=== PATIENT | female | born 1970 | race Caucasian/White ===

== ENCOUNTER 2017-09-24 18:07 | Emergency (ER) | payer MEDICAID ==
[~2017-09-24] VITALS: Ht 170.2 cm; Wt 106.8 kg
[~2017-09-24 18:07] MED LIST: BAC10T PO; CETI-85 PO; CLIN-79 PO; DOCU100C40 PO; ESCI20TA29 PO; EST1T PO; ESZO3TAB44 PO; KETO10TA2 PO; LEVO75TA57 PO; LORA1TAB PO; MSC30T PO; MULT-785 PO; NORCO10T PO; PENI500T2 PO; RISP0.5T38 PO; [UNRECOGNIZED DRUG - CODE] PO
[2017-09-24] MEDS ORDERED: ketorolac trometh inj. 60 MG/2 ML VIAL IM ONE (19:25)
[2017-09-24] MEDS ORDERED: ondansetron/PF 4mg/2ml inj IM ONE (19:25)
[2017-09-24] MEDS ORDERED: diphenhydrAMINE 50 mg/ml inj IM ONE (19:25)
[2017-09-24 19:50] VITALS: BP 163/100
== END 2017-09-24 19:51 | disposition home or self-care (01) ==
LOC: ER 18:08
DX: G43.909 Migraine, unspecified, not intractable, without status migrainosus (principal); G89.29 Other chronic pain; J45.909 Unspecified asthma, uncomplicated; K21.9 Gastro-esophageal reflux disease without esophagitis; E03.9 Hypothyroidism, unspecified; Z88.8 Allergy status to other drugs, medicaments and biological substances
CPT/HCPCS: 96372; 99284; J1200; J1885; J2405

== ENCOUNTER 2017-10-07 16:59 | Emergency (ER) | payer MEDICAID ==
[~2017-10-07] VITALS: Ht 170.2 cm; Wt 104.7 kg
[~2017-10-07 16:59] MED LIST changes: -PENI500T2 PO
[2017-10-07] MEDS: ketorolac trometh. 30mg/ml inj. IM ONE (20:30)
[2017-10-07] MEDS: ondansetron/PF 4mg/2ml inj IM ONE (20:30)
[2017-10-07] MEDS: diphenhydrAMINE 50 mg/ml inj IM ONE (20:31)
[2017-10-07 21:19] VITALS: BP 123/74
== END 2017-10-07 21:22 | disposition home or self-care (01) ==
LOC: ER 17:00
DX: G43.909 Migraine, unspecified, not intractable, without status migrainosus (principal); M54.2 Cervicalgia; G89.29 Other chronic pain; J45.909 Unspecified asthma, uncomplicated; K21.9 Gastro-esophageal reflux disease without esophagitis; E03.9 Hypothyroidism, unspecified; Z98.890 Other specified postprocedural states; Z79.899 Other long term (current) drug therapy; Z88.8 Allergy status to other drugs, medicaments and biological substances
CPT/HCPCS: 96372; 99284; J1200; J1885; J2405

== ENCOUNTER 2017-10-27 15:56 | Emergency (ER) | payer MEDICAID ==
[~2017-10-27] VITALS: Ht 170.2 cm; Wt 106.0 kg
[2017-10-27] MEDS ORDERED: normal saline 1000ML IV soln IVB ONE (16:05)
[2017-10-27] MEDS ORDERED: ondansetron/PF 4mg/2ml inj IV ONE (16:05)
[2017-10-27] MEDS ORDERED: LORazepam 2 mg/ml vial IV ONE (16:05)
[2017-10-27] MEDS ORDERED: ketorolac trometh. 30mg/ml inj. IV ONE (16:05)
[2017-10-27] MEDS ORDERED: diphenhydrAMINE 50 mg/ml inj IV ONE (16:05)
[2017-10-27 19:50] VITALS: BP 126/88
== END 2017-10-27 19:59 | disposition home or self-care (01) ==
LOC: ER 15:57
DX: G43.909 Migraine, unspecified, not intractable, without status migrainosus (principal); G89.29 Other chronic pain; M79.7 Fibromyalgia; J45.909 Unspecified asthma, uncomplicated; K21.9 Gastro-esophageal reflux disease without esophagitis; E03.9 Hypothyroidism, unspecified; Z90.49 Acquired absence of other specified parts of digestive tract; Z56.0 Unemployment, unspecified; Z98.890 Other specified postprocedural states; Z79.899 Other long term (current) drug therapy; Z88.6 Allergy status to analgesic agent; Z88.8 Allergy status to other drugs, medicaments and biological substances
CPT/HCPCS: 96374; 96375; 99284; J1200; J1885; J2060; J2405; J7030

== ENCOUNTER 2017-12-01 16:27 | Emergency (ER) | payer MEDICAID ==
[~2017-12-01] VITALS: Ht 170.2 cm; Wt 104.5 kg
[2017-12-01] MEDS ORDERED: diphenhydrAMINE 50 mg/ml inj IM ONE (18:35)
[2017-12-01] MEDS ORDERED: ondansetron/PF 4mg/2ml inj IM ONE (18:35)
[2017-12-01] MEDS ORDERED: ketorolac trometh inj. 60 MG/2 ML VIAL IM ONE (18:35)
[2017-12-01 21:41] VITALS: BP 181/90
== END 2017-12-01 19:38 | disposition home or self-care (01) ==
LOC: ER 16:28
DX: G43.909 Migraine, unspecified, not intractable, without status migrainosus (principal); G89.4 Chronic pain syndrome; M79.7 Fibromyalgia; J45.909 Unspecified asthma, uncomplicated; K21.9 Gastro-esophageal reflux disease without esophagitis; E03.9 Hypothyroidism, unspecified; F17.210 Nicotine dependence, cigarettes, uncomplicated; Z56.0 Unemployment, unspecified; Z90.49 Acquired absence of other specified parts of digestive tract; Z90.710 Acquired absence of both cervix and uterus; Z98.890 Other specified postprocedural states; Z88.8 Allergy status to other drugs, medicaments and biological substances; Z88.6 Allergy status to analgesic agent; Z79.899 Other long term (current) drug therapy
CPT/HCPCS: 96372; 99284; J1200; J1885; J2405

== ENCOUNTER 2017-12-17 11:46 | Emergency (ER) | payer MEDICAID ==
[~2017-12-17] VITALS: Ht 170.2 cm; Wt 94.5 kg
[2017-12-17 11:58] VITALS: BP 126/85
[2017-12-17] MEDS ORDERED: ketorolac trometh inj. 60 MG/2 ML VIAL IM ONE (13:30)
[2017-12-17] MEDS ORDERED: ondansetron 4mg rapidly disintigrating tab PO ONE (13:30)
[2017-12-17] MEDS ORDERED: diazepam 5mg tablet PO ONE (13:30)
[2017-12-17] MEDS ORDERED: diphenhydrAMINE 25mg capsule PO ONE (13:30)
[2017-12-17] MEDS ORDERED: ondansetron/PF 4mg/2ml inj IV ONE (13:50)
[2017-12-17] MEDS ORDERED: ondansetron/PF 4mg/2ml inj IM ONE (13:50)
== END 2017-12-17 14:31 | disposition home or self-care (01) ==
LOC: ER 11:47
DX: G43.909 Migraine, unspecified, not intractable, without status migrainosus (principal); J45.909 Unspecified asthma, uncomplicated; K21.9 Gastro-esophageal reflux disease without esophagitis; E03.9 Hypothyroidism, unspecified; G89.29 Other chronic pain; M79.7 Fibromyalgia; Z90.49 Acquired absence of other specified parts of digestive tract; Z98.890 Other specified postprocedural states; Z90.710 Acquired absence of both cervix and uterus; Z88.8 Allergy status to other drugs, medicaments and biological substances; Z88.6 Allergy status to analgesic agent; Z79.899 Other long term (current) drug therapy
CPT/HCPCS: 96372; 99284; J1885; J2405; Q0163

== ENCOUNTER 2018-01-01 18:09 | Emergency (ER) | payer MEDICAID ==
[~2018-01-01] VITALS: Ht 170.2 cm; Wt 104.5 kg
[2018-01-01] MEDS ORDERED: diphenhydrAMINE 50 mg/ml inj IV ONE (19:10)
[2018-01-01] MEDS ORDERED: ondansetron/PF 4mg/2ml inj IV ONE (19:10)
[2018-01-01] MEDS ORDERED: LORazepam 2 mg/ml vial IV ONE (19:10)
[2018-01-01] MEDS ORDERED: normal saline 1000ML IV soln IVB ONE (19:10)
[2018-01-01] MEDS ORDERED: ketorolac trometh. 30mg/ml inj. IV ONE (19:10)
[2018-01-01 20:31] VITALS: BP 132/72
== END 2018-01-01 20:34 | disposition home or self-care (01) ==
LOC: ER 18:10
DX: G43.909 Migraine, unspecified, not intractable, without status migrainosus (principal); K21.9 Gastro-esophageal reflux disease without esophagitis; E03.9 Hypothyroidism, unspecified; F17.210 Nicotine dependence, cigarettes, uncomplicated; Z88.8 Allergy status to other drugs, medicaments and biological substances
CPT/HCPCS: 96361; 96374; 96375; 99284; J1200; J1885; J2060; J2405; J7030

== ENCOUNTER 2018-02-03 13:45 | Emergency (ER) | payer MEDICAID ==
[~2018-02-03] VITALS: Ht 5619.3 cm; Wt 106.0 kg
[2018-02-03] MEDS ORDERED: LORazepam 2 mg/ml vial IV ONE (14:50)
[2018-02-03] MEDS ORDERED: ondansetron 4mg rapidly disintigrating tab PO ONE (14:50)
[2018-02-03] MEDS ORDERED: diphenhydrAMINE 50 mg/ml inj IV ONE (14:50)
[2018-02-03] MEDS ORDERED: normal saline 1000ML IV soln IVB ONE (14:50)
[2018-02-03] MEDS ORDERED: ketorolac trometh. 30mg/ml inj. IV ONE (14:50)
[2018-02-03 15:39] VITALS: BP 123/63
== END 2018-02-03 15:51 | disposition home or self-care (01) ==
LOC: ER 13:45
DX: G43.909 Migraine, unspecified, not intractable, without status migrainosus (principal); G89.29 Other chronic pain; E03.9 Hypothyroidism, unspecified; J45.909 Unspecified asthma, uncomplicated; Z90.49 Acquired absence of other specified parts of digestive tract; Z90.710 Acquired absence of both cervix and uterus; Z98.890 Other specified postprocedural states; Z88.8 Allergy status to other drugs, medicaments and biological substances; Z79.899 Other long term (current) drug therapy
CPT/HCPCS: 96374; 96375; 99285; J1200; J1885; J2060; J7030

== ENCOUNTER 2018-02-14 17:13 | Emergency (ER) | payer MEDICAID ==
[~2018-02-14] VITALS: Ht 170.2 cm; Wt 93.0 kg
[2018-02-14] MEDS ORDERED: ondansetron/PF 4mg/2ml inj IV ONE (18:35)
[2018-02-14] MEDS ORDERED: diphenhydrAMINE 50 mg/ml inj IV ONE (18:35)
[2018-02-14] MEDS ORDERED: ketorolac tromethamine 15mg/ml inj. IV ONE (18:35)
[2018-02-14] MEDS ORDERED: LORazepam 2 mg/ml vial IV ONE (18:35)
[2018-02-14] MEDS ORDERED: normal saline 1000ML IV soln IVB ONE (18:35)
[2018-02-14 18:40] VITALS: BP 107/65
[2018-02-14] MEDS ORDERED: clonazePAM 1mg tablet PO ONE (19:35)
== END 2018-02-14 19:44 | disposition home or self-care (01) ==
LOC: ER 17:13
DX: G43.909 Migraine, unspecified, not intractable, without status migrainosus (principal); F11.20 Opioid dependence, uncomplicated; J45.909 Unspecified asthma, uncomplicated; K21.9 Gastro-esophageal reflux disease without esophagitis; E03.9 Hypothyroidism, unspecified; G89.29 Other chronic pain; Z90.49 Acquired absence of other specified parts of digestive tract; Z90.710 Acquired absence of both cervix and uterus; Z98.890 Other specified postprocedural states; F17.200 Nicotine dependence, unspecified, uncomplicated; Z56.0 Unemployment, unspecified; Z88.8 Allergy status to other drugs, medicaments and biological substances; Z88.6 Allergy status to analgesic agent; Z79.899 Other long term (current) drug therapy
CPT/HCPCS: 96361; 96374; 96375; 99284; J1200; J1885; J2060; J2405; J7030

== ENCOUNTER 2018-03-24 18:53 | Emergency (ER) | payer MEDICAID ==
[~2018-03-24] VITALS: Ht 170.2 cm; Wt 103.2 kg
[~2018-03-24 18:53] MED LIST changes: -CLIN-79 PO; +CLIN150C8 PO
[2018-03-24] MEDS ORDERED: LORazepam 2 mg/ml vial IV ONE (20:30)
[2018-03-24] MEDS ORDERED: ondansetron/PF 4mg/2ml inj IV ONE (20:30)
[2018-03-24] MEDS ORDERED: ketorolac trometh. 30mg/ml inj. IV ONE (20:30)
[2018-03-24] MEDS ORDERED: normal saline 1000ML IV soln IVB ONE (20:30)
[2018-03-24] MEDS ORDERED: diphenhydrAMINE 50 mg/ml inj IM ONE (22:05)
[2018-03-24 22:16] VITALS: BP 106/57
== END 2018-03-24 22:18 | disposition home or self-care (01) ==
LOC: ER 18:53
DX: G43.909 Migraine, unspecified, not intractable, without status migrainosus (principal); J45.909 Unspecified asthma, uncomplicated; K21.9 Gastro-esophageal reflux disease without esophagitis; G89.29 Other chronic pain; E03.9 Hypothyroidism, unspecified; Z90.49 Acquired absence of other specified parts of digestive tract; Z90.710 Acquired absence of both cervix and uterus; Z98.890 Other specified postprocedural states; Z56.0 Unemployment, unspecified; Z88.8 Allergy status to other drugs, medicaments and biological substances; Z79.899 Other long term (current) drug therapy
CPT/HCPCS: 96361; 96372; 96374; 96375; 99284; J1200; J1885; J2060; J2405; J7030

== ENCOUNTER 2018-04-02 06:04 | Emergency (ER) | payer MEDICAID ==
[~2018-04-02] VITALS: Ht 170.2 cm; Wt 103.6 kg
[2018-04-02] MEDS ORDERED: diphenhydrAMINE 50 mg/ml inj IV ONE (07:45)
[2018-04-02] MEDS ORDERED: ketorolac trometh. 30mg/ml inj. IV ONE (07:45)
[2018-04-02] MEDS ORDERED: normal saline 1000ml 1,000 ML IV ONE (07:45)
[2018-04-02] MEDS ORDERED: ondansetron/PF 4mg/2ml inj IV ONE (07:45)
[2018-04-02] MEDS ORDERED: LORazepam 2 mg/ml vial IV ONE (07:45)
[2018-04-02] MEDS ORDERED: acetaminophen 325mg tablet PO ONE (07:45)
[2018-04-02 08:57] VITALS: BP 100/53
== END 2018-04-02 09:02 | disposition home or self-care (01) ==
LOC: ER 06:04
DX: G43.909 Migraine, unspecified, not intractable, without status migrainosus (principal); J45.909 Unspecified asthma, uncomplicated; K21.9 Gastro-esophageal reflux disease without esophagitis; E03.9 Hypothyroidism, unspecified; G89.29 Other chronic pain; Z90.49 Acquired absence of other specified parts of digestive tract; Z90.710 Acquired absence of both cervix and uterus; Z98.890 Other specified postprocedural states; Z56.0 Unemployment, unspecified; Z88.8 Allergy status to other drugs, medicaments and biological substances; Z79.2 Long term (current) use of antibiotics; Z79.899 Other long term (current) drug therapy
CPT/HCPCS: 96374; 96375; 99284; J1200; J1885; J2060; J2405; J7030

== ENCOUNTER 2018-04-11 12:36 | Emergency (ER) | payer MEDICAID ==
[~2018-04-11] VITALS: Ht 584.7 cm; Wt 101.0 kg
[2018-04-11] MEDS ORDERED: normal saline 1000ML IV soln IVB ONE (14:05)
[2018-04-11] MEDS ORDERED: ondansetron/PF 4mg/2ml inj IV ONE (14:05)
[2018-04-11] MEDS ORDERED: diphenhydrAMINE 50 mg/ml inj IV ONE (14:05)
[2018-04-11] MEDS ORDERED: ketorolac tromethamine 15mg/ml inj. IV ONE (14:10)
[2018-04-11 14:39] VITALS: BP 105/63
== END 2018-04-11 15:24 | disposition home or self-care (01) ==
LOC: ER 12:37
DX: F11.23 Opioid dependence with withdrawal (principal); R51 Headache; E86.0 Dehydration; R11.2 Nausea with vomiting, unspecified; F41.9 Anxiety disorder, unspecified; M79.7 Fibromyalgia; J45.909 Unspecified asthma, uncomplicated; G43.909 Migraine, unspecified, not intractable, without status migrainosus; K21.9 Gastro-esophageal reflux disease without esophagitis; E03.9 Hypothyroidism, unspecified; G89.29 Other chronic pain; Z90.49 Acquired absence of other specified parts of digestive tract; Z90.710 Acquired absence of both cervix and uterus; Z98.890 Other specified postprocedural states; Z88.8 Allergy status to other drugs, medicaments and biological substances; Z79.899 Other long term (current) drug therapy; Z56.0 Unemployment, unspecified
CPT/HCPCS: 96361; 96374; 96375; 99284; J1200; J1885; J2405; J7030

== ENCOUNTER 2018-04-17 18:21 | Emergency (ER) | payer MEDICAID ==
[~2018-04-17] VITALS: Ht 170.2 cm; Wt 100.0 kg
[2018-04-17] MEDS ORDERED: normal saline 1000ml 1,000 ML IV ONE (20:50)
[2018-04-17] MEDS ORDERED: ondansetron/PF 4mg/2ml inj IV ONE (20:50)
[2018-04-17] MEDS ORDERED: ketorolac trometh. 30mg/ml inj. IV ONE (20:50)
[2018-04-17] MEDS ORDERED: diphenhydrAMINE 50 mg/ml inj IV ONE (20:50)
[2018-04-17] MEDS ORDERED: LORazepam 2 mg/ml vial IV ONE (20:50)
[2018-04-17 21:57] VITALS: BP 110/67
== END 2018-04-17 22:00 | disposition home or self-care (01) ==
LOC: ER 18:22
DX: G43.909 Migraine, unspecified, not intractable, without status migrainosus (principal); J45.909 Unspecified asthma, uncomplicated; K21.9 Gastro-esophageal reflux disease without esophagitis; E03.9 Hypothyroidism, unspecified; G89.29 Other chronic pain; F17.200 Nicotine dependence, unspecified, uncomplicated; Z90.49 Acquired absence of other specified parts of digestive tract; Z90.710 Acquired absence of both cervix and uterus; Z98.890 Other specified postprocedural states; Z56.0 Unemployment, unspecified; Z88.8 Allergy status to other drugs, medicaments and biological substances; Z79.899 Other long term (current) drug therapy
CPT/HCPCS: 96374; 96375; 99284; J1200; J1885; J2060; J2405; J7030

== ENCOUNTER 2018-04-26 10:10 | Emergency (ER) | payer MEDICAID ==
[~2018-04-26] VITALS: Ht 170.2 cm; Wt 100.9 kg
[2018-04-26] MEDS ORDERED: diphenhydrAMINE 50 mg/ml inj IV ONE (12:20)
[2018-04-26] MEDS ORDERED: ondansetron/PF 4mg/2ml inj IV ONE (12:20)
[2018-04-26] MEDS ORDERED: normal saline 1000ML IV soln IVB ONE (12:20)
[2018-04-26] MEDS ORDERED: LORazepam 2 mg/ml vial IV ONE (12:20)
[2018-04-26] MEDS ORDERED: ketorolac trometh. 30mg/ml inj. IV ONE (12:20)
[2018-04-26 14:09] VITALS: BP 173/81
== END 2018-04-26 14:14 | disposition home or self-care (01) ==
LOC: ER 10:11
DX: G43.909 Migraine, unspecified, not intractable, without status migrainosus (principal); J45.909 Unspecified asthma, uncomplicated; K21.9 Gastro-esophageal reflux disease without esophagitis; E03.9 Hypothyroidism, unspecified; G89.29 Other chronic pain; M79.7 Fibromyalgia; Z56.0 Unemployment, unspecified; Z90.49 Acquired absence of other specified parts of digestive tract; Z98.890 Other specified postprocedural states; Z90.710 Acquired absence of both cervix and uterus; Z88.6 Allergy status to analgesic agent; Z79.899 Other long term (current) drug therapy; Z88.8 Allergy status to other drugs, medicaments and biological substances
CPT/HCPCS: 96374; 96375; 99284; J1200; J1885; J2060; J2405

== ENCOUNTER 2018-05-05 10:19 | Emergency (ER) | payer MEDICAID ==
[~2018-05-05] VITALS: Ht 170.2 cm; Wt 100.0 kg
[2018-05-05] MEDS ORDERED: normal saline 1000ML IV soln IVB ONE (10:50)
[2018-05-05] MEDS ORDERED: ketorolac trometh. 30mg/ml inj. IV ONE (10:50)
[2018-05-05] MEDS ORDERED: ondansetron/PF 4mg/2ml inj IV ONE (10:50)
[2018-05-05] MEDS ORDERED: diphenhydrAMINE 50 mg/ml inj IV ONE (10:50)
[2018-05-05] MEDS ORDERED: LORazepam 2 mg/ml vial IV ONE (10:50)
[2018-05-05 11:56] VITALS: BP 95/58
== END 2018-05-05 12:13 | disposition home or self-care (01) ==
LOC: ER 10:19
DX: G43.909 Migraine, unspecified, not intractable, without status migrainosus (principal); J45.909 Unspecified asthma, uncomplicated; K21.9 Gastro-esophageal reflux disease without esophagitis; E03.9 Hypothyroidism, unspecified; G89.29 Other chronic pain; Z90.49 Acquired absence of other specified parts of digestive tract; Z90.710 Acquired absence of both cervix and uterus; Z98.890 Other specified postprocedural states; Z88.8 Allergy status to other drugs, medicaments and biological substances; Z79.899 Other long term (current) drug therapy; Z56.0 Unemployment, unspecified
CPT/HCPCS: 96361; 96374; 96375; 99284; J1200; J1885; J2060; J2405; J7030

== ENCOUNTER 2018-05-18 21:07 | Emergency (ER) | payer MEDICAID ==
[~2018-05-18] VITALS: Ht 170.2 cm; Wt 99.0 kg
[2018-05-18] MEDS ORDERED: normal saline 1000ml 1,000 ML IV ONE (21:35)
[2018-05-18] MEDS ORDERED: ondansetron/PF 4mg/2ml inj IV ONE (21:35)
[2018-05-18] MEDS ORDERED: ketorolac trometh. 30mg/ml inj. IV ONE (21:35)
[2018-05-18] MEDS ORDERED: morphine 4 MG/ML inj SYRINge IV ONE (21:35)
[2018-05-18] MEDS ORDERED: diphenhydrAMINE 50 mg/ml inj IV ONE (21:35)
[2018-05-18] MEDS ORDERED: ONDA8TAB9 PO (22:12)
[2018-05-18 22:29] VITALS: BP 133/75
== END 2018-05-18 22:32 | disposition home or self-care (01) ==
LOC: ER 21:08
DX: G43.909 Migraine, unspecified, not intractable, without status migrainosus (principal); G89.29 Other chronic pain; M54.9 Dorsalgia, unspecified; J45.909 Unspecified asthma, uncomplicated; K21.9 Gastro-esophageal reflux disease without esophagitis; E03.9 Hypothyroidism, unspecified; M79.7 Fibromyalgia; Z90.49 Acquired absence of other specified parts of digestive tract; Z90.710 Acquired absence of both cervix and uterus; Z98.890 Other specified postprocedural states; Z56.0 Unemployment, unspecified; Z88.8 Allergy status to other drugs, medicaments and biological substances; Z88.6 Allergy status to analgesic agent; Z79.899 Other long term (current) drug therapy
CPT/HCPCS: 96361; 96374; 96375; 99284; J1200; J1885; J2270; J2405

== ENCOUNTER 2018-05-25 18:56 | Emergency (ER) | payer MEDICAID ==
[~2018-05-25] VITALS: Ht 170.2 cm; Wt 98.5 kg
[~2018-05-25 18:56] MED LIST changes: +ONDA8TAB9 PO
[2018-05-25 19:08] VITALS: BP 127/87
[2018-05-25] MEDS ORDERED: ondansetron/PF 4mg/2ml inj IV ONE ×2 (20:05→21:00)
[2018-05-25] MEDS ORDERED: normal saline 1000ML IV soln IVB ONE (20:05)
[2018-05-25] MEDS ORDERED: LORazepam 2 mg/ml vial IV ONE (20:05)
[2018-05-25] MEDS ORDERED: diphenhydrAMINE 50 mg/ml inj IV ONE (20:05)
[2018-05-25] MEDS ORDERED: ketorolac tromethamine 15mg/ml inj. IV ONE (20:05)
[2018-05-25] MEDS ORDERED: ipratropium/albuterol 3ml nebule NEB ONE (20:30)
== END 2018-05-25 21:58 | disposition home or self-care (01) ==
LOC: ER 18:56
DX: G43.809 Other migraine, not intractable, without status migrainosus (principal); J45.909 Unspecified asthma, uncomplicated; G89.29 Other chronic pain; E03.9 Hypothyroidism, unspecified; Z90.49 Acquired absence of other specified parts of digestive tract; Z90.710 Acquired absence of both cervix and uterus; Z98.890 Other specified postprocedural states; F17.200 Nicotine dependence, unspecified, uncomplicated; Z88.8 Allergy status to other drugs, medicaments and biological substances; Z79.899 Other long term (current) drug therapy; Z56.0 Unemployment, unspecified
CPT/HCPCS: 94640; 94760; 96361; 96374; 96375; 96376; 99284; J1200; J1885; J2060; J2405; J7030

== ENCOUNTER 2018-06-03 15:16 | Emergency (ER) | payer MEDICAID ==
[~2018-06-03] VITALS: Ht 170.2 cm; Wt 98.0 kg
[2018-06-03 15:28] VITALS: BP 130/82
[2018-06-03] MEDS ORDERED: diphenhydrAMINE 50 mg/ml inj IM ONE (16:55)
[2018-06-03] MEDS ORDERED: ondansetron/PF 4mg/2ml inj IM ONE (16:55)
[2018-06-03] MEDS ORDERED: ketorolac trometh inj. 60 MG/2 ML VIAL IM ONE (16:55)
== END 2018-06-03 17:13 | disposition home or self-care (01) ==
LOC: ER 15:17
DX: G43.909 Migraine, unspecified, not intractable, without status migrainosus (principal); M79.2 Neuralgia and neuritis, unspecified; G89.29 Other chronic pain; K21.9 Gastro-esophageal reflux disease without esophagitis; J45.909 Unspecified asthma, uncomplicated; E03.9 Hypothyroidism, unspecified; Z88.8 Allergy status to other drugs, medicaments and biological substances; Z90.49 Acquired absence of other specified parts of digestive tract; Z90.710 Acquired absence of both cervix and uterus
CPT/HCPCS: 96372; 99284; J1200; J1885; J2405

== ENCOUNTER 2018-07-01 13:34 | Emergency (ER) | payer MEDICAID ==
[~2018-07-01] VITALS: Ht 165.1 cm; Wt 97.2 kg
[2018-07-01] MEDS ORDERED: LORazepam 2 mg/ml vial IV ONE (14:30)
[2018-07-01] MEDS ORDERED: normal saline 1000ML IV soln IVB ONE (14:30)
[2018-07-01] MEDS ORDERED: ondansetron/PF 4mg/2ml inj IV ONE (14:30)
[2018-07-01] MEDS ORDERED: ketorolac trometh. 30mg/ml inj. IV ONE (14:30)
[2018-07-01] MEDS ORDERED: diphenhydrAMINE 50 mg/ml inj IV ONE (15:00)
[2018-07-01] MEDS ORDERED: morphine 4 MG/ML inj SYRINge IV ONE (15:00)
[2018-07-01 16:06] VITALS: BP 126/84
== END 2018-07-01 16:08 | disposition home or self-care (01) ==
LOC: ER 13:35
DX: G43.809 Other migraine, not intractable, without status migrainosus (principal); M79.7 Fibromyalgia; J45.909 Unspecified asthma, uncomplicated; K21.9 Gastro-esophageal reflux disease without esophagitis; E03.9 Hypothyroidism, unspecified; G89.29 Other chronic pain; Z90.49 Acquired absence of other specified parts of digestive tract; Z90.710 Acquired absence of both cervix and uterus; Z98.890 Other specified postprocedural states; Z56.0 Unemployment, unspecified; Z88.8 Allergy status to other drugs, medicaments and biological substances; Z79.2 Long term (current) use of antibiotics; Z79.899 Other long term (current) drug therapy
CPT/HCPCS: 96361; 96374; 96375; 99284; J1200; J1885; J2060; J2270; J2405; J7030

== ENCOUNTER 2018-07-12 01:11 | Emergency (ER) | payer MEDICAID ==
[~2018-07-12] VITALS: Ht 170.2 cm; Wt 98.0 kg
[2018-07-12] MEDS ORDERED: ondansetron/PF 4mg/2ml inj IV ONE (02:30)
[2018-07-12] MEDS ORDERED: ketorolac tromethamine 15mg/ml inj. IV ONE (02:30)
[2018-07-12] MEDS ORDERED: diphenhydrAMINE 50 mg/ml inj IV ONE (02:30)
[2018-07-12] MEDS ORDERED: normal saline 1000ML IV soln IVB ONE (02:30)
[2018-07-12 03:09] VITALS: BP 135/78
== END 2018-07-12 03:11 | disposition home or self-care (01) ==
LOC: ER 01:12
DX: F11.23 Opioid dependence with withdrawal (principal); G89.29 Other chronic pain; J34.89 Other specified disorders of nose and nasal sinuses; G43.909 Migraine, unspecified, not intractable, without status migrainosus; J45.909 Unspecified asthma, uncomplicated; K21.9 Gastro-esophageal reflux disease without esophagitis; E03.9 Hypothyroidism, unspecified; Z90.49 Acquired absence of other specified parts of digestive tract; Z88.8 Allergy status to other drugs, medicaments and biological substances; Z79.899 Other long term (current) drug therapy; Z90.710 Acquired absence of both cervix and uterus; Z98.890 Other specified postprocedural states; Z56.0 Unemployment, unspecified; Z98.86 Personal history of breast implant removal
CPT/HCPCS: 96374; 96375; 99284; J1200; J1885; J2405

== ENCOUNTER 2018-09-20 09:24 | Emergency (ER) | payer MEDICAID ==
[~2018-09-20] VITALS: Ht 170.2 cm; Wt 98.0 kg
[2018-09-20 09:34] VITALS: BP 129/89
[2018-09-20] MEDS ORDERED: diphenhydrAMINE 50 mg/ml inj IM ONE (10:55)
[2018-09-20] MEDS ORDERED: ketorolac trometh inj. 60 MG/2 ML VIAL IM ONE (10:55)
[2018-09-20] MEDS ORDERED: ondansetron 4mg rapidly disintigrating tab PO ONE (10:55)
[2018-09-20] MEDS ORDERED: ondansetron/PF 4mg/2ml inj IM ONE (11:30)
== END 2018-09-20 11:45 | disposition home or self-care (01) ==
LOC: ER 09:24
DX: G89.29 Other chronic pain (principal); M79.7 Fibromyalgia; F41.9 Anxiety disorder, unspecified; R11.0 Nausea; J45.909 Unspecified asthma, uncomplicated; K21.9 Gastro-esophageal reflux disease without esophagitis; E03.9 Hypothyroidism, unspecified; Z90.49 Acquired absence of other specified parts of digestive tract; Z90.710 Acquired absence of both cervix and uterus; Z98.890 Other specified postprocedural states; Z56.0 Unemployment, unspecified; Z88.8 Allergy status to other drugs, medicaments and biological substances; Z79.2 Long term (current) use of antibiotics; Z79.899 Other long term (current) drug therapy
CPT/HCPCS: 96372; 99283; J1200; J1885; J2405

== ENCOUNTER 2018-12-08 17:07 | Emergency (ER) | payer MEDICAID ==
[~2018-12-08] VITALS: Ht 170.2 cm; Wt 102.3 kg
[2018-12-08] MEDS ORDERED: normal saline 1000ML IV soln IVB ONE (18:00)
[2018-12-08] MEDS ORDERED: ondansetron/PF 4mg/2ml inj IV ONE (18:00)
[2018-12-08] MEDS ORDERED: LORazepam 2 mg/ml vial IV ONE ×2 (18:00→19:40)
[2018-12-08] MEDS ORDERED: cloNIDine 0.2 MG/24 HR patch (7 day patch) TD ONE (18:00)
[2018-12-08 18:31] LABS: BASOPHILS # (AUTO) 0.1 X10'3 (0-0.2); BASOPHILS % (AUTO) 0.4 % (0-1); EOSINOPHILS % (AUTO) 0.4 % (0-6); HEMATOCRIT 38.1 % (35.0-45.0); HEMOGLOBIN 12.7 g/dl (12.0-16.0); LYMPHOCYTES # (AUTO) 2.3 X10'3 (1.1-4.8); LYMPHOCYTES % (AUTO) 20.2 % (21-51); MEAN CORPUSCULAR HEMOGLOBIN 31.4 PG (27.0-31.0); MEAN CORPUSCULAR HGB CONC 33.3 g/dL (33.0-36.5); MEAN CORPUSCULAR VOLUME 94.5 FL (78-98); MEAN PLATELET VOLUME 6.5 FL (7.4-10.4); MONOCYTES % (AUTO) 9.1 % (2-12); NEUTROPHILS # (AUTO) 7.9 X10'3 (1.8-7.7); NEUTROPHILS % (AUTO) 69.9 % (42-75); PLATELET COUNT 291 X10'3 (140-440); RED BLOOD COUNT 4.03 X10'6 (4.20-5.60); RED CELL DISTRIBUTION WIDTH 14.6 % (11.5-14.5); WHITE BLOOD COUNT 11.2 X10'3 (4.5-11.0)
[2018-12-08 18:41] LABS: ALANINE AMINOTRANSFERASE 29 U/L (12-78); ALBUMIN 3.1 G/DL (3.4-5.0); ALBUMIN/GLOBULIN RATIO 0.8 (1.1-1.5); ALKALINE PHOSPHATASE 59 IU/L (46-116); ANION GAP 12 (8-16); ASPARTATE AMINO TRANSFERASE 23 U/L (10-37); BILIRUBIN,TOTAL 0.2 MG/DL (0.1-1.0); BLOOD UREA NITROGEN 10 MG/DL (7-18); CALCIUM 8.9 MG/DL (8.5-10.1); CHLORIDE 106 MMOL/L (99-107); CREATININE 0.77 MG/DL (0.40-0.90); GLUCOSE 134 MG/DL (70-104); POTASSIUM 3.5 MMOL/L (3.5-5.1); SODIUM 139 MMOL/L (135-145); TOTAL CARBON DIOXIDE 21.3 MMOL/L (24-32); TOTAL PROTEIN 7.2 G/DL (6.4-8.2); eGFR 80 ML/MIN
[2018-12-08 18:44] LABS: ETHANOL < 0.010 GM/DL (0.0-0.010)
[2018-12-08 18:45] LABS: ACETAMINOPHEN < 2.0 UG/ML (10-30)
[2018-12-08] MEDS ORDERED: ONDA8TAB13 PO (19:26)
--- NOTE | 2018-12-08 19:35 | NUR ---
Pt drank water and kept it down. She then said "Oh, its starting, and she shook her right foot." Pt wanting more MD chelo made aware.
[2018-12-08 19:54] VITALS: BP 174/102
== END 2018-12-08 19:56 | disposition home or self-care (01) ==
LOC: ER 17:08
DX: F19.939 Other psychoactive substance use, unspecified with withdrawal, unspecified (principal); R11.10 Vomiting, unspecified; R61 Generalized hyperhidrosis; G43.909 Migraine, unspecified, not intractable, without status migrainosus; K21.9 Gastro-esophageal reflux disease without esophagitis; J45.909 Unspecified asthma, uncomplicated; E03.9 Hypothyroidism, unspecified; G89.29 Other chronic pain; F41.9 Anxiety disorder, unspecified; F31.9 Bipolar disorder, unspecified; Z56.0 Unemployment, unspecified; Z88.8 Allergy status to other drugs, medicaments and biological substances; Z79.899 Other long term (current) drug therapy; Z90.49 Acquired absence of other specified parts of digestive tract; Z98.890 Other specified postprocedural states; Z90.710 Acquired absence of both cervix and uterus
CPT/HCPCS: 36415; 80053; 80320; 80329; 85025; 96361; 96374; 96375; 99283; J2060; J2405; J7030

== ENCOUNTER 2018-12-18 00:55 | Inpatient (IN) | payer MEDICAID ==
[~2018-12-18] VITALS: Ht 170.2 cm; Wt 91.4 kg
[~2018-12-18 00:55] MED LIST changes: +ONDA8TAB13 PO
[2018-12-18] MEDS ORDERED: LEVO100T PO (01:15)
[2018-12-18] MEDS ORDERED: cloNIDine 0.1 mg tablet PO ONE (01:20)
[2018-12-18] MEDS ORDERED: normal saline 1000ML IV soln IVB ONE (01:20)
[2018-12-18 01:27] LABS: BASOPHILS # (AUTO) 0.1 X10'3 (0-0.2); BASOPHILS % (AUTO) 0.8 % (0-1); EOSINOPHILS # (AUTO) 0.1 X10'3 (0-0.9); EOSINOPHILS % (AUTO) 0.7 % (0-6); HEMATOCRIT 41.8 % (35.0-45.0); HEMOGLOBIN 14.1 g/dl (12.0-16.0); LYMPHOCYTES # (AUTO) 3.8 X10'3 (1.1-4.8); LYMPHOCYTES % (AUTO) 25.4 % (21-51); MEAN CORPUSCULAR HEMOGLOBIN 31.4 PG (27.0-31.0); MEAN CORPUSCULAR HGB CONC 33.9 g/dL (33.0-36.5); MEAN CORPUSCULAR VOLUME 92.7 FL (78-98); MEAN PLATELET VOLUME 7.4 FL (7.4-10.4); MONOCYTES # (AUTO) 1.7 X10'3 (0-0.9); MONOCYTES % (AUTO) 11.5 % (2-12); NEUTROPHILS # (AUTO) 9.1 X10'3 (1.8-7.7); NEUTROPHILS % (AUTO) 61.6 % (42-75); PLATELET COUNT 304 X10'3 (140-440); RED CELL DISTRIBUTION WIDTH 14.3 % (11.5-14.5); WHITE BLOOD COUNT 14.8 X10'3 (4.5-11.0)
[2018-12-18] MEDS ORDERED: CLON1PAT15 TOP (01:30)
[2018-12-18 01:33] LABS: ALANINE AMINOTRANSFERASE 31 U/L (12-78); ALBUMIN 3.1 G/DL (3.4-5.0); ALBUMIN/GLOBULIN RATIO 0.8 (1.1-1.5); ALKALINE PHOSPHATASE 63 IU/L (46-116); ANION GAP 12 (8-16); ASPARTATE AMINO TRANSFERASE 23 U/L (10-37); BILIRUBIN,TOTAL 0.4 MG/DL (0.1-1.0); BLOOD UREA NITROGEN 11 MG/DL (7-18); BUN/CREATININE RATIO 11.2 (6.6-38.0); CALCIUM 8.6 MG/DL (8.5-10.1); CHLORIDE 106 MMOL/L (99-107); CREATININE 0.98 MG/DL (0.40-0.90); GLUCOSE 122 MG/DL (70-104); SODIUM 143 MMOL/L (135-145); eGFR 61 ML/MIN
--- NOTE | 2018-12-18 01:33 | NUR ---
Informed MD that she does have a clonidine patch on her arm she placed yesterday.
[2018-12-18] MEDS ORDERED: LORazepam 1 MG tablet PO ONE (01:35)
--- NOTE | 2018-12-18 01:37 | NUR ---
Pt really wanted "a benzo." ordered ativan, took it into her room and she wanted it IV. Encouraged her to take it po. Then se asked for an emesis bag. Infomed pt that she did get IV zofran per EMS so she should not need to vomit.
[2018-12-18 01:39] LABS: POTASSIUM 2.3 MMOL/L (3.5-5.1)
[2018-12-18] MEDS ORDERED: potassium Cl 40 mEq/NS 500ml IV ONE ×2 (01:40→01:50)
[2018-12-18] MEDS ORDERED: potassium Cl 20 mEq SR tablet PO ONE (01:40)
--- NOTE | 2018-12-18 01:53 | NUR ---
pt didn't take the po potassium, she just has it in her mind she will vomit them up. Gave her crackers, she said no gave her juice, she said no. She said she'd start with the IV potassium and work her way up to the pills. Spouse at .
[2018-12-18] MEDS ORDERED: Potassium Cl 40 MEQ in NS 500 ML IV ONE (01:55)
[2018-12-18 02:02] LABS: MAGNESIUM 1.7 MG/DL (1.5-2.4)
[2018-12-18] MEDS ORDERED: morphine 4 MG/ML inj SYRINge IV PRN (02:10)
[2018-12-18] MEDS ORDERED: morphine 2 MG/ML inj. syringe IV PRN (02:10)
[2018-12-18] MEDS ORDERED: mag hydrox/Alum hydrox/simeth 30ml oral suspension PO PRN (02:10)
[2018-12-18] MEDS ORDERED: acetaminophen 325mg tablet PO PRN (02:10)
[2018-12-18] MEDS ORDERED: potassium Cl 40MEQ/NS 500ml 500 ML IV PRN ×2 (02:10)
[2018-12-18] MEDS ORDERED: magnesium hydroxide 30ml (MOM) UD suspension PO PRN (02:10)
[2018-12-18] MEDS ORDERED: potassium Cl 20 mEq SR tablet PO PRN ×2 (02:10)
[2018-12-18] MEDS ORDERED: HYDROcodone/acetaminophen 5mg/325mg tablet PO PRN (02:10)
[2018-12-18] MEDS: dextrose 5%-1/2 normal saline 1,000 ML IV SCH ×2 (02:45→11:43)
--- NOTE | 2018-12-18 02:50 | NUR ---
pt up to the BR, gave her a cup and wipes for a ua
[2018-12-18] MEDS: ondansetron/PF 4mg/2ml inj IV PRN ×2 (02:54→12:07)
--- NOTE | 2018-12-18 03:05 | NUR ---
Pt states that she has to take baclofen at 0300 and norco at 0400. When asked why she takes them in the middle of the night she said "it just works out that way." I told her she needs to take her potassium. She seems willing to take her baclofen and norco, she should be able to take her potassium. Seems logical.
--- NOTE | 2018-12-18 03:11 | NUR ---
Dr Monterroso was contacted to inform him that the patient requested those meds, and about the discussion she had with me. He said he has the med rec and is aware.
[2018-12-18 03:19] LABS: CLARITY,URINE SLIGHTLY CLOUDY (Clear); COLOR,URINE YELLOW (Yellow); GLUCOSE, URINE NEGATIVE (Neg); KETONES,URINE NEGATIVE (Neg); LEUKOCYTE ESTERASE ,URINE NEGATIVE (Neg); NITRITES, URINE NEGATIVE (Neg); OCCULT BLOOD,URINE NEGATIVE (Neg); PROTEIN,URINE 30 mg/dl (Neg); UROBILINOGEN,URINE 0.2 E.U/dL (0.2-1.0)
[2018-12-18] MEDS ORDERED: zolpidem 5mg tablet PO SCH (03:20)
[2018-12-18 03:27] LABS: UA COLLECTION TYPE CLN CATCH MIDSTREAM
[2018-12-18 03:30] LABS: BACTERIA,URINE 4+ /HPF (Neg); MUCUS STRANDS MANY /LPF (Neg); RBC,URINE 0-2 /HPF (0-2); SQUAMOUS EPITHELIAL CELL,UR MANY /LPF (FEW); WBC,URINE 0-4 /HPF (0-4)
[2018-12-18] MEDS: HYDROcodone/acetaminophen 10/325mg tab PO PRN ×4 (03:37→18:10)
--- NOTE | 2018-12-18 03:38 | NUR ---
pt did not like that potassium po. she says its a texture thing. I even tried crushing it in applesauce.
--- NOTE | 2018-12-18 03:39 | NUR ---
she was able to get the norco down just fine
[2018-12-18] MEDS ORDERED: proCHLORperazine 10 MG/2 ml inj IM ONE (03:40)
--- NOTE | 2018-12-18 04:30 | NUR ---
Received report from Kayla BROWN from ED. Patient came up to floor via gurney. Vitals taken. IV fluids running per MD orders. Call light placed within reach. Bed locked & low.
[2018-12-18 04:32] VITALS: BP 115/67
--- NOTE | 2018-12-18 06:10 | NUR ---
Patient in room ORTHO 4015. I have received report from Karen BROWN and had the opportunity to ask questions and assume patient care.
--- NOTE | 2018-12-18 06:16 | NUR ---
Problems reprioritized. Patient report given, questions answered & plan of care reviewed with Jacinta BROWN.
[2018-12-18 08:00] VITALS: BP_SYST 100; BP_SYST 123; BP_SYST 132; BP_DIAS 69; BP_DIAS 72; BP_DIAS 82
[2018-12-18] MEDS ORDERED: citalopram 20mg tablet PO SCH (08:00)
[2018-12-18] MEDS: K and/or MAG REPLACEMENT MC SCH (08:00)
[2018-12-18] MEDS: baclofen 10mg tablet PO SCH ×3 (08:33→20:28)
[2018-12-18] MEDS: levoTHYROXINE 100mcg tablet PO SCH (08:33)
[2018-12-18] MEDS: estradiol 1mg tablet PO SCH (08:33)
[2018-12-18] MEDS: topiramate 100mg tablet PO SCH ×2 (09:09→20:28)
[2018-12-18 10:23] LABS: POTASSIUM 2.7 MMOL/L (3.5-5.1)
--- NOTE | 2018-12-18 10:23 | NUR ---
Received call from lab, critical potassium of 2.7, pagedell MUNIZ
--- NOTE | 2018-12-18 10:26 | NUR ---
PAGER ID: [phone] MESSAGE: Jacinta on ortho, #[phone], [place] [id number] has critical potassium of 2.7, thank you
[2018-12-18 10:52] VITALS: BP 115/66
[2018-12-18] MEDS: potassium Cl oral solution 20 MEQ/15 ML PO PRN ×3 (11:45→20:03)
[2018-12-18] MEDS ORDERED: LORazepam 1 MG tablet PO PRN (16:25)
[2018-12-18] MEDS ORDERED: Potassium Cl inj 20 MEQ in normal saline 1000ml 990 ML IV SCH (16:25)
[2018-12-18] MEDS: Potassium Cl inj 20 MEQ in normal saline 1000ml 1,000 ML IV SCH (17:51)
--- NOTE | 2018-12-18 17:55 | NUR ---
Malnutrition consult. Patient presented to ED with weakness, nausea, vomiting r/t her abruptly stopping her ativan two weeks ago. Per H&P patient reports poor food and fluid intake for a couple weeks. admitted with flaccid muscle, no edema. Eating poorly today, about 0-25%. Per documented weight history pt weighed 216 lbs last July, current stated weight is 201 lbs. Need new weight for accurate assessment of weight loss. Pt reports loss of 24-33 lbs. Pt's diet is full liquid for dinner per MD order d/t nausea and dry heaving. Met with patient at bedside to discuss what to expect on full liquids, she is agreeable to Ensure with meals, notified MD of recommendation. Patient appeared well nourished with no fat or muscle wasting. She reported some of her weight loss was "water weight." no malnutrition at this time. Will continue to follow per protocol. Addendum: 12/18/18 at [address] Amended: Links added.
[2018-12-18 18:00] VITALS: BP 120/79
[2018-12-18] MEDS ORDERED: lactose-reduced food (Ensure Enlive) - 237ml bottle PO SCH (18:00)
--- NOTE | 2018-12-18 18:25 | NUR ---
Problems reprioritized. Patient report given, questions answered & plan of care reviewed with KEVIN Jones.
--- NOTE | 2018-12-18 18:27 | NUR ---
Patient in room ORTHO 4015. I have received report from Jacinta BROWN and had the opportunity to ask questions and assume patient care.
[2018-12-18] MEDS: loperamide 2mg capsule PO PRN (18:51)
[2018-12-18] MEDS: heparin, porcine 5000 units/ml vial SQ SCH (20:00)
[2018-12-18] MEDS: gabapentin 300mg capsule PO SCH (20:39)
[2018-12-18 22:00] VITALS: BP 115/77
[2018-12-19] MEDS: HYDROcodone/acetaminophen 10/325mg tab PO PRN ×3 (00:01→11:43)
[2018-12-19] MEDS: Potassium Cl inj 20 MEQ in normal saline 1000ml 1,000 ML IV SCH ×2 (02:53→12:59)
[2018-12-19 04:50] VITALS: BP_SYST 127; BP_SYST 138; BP_SYST 145; BP_DIAS 73; BP_DIAS 84; BP_DIAS 90
[2018-12-19 06:00] VITALS: BP 127/73
--- NOTE | 2018-12-19 06:15 | NUR ---
Problems reprioritized. Patient report given, questions answered & plan of care reviewed with Jacinta BROWN.
--- NOTE | 2018-12-19 06:15 | NUR ---
Patient in room ORTHO 4015. I have received report from Karen BROWN, and had the opportunity to ask questions and assume patient care.
[2018-12-19 06:35] LABS: BASOPHILS % (AUTO) 0.6 % (0-1); EOSINOPHILS # (AUTO) 0.2 X10'3 (0-0.9); EOSINOPHILS % (AUTO) 1.8 % (0-6); LYMPHOCYTES # (AUTO) 2.3 X10'3 (1.1-4.8); LYMPHOCYTES % (AUTO) 27.4 % (21-51); MEAN CORPUSCULAR HEMOGLOBIN 31.9 PG (27.0-31.0); MEAN CORPUSCULAR HGB CONC 34.3 g/dL (33.0-36.5); MEAN CORPUSCULAR VOLUME 93.1 FL (78-98); MEAN PLATELET VOLUME 7.4 FL (7.4-10.4); MONOCYTES # (AUTO) 0.9 X10'3 (0-0.9); MONOCYTES % (AUTO) 10.2 % (2-12); NEUTROPHILS # (AUTO) 5.1 X10'3 (1.8-7.7); PLATELET COUNT 281 X10'3 (140-440); RED BLOOD COUNT 4.08 X10'6 (4.20-5.60); RED CELL DISTRIBUTION WIDTH 14.2 % (11.5-14.5); WHITE BLOOD COUNT 8.5 X10'3 (4.5-11.0)
[2018-12-19 06:48] LABS: ALBUMIN 2.9 G/DL (3.4-5.0); ANION GAP 11 (8-16); BLOOD UREA NITROGEN 4 MG/DL (7-18); BUN/CREATININE RATIO 4.7 (6.6-38.0); CALCIUM 8.5 MG/DL (8.5-10.1); CHLORIDE 111 MMOL/L (99-107); CREATININE 0.86 MG/DL (0.40-0.90); GLUCOSE 147 MG/DL (70-104); POTASSIUM 3.1 MMOL/L (3.5-5.1); SODIUM 144 MMOL/L (135-145); TOTAL CARBON DIOXIDE 22.2 MMOL/L (24-32); eGFR 71 ML/MIN
[2018-12-19 08:00] VITALS: BP_SYST 135; BP_SYST 144; BP_SYST 152; BP_DIAS 82; BP_DIAS 86
[2018-12-19] MEDS ORDERED: citalopram 20mg tablet PO SCH (08:00)
[2018-12-19] MEDS ORDERED: famotidine/PF 10 mg/ml inj IV SCH (08:00)
[2018-12-19] MEDS: gabapentin 300mg capsule PO SCH ×2 (08:00→13:00)
[2018-12-19] MEDS: heparin, porcine 5000 units/ml vial SQ SCH (08:00)
[2018-12-19] MEDS: K and/or MAG REPLACEMENT MC SCH (08:00)
[2018-12-19] MEDS: estradiol 1mg tablet PO SCH (08:19)
[2018-12-19] MEDS: baclofen 10mg tablet PO SCH ×2 (08:21→13:47)
[2018-12-19] MEDS: potassium Cl oral solution 20 MEQ/15 ML PO PRN ×2 (08:22→13:47)
[2018-12-19] MEDS: levoTHYROXINE 100mcg tablet PO SCH (08:22)
[2018-12-19] MEDS: topiramate 100mg tablet PO SCH (08:22)
[2018-12-19] MEDS ORDERED: escitalopram 20mg tablet PO SCH (09:00)
[2018-12-19] MEDS ORDERED: POTA20LI PO (10:54)
[2018-12-19] MEDS ORDERED: OMEP20TA23 PO (10:58)
[2018-12-19] MEDS: loperamide 2mg capsule PO PRN (13:59)
--- NOTE | 2018-12-19 14:05 | NUR ---
Pt discharged home, called [facility] and [facility] pharmacy in order to obtain potassium Rx. Oral solution was $930 before insurance, pt declined and decided to take to PO tablets. Called [facility] on [address] [place] back and provided the prescription. Phoned pt at each update. Left message during the last call, advising pt of Rx avail. at [facility]. Meds stored in [facility] pharm were returned to pt - francisca. All pt's belongings were sent home with pt.
== END 2018-12-19 14:15 | disposition home or self-care (01) | DRG 773 ==
LOC: ER 00:55 → ED HOLD 02:08 → EDBEDREQ 03:06 → ORTHO 4S 04:13
PROVIDERS: ADMIT Internal Medicine; ATTEND Internal Medicine
DX: F13.239 Sedative, hypnotic or anxiolytic dependence with withdrawal, unspecified (principal); F11.23 Opioid dependence with withdrawal; F31.9 Bipolar disorder, unspecified; D72.828 Other elevated white blood cell count; E87.6 Hypokalemia; E86.0 Dehydration; E03.9 Hypothyroidism, unspecified; F41.9 Anxiety disorder, unspecified; J45.909 Unspecified asthma, uncomplicated; K21.9 Gastro-esophageal reflux disease without esophagitis; R19.7 Diarrhea, unspecified; M79.7 Fibromyalgia; G89.29 Other chronic pain; G43.909 Migraine, unspecified, not intractable, without status migrainosus; M54.9 Dorsalgia, unspecified; Z87.891 Personal history of nicotine dependence; Z98.891 History of uterine scar from previous surgery; Z90.49 Acquired absence of other specified parts of digestive tract; Z90.710 Acquired absence of both cervix and uterus; Z56.0 Unemployment, unspecified; Z88.8 Allergy status to other drugs, medicaments and biological substances; Z91.041 Radiographic dye allergy status
CPT/HCPCS: 36415; 71045; 80048; 80053; 81001; 83735; 84132; 84443; 85025; 87070; 93005; 96365; 99285; G0378; J1644; J2405; J3480; J3490; J7030

== ENCOUNTER 2019-06-12 06:44 | Emergency (ER) | payer MEDICAID ==
[~2019-06-12] VITALS: Ht 170.2 cm; Wt 110.0 kg
[~2019-06-12 06:44] MED LIST changes: -CLIN150C8 PO; -DOCU100C40 PO; +LEVO100T PO; -LEVO75TA57 PO; -LORA1TAB PO; -MSC30T PO; -MULT-785 PO; +OMEP20TA23 PO; -ONDA8TAB13 PO; -ONDA8TAB9 PO; +POTA20LI5 PO; -RISP0.5T38 PO
[2019-06-12 07:52] LABS: URINE HCG NEGATIVE (NEG)
[2019-06-12 07:55] LABS: CLARITY,URINE SLIGHTLY CLOUDY (Clear); COLOR,URINE YELLOW (Yellow); GLUCOSE, URINE NEGATIVE (Neg); KETONES,URINE TRACE mg/dl (Neg); LEUKOCYTE ESTERASE ,URINE NEGATIVE (Neg); NITRITES, URINE NEGATIVE (Neg); OCCULT BLOOD,URINE NEGATIVE (Neg); PROTEIN,URINE 30 mg/dl (Neg); UROBILINOGEN,URINE 0.2 E.U/dL (0.2-1.0)
[2019-06-12] MEDS ORDERED: morphine 4 MG/ML inj SYRINge IV ONE (07:55)
[2019-06-12] MEDS ORDERED: ondansetron/PF 4mg/2ml inj IV ONE (07:55)
[2019-06-12] MEDS ORDERED: pantoprazole 40 MG vial IV ONE (07:55)
[2019-06-12] MEDS ORDERED: normal saline 1000ML IV soln IVB ONE (07:55)
[2019-06-12] MEDS ORDERED: LORazepam 2 mg/ml vial IV ONE ×2 (07:55→08:50)
[2019-06-12 07:56] LABS: BASOPHILS # (AUTO) 0.1 X10'3 (0-0.2); BASOPHILS % (AUTO) 0.8 % (0-1); EOSINOPHILS # (AUTO) 0.1 X10'3 (0-0.9); EOSINOPHILS % (AUTO) 1.2 % (0-6); HEMATOCRIT 41.6 % (35.0-45.0); HEMOGLOBIN 14.2 g/dl (12.0-16.0); LYMPHOCYTES # (AUTO) 2.5 X10'3 (1.1-4.8); LYMPHOCYTES % (AUTO) 31.6 % (21-51); MEAN CORPUSCULAR HEMOGLOBIN 31.9 PG (27.0-31.0); MEAN CORPUSCULAR HGB CONC 34.1 g/dL (33.0-36.5); MEAN CORPUSCULAR VOLUME 93.7 FL (78-98); MEAN PLATELET VOLUME 7.1 FL (7.4-10.4); MONOCYTES # (AUTO) 0.6 X10'3 (0-0.9); NEUTROPHILS # (AUTO) 4.7 X10'3 (1.8-7.7); NEUTROPHILS % (AUTO) 58.4 % (42-75); PLATELET COUNT 282 X10'3 (140-440); RED BLOOD COUNT 4.44 X10'6 (4.20-5.60); RED CELL DISTRIBUTION WIDTH 14.3 % (11.5-14.5)
[2019-06-12 08:00] LABS: UA COLLECTION TYPE STRAIGHT CATH
[2019-06-12 08:11] LABS: ALBUMIN 3.3 G/DL (3.4-5.0); ALBUMIN/GLOBULIN RATIO 0.8 (1.1-1.5); ALKALINE PHOSPHATASE 66 IU/L (46-116); ANION GAP 13 (8-16); BILIRUBIN,TOTAL 0.2 MG/DL (0.1-1.0); BLOOD UREA NITROGEN 11 MG/DL (7-18); CALCIUM 8.9 MG/DL (8.5-10.1); CHLORIDE 106 MMOL/L (99-107); CREATININE 0.92 MG/DL (0.40-0.90); LIPASE 209 U/L (73-393); SODIUM 139 MMOL/L (135-145); TOTAL CARBON DIOXIDE 19.8 MMOL/L (24-32); TOTAL PROTEIN 7.6 G/DL (6.4-8.2); eGFR 65 ML/MIN
[2019-06-12 08:24] LABS: POTASSIUM 3.7 MMOL/L (3.5-5.1)
[2019-06-12 08:31] LABS: GLUCOSE 163 MG/DL (70-104)
[2019-06-12 08:35] LABS: ALANINE AMINOTRANSFERASE 66 U/L (12-78)
[2019-06-12 08:44] LABS: BACTERIA,URINE FEW /HPF (Neg); MUCUS STRANDS MODERATE /LPF (Neg); SQUAMOUS EPITHELIAL CELL,UR MANY /LPF (FEW)
[2019-06-12 08:45] LABS: CELLULAR CAST 0-4 /LPF (NEGATIVE); HYALINE CASTS 0-3 /LPF (NEGATIVE); RBC,URINE 0-2 /HPF (0-2)
[2019-06-12 08:48] LABS: ASPARTATE AMINO TRANSFERASE 60 U/L (10-37)
[2019-06-12] MEDS ORDERED: morphine 2 MG/ML inj. syringe IV PRN (08:50)
[2019-06-12] MEDS ORDERED: SUCR1TAB34 PO (10:04)
[2019-06-12 10:29] VITALS: BP 127/85
== END 2019-06-12 10:25 | disposition home or self-care (01) ==
LOC: ER 06:44
DX: R10.13 Epigastric pain (principal); R10.12 Left upper quadrant pain; G43.909 Migraine, unspecified, not intractable, without status migrainosus; G62.9 Polyneuropathy, unspecified; J45.909 Unspecified asthma, uncomplicated; K21.9 Gastro-esophageal reflux disease without esophagitis; E03.9 Hypothyroidism, unspecified; G89.29 Other chronic pain; F41.9 Anxiety disorder, unspecified; F31.9 Bipolar disorder, unspecified; Z90.49 Acquired absence of other specified parts of digestive tract; Z90.710 Acquired absence of both cervix and uterus; Z98.890 Other specified postprocedural states; Z56.0 Unemployment, unspecified; Z88.8 Allergy status to other drugs, medicaments and biological substances; Z79.2 Long term (current) use of antibiotics; Z79.899 Other long term (current) drug therapy
CPT/HCPCS: 36415; 71045; 80053; 81001; 81025; 83690; 83735; 83880; 84484; 85025; 87088; 93005; 96374; 96375; 96376; 99284; C9113; J2060; J2270; J2405; J7030; P9612; 96361

== ENCOUNTER 2019-06-15 12:04 | Emergency (ER) | payer MEDICAID ==
[~2019-06-15] VITALS: Ht 167.6 cm; Wt 95.5 kg
[~2019-06-15 12:04] MED LIST changes: +SUCR1TAB34 PO
[2019-06-15] MEDS ORDERED: LORazepam 2 mg/ml vial IV ONE ×2 (12:15→13:40)
[2019-06-15] MEDS ORDERED: haloperidol lactate 5mg/ml inj IM ONE (12:15)
[2019-06-15] MEDS ORDERED: normal saline 1000ML IV soln IVB ONE ×2 (12:15→12:20)
[2019-06-15] MEDS ORDERED: diphenhydrAMINE 50 mg/ml inj IV ONE (12:35)
[2019-06-15 12:42] LABS: BASOPHILS # (AUTO) 0.1 X10'3 (0-0.2); BASOPHILS % (AUTO) 0.6 % (0-1); EOSINOPHILS # (AUTO) 0.1 X10'3 (0-0.9); EOSINOPHILS % (AUTO) 0.8 % (0-6); HEMATOCRIT 44.7 % (35.0-45.0); LYMPHOCYTES # (AUTO) 2.6 X10'3 (1.1-4.8); LYMPHOCYTES % (AUTO) 24.3 % (21-51); MEAN CORPUSCULAR HEMOGLOBIN 31.3 PG (27.0-31.0); MEAN CORPUSCULAR HGB CONC 33.5 g/dL (33.0-36.5); MEAN CORPUSCULAR VOLUME 93.4 FL (78-98); MEAN PLATELET VOLUME 6.9 FL (7.4-10.4); MONOCYTES # (AUTO) 0.9 X10'3 (0-0.9); MONOCYTES % (AUTO) 8.6 % (2-12); NEUTROPHILS # (AUTO) 7.1 X10'3 (1.8-7.7); NEUTROPHILS % (AUTO) 65.7 % (42-75); PLATELET COUNT 335 X10'3 (140-440); RED BLOOD COUNT 4.79 X10'6 (4.20-5.60); RED CELL DISTRIBUTION WIDTH 14.1 % (11.5-14.5); WHITE BLOOD COUNT 10.8 X10'3 (4.5-11.0)
[2019-06-15 13:10] LABS: ALANINE AMINOTRANSFERASE 85 U/L (12-78); ALBUMIN 3.6 G/DL (3.4-5.0); ALBUMIN/GLOBULIN RATIO 0.8 (1.1-1.5); ALKALINE PHOSPHATASE 57 IU/L (46-116); ANION GAP 20 (8-16); ASPARTATE AMINO TRANSFERASE 94 U/L (10-37); BILIRUBIN,TOTAL 0.4 MG/DL (0.1-1.0); BLOOD UREA NITROGEN 9 MG/DL (7-18); BUN/CREATININE RATIO 7.9 (6.6-38.0); CALCIUM 9.1 MG/DL (8.5-10.1); CHLORIDE 106 MMOL/L (99-107); CREATINE KINASE 93 U/L (26-192); CREATININE 1.14 MG/DL (0.40-0.90); GLUCOSE 180 MG/DL (70-104); LIPASE 139 U/L (73-393); MAGNESIUM 1.8 MG/DL (1.5-2.4); SODIUM 140 MMOL/L (135-145); eGFR 51 ML/MIN
[2019-06-15 13:13] LABS: TOTAL CARBON DIOXIDE 13.6 MMOL/L (24-32)
[2019-06-15 13:23] LABS: POTASSIUM 3.6 MMOL/L (3.5-5.1)
[2019-06-15] MEDS ORDERED: morphine 4 MG/ML inj SYRINge IV ONE (13:40)
[2019-06-15 13:54] LABS: COLOR,URINE YELLOW (Yellow); GLUCOSE, URINE NEGATIVE (Neg); KETONES,URINE 15 mg/dl (Neg); LEUKOCYTE ESTERASE ,URINE NEGATIVE (Neg); NITRITES, URINE NEGATIVE (Neg); OCCULT BLOOD,URINE TRACE-INTACT (Neg); PROTEIN,URINE TRACE mg/dl (Neg); UROBILINOGEN,URINE 0.2 E.U/dL (0.2-1.0)
[2019-06-15 13:55] LABS: CLARITY,URINE SLIGHTLY CLOUDY (Clear); UA COLLECTION TYPE CLN CATCH MIDSTREAM
[2019-06-15 14:07] LABS: CELLULAR CAST 0-4 /LPF (NEGATIVE)
[2019-06-15 14:10] LABS: BACTERIA,URINE 3+ /HPF (Neg); HYALINE CASTS 0-3 /LPF (NEGATIVE); MUCUS STRANDS MANY /LPF (Neg); RBC,URINE NONE SEEN /HPF (0-2); SQUAMOUS EPITHELIAL CELL,UR MANY /LPF (FEW); TRANSITIONAL EPI CELLS,URINE FEW /HPF; WBC,URINE 0-4 /HPF (0-4)
[2019-06-15 14:49] VITALS: BP 148/80
== END 2019-06-15 14:50 | disposition home or self-care (01) ==
LOC: ER 12:05
DX: F13.20 Sedative, hypnotic or anxiolytic dependence, uncomplicated (principal); R11.2 Nausea with vomiting, unspecified; R06.4 Hyperventilation; G43.909 Migraine, unspecified, not intractable, without status migrainosus; J45.909 Unspecified asthma, uncomplicated; K21.9 Gastro-esophageal reflux disease without esophagitis; E03.9 Hypothyroidism, unspecified; G89.29 Other chronic pain; M54.9 Dorsalgia, unspecified; F41.9 Anxiety disorder, unspecified; F32.9 Major depressive disorder, single episode, unspecified; Z90.49 Acquired absence of other specified parts of digestive tract; Z90.710 Acquired absence of both cervix and uterus; Z56.0 Unemployment, unspecified; Z98.890 Other specified postprocedural states; Z88.6 Allergy status to analgesic agent; Z88.8 Allergy status to other drugs, medicaments and biological substances
CPT/HCPCS: 36415; 80053; 81001; 82550; 83690; 83735; 85025; 96361; 96374; 96375; 96376; 99283; J1200; J1630; J2060; J2270; J7030

== ENCOUNTER 2019-07-06 00:19 | Emergency (ER) | payer MEDICAID ==
[~2019-07-06] VITALS: Ht 170.2 cm; Wt 93.2 kg
[2019-07-06] MEDS ORDERED: normal saline 1000ML IV soln IVB ONE (00:45)
[2019-07-06] MEDS ORDERED: dicyclomine 10 MG capsule PO ONE (00:45)
[2019-07-06] MEDS ORDERED: ketorolac tromethamine 15mg/ml inj. IM ONE (00:45)
--- NOTE | 2019-07-06 00:55 | NUR ---
GIVEN TORADOL 15 MG IV AND 1 LITER NS BOLUS STARTED, BENTYL PO ORDERDD BUT PT REPROTS SHE IS NAUSEUAS AND REQUESTES TO HOLD OFF AT THIS TIME TO SEE IF THE NAUSEA PASSES. REPROTS SHE VOMITED HER 11 PM MEDS A WHILE AGO.
--- NOTE | 2019-07-06 01:00 | NUR ---
carol chapin in to talk wit pt, updated that pt hold on taking bentyl at this time D/T NAUSEA. .
[2019-07-06] MEDS ORDERED: cyclobenzaprine 10mg tablet PO ONE (01:10)
[2019-07-06 01:12] LABS: BASOPHILS % (AUTO) 0.1 % (0-1); EOSINOPHILS % (AUTO) 0.4 % (0-6); HEMATOCRIT 46.2 % (35.0-45.0); HEMOGLOBIN 15.7 g/dl (12.0-16.0); LYMPHOCYTES # (AUTO) 0.6 X10'3 (1.1-4.8); LYMPHOCYTES % (AUTO) 6.1 % (21-51); MEAN CORPUSCULAR HEMOGLOBIN 31.5 PG (27.0-31.0); MEAN CORPUSCULAR VOLUME 92.8 FL (78-98); MEAN PLATELET VOLUME 6.9 FL (7.4-10.4); MONOCYTES # (AUTO) 0.5 X10'3 (0-0.9); MONOCYTES % (AUTO) 5.6 % (2-12); NEUTROPHILS # (AUTO) 7.9 X10'3 (1.8-7.7); NEUTROPHILS % (AUTO) 87.8 % (42-75); PLATELET COUNT 264 X10'3 (140-440); RED BLOOD COUNT 4.98 X10'6 (4.20-5.60); RED CELL DISTRIBUTION WIDTH 13.9 % (11.5-14.5)
[2019-07-06 01:22] LABS: ALANINE AMINOTRANSFERASE 55 U/L (12-78); ALBUMIN 3.8 G/DL (3.4-5.0); ALBUMIN/GLOBULIN RATIO 0.8 (1.1-1.5); ALKALINE PHOSPHATASE 64 IU/L (46-116); ANION GAP 15 (8-16); ASPARTATE AMINO TRANSFERASE 33 U/L (10-37); BILIRUBIN,TOTAL 0.4 MG/DL (0.1-1.0); BLOOD UREA NITROGEN 15 MG/DL (7-18); CALCIUM 9.1 MG/DL (8.5-10.1); CHLORIDE 104 MMOL/L (99-107); CREATININE 1.15 MG/DL (0.40-0.90); GLUCOSE 194 MG/DL (70-104); POTASSIUM 3.7 MMOL/L (3.5-5.1); SODIUM 139 MMOL/L (135-145); TOTAL CARBON DIOXIDE 20.3 MMOL/L (24-32); TOTAL PROTEIN 8.3 G/DL (6.4-8.2); eGFR 50 ML/MIN
--- NOTE | 2019-07-06 01:23 | NUR ---
PT TEARFUL MOANING. AT BEDSIDE . PT CRYING SAYING " I HURT SO BAD" PT REQUESTING PO MEDS BE GIVEN IM OT IV BC OF NAUSEA .
[2019-07-06] MEDS ORDERED: dicyclomine 10mg/ml 2ml ampule IM ONE (01:25)
--- NOTE | 2019-07-06 01:27 | NUR ---
VERBAL RECEIVED BY SHARON PRIDE, TO CHANGE BENTYL FROM PO TO IM
--- NOTE | 2019-07-06 01:55 | NUR ---
PT SCREAMING AND SHAKING ALL OVER ' ATTWMPTED TO MEDICATE . PT REFUSING BOTH PO AND IM MEDICATIONS AT THIS TIME . EDUCATED PT THAT SHE WILL HAVE RELEIF IF SHE ALLOWS MEDICATION TO DO THE JOB . NOTIFIED DR BATISTA THAT PT IS REFUSING BOTH PO AND IM MEDICATION WELL URINE SPECIMAN.
[2019-07-06] MEDS ORDERED: LORazepam 2 mg/ml vial IV ONE (02:05)
--- NOTE | 2019-07-06 02:33 | NUR ---
PT WAS ABLE TO CALM HER SELF POST ATIVAN . MEDICATED WITH 10MG OF BENTYL IM TO RIGHT GLUTEAL . PT UP OUT OF BED TO BEDSIDE COMMODE FOR URINE SPECIMAN . IVF BLOUS COMPLETE
[2019-07-06 03:04] LABS: CLARITY,URINE CLOUDY (Clear); GLUCOSE, URINE NEGATIVE (Neg); KETONES,URINE TRACE mg/dl (Neg); LEUKOCYTE ESTERASE ,URINE NEGATIVE (Neg); NITRITES, URINE NEGATIVE (Neg); OCCULT BLOOD,URINE NEGATIVE (Neg); PROTEIN,URINE 100 mg/dl (Neg); UROBILINOGEN,URINE 0.2 E.U/dL (0.2-1.0)
[2019-07-06 03:13] LABS: COLOR,URINE DARK YELLOW (Yellow)
[2019-07-06 03:15] LABS: BACTERIA,URINE 3+ /HPF (Neg); RBC,URINE 0-2 /HPF (0-2); UA COLLECTION TYPE CLN CATCH MIDSTREAM; WBC,URINE 0-4 /HPF (0-4)
[2019-07-06 03:16] LABS: MUCUS STRANDS FEW /LPF (Neg); SQUAMOUS EPITHELIAL CELL,UR MODERATE /LPF (FEW)
[2019-07-06] MEDS ORDERED: morphine 4 MG/ML inj SYRINge IV ONE (03:55)
--- NOTE | 2019-07-06 04:55 | NUR ---
unable to reassess pain med pt discharged home with , pt wheeled to car by
[2019-07-06 04:57] VITALS: BP 114/80
== END 2019-07-06 04:53 | disposition home or self-care (01) ==
LOC: ER 00:20
DX: G89.29 Other chronic pain (principal); R10.32 Left lower quadrant pain; R19.7 Diarrhea, unspecified; G43.909 Migraine, unspecified, not intractable, without status migrainosus; J45.909 Unspecified asthma, uncomplicated; K21.9 Gastro-esophageal reflux disease without esophagitis; E03.9 Hypothyroidism, unspecified; M79.7 Fibromyalgia; F41.9 Anxiety disorder, unspecified; F31.9 Bipolar disorder, unspecified; Z90.49 Acquired absence of other specified parts of digestive tract; Z90.710 Acquired absence of both cervix and uterus; Z98.890 Other specified postprocedural states; G62.9 Polyneuropathy, unspecified; Z56.0 Unemployment, unspecified; Z88.6 Allergy status to analgesic agent; Z88.8 Allergy status to other drugs, medicaments and biological substances; Z79.899 Other long term (current) drug therapy
CPT/HCPCS: 36415; 80053; 81001; 85025; 96372; 96374; 96375; 99283; J0500; J1885; J2060; J2270; J7030

== ENCOUNTER 2019-07-27 21:59 | Emergency (ER) | payer MEDICAID ==
[~2019-07-27] VITALS: Ht 170.2 cm; Wt 90.0 kg
[2019-07-27 22:05] VITALS: BP 179/104
[2019-07-27] MEDS ORDERED: NAPR-56 PO (22:10)
[2019-07-27] MEDS ORDERED: PENI250T2 PO (22:10)
[2019-07-27] MEDS ORDERED: HYDROcodone/acetaminophen 10/325mg tab PO ONE (22:10)
== END 2019-07-27 22:39 | disposition home or self-care (01) ==
LOC: ER 21:59
DX: K02.9 Dental caries, unspecified (principal); M79.7 Fibromyalgia; G43.909 Migraine, unspecified, not intractable, without status migrainosus; J45.909 Unspecified asthma, uncomplicated; K21.9 Gastro-esophageal reflux disease without esophagitis; G62.9 Polyneuropathy, unspecified; E03.9 Hypothyroidism, unspecified; G89.29 Other chronic pain; F31.9 Bipolar disorder, unspecified; F41.9 Anxiety disorder, unspecified; Z88.1 Allergy status to other antibiotic agents; Z88.8 Allergy status to other drugs, medicaments and biological substances; Z79.899 Other long term (current) drug therapy; Z79.2 Long term (current) use of antibiotics; Z98.890 Other specified postprocedural states; Z90.710 Acquired absence of both cervix and uterus; Z56.0 Unemployment, unspecified; Z87.440 Personal history of urinary (tract) infections; Z90.49 Acquired absence of other specified parts of digestive tract
CPT/HCPCS: 99283

== ENCOUNTER 2019-07-31 04:32 | Emergency (ER) | payer MEDICAID ==
[~2019-07-31] VITALS: Ht 170.2 cm; Wt 91.0 kg
[~2019-07-31 04:32] MED LIST changes: +NAPR-56 PO; +PENI250T2 PO
[2019-07-31 04:35] VITALS: BP 117/80
[2019-07-31] MEDS ORDERED: ketorolac trometh inj. 60 MG/2 ML VIAL IM ONE (04:55)
[2019-07-31] MEDS ORDERED: LORazepam 1 MG tablet PO ONE (04:55)
[2019-07-31] MEDS ORDERED: ondansetron 4mg rapidly disintigrating tab PO ONE (04:55)
== END 2019-07-31 05:13 | disposition home or self-care (01) ==
LOC: ER 04:33
DX: K02.9 Dental caries, unspecified (principal); G43.909 Migraine, unspecified, not intractable, without status migrainosus; G62.9 Polyneuropathy, unspecified; J45.909 Unspecified asthma, uncomplicated; K21.9 Gastro-esophageal reflux disease without esophagitis; E03.9 Hypothyroidism, unspecified; G89.29 Other chronic pain; M79.7 Fibromyalgia; F41.9 Anxiety disorder, unspecified; F31.9 Bipolar disorder, unspecified; Z90.49 Acquired absence of other specified parts of digestive tract; Z98.890 Other specified postprocedural states; Z90.710 Acquired absence of both cervix and uterus; Z56.0 Unemployment, unspecified; Z88.6 Allergy status to analgesic agent; Z88.8 Allergy status to other drugs, medicaments and biological substances; Z79.899 Other long term (current) drug therapy
CPT/HCPCS: 96372; 99283; J1885

== ENCOUNTER 2019-08-09 22:28 | Emergency (ER) | payer MEDICAID ==
[~2019-08-09] VITALS: Ht 170.2 cm; Wt 91.0 kg
[~2019-08-09 22:28] MED LIST changes: -PENI250T2 PO
[2019-08-09] MEDS ORDERED: ketorolac trometh. 30mg/ml inj. IV ONE (22:40)
[2019-08-09] MEDS ORDERED: orphenadrine citrate 60mg/2ml inj. IM ONE (22:55)
[2019-08-09] MEDS ORDERED: fentaNYL/PF 50MCG/1 ML 2ML syringe IV ONE (22:55)
[2019-08-09 23:13] VITALS: BP 128/71
== END 2019-08-09 23:18 | disposition home or self-care (01) ==
LOC: ER 22:28
DX: M54.5 Low back pain (principal); G89.29 Other chronic pain; R20.0 Anesthesia of skin; R20.2 Paresthesia of skin; M62.830 Muscle spasm of back; M79.7 Fibromyalgia; G62.9 Polyneuropathy, unspecified; G43.909 Migraine, unspecified, not intractable, without status migrainosus; J45.909 Unspecified asthma, uncomplicated; K21.9 Gastro-esophageal reflux disease without esophagitis; E03.9 Hypothyroidism, unspecified; F41.9 Anxiety disorder, unspecified; F31.9 Bipolar disorder, unspecified; Z88.8 Allergy status to other drugs, medicaments and biological substances; Z79.899 Other long term (current) drug therapy; Z90.49 Acquired absence of other specified parts of digestive tract; Z98.890 Other specified postprocedural states; Z90.710 Acquired absence of both cervix and uterus; Z56.0 Unemployment, unspecified; Z87.440 Personal history of urinary (tract) infections; X58.XXXA Exposure to other specified factors, initial encounter; Y93.89 Activity, other specified; Y92.89 Other specified places as the place of occurrence of the external cause; Y99.8 Other external cause status
CPT/HCPCS: 96372; 96374; 96375; 99284; J1885; J2360; J3010

== ENCOUNTER 2019-10-17 04:52 | Inpatient (IN) | payer MEDICAID ==
[~2019-10-17] VITALS: Ht 170.2 cm; Wt 95.9 kg
[~2019-10-17 04:52] MED LIST changes: -NAPR-56 PO
[2019-10-17] MEDS ORDERED: ketorolac tromethamine 15mg/ml inj. IM ONE (06:15)
[2019-10-17] MEDS ORDERED: orphenadrine citrate 60mg/2ml inj. IM ONE (06:15)
--- NOTE | 2019-10-17 06:32 | NUR ---
Meds given as ordered. Gave pt icepack for pain. Pt cont to yell in pain. Will cont to monitor.
[2019-10-17] MEDS ORDERED: ketamine 10mg/ml 20ml inj IV ONE (06:55)
[2019-10-17] MEDS ORDERED: ketamine 50 mg/ml 10ml vial IV ONE (07:20)
--- NOTE | 2019-10-17 07:28 | NUR ---
IV started meds given as ordered. Pt c/o pain 07/15 will cont to monitor
[2019-10-17] MEDS ORDERED: LORazepam 2 mg/ml vial IV ONE (08:25)
--- NOTE | 2019-10-17 08:32 | NUR ---
Attempted to ambulate pt, she was unable to move her legs she stated. MD notified and MRI ordered
--- NOTE | 2019-10-17 09:15 | NUR ---
MRI screening form sent. Ativan given as ordered.
--- NOTE | 2019-10-17 09:32 | NUR ---
Pt to MRI
--- NOTE | 2019-10-17 10:52 | NUR ---
Pt back from MRI c/o pain 07/15 with eyes closed and resting
[2019-10-17] MEDS ORDERED: diazepam 5mg tablet PO ONE (12:00)
[2019-10-17] MEDS ORDERED: acetaminophen 325mg tablet PO PRN (12:55)
[2019-10-17] MEDS ORDERED: ondansetron/PF 4mg/2ml inj IV PRN (12:55)
[2019-10-17] MEDS ORDERED: ROSU40TA22 PO (14:13)
[2019-10-17] MEDS ORDERED: CLON0.1T2 PO (14:13)
[2019-10-17 14:14] VITALS: BP 138/103
--- NOTE | 2019-10-17 14:20 | NUR ---
Report given to Yuki BROWN
[2019-10-17] MEDS: HYDROcodone/acetaminophen 5mg/325mg tablet PO PRN ×2 (16:41→22:26)
[2019-10-17] MEDS: normal saline 1000ml 1,000 ML IV SCH (16:41)
[2019-10-17] MEDS: levoTHYROXINE 100mcg tablet PO SCH (16:41)
[2019-10-17] MEDS ORDERED: TRAZ-251 PO (17:18)
[2019-10-17] MEDS ORDERED: DIPH25CA83 PO (17:20)
[2019-10-17] MEDS ORDERED: IBUP-1984 PO (17:21)
[2019-10-17] MEDS ORDERED: MULT-933 PO (17:22)
[2019-10-17] MEDS ORDERED: CYAN500T63 PO (17:23)
[2019-10-17] MEDS ORDERED: CALC-729 PO (17:25)
[2019-10-17] MEDS ORDERED: RABE20TA28 PO (17:25)
[2019-10-17] MEDS ORDERED: CHOL500026 PO (17:32)
--- NOTE | 2019-10-17 17:35 | NUR ---
PAGER ID: [phone] MESSAGE: [id number] Shelley, January I added more meds off her medication list brought in that need to be addressed. Yuki [phone]
--- NOTE | 2019-10-17 17:45 | NUR ---
Instructed to not leave daily pill boxes in patients room.
[2019-10-17 18:00] VITALS: BP 138/100
--- NOTE | 2019-10-17 18:20 | NUR ---
Received patient report from KEVIN Mirza. Assumed patient care.
--- NOTE | 2019-10-17 18:23 | NUR ---
Problems reprioritized. Patient report given, questions answered & plan of care reviewed with Toya BROWN.
[2019-10-17] MEDS: topiramate 100mg tablet PO SCH (20:09)
[2019-10-17] MEDS: cloNIDine 0.1 mg tablet PO SCH (20:09)
[2019-10-17] MEDS: baclofen 10mg tablet PO SCH (20:10)
[2019-10-17] MEDS: zolpidem 5mg tablet PO SCH (20:10)
[2019-10-17 22:00] VITALS: BP 98/69
[2019-10-18] MEDS: HYDROcodone/acetaminophen 5mg/325mg tablet PO PRN ×5 (02:52→20:52)
[2019-10-18 06:00] VITALS: BP 98/67
--- NOTE | 2019-10-18 06:00 | NUR ---
Patient in room ORTHO 4014. I have received report from Michelle BROWN and had the opportunity to ask questions and assume patient care.
--- NOTE | 2019-10-18 06:24 | NUR ---
Patient report given, questions answered and plan of care reviewed with KEVIN Martinez.
--- NOTE | 2019-10-18 06:37 | NUR ---
received report from elsie huntley and gave report to elsie jackson
[2019-10-18 07:05] LABS: BASOPHILS % (AUTO) 0.3 % (0-1); EOSINOPHILS # (AUTO) 0.1 X10'3 (0-0.9); EOSINOPHILS % (AUTO) 1.6 % (0-6); HEMATOCRIT 37.8 % (35.0-45.0); HEMOGLOBIN 13.1 g/dl (12.0-16.0); LYMPHOCYTES # (AUTO) 3.4 X10'3 (1.1-4.8); LYMPHOCYTES % (AUTO) 38.4 % (21-51); MEAN CORPUSCULAR HEMOGLOBIN 31.5 PG (27.0-31.0); MEAN CORPUSCULAR HGB CONC 34.8 g/dL (33.0-36.5); MEAN CORPUSCULAR VOLUME 90.5 FL (78-98); MEAN PLATELET VOLUME 6.8 FL (7.4-10.4); MONOCYTES # (AUTO) 0.8 X10'3 (0-0.9); MONOCYTES % (AUTO) 9.5 % (2-12); NEUTROPHILS # (AUTO) 4.5 X10'3 (1.8-7.7); NEUTROPHILS % (AUTO) 50.2 % (42-75); PLATELET COUNT 256 X10'3 (140-440); RED BLOOD COUNT 4.18 X10'6 (4.20-5.60); RED CELL DISTRIBUTION WIDTH 13.7 % (11.5-14.5); WHITE BLOOD COUNT 8.9 X10'3 (4.5-11.0)
--- NOTE | 2019-10-18 07:11 | NUR ---
PAGER ID: [phone] MESSAGE: [id number]. Your note said you wanted to start this pt. on Lyrica on admission but did not add it to active meds. Do you want me to start this medication this morning as noted in your H&P? Troy BROWN [id number]
[2019-10-18 07:15] LABS: ANION GAP 11 (8-16); BLOOD UREA NITROGEN 13 MG/DL (7-18); BUN/CREATININE RATIO 17.6 (6.6-38.0); CALCIUM 8.7 MG/DL (8.5-10.1); CHLORIDE 108 MMOL/L (99-107); CREATININE 0.74 MG/DL (0.40-0.90); GLUCOSE 136 MG/DL (70-104); POTASSIUM 3.8 MMOL/L (3.5-5.1); SODIUM 142 MMOL/L (135-145); TOTAL CARBON DIOXIDE 23.3 MMOL/L (24-32); eGFR 84 ML/MIN
[2019-10-18] MEDS: pregabalin 75mg capsule PO SCH ×2 (07:58→20:00)
[2019-10-18] MEDS: citalopram 20mg tablet PO SCH (08:00)
[2019-10-18] MEDS: atorvastatin 20mg tablet PO SCH (08:00)
[2019-10-18] MEDS: estradiol 1mg tablet PO SCH (08:06)
[2019-10-18] MEDS: levoTHYROXINE 100mcg tablet PO SCH (08:06)
[2019-10-18] MEDS: cetirizine 10mg tablet PO SCH (08:06)
[2019-10-18] MEDS: cloNIDine 0.1 mg tablet PO SCH ×3 (08:06→20:51)
[2019-10-18] MEDS: baclofen 10mg tablet PO SCH ×3 (08:06→20:51)
[2019-10-18] MEDS: topiramate 100mg tablet PO SCH ×2 (08:06→20:51)
--- NOTE | 2019-10-18 11:56 | NUR ---
Problems reprioritized. Patient report given, questions answered & plan of care reviewed with Michelle BROWN.
--- NOTE | 2019-10-18 12:02 | NUR ---
received report from elsie jackson
--- NOTE | 2019-10-18 12:05 | NUR ---
Problems reprioritized. Patient report given, questions answered & plan of care reviewed with Pat RN.
[2019-10-18 18:00] VITALS: BP 129/64
--- NOTE | 2019-10-18 18:13 | NUR ---
gave report to elsie huntley
--- NOTE | 2019-10-18 18:25 | NUR ---
Received patient report from KEVIN Martinez. Assumed patient care.
[2019-10-18] MEDS: docusate sod 100mg capsule PO SCH (20:50)
[2019-10-18] MEDS: zolpidem 5mg tablet PO SCH (20:55)
[2019-10-18 22:00] VITALS: BP 104/61
[2019-10-19] MEDS: HYDROcodone/acetaminophen 5mg/325mg tablet PO PRN ×5 (03:12→22:57)
[2019-10-19 06:00] VITALS: BP 106/56
[2019-10-19 06:27] LABS: BASOPHILS % (AUTO) 0.5 % (0-1); EOSINOPHILS # (AUTO) 0.2 X10'3 (0-0.9); EOSINOPHILS % (AUTO) 2.2 % (0-6); HEMATOCRIT 38.8 % (35.0-45.0); HEMOGLOBIN 13.3 g/dl (12.0-16.0); LYMPHOCYTES % (AUTO) 35.6 % (21-51); MEAN CORPUSCULAR HEMOGLOBIN 31.2 PG (27.0-31.0); MEAN CORPUSCULAR HGB CONC 34.4 g/dL (33.0-36.5); MEAN CORPUSCULAR VOLUME 90.7 FL (78-98); MEAN PLATELET VOLUME 6.9 FL (7.4-10.4); MONOCYTES # (AUTO) 0.8 X10'3 (0-0.9); MONOCYTES % (AUTO) 9.1 % (2-12); NEUTROPHILS # (AUTO) 4.5 X10'3 (1.8-7.7); NEUTROPHILS % (AUTO) 52.6 % (42-75); PLATELET COUNT 244 X10'3 (140-440); RED BLOOD COUNT 4.28 X10'6 (4.20-5.60); RED CELL DISTRIBUTION WIDTH 13.8 % (11.5-14.5); WHITE BLOOD COUNT 8.5 X10'3 (4.5-11.0)
--- NOTE | 2019-10-19 06:27 | NUR ---
Patient report given, questions answered and plan of care reviewed with KEVIN Urbina.
[2019-10-19 06:48] LABS: ALBUMIN 3.1 G/DL (3.4-5.0); ANION GAP 12 (8-16); BLOOD UREA NITROGEN 13 MG/DL (7-18); BUN/CREATININE RATIO 16.9 (6.6-38.0); CALCIUM 9.1 MG/DL (8.5-10.1); CHLORIDE 107 MMOL/L (99-107); CREATININE 0.77 MG/DL (0.40-0.90); GLUCOSE 138 MG/DL (70-104); POTASSIUM 3.8 MMOL/L (3.5-5.1); SODIUM 141 MMOL/L (135-145); TOTAL CARBON DIOXIDE 21.9 MMOL/L (24-32); eGFR 80 ML/MIN
[2019-10-19] MEDS: atorvastatin 20mg tablet PO SCH (08:00)
[2019-10-19] MEDS: citalopram 20mg tablet PO SCH (08:00)
[2019-10-19] MEDS: pregabalin 75mg capsule PO SCH ×2 (08:00→20:00)
[2019-10-19] MEDS: estradiol 1mg tablet PO SCH (08:12)
[2019-10-19] MEDS: docusate sod 100mg capsule PO SCH ×3 (08:13→20:39)
[2019-10-19] MEDS: cetirizine 10mg tablet PO SCH (08:13)
[2019-10-19] MEDS: cloNIDine 0.1 mg tablet PO SCH ×3 (08:13→20:39)
[2019-10-19] MEDS: topiramate 100mg tablet PO SCH ×2 (08:13→20:39)
[2019-10-19] MEDS: baclofen 10mg tablet PO SCH ×2 (08:13→13:28)
[2019-10-19] MEDS: levoTHYROXINE 100mcg tablet PO SCH (08:14)
[2019-10-19 10:00] VITALS: BP 107/67
[2019-10-19 18:00] VITALS: BP 124/75
--- NOTE | 2019-10-19 18:17 | NUR ---
REPORT TO VIKAS Mireles RN
--- NOTE | 2019-10-19 18:20 | NUR ---
Received patient report from KEVIN Urbina. Assumed patient care.
[2019-10-19] MEDS: zolpidem 5mg tablet PO SCH (20:43)
[2019-10-19 22:00] VITALS: BP 117/70
[2019-10-19] MEDS ORDERED: mineral oil 133ml enema RC PRN (23:30)
[2019-10-20] MEDS: HYDROcodone/acetaminophen 5mg/325mg tablet PO PRN ×3 (03:10→12:44)
[2019-10-20 06:07] VITALS: BP 113/76
--- NOTE | 2019-10-20 06:20 | NUR ---
Patient report given, questions answered and plan of care reviewed with KEVIN Urbina.
[2019-10-20 06:32] LABS: BASOPHILS # (AUTO) 0.1 X10'3 (0-0.2); BASOPHILS % (AUTO) 0.7 % (0-1); EOSINOPHILS # (AUTO) 0.2 X10'3 (0-0.9); EOSINOPHILS % (AUTO) 1.9 % (0-6); HEMATOCRIT 39.4 % (35.0-45.0); HEMOGLOBIN 13.8 g/dl (12.0-16.0); LYMPHOCYTES # (AUTO) 3.5 X10'3 (1.1-4.8); LYMPHOCYTES % (AUTO) 37.2 % (21-51); MEAN CORPUSCULAR HEMOGLOBIN 31.7 PG (27.0-31.0); MEAN CORPUSCULAR HGB CONC 34.9 g/dL (33.0-36.5); MEAN CORPUSCULAR VOLUME 90.9 FL (78-98); MEAN PLATELET VOLUME 6.8 FL (7.4-10.4); MONOCYTES # (AUTO) 0.9 X10'3 (0-0.9); MONOCYTES % (AUTO) 9.7 % (2-12); NEUTROPHILS # (AUTO) 4.7 X10'3 (1.8-7.7); NEUTROPHILS % (AUTO) 50.5 % (42-75); PLATELET COUNT 262 X10'3 (140-440); RED BLOOD COUNT 4.33 X10'6 (4.20-5.60); RED CELL DISTRIBUTION WIDTH 13.7 % (11.5-14.5); WHITE BLOOD COUNT 9.3 X10'3 (4.5-11.0)
[2019-10-20 06:49] LABS: ALBUMIN 3.2 G/DL (3.4-5.0); ANION GAP 13 (8-16); BLOOD UREA NITROGEN 16 MG/DL (7-18); CHLORIDE 106 MMOL/L (99-107); GLUCOSE 118 MG/DL (70-104); POTASSIUM 3.7 MMOL/L (3.5-5.1); SODIUM 140 MMOL/L (135-145); TOTAL CARBON DIOXIDE 21.4 MMOL/L (24-32); eGFR 77 ML/MIN
[2019-10-20] MEDS: cloNIDine 0.1 mg tablet PO SCH ×3 (07:28→20:55)
[2019-10-20] MEDS: topiramate 100mg tablet PO SCH ×2 (07:28→20:55)
[2019-10-20] MEDS: cetirizine 10mg tablet PO SCH (07:28)
[2019-10-20] MEDS: docusate sod 100mg capsule PO SCH ×3 (07:28→20:55)
[2019-10-20] MEDS: levoTHYROXINE 100mcg tablet PO SCH (07:28)
[2019-10-20] MEDS: citalopram 20mg tablet PO SCH (07:30)
[2019-10-20] MEDS: atorvastatin 20mg tablet PO SCH (07:30)
[2019-10-20] MEDS: pregabalin 75mg capsule PO SCH ×2 (07:30→20:00)
[2019-10-20] MEDS: estradiol 1mg tablet PO SCH (07:32)
[2019-10-20 10:00] VITALS: BP 105/68
--- NOTE | 2019-10-20 11:49 | NUR ---
patient is refusing to take generic substitution for lexapro & crestor.
[2019-10-20] MEDS: normal saline 1000ml 1,000 ML IV SCH (11:52)
[2019-10-20 18:00] VITALS: BP 138/86
--- NOTE | 2019-10-20 18:32 | NUR ---
REPORT TO JAZZY BROWN
[2019-10-20] MEDS: baclofen 10mg tablet PO SCH (20:55)
[2019-10-20] MEDS: zolpidem 5mg tablet PO SCH (20:58)
[2019-10-20 22:00] VITALS: BP 123/72
[2019-10-21] MEDS: HYDROcodone/acetaminophen 5mg/325mg tablet PO PRN ×3 (04:42→17:50)
[2019-10-21 06:00] VITALS: BP 108/70
--- NOTE | 2019-10-21 06:16 | NUR ---
REPORT GIVEN TO KEVIN ESPINOZA.
[2019-10-21 07:16] LABS: BASOPHILS % (AUTO) 0.5 % (0-1); EOSINOPHILS # (AUTO) 0.1 X10'3 (0-0.9); EOSINOPHILS % (AUTO) 1.4 % (0-6); HEMATOCRIT 42.1 % (35.0-45.0); HEMOGLOBIN 14.5 g/dl (12.0-16.0); MEAN CORPUSCULAR HEMOGLOBIN 31.2 PG (27.0-31.0); MEAN CORPUSCULAR HGB CONC 34.4 g/dL (33.0-36.5); MEAN CORPUSCULAR VOLUME 90.7 FL (78-98); MEAN PLATELET VOLUME 7.2 FL (7.4-10.4); MONOCYTES # (AUTO) 0.9 X10'3 (0-0.9); MONOCYTES % (AUTO) 10.6 % (2-12); NEUTROPHILS # (AUTO) 4.8 X10'3 (1.8-7.7); NEUTROPHILS % (AUTO) 53.5 % (42-75); PLATELET COUNT 280 X10'3 (140-440); RED BLOOD COUNT 4.64 X10'6 (4.20-5.60)
[2019-10-21] MEDS: cetirizine 10mg tablet PO SCH (07:34)
[2019-10-21] MEDS: estradiol 1mg tablet PO SCH (07:34)
[2019-10-21] MEDS: baclofen 10mg tablet PO SCH ×3 (07:34→20:29)
[2019-10-21] MEDS: topiramate 100mg tablet PO SCH ×2 (07:34→20:29)
[2019-10-21] MEDS: levoTHYROXINE 100mcg tablet PO SCH (07:35)
[2019-10-21] MEDS: docusate sod 100mg capsule PO SCH ×3 (07:35→20:29)
[2019-10-21 07:50] VITALS: BP 108/70
[2019-10-21] MEDS: cloNIDine 0.1 mg tablet PO SCH ×3 (07:54→20:29)
[2019-10-21] MEDS: pregabalin 75mg capsule PO SCH ×2 (07:55→20:00)
[2019-10-21] MEDS: enoxaparin 40mg/0.4ml syringe SQ SCH (07:55)
[2019-10-21] MEDS: citalopram 20mg tablet PO SCH (07:55)
[2019-10-21] MEDS: atorvastatin 20mg tablet PO SCH (07:55)
[2019-10-21 08:46] LABS: ALBUMIN 3.5 G/DL (3.4-5.0); ANION GAP 14 (8-16); BLOOD UREA NITROGEN 16 MG/DL (7-18); BUN/CREATININE RATIO 21.6 (6.6-38.0); CALCIUM 9.6 MG/DL (8.5-10.1); CHLORIDE 105 MMOL/L (99-107); CREATININE 0.74 MG/DL (0.40-0.90); GLUCOSE 122 MG/DL (70-104); POTASSIUM 3.9 MMOL/L (3.5-5.1); SODIUM 140 MMOL/L (135-145); TOTAL CARBON DIOXIDE 20.7 MMOL/L (24-32); eGFR 84 ML/MIN
[2019-10-21 10:00] VITALS: BP 117/77
--- NOTE | 2019-10-21 12:06 | NUR ---
Paged Dr. Wade - pt to go for MRI and requesting Ativan before MRI. Pt also requesting Saline enema for abd pain d/t constipation.
[2019-10-21] MEDS ORDERED: sodium polystyrene sulfonate ENEMA 30gm/120ml RC ONE (12:15)
[2019-10-21] MEDS ORDERED: LORazepam 2 mg/ml vial IV ONE (12:15)
--- NOTE | 2019-10-21 13:29 | NUR ---
Initial: Pt admit w/ intractable back pain hx peripheral neuropathy, spondylolisthesis . Concern for possible MS given family hx per MD note. LBM 10/16 receiving colace routinely and s/p mineral oil enema 10/20. PO 50-75% avg regular diet decent given pain and constipation. Will continue to monitor for additional bowel care and protein needs this admit. Rec: 1. continue regular diet 2. monitor for ONS needs 3. routine bowel care 4. wt per rx Addendum: 10/21/19 at [address] Amended: Links added.
[2019-10-21] MEDS ORDERED: morphine 2 MG/ML inj. syringe IV ONE (15:45)
[2019-10-21 18:00] VITALS: BP 114/74
[2019-10-21] MEDS ORDERED: gadopentetate dimeglumine 7.5 MMOL/15 ML syringe ONE (18:45)
[2019-10-21] MEDS ORDERED: zolpidem 5mg tablet PO PRN (19:10)
[2019-10-21] MEDS: normal saline 1000ml 1,000 ML IV SCH (19:28)
[2019-10-21 22:00] VITALS: BP 123/83
[2019-10-22 05:00] VITALS: BP 115/76
--- NOTE | 2019-10-22 06:30 | NUR ---
Problems reprioritized. Patient report given, questions answered & plan of care reviewed with KEVIN Edmonds.
[2019-10-22 07:12] LABS: BASOPHILS # (AUTO) 0.1 X10'3 (0-0.2); BASOPHILS % (AUTO) 0.8 % (0-1); EOSINOPHILS # (AUTO) 0.1 X10'3 (0-0.9); EOSINOPHILS % (AUTO) 1.4 % (0-6); HEMATOCRIT 43.6 % (35.0-45.0); HEMOGLOBIN 14.9 g/dl (12.0-16.0); LYMPHOCYTES # (AUTO) 2.8 X10'3 (1.1-4.8); LYMPHOCYTES % (AUTO) 30.4 % (21-51); MEAN CORPUSCULAR HEMOGLOBIN 31.4 PG (27.0-31.0); MEAN CORPUSCULAR HGB CONC 34.2 g/dL (33.0-36.5); MEAN CORPUSCULAR VOLUME 91.9 FL (78-98); MEAN PLATELET VOLUME 7.2 FL (7.4-10.4); MONOCYTES # (AUTO) 0.9 X10'3 (0-0.9); MONOCYTES % (AUTO) 9.8 % (2-12); NEUTROPHILS # (AUTO) 5.2 X10'3 (1.8-7.7); NEUTROPHILS % (AUTO) 57.6 % (42-75); PLATELET COUNT 294 X10'3 (140-440); RED BLOOD COUNT 4.75 X10'6 (4.20-5.60); RED CELL DISTRIBUTION WIDTH 14.1 % (11.5-14.5); WHITE BLOOD COUNT 9.1 X10'3 (4.5-11.0)
[2019-10-22] MEDS: cloNIDine 0.1 mg tablet PO SCH ×2 (07:25→13:16)
[2019-10-22] MEDS: baclofen 10mg tablet PO SCH ×2 (07:27→13:16)
[2019-10-22] MEDS: docusate sod 100mg capsule PO SCH ×2 (07:27→13:16)
[2019-10-22] MEDS: estradiol 1mg tablet PO SCH (07:27)
[2019-10-22] MEDS: levoTHYROXINE 100mcg tablet PO SCH (07:28)
[2019-10-22] MEDS: cetirizine 10mg tablet PO SCH (07:29)
[2019-10-22] MEDS: topiramate 100mg tablet PO SCH (07:29)
[2019-10-22] MEDS: HYDROcodone/acetaminophen 5mg/325mg tablet PO PRN (07:31)
[2019-10-22 07:32] LABS: ALBUMIN 3.5 G/DL (3.4-5.0); ANION GAP 11 (8-16); BLOOD UREA NITROGEN 16 MG/DL (7-18); BUN/CREATININE RATIO 18.8 (6.6-38.0); CALCIUM 9.7 MG/DL (8.5-10.1); CHLORIDE 107 MMOL/L (99-107); CREATININE 0.85 MG/DL (0.40-0.90); GLUCOSE 141 MG/DL (70-104); POTASSIUM 3.3 MMOL/L (3.5-5.1); SODIUM 143 MMOL/L (135-145); TOTAL CARBON DIOXIDE 25.1 MMOL/L (24-32); eGFR 71 ML/MIN
[2019-10-22] MEDS: citalopram 20mg tablet PO SCH (07:36)
[2019-10-22] MEDS: atorvastatin 20mg tablet PO SCH (07:37)
[2019-10-22] MEDS: enoxaparin 40mg/0.4ml syringe SQ SCH (07:37)
[2019-10-22] MEDS: pregabalin 75mg capsule PO SCH (07:37)
[2019-10-22 08:44] LABS: PLATELET ESTIMATE NORMAL; TOTAL CELLS COUNTED 100
--- NOTE | 2019-10-22 10:01 | NUR ---
PAGER ID: [phone] MESSAGE: ASYA BuenoHerbert-SEGUNDO, January...POTASSIUM CAME BACK LOW 3.3, CAN YOU ORDER THE REPLACEMENT PROTOCOL. PLEASE AND THANK YOU.
[2019-10-22] MEDS ORDERED: potassium CL 10mEq/100ml bag 100 ML IV PRN (10:05)
[2019-10-22] MEDS ORDERED: K and/or MAG REPLACEMENT MC SCH (10:05)
[2019-10-22] MEDS ORDERED: potassium Cl 20 mEq SR tablet PO PRN ×2 (10:05)
[2019-10-22] MEDS ORDERED: BACL10TA PO (10:54)
[2019-10-22] MEDS ORDERED: LYR75C PO (11:00)
[2019-10-22] MEDS ORDERED: HYDR-3965 PO (11:00)
--- NOTE | 2019-10-22 11:19 | NUR ---
PAGER ID: [phone] MESSAGE: ASYA BuenoHerbert-SEGUNDO, January...POTASSIUM CAME BACK LOW 3.3, CAN YOU ORDER THE REPLACEMENT PROTOCOL. PLEASE AND THANK YOU.
[2019-10-22] MEDS ORDERED: morphine 2 MG/ML inj. syringe IV ONE (13:05)
== END 2019-10-22 14:15 | disposition home or self-care (01) | DRG 58 ==
LOC: ER 04:53 → ED HOLD 12:55 → EDBEDREQ 14:08 → ORTHO 4S 14:42
PROVIDERS: ADMIT Internal Medicine; ATTEND Hospitalist
DX: G25.3 Myoclonus (principal); G62.9 Polyneuropathy, unspecified; E03.9 Hypothyroidism, unspecified; E78.5 Hyperlipidemia, unspecified; F31.9 Bipolar disorder, unspecified; F41.9 Anxiety disorder, unspecified; G47.00 Insomnia, unspecified; G89.29 Other chronic pain; G43.909 Migraine, unspecified, not intractable, without status migrainosus; M43.10 Spondylolisthesis, site unspecified; I10 Essential (primary) hypertension; J45.909 Unspecified asthma, uncomplicated; E87.6 Hypokalemia; F41.0 Panic disorder [episodic paroxysmal anxiety]; K21.9 Gastro-esophageal reflux disease without esophagitis; M54.41 Lumbago with sciatica, right side; M54.42 Lumbago with sciatica, left side; M79.7 Fibromyalgia; Z79.891 Long term (current) use of opiate analgesic; Z90.49 Acquired absence of other specified parts of digestive tract; Z90.710 Acquired absence of both cervix and uterus; Z98.1 Arthrodesis status; Z88.8 Allergy status to other drugs, medicaments and biological substances; Z88.1 Allergy status to other antibiotic agents; Z91.041 Radiographic dye allergy status; Z79.899 Other long term (current) drug therapy
CPT/HCPCS: 36415; 70551; 70552; 72141; 72142; 72148; 80048; 84443; 85025; 96372; 96374; 96375; 97110; 97112; 97116; 97161; 97530; 99285; A9579; G0378; J1650; J1885; J2060; J2270; J2360; J2405; J7030

== ENCOUNTER 2019-10-25 03:20 | Emergency (ER) | payer MEDICAID ==
[~2019-10-25] VITALS: Ht 170.2 cm; Wt 90.0 kg
[~2019-10-25 03:20] MED LIST changes: -BAC10T PO; +BACL10TA PO; -CETI-85 PO; +CHOL500026 PO; +CLON0.1T2 PO; +CYAN500T63 PO; -ESZO3TAB44 PO; +HYDR-3965 PO; +IBUP-1984 PO; -KETO10TA2 PO; +LYR75C PO; +MULT-933 PO; -NORCO10T PO; -OMEP20TA23 PO; -POTA20LI5 PO; +RABE20TA28 PO; +ROSU40TA22 PO; -SUCR1TAB34 PO; +TRAZ-251 PO
--- NOTE | 2019-10-25 03:55 | NUR ---
RUBEN STATED "I FEEL RIDICULOUS, BECAUSE I FEEL FINE NOW"
--- NOTE | 2019-10-25 04:30 | NUR ---
TO CT SCAN
[2019-10-25 04:39] LABS: BASOPHILS % (AUTO) 0.5 % (0-1); EOSINOPHILS # (AUTO) 0.2 X10'3 (0-0.9); EOSINOPHILS % (AUTO) 1.9 % (0-6); HEMATOCRIT 38.4 % (35.0-45.0); HEMOGLOBIN 13.1 g/dl (12.0-16.0); LYMPHOCYTES # (AUTO) 3.1 X10'3 (1.1-4.8); LYMPHOCYTES % (AUTO) 36.5 % (21-51); MEAN CORPUSCULAR HEMOGLOBIN 31.1 PG (27.0-31.0); MEAN CORPUSCULAR VOLUME 91.6 FL (78-98); MONOCYTES # (AUTO) 0.7 X10'3 (0-0.9); MONOCYTES % (AUTO) 8.7 % (2-12); NEUTROPHILS # (AUTO) 4.5 X10'3 (1.8-7.7); NEUTROPHILS % (AUTO) 52.4 % (42-75); PLATELET COUNT 256 X10'3 (140-440); RED CELL DISTRIBUTION WIDTH 13.7 % (11.5-14.5); WHITE BLOOD COUNT 8.6 X10'3 (4.5-11.0)
[2019-10-25 04:51] LABS: ALANINE AMINOTRANSFERASE 34 U/L (12-78); ALBUMIN 2.9 G/DL (3.4-5.0); ALBUMIN/GLOBULIN RATIO 0.8 (1.1-1.5); ALKALINE PHOSPHATASE 69 IU/L (46-116); ANION GAP 11 (8-16); ASPARTATE AMINO TRANSFERASE 23 U/L (10-37); BILIRUBIN,TOTAL 0.1 MG/DL (0.1-1.0); BLOOD UREA NITROGEN 14 MG/DL (7-18); BUN/CREATININE RATIO 18.9 (6.6-38.0); CALCIUM 8.1 MG/DL (8.5-10.1); CHLORIDE 109 MMOL/L (99-107); CREATININE 0.74 MG/DL (0.40-0.90); GLUCOSE 167 MG/DL (70-104); MAGNESIUM 1.5 MG/DL (1.5-2.4); POTASSIUM 3.6 MMOL/L (3.5-5.1); SODIUM 140 MMOL/L (135-145); TOTAL CARBON DIOXIDE 20.2 MMOL/L (24-32); TOTAL PROTEIN 6.5 G/DL (6.4-8.2); eGFR 84 ML/MIN
--- NOTE | 2019-10-25 05:03 | NUR ---
PATIENT TRANSFERED HERSELF OUT OF [facility] TO [facility] WITH STANDBY ASSIST. PATIENT STEADY ON FEET, NO FOCAL DEFICIT NOTED
--- NOTE | 2019-10-25 05:06 | NUR ---
DISCUSSED LABS WITH DR ANDERSON
[2019-10-25] MEDS ORDERED: magnesium Cl slow-release 64mg tablet PO SCH (05:10)
[2019-10-25 05:21] LABS: CLARITY,URINE CLEAR (Clear); COLOR,URINE YELLOW (Yellow); GLUCOSE, URINE NEGATIVE (Neg); KETONES,URINE NEGATIVE (Neg); LEUKOCYTE ESTERASE ,URINE NEGATIVE (Neg); NITRITES, URINE NEGATIVE (Neg); OCCULT BLOOD,URINE NEGATIVE (Neg); PROTEIN,URINE NEGATIVE (Neg); UROBILINOGEN,URINE 0.2 E.U/dL (0.2-1.0)
[2019-10-25 05:23] LABS: UA COLLECTION TYPE CLN CATCH MIDSTREAM
[2019-10-25 05:44] VITALS: BP 113/106
== END 2019-10-25 05:50 | disposition home or self-care (01) ==
LOC: ER 03:21
DX: R20.2 Paresthesia of skin (principal); R20.0 Anesthesia of skin; G43.909 Migraine, unspecified, not intractable, without status migrainosus; J45.909 Unspecified asthma, uncomplicated; K21.9 Gastro-esophageal reflux disease without esophagitis; E03.9 Hypothyroidism, unspecified; G89.29 Other chronic pain; M79.7 Fibromyalgia; F41.9 Anxiety disorder, unspecified; F31.9 Bipolar disorder, unspecified; Z90.49 Acquired absence of other specified parts of digestive tract; Z90.710 Acquired absence of both cervix and uterus; Z98.890 Other specified postprocedural states; Z56.0 Unemployment, unspecified; Z88.1 Allergy status to other antibiotic agents; Z88.8 Allergy status to other drugs, medicaments and biological substances; Z79.899 Other long term (current) drug therapy
CPT/HCPCS: 36415; 70450; 80053; 81003; 83735; 85025; 99284

== ENCOUNTER 2019-10-27 08:30 | Emergency (ER) | payer MEDICAID ==
[~2019-10-27] VITALS: Ht 170.2 cm; Wt 89.5 kg
[2019-10-27] MEDS ORDERED: methylPREDNISolone sod succ 125mg/2ml vial IV ONE (08:35)
[2019-10-27] MEDS ORDERED: diphenhydrAMINE 50 mg/ml inj IV ONE (08:35)
[2019-10-27] MEDS ORDERED: diazepam inj 5 MG/ML inj. IV ONE ×2 (08:35→13:25)
[2019-10-27] MEDS ORDERED: normal saline 1000ML IV soln IVB ONE (08:35)
[2019-10-27 09:28] LABS: BASOPHILS % (AUTO) 0.6 % (0-1); EOSINOPHILS # (AUTO) 0.1 X10'3 (0-0.9); EOSINOPHILS % (AUTO) 1.8 % (0-6); HEMATOCRIT 39.7 % (35.0-45.0); HEMOGLOBIN 13.6 g/dl (12.0-16.0); LYMPHOCYTES # (AUTO) 2.2 X10'3 (1.1-4.8); LYMPHOCYTES % (AUTO) 28.8 % (21-51); MEAN CORPUSCULAR HEMOGLOBIN 31.3 PG (27.0-31.0); MEAN CORPUSCULAR HGB CONC 34.2 g/dL (33.0-36.5); MEAN CORPUSCULAR VOLUME 91.3 FL (78-98); MEAN PLATELET VOLUME 6.9 FL (7.4-10.4); MONOCYTES # (AUTO) 0.6 X10'3 (0-0.9); MONOCYTES % (AUTO) 8.2 % (2-12); NEUTROPHILS # (AUTO) 4.6 X10'3 (1.8-7.7); NEUTROPHILS % (AUTO) 60.6 % (42-75); PLATELET COUNT 274 X10'3 (140-440); RED BLOOD COUNT 4.35 X10'6 (4.20-5.60); RED CELL DISTRIBUTION WIDTH 13.4 % (11.5-14.5); WHITE BLOOD COUNT 7.6 X10'3 (4.5-11.0)
[2019-10-27 09:43] LABS: ALANINE AMINOTRANSFERASE 41 U/L (12-78); ALBUMIN 3.3 G/DL (3.4-5.0); ALBUMIN/GLOBULIN RATIO 0.8 (1.1-1.5); ALKALINE PHOSPHATASE 60 IU/L (46-116); ANION GAP 12 (8-16); ASPARTATE AMINO TRANSFERASE 32 U/L (10-37); BILIRUBIN,TOTAL 0.2 MG/DL (0.1-1.0); BLOOD UREA NITROGEN 11 MG/DL (7-18); BUN/CREATININE RATIO 13.6 (6.6-38.0); CALCIUM 8.6 MG/DL (8.5-10.1); CHLORIDE 107 MMOL/L (99-107); CREATININE 0.81 MG/DL (0.40-0.90); GLUCOSE 142 MG/DL (70-104); POTASSIUM 3.8 MMOL/L (3.5-5.1); SODIUM 141 MMOL/L (135-145); TOTAL CARBON DIOXIDE 21.8 MMOL/L (24-32); TOTAL PROTEIN 7.3 G/DL (6.4-8.2); eGFR 75 ML/MIN
--- NOTE | 2019-10-27 10:16 | NUR ---
breaking Primary, RN, pt is supine in bed, intermittant snoring present, placed allergy and fall risk bands on pt she woke briefly, present VSS
[2019-10-27 10:30] LABS: CLARITY,URINE CLEAR (Clear); COLOR,URINE STRAW (Yellow); GLUCOSE, URINE NEGATIVE (Neg); KETONES,URINE NEGATIVE (Neg); LEUKOCYTE ESTERASE ,URINE NEGATIVE (Neg); NITRITES, URINE NEGATIVE (Neg); OCCULT BLOOD,URINE NEGATIVE (Neg); PH,URINE 5.5 (4.8-8.0); PROTEIN,URINE NEGATIVE (Neg); UROBILINOGEN,URINE 0.2 E.U/dL (0.2-1.0)
[2019-10-27 10:34] LABS: UA COLLECTION TYPE OTHER
[2019-10-27] MEDS ORDERED: morphine 4 MG/ML inj SYRINge IV ONE (10:40)
[2019-10-27] MEDS ORDERED: ketorolac trometh. 30mg/ml inj. IV ONE (10:40)
--- NOTE | 2019-10-27 10:46 | NUR ---
TELE NEURO CONSULT INITIATED.
[2019-10-27 10:51] LABS: URINE AMPHETAMINE SCREEN NEGATIVE (Neg); URINE BARBITUATE SCREEN NEGATIVE (Neg); URINE BENZODIAZEPINES SCREEN NEGATIVE (Neg); URINE CANNABINOID SCREEN POSITIVE (Neg); URINE COCAINE SCREEN NEGATIVE (Neg); URINE METHADONE SCREEN NEGATIVE (Neg); URINE OPIATE SCREEN POSITIVE (Neg); URINE PHENCYCLIDINE SCREEN NEGATIVE (Neg)
--- NOTE | 2019-10-27 11:37 | NUR ---
Teleneuro performed brief evaluation of patient and was disconnected due to connected problems. Although spoke with SHARON Bar regarding evaluation. Patient c/o intermittent muscle spasm with no controll of symptoms with morphine and toradol. Dipika HERRERA stated would just like repeat LA to result and then will speak with patient and family.
[2019-10-27] MEDS ORDERED: ketamine 10mg/ml 20ml inj 0 MG in normal saline 100ml IV soln 100 ML IV ONE (11:50)
[2019-10-27] MEDS ORDERED: ketamine 50 mg/ml 10ml vial IV ONE (11:55)
[2019-10-27] MEDS ORDERED: ONDA4TAB12 PO (12:06)
[2019-10-27] MEDS ORDERED: DIPH25CA83 PO (12:06)
[2019-10-27] MEDS ORDERED: DOCU100C33 PO (12:06)
[2019-10-27] MEDS ORDERED: CETI-194 PO (12:06)
[2019-10-27] MEDS ORDERED: CHOL200052 PO (12:06)
[2019-10-27] MEDS ORDERED: ESZO3TAB66 PO (12:06)
[2019-10-27] MEDS ORDERED: haloperidol lactate 5mg/ml inj IM ONE (12:25)
[2019-10-27] MEDS ORDERED: magnesium 2GM in 50ml NS 50 ML IV ONE (13:05)
[2019-10-27] MEDS ORDERED: LIDOcaine 1% 30ml preserv. free vial IJ ONE (13:25)
[2019-10-27] MEDS ORDERED: triamcinolone acetonide 40mg/ml inj IM ONE (13:25)
[2019-10-27 15:03] VITALS: BP 129/87
== END 2019-10-27 15:04 | disposition home or self-care (01) ==
LOC: ER 08:31
DX: G89.29 Other chronic pain (principal); M79.10 Myalgia, unspecified site; E87.2 Acidosis; J45.909 Unspecified asthma, uncomplicated; K21.9 Gastro-esophageal reflux disease without esophagitis; E03.9 Hypothyroidism, unspecified; F41.9 Anxiety disorder, unspecified; F31.9 Bipolar disorder, unspecified; Z90.49 Acquired absence of other specified parts of digestive tract; Z90.710 Acquired absence of both cervix and uterus; Z98.890 Other specified postprocedural states; Z56.0 Unemployment, unspecified; Z88.1 Allergy status to other antibiotic agents; Z88.8 Allergy status to other drugs, medicaments and biological substances; Z79.899 Other long term (current) drug therapy
CPT/HCPCS: 36415; 71045; 80053; 80305; 81003; 82948; 83605; 84443; 85025; 85610; 87040; 93005; 96365; 96372; 96375; 96376; 99285; J1200; J1630; J1885; J2001; J2270; J2930; J3301; J3360; J3475; J7030

== ENCOUNTER 2020-02-26 18:57 | Emergency (ER) | payer MEDICAID ==
[~2020-02-26] VITALS: Ht 170.2 cm; Wt 89.1 kg
[~2020-02-26 18:57] MED LIST changes: +CETI-194 PO; +CHOL200052 PO; -CHOL500026 PO; +DIPH25CA83 PO; +DOCU100C33 PO; +ESZO3TAB66 PO; -LYR75C PO; +ONDA4TAB12 PO; -RABE20TA28 PO; -ROSU40TA22 PO
[2020-02-26] MEDS ORDERED: normal saline 1000ml 1,000 ML IV ONE (19:40)
[2020-02-26 19:49] LABS: BASOPHILS % (AUTO) 0.6 % (0-1); EOSINOPHILS # (AUTO) 0.2 X10'3 (0-0.9); EOSINOPHILS % (AUTO) 2.1 % (0-6); HEMATOCRIT 38.9 % (35.0-45.0); HEMOGLOBIN 13.1 g/dl (12.0-16.0); LYMPHOCYTES # (AUTO) 2.3 X10'3 (1.1-4.8); LYMPHOCYTES % (AUTO) 30.8 % (21-51); MEAN CORPUSCULAR HEMOGLOBIN 30.6 PG (27.0-31.0); MEAN CORPUSCULAR HGB CONC 33.6 g/dL (33.0-36.5); MEAN PLATELET VOLUME 6.8 FL (7.4-10.4); MONOCYTES # (AUTO) 0.7 X10'3 (0-0.9); MONOCYTES % (AUTO) 9.4 % (2-12); NEUTROPHILS # (AUTO) 4.2 X10'3 (1.8-7.7); NEUTROPHILS % (AUTO) 57.1 % (42-75); PLATELET COUNT 291 X10'3 (140-440); RED BLOOD COUNT 4.27 X10'6 (4.20-5.60); RED CELL DISTRIBUTION WIDTH 14.3 % (11.5-14.5); WHITE BLOOD COUNT 7.4 X10'3 (4.5-11.0)
[2020-02-26 20:09] LABS: ALANINE AMINOTRANSFERASE 29 U/L (12-78); ALBUMIN 3.1 G/DL (3.4-5.0); ALBUMIN/GLOBULIN RATIO 0.8 (1.1-1.5); ALKALINE PHOSPHATASE 60 IU/L (46-116); ANION GAP 15 (8-16); ASPARTATE AMINO TRANSFERASE 28 U/L (10-37); BILIRUBIN,TOTAL 0.2 MG/DL (0.1-1.0); BLOOD UREA NITROGEN 8 MG/DL (7-18); BUN/CREATININE RATIO 8.9 (6.6-38.0); CALCIUM 8.6 MG/DL (8.5-10.1); CHLORIDE 107 MMOL/L (99-107); GLUCOSE 120 MG/DL (70-104); LIPASE 190 U/L (73-393); POTASSIUM 3.4 MMOL/L (3.5-5.1); SODIUM 142 MMOL/L (135-145); TOTAL CARBON DIOXIDE 20.1 MMOL/L (24-32); eGFR 67 ML/MIN
[2020-02-26] MEDS ORDERED: normal saline 1000ML IV soln IVB ONE (20:55)
[2020-02-26 21:15] LABS: ETHANOL < 0.010 GM/DL (0.0-0.010)
[2020-02-26] MEDS ORDERED: LIDOcaine 2% 10ml TOPICAL JELLY (Urojet) MM ONE (21:20)
[2020-02-26] MEDS ORDERED: dicyclomine 10 MG capsule PO ONE (21:20)
[2020-02-26] MEDS ORDERED: aspirin 325mg tablet PO ONE (21:20)
[2020-02-26 21:40] LABS: URINE AMPHETAMINE SCREEN NEGATIVE (Neg); URINE BARBITUATE SCREEN NEGATIVE (Neg); URINE BENZODIAZEPINES SCREEN NEGATIVE (Neg); URINE CANNABINOID SCREEN POSITIVE (Neg); URINE COCAINE SCREEN NEGATIVE (Neg); URINE METHADONE SCREEN NEGATIVE (Neg); URINE OPIATE SCREEN POSITIVE (Neg); URINE PHENCYCLIDINE SCREEN NEGATIVE (Neg)
[2020-02-26] MEDS ORDERED: NORT25CA PO (21:43)
[2020-02-26] MEDS ORDERED: DICY10CA88 PO (21:43)
[2020-02-26 21:46] LABS: CLARITY,URINE CLEAR (Clear); COLOR,URINE YELLOW (Yellow); GLUCOSE, URINE NEGATIVE (Neg); KETONES,URINE NEGATIVE (Neg); LEUKOCYTE ESTERASE ,URINE NEGATIVE (Neg); NITRITES, URINE NEGATIVE (Neg); OCCULT BLOOD,URINE SMALL (Neg); PROTEIN,URINE NEGATIVE (Neg); UROBILINOGEN,URINE 0.2 E.U/dL (0.2-1.0)
[2020-02-26 21:47] LABS: UA COLLECTION TYPE URINAL
[2020-02-26 22:08] LABS: HYALINE CASTS 0-3 /LPF (NEGATIVE); MUCUS STRANDS FEW /LPF (Neg)
[2020-02-26 22:10] LABS: BACTERIA,URINE 1+ /HPF (Neg); RBC,URINE 0-2 /HPF (0-2); SQUAMOUS EPITHELIAL CELL,UR MODERATE /LPF (FEW); WBC,URINE 0-4 /HPF (0-4)
[2020-02-26 22:18] VITALS: BP 121/69
== END 2020-02-26 22:20 | disposition home or self-care (01) ==
LOC: ER 18:58
DX: K64.8 Other hemorrhoids (principal); R19.7 Diarrhea, unspecified; R10.12 Left upper quadrant pain; G43.909 Migraine, unspecified, not intractable, without status migrainosus; K21.9 Gastro-esophageal reflux disease without esophagitis; E03.9 Hypothyroidism, unspecified; G89.29 Other chronic pain; M79.7 Fibromyalgia; G62.9 Polyneuropathy, unspecified; Z56.0 Unemployment, unspecified; Z90.49 Acquired absence of other specified parts of digestive tract; Z98.890 Other specified postprocedural states; Z90.710 Acquired absence of both cervix and uterus; Z88.1 Allergy status to other antibiotic agents; Z88.8 Allergy status to other drugs, medicaments and biological substances; Z88.6 Allergy status to analgesic agent
CPT/HCPCS: 36415; 80053; 80305; 80320; 81001; 83690; 85025; 96360; 96361; 99285; J7030

== ENCOUNTER 2020-05-17 04:18 | Emergency (ER) | payer MEDICAID ==
[~2020-05-17] VITALS: Ht 170.2 cm; Wt 89.5 kg
[~2020-05-17 04:18] MED LIST changes: -CYAN500T63 PO; +CYAN500T64 PO; +DICY10CA88 PO; +NORT25CA PO
[2020-05-17] MEDS ORDERED: LORazepam 2 mg/ml vial IV ONE (04:30)
[2020-05-17] MEDS ORDERED: orphenadrine citrate 60mg/2ml inj. IM ONE (04:30)
[2020-05-17 05:02] LABS: BASOPHILS % (AUTO) 0.5 % (0-1); EOSINOPHILS # (AUTO) 0.2 X10'3 (0-0.9); HEMATOCRIT 38.3 % (35.0-45.0); HEMOGLOBIN 13.1 g/dl (12.0-16.0); LYMPHOCYTES # (AUTO) 2.6 X10'3 (1.1-4.8); LYMPHOCYTES % (AUTO) 31.6 % (21-51); MEAN CORPUSCULAR HGB CONC 34.1 g/dL (33.0-36.5); MEAN CORPUSCULAR VOLUME 90.9 FL (78-98); MEAN PLATELET VOLUME 6.7 FL (7.4-10.4); MONOCYTES # (AUTO) 0.8 X10'3 (0-0.9); MONOCYTES % (AUTO) 9.7 % (2-12); NEUTROPHILS # (AUTO) 4.6 X10'3 (1.8-7.7); NEUTROPHILS % (AUTO) 56.2 % (42-75); PLATELET COUNT 276 X10'3 (140-440); RED BLOOD COUNT 4.22 X10'6 (4.20-5.60); RED CELL DISTRIBUTION WIDTH 13.7 % (11.5-14.5); WHITE BLOOD COUNT 8.2 X10'3 (4.5-11.0)
[2020-05-17] MEDS ORDERED: normal saline 1000ML IV soln IVB ONE (05:10)
[2020-05-17 05:32] LABS: ALANINE AMINOTRANSFERASE 38 U/L (12-78); ALBUMIN 3.2 G/DL (3.4-5.0); ALBUMIN/GLOBULIN RATIO 0.8 (1.1-1.5); ALKALINE PHOSPHATASE 52 IU/L (46-116); ANION GAP 12 (8-16); ASPARTATE AMINO TRANSFERASE 29 U/L (10-37); BILIRUBIN,TOTAL 0.2 MG/DL (0.1-1.0); BLOOD UREA NITROGEN 11 MG/DL (7-18); BUN/CREATININE RATIO 11.6 (6.6-38.0); CALCIUM 8.9 MG/DL (8.5-10.1); CHLORIDE 107 MMOL/L (99-107); CREATININE 0.95 MG/DL (0.40-0.90); GLUCOSE 127 MG/DL (70-104); SODIUM 138 MMOL/L (135-145); TOTAL CARBON DIOXIDE 19.5 MMOL/L (24-32); TOTAL PROTEIN 7.1 G/DL (6.4-8.2); eGFR 63 ML/MIN
[2020-05-17 05:59] VITALS: BP 106/72
== END 2020-05-17 06:07 | disposition home or self-care (01) ==
LOC: ER 04:18
DX: M62.838 Other muscle spasm (principal); M79.7 Fibromyalgia; J45.909 Unspecified asthma, uncomplicated; G43.909 Migraine, unspecified, not intractable, without status migrainosus; K21.9 Gastro-esophageal reflux disease without esophagitis; E03.9 Hypothyroidism, unspecified; G89.29 Other chronic pain; F41.9 Anxiety disorder, unspecified; F31.9 Bipolar disorder, unspecified; G62.9 Polyneuropathy, unspecified; Z90.49 Acquired absence of other specified parts of digestive tract; Z90.710 Acquired absence of both cervix and uterus; Z98.890 Other specified postprocedural states; Z56.0 Unemployment, unspecified; Z88.1 Allergy status to other antibiotic agents; Z88.8 Allergy status to other drugs, medicaments and biological substances; Z79.899 Other long term (current) drug therapy
CPT/HCPCS: 36415; 80053; 85025; 96372; 96374; 99284; J2060; J2360; J7030

== ENCOUNTER 2020-07-11 00:45 | Emergency (ER) | payer MEDICAID ==
[~2020-07-11] VITALS: Ht 170.2 cm; Wt 93.8 kg
[2020-07-11] MEDS ORDERED: normal saline 1000ML IV soln IVB ONE (01:20)
[2020-07-11] MEDS ORDERED: orphenadrine citrate 60mg/2ml inj. IM ONE (01:20)
[2020-07-11] MEDS ORDERED: LORazepam 2 mg/ml vial IV ONE ×2 (01:20→02:10)
[2020-07-11] MEDS ORDERED: cyclobenzaprine 10mg tablet PO ONE (01:35)
[2020-07-11 03:28] VITALS: BP 145/87
== END 2020-07-11 03:35 | disposition home or self-care (01) ==
LOC: ER 00:46
DX: M62.838 Other muscle spasm (principal); R20.0 Anesthesia of skin; G43.909 Migraine, unspecified, not intractable, without status migrainosus; J45.909 Unspecified asthma, uncomplicated; K21.9 Gastro-esophageal reflux disease without esophagitis; E03.9 Hypothyroidism, unspecified; G89.29 Other chronic pain; M79.7 Fibromyalgia; F41.9 Anxiety disorder, unspecified; F31.9 Bipolar disorder, unspecified; Z90.49 Acquired absence of other specified parts of digestive tract; Z90.710 Acquired absence of both cervix and uterus; Z98.890 Other specified postprocedural states; Z88.1 Allergy status to other antibiotic agents; Z88.8 Allergy status to other drugs, medicaments and biological substances; Z79.899 Other long term (current) drug therapy
CPT/HCPCS: 96361; 96374; 96375; 99284; J2060; J7030

== ENCOUNTER 2020-10-18 12:23 | Inpatient (IN) | payer MEDICAID ==
[~2020-10-18] VITALS: Ht 170.2 cm; Wt 77.2 kg
[~2020-10-18 12:23] MED LIST changes: -CYAN500T64 PO; +CYAN500T71 PO
[2020-10-18 14:14] LABS: BASOPHILS % (AUTO) 0.2 % (0-1); EOSINOPHILS % (AUTO) 0.1 % (0-6); HEMATOCRIT 36.3 % (35.0-45.0); HEMOGLOBIN 12.3 g/dl (12.0-16.0); LYMPHOCYTES # (AUTO) 0.7 X10'3 (1.1-4.8); LYMPHOCYTES % (AUTO) 12.4 % (21-51); MEAN CORPUSCULAR HEMOGLOBIN 30.9 PG (27.0-31.0); MEAN CORPUSCULAR HGB CONC 33.8 g/dL (33.0-36.5); MEAN CORPUSCULAR VOLUME 91.5 FL (78-98); MONOCYTES # (AUTO) 0.4 X10'3 (0-0.9); NEUTROPHILS # (AUTO) 4.3 X10'3 (1.8-7.7); NEUTROPHILS % (AUTO) 80.3 % (42-75); PLATELET COUNT 200 X10'3 (140-440); RED BLOOD COUNT 3.97 X10'6 (4.20-5.60); RED CELL DISTRIBUTION WIDTH 13.7 % (11.5-14.5); WHITE BLOOD COUNT 5.4 X10'3 (4.5-11.0)
[2020-10-18 14:26] LABS: PARTIAL THROMBOPLASTIN TIME 30 SECONDS (22-32)
[2020-10-18 14:30] LABS: ALANINE AMINOTRANSFERASE 57 U/L (12-78); ALBUMIN 2.6 G/DL (3.4-5.0); ALBUMIN/GLOBULIN RATIO 0.6 (1.1-1.5); ALKALINE PHOSPHATASE 63 IU/L (46-116); ANION GAP 14 (8-16); ASPARTATE AMINO TRANSFERASE 77 U/L (10-37); BILIRUBIN,TOTAL 0.3 MG/DL (0.1-1.0); BLOOD UREA NITROGEN 9 MG/DL (7-18); BUN/CREATININE RATIO 8.7 (6.6-38.0); CALCIUM 8.3 MG/DL (8.5-10.1); CHLORIDE 109 MMOL/L (99-107); CREATININE 1.03 MG/DL (0.40-0.90); GLUCOSE 160 MG/DL (70-104); POTASSIUM 3.5 MMOL/L (3.5-5.1); SODIUM 144 MMOL/L (135-145); TOTAL CARBON DIOXIDE 21.3 MMOL/L (24-32); TOTAL PROTEIN 7.1 G/DL (6.4-8.2); eGFR 57 ML/MIN
[2020-10-18 14:38] LABS: C-REACTIVE PROTEIN 14.19 MG/DL (0.0-0.5); LACTATE DEHYDROGENASE 675 U/L (81-234)
[2020-10-18 15:07] LABS: D-DIMER 1.17 MG/L FEU (0-0.50)
[2020-10-18] MEDS ORDERED: normal saline 1000ml 1,000 ML IV ONE (15:10)
[2020-10-18 15:21] LABS: ABG BASE EXCESS -6.8 mmol/L (-2.0-2.0); ABG HCO3 17.1 mmol/L (22.0-26.0); ABG OXYGEN SATURATION 91.4 % (94-97); ABG PCO2 (T) 29.8 mmHg (32.0-45.0); ABG PO2 (T) 61.3 mmHg (75.0-100.0); ALLEN'S TEST POSITIVE; FCOHb 0.2 % (0.0-3.9); FLOW 6 L/min; FMetHb 0.3 % (0.0-1.5); FO2Hb 90.9 % (94-97); TOTAL HEMOGLOBIN 12.7 G/dl (12.0-16.0)
[2020-10-18] MEDS ORDERED: morphine 4 MG/ML inj SYRINge IV ONE (15:25)
[2020-10-18] MEDS ORDERED: ondansetron/PF 4mg/2ml inj IV ONE (15:25)
[2020-10-18] MEDS ORDERED: REMDESIVIR 100MG inj. 200 MG in normal saline 100ml IV soln 100 ML IV STA (15:35)
[2020-10-18] MEDS ORDERED: iohexol 350MG/ML 100ml bottle IV ONE (15:42)
[2020-10-18] MEDS ORDERED: acetaminophen 650mg rectal suppository RC PRN (17:10)
[2020-10-18] MEDS ORDERED: magnesium Cl slow-release 64mg tablet PO PRN (17:10)
[2020-10-18] MEDS ORDERED: acetaminophen 325mg tablet PO PRN (17:10)
[2020-10-18] MEDS ORDERED: HYDROcodone/acetaminophen 5mg/325mg tablet PO PRN (17:10)
[2020-10-18] MEDS ORDERED: ALBUTEROL INHALER 1 PUFF/90 MCG INHALER IH PRN (17:10)
[2020-10-18] MEDS ORDERED: magnesium 2GM in 50ml NS 50 ML IV PRN (17:10)
[2020-10-18] MEDS ORDERED: morphine 2 MG/ML inj. syringe IV PRN ×2 (17:10)
[2020-10-18] MEDS ORDERED: bisacodyl 10mg suppository rectal RC PRN (17:10)
[2020-10-18] MEDS ORDERED: normal saline 1000ml 1,000 ML IV SCH (17:10)
[2020-10-18] MEDS ORDERED: potassium Cl 40MEQ/1/2NS 520ml 520 ML IV PRN ×2 (17:10)
[2020-10-18] MEDS ORDERED: potassium Cl 20 mEq SR tablet PO PRN (17:10)
[2020-10-18] MEDS ORDERED: mag hydrox/Alum hydrox/simeth 30ml oral suspension PO PRN (17:10)
[2020-10-18] MEDS ORDERED: magnesium 4gm in 100ml NS 100 ML IV PRN (17:10)
[2020-10-18 17:51] LABS: HEMOGLOBIN A1C 6.4 % (4.5-6.2)
[2020-10-18] MEDS: HYDROcodone/acetaminophen 10/325mg tab PO PRN (17:55)
[2020-10-18] MEDS ORDERED: HYDR-3972 PO (18:39)
[2020-10-18] MEDS ORDERED: DICY10CA88 PO (18:39)
--- NOTE | 2020-10-18 19:05 | NUR ---
ASHLEE SCOTT FOR PT PAIN UNCONTROLLED WITH PREVIOUS MEDICATION ADMINISTRATION.
--- NOTE | 2020-10-18 19:44 | NUR ---
OBI HOSPITALIST AT BEDSIDE. REPORTED PT PAIN UNCONTROLLED. VERBAL ORDER 2 MG MORHPINE PRN Q2 HRS
[2020-10-18] MEDS: K and/or MAG REPLACEMENT MC SCH (20:00)
[2020-10-18] MEDS: heparin, porcine 5000 units/ml vial SQ SCH (20:00)
[2020-10-18] MEDS: morphine 2 MG/ML inj. syringe IV PRN ×2 (20:32→23:12)
[2020-10-18] MEDS: ondansetron/PF 4mg/2ml inj IV PRN (20:34)
[2020-10-19 02:17] LABS: BASOPHILS % (AUTO) 0.3 % (0-1); EOSINOPHILS % (AUTO) 0 % (0-6); HEMATOCRIT 35.2 % (35.0-45.0); HEMOGLOBIN 11.9 g/dl (12.0-16.0); LYMPHOCYTES # (AUTO) 0.6 X10'3 (1.1-4.8); LYMPHOCYTES % (AUTO) 10.9 % (21-51); MEAN CORPUSCULAR HGB CONC 33.8 g/dL (33.0-36.5); MEAN CORPUSCULAR VOLUME 91.9 FL (78-98); MEAN PLATELET VOLUME 6.5 FL (7.4-10.4); MONOCYTES # (AUTO) 0.5 X10'3 (0-0.9); MONOCYTES % (AUTO) 7.8 % (2-12); NEUTROPHILS # (AUTO) 4.7 X10'3 (1.8-7.7); PLATELET COUNT 212 X10'3 (140-440); RED BLOOD COUNT 3.83 X10'6 (4.20-5.60); RED CELL DISTRIBUTION WIDTH 13.6 % (11.5-14.5); WHITE BLOOD COUNT 5.8 X10'3 (4.5-11.0)
[2020-10-19 02:32] LABS: ALANINE AMINOTRANSFERASE 53 U/L (12-78); ALBUMIN 2.4 G/DL (3.4-5.0); ALBUMIN/GLOBULIN RATIO 0.5 (1.1-1.5); ALKALINE PHOSPHATASE 63 IU/L (46-116); ANION GAP 14 (8-16); ASPARTATE AMINO TRANSFERASE 83 U/L (10-37); BILIRUBIN,TOTAL 0.2 MG/DL (0.1-1.0); BLOOD UREA NITROGEN 8 MG/DL (7-18); BUN/CREATININE RATIO 9.2 (6.6-38.0); CHLORIDE 109 MMOL/L (99-107); CREATININE 0.87 MG/DL (0.40-0.90); GLUCOSE 183 MG/DL (70-104); POTASSIUM 3.4 MMOL/L (3.5-5.1); SODIUM 143 MMOL/L (135-145); TOTAL CARBON DIOXIDE 19.7 MMOL/L (24-32); TOTAL PROTEIN 6.9 G/DL (6.4-8.2); eGFR 69 ML/MIN
[2020-10-19 02:35] LABS: CHOL/HDL RATIO 3.3 (0.00-4.99); CHOLESTEROL 99 MG/DL (0-200); HDL CHOLESTEROL 30 MG/DL (35-60); LDL CHOLESTEROL 45 MG/DL (50-100); MAGNESIUM 1.6 MG/DL (1.5-2.4); TRIGLYCERIDES 192 MG/DL (20-135)
--- NOTE | 2020-10-19 02:54 | NUR ---
PT DEMANDING TO BE GIVEN HER 20 MG BACLOFEN QID AND STATES "IM WITHDRAWALING BECAUSE IM NOT GETTING IT" AND THAT "THESE OTHER MEDICATIONS ARE NOT TOUCHING THE PAIN". DOES NOT WANT TO TALK WITH RN AND IS NOW REQUESTING PATIENT ADVOCATE. SONIA MUNIZ NOTIFIED AND IS ORDERING 1 TIME ORDER OF 5 MG BACLOFEN.
[2020-10-19] MEDS ORDERED: baclofen 10mg tablet PO PRN (02:55)
--- NOTE | 2020-10-19 03:11 | NUR ---
PT HAPPILY TOOK 5 MG OF BACLOFEN. NO OTHER NEEDS AT THIS TIME
[2020-10-19] MEDS: ondansetron/PF 4mg/2ml inj IV PRN ×3 (03:32→22:14)
[2020-10-19] MEDS: HYDROcodone/acetaminophen 10/325mg tab PO PRN ×2 (03:32→19:14)
[2020-10-19] MEDS: morphine 2 MG/ML inj. syringe IV PRN ×3 (05:56→20:27)
[2020-10-19] MEDS: heparin, porcine 5000 units/ml vial SQ SCH (08:00)
[2020-10-19] MEDS: K and/or MAG REPLACEMENT MC SCH ×2 (08:00→20:00)
[2020-10-19] MEDS: REMDESIVIR 100 MG in NS 100ml IVPB IV SCH (09:04)
[2020-10-19] MEDS ORDERED: zolpidem 5mg tablet PO PRN (09:25)
[2020-10-19] MEDS: ESCITALOPRAM OXALATE 5 MG TABLET PO SCH (10:50)
[2020-10-19] MEDS: baclofen 10mg tablet PO SCH ×2 (11:07→19:06)
[2020-10-19 18:00] VITALS: BP 152/92
[2020-10-19] MEDS: enoxaparin 40mg/0.4ml syringe SUBCUT SCH ×2 (20:00→20:27)
[2020-10-19] MEDS: traZODone 50mg tablet PO SCH (20:26)
[2020-10-19] MEDS: potassium Cl 20 mEq SR tablet PO PRN (20:26)
--- NOTE | 2020-10-19 20:30 | NUR ---
[place] ineffective for pain management. Morphine administered for breakthrough. Patient refused Lovenox, stated that she takes a lot of Ibuprofen. Educated on risks of increased clotting with covid. She still refused.
[2020-10-19] MEDS ORDERED: traZODone 50mg tablet PO SCH (21:00)
[2020-10-19] MEDS ORDERED: non-formulary drug (Eszopiclone (Lunesta) 1 TAB) PO SCH (21:00)
[2020-10-19 22:00] VITALS: BP 108/58
[2020-10-20 02:00] VITALS: BP 136/79
[2020-10-20] MEDS: baclofen 10mg tablet PO SCH ×4 (02:12→23:51)
[2020-10-20] MEDS: morphine 2 MG/ML inj. syringe IV PRN ×5 (02:39→23:59)
--- NOTE | 2020-10-20 02:39 | NUR ---
medicated with morphine. [place] was ineffective last time it was given, started with morphine at this point.
[2020-10-20] MEDS: HYDROcodone/acetaminophen 10/325mg tab PO PRN ×3 (03:46→19:31)
--- NOTE | 2020-10-20 04:07 | NUR ---
Patient requesting [place], as pain still at 9/10 after morphine was administered.
[2020-10-20] MEDS: ondansetron/PF 4mg/2ml inj IV PRN ×3 (04:28→19:29)
[2020-10-20 06:00] VITALS: BP 105/64
--- NOTE | 2020-10-20 06:22 | NUR ---
Problems reprioritized. Patient report given, questions answered & plan of care reviewed with KEVIN Navarrete.
[2020-10-20 06:31] LABS: BASOPHILS % (AUTO) 0.3 % (0-1); EOSINOPHILS % (AUTO) 0.1 % (0-6); HEMATOCRIT 34.1 % (35.0-45.0); HEMOGLOBIN 11.7 g/dl (12.0-16.0); LYMPHOCYTES # (AUTO) 0.7 X10'3 (1.1-4.8); LYMPHOCYTES % (AUTO) 9.6 % (21-51); MEAN CORPUSCULAR HGB CONC 34.4 g/dL (33.0-36.5); MEAN CORPUSCULAR VOLUME 90.2 FL (78-98); MEAN PLATELET VOLUME 6.7 FL (7.4-10.4); MONOCYTES # (AUTO) 0.6 X10'3 (0-0.9); MONOCYTES % (AUTO) 8.6 % (2-12); NEUTROPHILS # (AUTO) 5.9 X10'3 (1.8-7.7); NEUTROPHILS % (AUTO) 81.4 % (42-75); PLATELET COUNT 285 X10'3 (140-440); RED BLOOD COUNT 3.78 X10'6 (4.20-5.60); RED CELL DISTRIBUTION WIDTH 14.2 % (11.5-14.5); WHITE BLOOD COUNT 7.3 X10'3 (4.5-11.0)
[2020-10-20 06:43] LABS: D-DIMER 3.37 MG/L FEU (0-0.50)
[2020-10-20 06:53] LABS: ALANINE AMINOTRANSFERASE 43 U/L (12-78); ALBUMIN 2.3 G/DL (3.4-5.0); ALBUMIN/GLOBULIN RATIO 0.5 (1.1-1.5); ALKALINE PHOSPHATASE 68 IU/L (46-116); ANION GAP 14 (8-16); ASPARTATE AMINO TRANSFERASE 75 U/L (10-37); BILIRUBIN,TOTAL 0.3 MG/DL (0.1-1.0); BLOOD UREA NITROGEN 13 MG/DL (7-18); BUN/CREATININE RATIO 14.1 (6.6-38.0); C-REACTIVE PROTEIN 10.96 MG/DL (0.0-0.5); CALCIUM 7.9 MG/DL (8.5-10.1); CHLORIDE 109 MMOL/L (99-107); CREATININE 0.92 MG/DL (0.40-0.90); GLUCOSE 218 MG/DL (70-104); MAGNESIUM 1.8 MG/DL (1.5-2.4); POTASSIUM 3.1 MMOL/L (3.5-5.1); SODIUM 143 MMOL/L (135-145); TOTAL CARBON DIOXIDE 20.5 MMOL/L (24-32); TOTAL PROTEIN 6.7 G/DL (6.4-8.2); eGFR 65 ML/MIN
[2020-10-20 06:55] LABS: PHOSPHORUS 1.2 MG/DL (2.3-4.5)
--- NOTE | 2020-10-20 07:27 | NUR ---
PAGER ID: [phone] MESSAGE: Rosalba [id number] isabelle Rosa January- received critical phos 1.2, K 3.1. Please advise, thank you
[2020-10-20] MEDS ORDERED: ESCITALOPRAM OXALATE 5 MG TABLET PO SCH (08:00)
[2020-10-20] MEDS: REMDESIVIR 100 MG in NS 100ml IVPB IV SCH (08:53)
[2020-10-20] MEDS: potassium Cl 20 mEq SR tablet PO PRN (08:54)
[2020-10-20] MEDS: levoTHYROXINE 100mcg tablet PO SCH (08:54)
[2020-10-20] MEDS: topiramate 100mg tablet PO SCH ×2 (08:55→19:31)
[2020-10-20] MEDS: ESCITALOPRAM OXALATE 5 MG TABLET PO SCH (08:56)
[2020-10-20] MEDS: K and/or MAG REPLACEMENT MC SCH ×2 (08:56→18:56)
[2020-10-20 10:00] VITALS: BP 120/66
[2020-10-20] MEDS ORDERED: potassium phosphate inj 30 MMOL in normal saline 500ml IV soln 500 ML IV ONE (10:45)
--- NOTE | 2020-10-20 11:14 | NUR ---
Malnutrition consult. Patient is on a easy to chew diet with mild/nectar thick liquids. TC to RN to confirm thickened liquids, reports patient is drinking thin liquids with no issue, recommend to change diet order to reflect thin liquids. Weight October 2019 was 95.9 kg and current weight 90.91 kg, no significant weight change in one year. Admitted with worsening SOB, respiratory failure, COVID-19 positive. Has 2+ mild bilateral foot edema. 0% intake of just one meal so far. Does not meet criteria for malnutrition at this time. Addendum: 10/20/20 at [address] Amended: Links added.
[2020-10-20 14:00] VITALS: BP 153/73
[2020-10-20 18:00] VITALS: BP 168/87
[2020-10-20] MEDS: enoxaparin 40mg/0.4ml syringe SUBCUT SCH (19:30)
[2020-10-20] MEDS: traZODone 50mg tablet PO SCH (19:31)
--- NOTE | 2020-10-20 19:37 | NUR ---
I talked to Dr. Palacios and received orders for prn Ativan for anxiety related to oxygen mask and high dose of oxygen.
[2020-10-20] MEDS ORDERED: guaiFENesin/codeine phos 10ml UD oral syrup PO PRN (19:55)
[2020-10-20] MEDS: guaiFENesin ER 600mg tablet PO SCH (20:38)
[2020-10-20] MEDS: LORazepam 2 mg/ml vial IV PRN (20:38)
[2020-10-20 22:00] VITALS: BP 108/55
[2020-10-21 02:00] VITALS: BP 131/62
[2020-10-21] MEDS: LORazepam 2 mg/ml vial IV PRN ×3 (04:33→21:48)
[2020-10-21 06:00] VITALS: BP 139/71
--- NOTE | 2020-10-21 06:06 | NUR ---
Problems reprioritized. Patient report given, questions answered & plan of care reviewed with KEVIN Navarrete.
[2020-10-21 07:51] LABS: BASOPHILS % (AUTO) 0.1 % (0-1); EOSINOPHILS % (AUTO) 0.2 % (0-6); HEMATOCRIT 34.8 % (35.0-45.0); HEMOGLOBIN 12.1 g/dl (12.0-16.0); LYMPHOCYTES # (AUTO) 0.7 X10'3 (1.1-4.8); LYMPHOCYTES % (AUTO) 8.3 % (21-51); MEAN CORPUSCULAR HEMOGLOBIN 31.4 PG (27.0-31.0); MEAN CORPUSCULAR HGB CONC 34.6 g/dL (33.0-36.5); MEAN CORPUSCULAR VOLUME 90.7 FL (78-98); MEAN PLATELET VOLUME 6.7 FL (7.4-10.4); MONOCYTES # (AUTO) 0.7 X10'3 (0-0.9); MONOCYTES % (AUTO) 8.6 % (2-12); NEUTROPHILS # (AUTO) 7.2 X10'3 (1.8-7.7); NEUTROPHILS % (AUTO) 82.8 % (42-75); PLATELET COUNT 319 X10'3 (140-440); RED BLOOD COUNT 3.84 X10'6 (4.20-5.60); RED CELL DISTRIBUTION WIDTH 13.9 % (11.5-14.5); WHITE BLOOD COUNT 8.7 X10'3 (4.5-11.0)
[2020-10-21 07:59] LABS: D-DIMER 4.39 MG/L FEU (0-0.50)
[2020-10-21] MEDS: guaiFENesin ER 600mg tablet PO SCH ×3 (08:00→19:31)
[2020-10-21] MEDS: K and/or MAG REPLACEMENT MC SCH ×2 (08:00→19:10)
[2020-10-21 08:13] LABS: ALANINE AMINOTRANSFERASE 36 U/L (12-78); ALBUMIN 2.3 G/DL (3.4-5.0); ALBUMIN/GLOBULIN RATIO 0.5 (1.1-1.5); ALKALINE PHOSPHATASE 86 IU/L (46-116); ANION GAP 11 (8-16); ASPARTATE AMINO TRANSFERASE 59 U/L (10-37); BILIRUBIN,TOTAL 0.4 MG/DL (0.1-1.0); BLOOD UREA NITROGEN 12 MG/DL (7-18); BUN/CREATININE RATIO 13.3 (6.6-38.0); CHLORIDE 109 MMOL/L (99-107); GLUCOSE 176 MG/DL (70-104); MAGNESIUM 2.1 MG/DL (1.5-2.4); PHOSPHORUS 1.6 MG/DL (2.3-4.5); POTASSIUM 3.1 MMOL/L (3.5-5.1); SODIUM 144 MMOL/L (135-145); TOTAL CARBON DIOXIDE 23.7 MMOL/L (24-32); TOTAL PROTEIN 6.9 G/DL (6.4-8.2); eGFR 67 ML/MIN
[2020-10-21] MEDS: REMDESIVIR 100 MG in NS 100ml IVPB IV SCH (08:22)
[2020-10-21] MEDS: baclofen 10mg tablet PO SCH ×2 (08:22→15:57)
[2020-10-21] MEDS: ESCITALOPRAM OXALATE 5 MG TABLET PO SCH (08:22)
[2020-10-21] MEDS: levoTHYROXINE 100mcg tablet PO SCH (08:23)
[2020-10-21] MEDS: topiramate 100mg tablet PO SCH ×2 (08:23→19:31)
[2020-10-21] MEDS: morphine 2 MG/ML inj. syringe IV PRN (08:24)
[2020-10-21] MEDS: enoxaparin 40mg/0.4ml syringe SUBCUT SCH ×2 (08:24→19:32)
[2020-10-21 10:00] VITALS: BP 123/61
[2020-10-21 14:00] VITALS: BP 134/70
[2020-10-21 18:00] VITALS: BP 126/70
[2020-10-21] MEDS ORDERED: magnesium Cl slow-release 64mg tablet PO PRN ×2 (18:15→20:25)
[2020-10-21] MEDS ORDERED: magnesium 4gm in 100ml NS 100 ML IV PRN ×2 (18:15→20:25)
[2020-10-21] MEDS ORDERED: potassium Cl 20 mEq SR tablet PO PRN ×4 (18:15→20:25)
[2020-10-21] MEDS: guaiFENesin/codeine phos 10ml UD oral syrup PO SCH (19:31)
[2020-10-21] MEDS: potassium Cl 40MEQ/1/2NS 520ml 520 ML IV PRN (19:32)
[2020-10-21] MEDS: traZODone 50mg tablet PO SCH (19:33)
[2020-10-21] MEDS: ondansetron/PF 4mg/2ml inj IV PRN (19:53)
[2020-10-21] MEDS ORDERED: potassium phosphate inj 30 MMOL in normal saline 500ml IV soln 500 ML IV ONE (20:25)
[2020-10-21] MEDS ORDERED: potassium Cl 40MEQ/1/2NS 520ml 520 ML IV PRN (20:25)
[2020-10-21 22:00] VITALS: BP 142/81
[2020-10-22] MEDS: guaiFENesin/codeine phos 10ml UD oral syrup PO SCH ×7 (00:07→20:26)
[2020-10-22] MEDS: baclofen 10mg tablet PO SCH ×4 (00:07→16:20)
[2020-10-22] MEDS: acetaminophen 325mg tablet PO PRN ×2 (01:39→15:43)
[2020-10-22 02:00] VITALS: BP 143/74
--- NOTE | 2020-10-22 02:00 | NUR ---
she has 15 liters high flow oxygen and NRB at 15 liters oxygen too. Addendum: 10/22/20 at 0417 by Wendy Troy RN Amended: Links added.
[2020-10-22] MEDS: LORazepam 2 mg/ml vial IV PRN ×5 (02:08→20:30)
[2020-10-22] MEDS ORDERED: LORazepam 2 mg/ml vial IV ONE (03:00)
[2020-10-22] MEDS: morphine 2 MG/ML inj. syringe IV PRN (03:35)
[2020-10-22 03:53] LABS: ABG BASE EXCESS -5.5 mmol/L (-2.0-2.0); ABG HCO3 17.4 mmol/L (22.0-26.0); ABG OXYGEN SATURATION 91.7 % (94-97); ABG PCO2 (T) 28.7 mmHg (32.0-45.0); ALLEN'S TEST POSITIVE; FCOHb 0.3 % (0.0-3.9); FLOW 15 L/min; FO2Hb 91.4 % (94-97); PATIENT TEMPERATURE 38.7; TOTAL HEMOGLOBIN 12.2 G/dl (12.0-16.0)
--- NOTE | 2020-10-22 04:06 | NUR ---
at 0200 : patient has fever of 101. tylenol administered. RR back up in high 30s - ativan administered. cool washcloth to face and back rub to calm patient to slow RR. will recheck temp and RR in 1 hour. at 0300 called and informed him that patient still had increased RR and temp was getting higher 101.6 after tylenol administration. Another 1mg of Ativan ordered to try to slow RR. Called MD again within 30 min to inform him that it was not helping and that I was very concerned that patient was in trouble. MD came up to floor. ABG ordered and Resp notified. 2mg of morphine administered. and ABG drawn. Patient bedding changed and cool washcloths to forehead and sips of ice water provided. ordered HF tower.
--- NOTE | 2020-10-22 06:28 | NUR ---
Problems reprioritized. Patient report given, questions answered & plan of care reviewed with KEVIN Adams.
--- NOTE | 2020-10-22 06:42 | NUR ---
RECEIVED REPORT FROM MEGAN BROWN
[2020-10-22 06:55] VITALS: BP 121/71
[2020-10-22] MEDS: K and/or MAG REPLACEMENT MC SCH ×2 (08:00→20:33)
[2020-10-22 08:04] LABS: BASOPHILS % (AUTO) 0.2 % (0-1); EOSINOPHILS # (AUTO) 0.1 X10'3 (0-0.9); EOSINOPHILS % (AUTO) 0.4 % (0-6); HEMATOCRIT 36.9 % (35.0-45.0); HEMOGLOBIN 12.5 g/dl (12.0-16.0); LYMPHOCYTES # (AUTO) 1.3 X10'3 (1.1-4.8); LYMPHOCYTES % (AUTO) 9.8 % (21-51); MEAN CORPUSCULAR HEMOGLOBIN 30.9 PG (27.0-31.0); MEAN CORPUSCULAR HGB CONC 33.8 g/dL (33.0-36.5); MEAN CORPUSCULAR VOLUME 91.4 FL (78-98); MEAN PLATELET VOLUME 6.9 FL (7.4-10.4); MONOCYTES % (AUTO) 7.5 % (2-12); NEUTROPHILS # (AUTO) 10.7 X10'3 (1.8-7.7); NEUTROPHILS % (AUTO) 82.1 % (42-75); PLATELET COUNT 385 X10'3 (140-440); RED BLOOD COUNT 4.04 X10'6 (4.20-5.60); RED CELL DISTRIBUTION WIDTH 13.9 % (11.5-14.5)
[2020-10-22] MEDS: topiramate 100mg tablet PO SCH ×2 (08:05→20:24)
[2020-10-22] MEDS: levoTHYROXINE 100mcg tablet PO SCH (08:05)
[2020-10-22] MEDS: guaiFENesin ER 600mg tablet PO SCH ×2 (08:05→20:25)
[2020-10-22] MEDS: enoxaparin 40mg/0.4ml syringe SUBCUT SCH (08:05)
[2020-10-22] MEDS: ESCITALOPRAM OXALATE 5 MG TABLET PO SCH (08:05)
[2020-10-22] MEDS: REMDESIVIR 100 MG in NS 100ml IVPB IV SCH (08:06)
[2020-10-22 08:23] LABS: D-DIMER 6.34 MG/L FEU (0-0.50)
[2020-10-22 08:36] LABS: ALANINE AMINOTRANSFERASE 30 U/L (12-78); ALBUMIN 2.4 G/DL (3.4-5.0); ALBUMIN/GLOBULIN RATIO 0.5 (1.1-1.5); ALKALINE PHOSPHATASE 100 IU/L (46-116); ANION GAP 14 (8-16); ASPARTATE AMINO TRANSFERASE 53 U/L (10-37); BILIRUBIN,TOTAL 0.5 MG/DL (0.1-1.0); BLOOD UREA NITROGEN 13 MG/DL (7-18); C-REACTIVE PROTEIN 15.48 MG/DL (0.0-0.5); CALCIUM 8.3 MG/DL (8.5-10.1); CHLORIDE 109 MMOL/L (99-107); CREATININE 0.81 MG/DL (0.40-0.90); GLUCOSE 161 MG/DL (70-104); MAGNESIUM 2.4 MG/DL (1.5-2.4); PHOSPHORUS 2.7 MG/DL (2.3-4.5); POTASSIUM 3.3 MMOL/L (3.5-5.1); SODIUM 142 MMOL/L (135-145); TOTAL CARBON DIOXIDE 18.6 MMOL/L (24-32); TOTAL PROTEIN 7.4 G/DL (6.4-8.2); eGFR 75 ML/MIN
[2020-10-22] MEDS ORDERED: piperacillin/tazo 4.5gm/100ml 100 ML IV SCH (09:35)
[2020-10-22 10:00] VITALS: BP 150/78
[2020-10-22] MEDS ORDERED: dexamethasone 4mg/ml inj IV SCH (10:15)
[2020-10-22 11:51] LABS: ABG OXYGEN SATURATION 91.6 % (94-97); ABG PO2 (T) 57.7 mmHg (75.0-100.0); ALLEN'S TEST POSITIVE; FCOHb 0.3 % (0.0-3.9); FLOW 35 L/min; FO2Hb 91.3 % (94-97); TOTAL HEMOGLOBIN 12.1 G/dl (12.0-16.0)
[2020-10-22] MEDS: HYDROcodone/acetaminophen 10/325mg tab PO PRN ×2 (16:20→20:25)
[2020-10-22 18:00] VITALS: BP 129/83
--- NOTE | 2020-10-22 18:59 | NUR ---
Patient in room ORTHO [facility]. I have received report from BART BROWN and had the opportunity to ask questions and assume patient care. Addendum: 10/22/20 at 1859 by Lottie Orta RN Amended: Links added.
--- NOTE | 2020-10-22 19:28 | NUR ---
RESPIRATORY PAGED TO COME EVALUATE PT AT THIS TIME. SHE IS RESTING NOW SATS AT 93% AND RESP RATE 46 WITH SITTER BY THE ROOM. PT HEART RATE AROUND 107.
--- NOTE | 2020-10-22 20:20 | NUR ---
RT IN TO EVALUATE PT SHE IS AT 100% FIO2 WITH 60 LITERS O2. SHE IS EXCHANGING BECOMES EASILY AGGITATED AND EXPLAINED TO HER WHAT IS GOING ON. NOTED WHITE PATCHES ON TONGUE. EXPLAINED MEDS GIVEN TO HER AND TOOK PILLS ONE AT A TIME WITH BITES OF APPLE SAUCE SWALLOWED VERY SLOWLY. IV ABX ZOSYN INFUSING IN LEFT HAND IV STARTED EARLIER ON . PT MEDICATED FOR PAIN AND FEVER WITH PO NORCO AND ATIVAN FOR THE ANXIETY, RT WITH PT CALMER NOW ABLE TO DECREASE 02 TO 45LITERS AT 100%. PT EXCHANGING WELL RESP RATE DEREASED TO 25 TO 30 NOW. PT APPEARS MORE COMFORTABLE AT THIS TIME. HAD USED BEDPAN EARILIER FOR THEW ABORIGINAL EDUCATION WORKER COORDINATOR AND VOIDED 375CC URINE.
[2020-10-22] MEDS: traZODone 50mg tablet PO SCH (20:25)
[2020-10-22] MEDS: lactobacillus rhamnosus 10,000 MMU CELLS/CAPSULE PO SCH (20:25)
[2020-10-22] MEDS: enoxaparin 60mg/0.6ml syringe SUBCUT SCH (20:27)
[2020-10-22] MEDS: enoxaparin 30mg/0.3ml syringe SUBCUT SCH (20:28)
[2020-10-22] MEDS: piperacillin/tazo 4.5gm/100ml 100 ML IV SCH (20:29)
--- NOTE | 2020-10-22 21:16 | NUR ---
NURSE PRACTIONER UP TO EVALUATE PER REQUEST OF DR LUCIO ADVISORY ROLE ON THIS PT. INFORMED HIM OF THE THRUSH IN PT'S MOUTH ORDER OBTAINED.
[2020-10-22 22:00] VITALS: BP 138/84
--- NOTE | 2020-10-22 22:00 | NUR ---
MOM CALLED TO CHECK ON THE PT CALL RETURNED AND SHE IS AWARE THAT SHE IS RUNNING HIGH FEVERS. PT'S HAS IT NOW.
[2020-10-23] VITALS (14 sets, daily range): BP systolic 97–158; BP diastolic 49–87
[2020-10-23] MEDS: guaiFENesin/codeine phos 10ml UD oral syrup PO SCH ×6 (00:19→20:28)
[2020-10-23] MEDS: baclofen 10mg tablet PO SCH ×4 (00:20→23:49)
[2020-10-23] MEDS: nystatin 500,000 unit/5ML UD oral suspension PO SCH ×4 (00:20→20:27)
--- NOTE | 2020-10-23 00:20 | NUR ---
PT TOOK MIDNIGHT MEDS MOUTH CARE DONE THEN NYSTATIN SWISH AND SWALLOW. PT REMAINS CONFUSED ATTEMPT TO REORIENT AND COOLING MEASURES DONE HAIR BRUSHED TURNED VERY SLOWLY AND POSITIONED SLOWLY IN BED. PT FOLLOWED SIMPLE COMMANDS. INC OF URINE AND LIQUID STOOL SKIN CARE DONE. SATS AT 93% AT START BUT DESATURATED AND NOT COMING UP . O2 INCREASED BACK UP TO 60 LITERS HIGH FLOW RT NOTIFIED HAD HIM CHECK HER AND REEVALUATE. WILL CONTINUE TO MONITOR.
--- NOTE | 2020-10-23 02:00 | NUR ---
sats 90-93 % now on 60 liters 100% fio2. pt appears comfortable.
[2020-10-23] MEDS: piperacillin/tazo 4.5gm/100ml 100 ML IV SCH ×3 (03:54→20:49)
[2020-10-23] MEDS: HYDROcodone/acetaminophen 10/325mg tab PO PRN (03:55)
--- NOTE | 2020-10-23 03:55 | NUR ---
medicated for pain with po norco that she took with apple sauce then given liq syrup ordered and drank water and mouth care given. repositioned up in bed and put on the bedpan. with these activities sats down to 86% at 60 liters and 100%. Rt rounded on her and aware of the desat and continue to monitor.
--- NOTE | 2020-10-23 04:10 | NUR ---
mouth care done pt tolerated fair.
--- NOTE | 2020-10-23 04:42 | NUR ---
DR LUCIO IN TO SEE THE PT AND AWARE SHE IS BACK UP TO 60 LITERS 02 WITH ORAL THRUSH AND HAS GOTTEN NYSTATIN AND MOUTH CARE FOR THIS AND THAT THE FEVER IS DONE AND SOME OF HER CONFUSION HAS IMPROVED,
--- NOTE | 2020-10-23 06:32 | NUR ---
Problems reprioritized. Patient report given, questions answered & plan of care reviewed with JENNY CARTY RN. Addendum: 10/23/20 at 0632 by Lottie Orta RN Amended: Links added.
--- NOTE | 2020-10-23 06:35 | NUR ---
Patient in room ORTHO 4015b. I have received report from KEVIN BARRY and had the opportunity to ask questions and assume patient care.
[2020-10-23 07:45] LABS: D-DIMER 4.39 MG/L FEU (0-0.50)
[2020-10-23 07:48] LABS: ALANINE AMINOTRANSFERASE 24 U/L (12-78); ALBUMIN/GLOBULIN RATIO 0.4 (1.1-1.5); ALKALINE PHOSPHATASE 89 IU/L (46-116); ANION GAP 16 (8-16); ASPARTATE AMINO TRANSFERASE 43 U/L (10-37); BILIRUBIN,TOTAL 0.6 MG/DL (0.1-1.0); BLOOD UREA NITROGEN 13 MG/DL (7-18); BUN/CREATININE RATIO 15.1 (6.6-38.0); C-REACTIVE PROTEIN 22.54 MG/DL (0.0-0.5); CALCIUM 7.9 MG/DL (8.5-10.1); CHLORIDE 109 MMOL/L (99-107); CREATININE 0.86 MG/DL (0.40-0.90); GLUCOSE 169 MG/DL (70-104); MAGNESIUM 2.5 MG/DL (1.5-2.4); PHOSPHORUS 2.3 MG/DL (2.3-4.5); SODIUM 143 MMOL/L (135-145); TOTAL CARBON DIOXIDE 18.2 MMOL/L (24-32); TOTAL PROTEIN 6.9 G/DL (6.4-8.2); eGFR 70 ML/MIN
[2020-10-23 07:52] LABS: POTASSIUM 2.8 MMOL/L (3.5-5.1)
[2020-10-23] MEDS: K and/or MAG REPLACEMENT MC SCH ×2 (08:00→20:00)
[2020-10-23] MEDS: dexamethasone 4mg/ml inj IV SCH (08:05)
[2020-10-23] MEDS: guaiFENesin ER 600mg tablet PO SCH ×2 (09:54→20:27)
[2020-10-23] MEDS: levoTHYROXINE 100mcg tablet PO SCH (09:54)
[2020-10-23] MEDS: topiramate 100mg tablet PO SCH ×2 (09:54→20:27)
[2020-10-23] MEDS: enoxaparin 30mg/0.3ml syringe SUBCUT SCH ×2 (09:55→20:28)
[2020-10-23] MEDS: enoxaparin 60mg/0.6ml syringe SUBCUT SCH ×2 (09:55→20:28)
[2020-10-23] MEDS: ESCITALOPRAM OXALATE 5 MG TABLET PO SCH (09:57)
[2020-10-23] MEDS: lactobacillus rhamnosus 10,000 MMU CELLS/CAPSULE PO SCH ×2 (09:58→20:27)
--- NOTE | 2020-10-23 10:23 | NUR ---
I spoke to Dr. Lynn about patient stating that she cant take the steroids IV, after I educated her she told me that I still can't give them to her and she stated " I'll be just fine without them".
[2020-10-23] MEDS: ziprasidone IM 20mg inj **IM only IM PRN (10:38)
--- NOTE | 2020-10-23 10:58 | NUR ---
Problems reprioritized. Patient report given, questions answered & plan of care reviewed with KEVIN WHITE IN CICU.
[2020-10-23 12:00] LABS: RED CELL DISTRIBUTION WIDTH 13.9 % (11.5-14.5); WHITE BLOOD COUNT 14.7 X10'3 (4.5-11.0)
[2020-10-23 12:01] LABS: BASOPHILS # (AUTO) 0.2 X10'3 (0-0.2); BASOPHILS % (AUTO) 1.2 % (0-1); EOSINOPHILS # (AUTO) 0.1 X10'3 (0-0.9); EOSINOPHILS % (AUTO) 0.6 % (0-6); HEMATOCRIT 35.5 % (35.0-45.0); HEMOGLOBIN 12.2 g/dl (12.0-16.0); LYMPHOCYTES # (AUTO) 0.6 X10'3 (1.1-4.8); LYMPHOCYTES % (AUTO) 4.2 % (21-51); MEAN CORPUSCULAR HEMOGLOBIN 30.7 PG (27.0-31.0); MEAN CORPUSCULAR HGB CONC 34.2 g/dL (33.0-36.5); MEAN CORPUSCULAR VOLUME 89.7 FL (78-98); MONOCYTES # (AUTO) 0.6 X10'3 (0-0.9); NEUTROPHILS # (AUTO) 13.2 X10'3 (1.8-7.7); PLATELET COUNT 418 X10'3 (140-440); RED BLOOD COUNT 3.96 X10'6 (4.20-5.60)
--- NOTE | 2020-10-23 12:40 | NUR ---
Pt arrived to unit via rjens with KEVIN Pichardo, certified nursing assistant, and RT. Assessed vitals, 2 RN skin check, and physical assessment. VS: 123/59-105-94% HFNC 60% and 100% FiO2d- RR 33 Addendum: 10/23/20 at 1318 by Wilma Park RN Lola BROWN*
--- NOTE | 2020-10-23 12:40 | NUR ---
Patient in room CICU 2007. I have received report from KEVIN Pichardo and had the opportunity to ask questions and assume patient care.
--- NOTE | 2020-10-23 14:23 | NUR ---
Initial: Pt admit DX COVID-19, acute respiratory failure, and baseline psych hx w/ corticosteroid intolerance per EMR. Pt becoming more lethargic, ALOC, and tachypneic transferred to ICU today w/ concerns for possible intubation needs per EMR. AOx2 w/ sitter and restraints at this time per EMR. Pt previously on easy to chew/nectar thick diet without MAKING MACHINE CATCHER BSS this admit PO mostly 0% meals w/ occasional ~25% avg past 5 days not meeting needs. Noted pt receiving thin liquids and tolerating per RN during prior RD consult but pt never changed to thin liquid diet. LBM 10/22. CRP increasing to 22.54 today from 10.96 10/20. Will provide TF recs below in case intubation and also since would likely benefit from corpak to meet nutrition needs given poor PO hx w/ ALOC. Using IBW +10% for EN recs since pending scaled wt this admit. Will continue to monitor for additional protein/kcal needs. Rec: 1. continue easy to chew/nectar thick diet; consider thin liquids since tolerating previously 2. MAKING MACHINE CATCHER BSS prior to further PO if no intubation 3. routine bowel care 4. IF TF; Vital AF at 70ml/hr goal; adjust pending scaled wt this admit as medically indicated 5. IF TF; additional water flush 200ml Q4 6. scaled wt this admit Addendum: 10/23/20 at [address] Amended: Links added.
[2020-10-23] MEDS ORDERED: furosemide 40mg/4ml inj IV ONE (14:55)
[2020-10-23] MEDS: LORazepam 2 mg/ml vial IM PRN ×4 (14:58→22:34)
--- NOTE | 2020-10-23 15:02 | NUR ---
Pt agitated screaming 'get me out of here, youre not going to make me better'. Proceeded to give pt ativan IM.
[2020-10-23] MEDS: acetaminophen 325mg tablet PO PRN (15:29)
--- NOTE | 2020-10-23 17:17 | NUR ---
Pt began desaturating to 70s on HFNC, placed pt on non-rebreather. Per Dr. Pichardo place pt on bipap. Pt on 100% Fio2
--- NOTE | 2020-10-23 18:26 | NUR ---
Problems reprioritized. Patient report given, questions answered & plan of care reviewed with KEVIN Blount.
--- NOTE | 2020-10-23 18:30 | NUR ---
Patient in room CICU 2007. I have received report from KEVIN Dillon and had the opportunity to ask questions and assume patient care. Patient is sleeping comfortably, Bipap on.
[2020-10-23 19:39] LABS: ABG BASE EXCESS -4.6 mmol/L (-2.0-2.0); ABG HCO3 18.9 mmol/L (22.0-26.0); ABG OXYGEN SATURATION 89.8 % (94-97); ABG PCO2 (T) 29.6 mmHg (32.0-45.0); ABG PO2 (T) 57.3 mmHg (75.0-100.0); ALLEN'S TEST POSITIVE; FCOHb 0.3 % (0.0-3.9); FMetHb 0.1 % (0.0-1.5); FO2Hb 89.4 % (94-97); PATIENT TEMPERATURE 36.7; TOTAL HEMOGLOBIN 11.3 G/dl (12.0-16.0)
--- NOTE | 2020-10-23 19:57 | NUR ---
Patient incontinent of urine and stool, getting Lasix. I cld Quoc Love NP and got an order for a Thomas.
[2020-10-23] MEDS: traZODone 50mg tablet PO SCH (20:27)
[2020-10-23] MEDS: acetaminophen 1,000mg/100ml IV 100 ML IV SCH (22:40)
[2020-10-24] VITALS (24 sets, daily range): BP systolic 96–153; BP diastolic 56–78
[2020-10-24] MEDS: acetaminophen 1,000mg/100ml IV 100 ML IV SCH ×4 (02:00→19:57)
[2020-10-24] MEDS ORDERED: acetaminophen 1,000mg/100ml IV 100 ML IV SCH (02:00)
[2020-10-24] MEDS: guaiFENesin/codeine phos 10ml UD oral syrup PO SCH ×6 (04:00→20:00)
[2020-10-24] MEDS: piperacillin/tazo 4.5gm/100ml 100 ML IV SCH ×2 (04:06→13:05)
[2020-10-24] MEDS: LORazepam 2 mg/ml vial IM PRN (05:29)
[2020-10-24] MEDS: ziprasidone IM 20mg inj **IM only IM PRN (05:42)
--- NOTE | 2020-10-24 05:46 | NUR ---
Patient became agitated and combative after blood draw, Ativan 2mg was given with no results so Geodon 10mg was given and patient calmed down.
[2020-10-24 05:57] LABS: BASOPHILS % (AUTO) 0.3 % (0-1); EOSINOPHILS # (AUTO) 0.2 X10'3 (0-0.9); EOSINOPHILS % (AUTO) 1.4 % (0-6); HEMATOCRIT 33.3 % (35.0-45.0); LYMPHOCYTES # (AUTO) 0.9 X10'3 (1.1-4.8); LYMPHOCYTES % (AUTO) 6.5 % (21-51); MEAN CORPUSCULAR HEMOGLOBIN 29.9 PG (27.0-31.0); MEAN CORPUSCULAR VOLUME 90.5 FL (78-98); MEAN PLATELET VOLUME 7.6 FL (7.4-10.4); MONOCYTES # (AUTO) 0.5 X10'3 (0-0.9); MONOCYTES % (AUTO) 3.5 % (2-12); NEUTROPHILS % (AUTO) 88.3 % (42-75); PLATELET COUNT 463 X10'3 (140-440); RED BLOOD COUNT 3.68 X10'6 (4.20-5.60); RED CELL DISTRIBUTION WIDTH 14.1 % (11.5-14.5); WHITE BLOOD COUNT 13.6 X10'3 (4.5-11.0)
[2020-10-24 06:10] LABS: ALANINE AMINOTRANSFERASE 19 U/L (12-78); ALBUMIN 1.8 G/DL (3.4-5.0); ALBUMIN/GLOBULIN RATIO 0.4 (1.1-1.5); ALKALINE PHOSPHATASE 83 IU/L (46-116); ANION GAP 11 (8-16); ASPARTATE AMINO TRANSFERASE 34 U/L (10-37); BILIRUBIN,TOTAL 0.5 MG/DL (0.1-1.0); BLOOD UREA NITROGEN 13 MG/DL (7-18); BUN/CREATININE RATIO 13.5 (6.6-38.0); CALCIUM 8.3 MG/DL (8.5-10.1); CHLORIDE 111 MMOL/L (99-107); CREATININE 0.96 MG/DL (0.40-0.90); GLUCOSE 143 MG/DL (70-104); MAGNESIUM 2.6 MG/DL (1.5-2.4); PHOSPHORUS 2.9 MG/DL (2.3-4.5); POTASSIUM 3.3 MMOL/L (3.5-5.1); SODIUM 145 MMOL/L (135-145); TOTAL CARBON DIOXIDE 22.7 MMOL/L (24-32); TOTAL PROTEIN 6.8 G/DL (6.4-8.2); eGFR 62 ML/MIN
[2020-10-24 06:24] LABS: C-REACTIVE PROTEIN 26.56 MG/DL (0.0-0.5); D-DIMER 4.95 MG/L FEU (0-0.50)
--- NOTE | 2020-10-24 06:26 | NUR ---
Problems reprioritized. Patient report given, questions answered & plan of care reviewed with KEVIN Weldon.
[2020-10-24 07:03] LABS: TOTAL CELLS COUNTED 100
[2020-10-24 07:04] LABS: LARGE PLATELETS FEW; PLATELET ESTIMATE INCREASED
[2020-10-24] MEDS: baclofen 10mg tablet PO SCH ×2 (08:00→16:00)
[2020-10-24] MEDS: guaiFENesin ER 600mg tablet PO SCH ×2 (08:00→20:00)
[2020-10-24] MEDS: ESCITALOPRAM OXALATE 5 MG TABLET PO SCH (08:00)
[2020-10-24] MEDS: nystatin 500,000 unit/5ML UD oral suspension PO SCH ×3 (08:00→21:00)
[2020-10-24] MEDS: levoTHYROXINE 100mcg tablet PO SCH (08:00)
[2020-10-24] MEDS: topiramate 100mg tablet PO SCH ×2 (08:00→20:00)
[2020-10-24] MEDS: K and/or MAG REPLACEMENT MC SCH ×2 (08:00→20:00)
[2020-10-24] MEDS: lactobacillus rhamnosus 10,000 MMU CELLS/CAPSULE PO SCH ×2 (08:00→20:00)
[2020-10-24] MEDS: enoxaparin 60mg/0.6ml syringe SUBCUT SCH ×2 (08:18→19:57)
[2020-10-24] MEDS: enoxaparin 30mg/0.3ml syringe SUBCUT SCH ×2 (08:18→19:57)
[2020-10-24] MEDS: dexamethasone 4mg/ml inj IV SCH (08:19)
[2020-10-24] MEDS: potassium Cl 40MEQ/1/2NS 520ml 520 ML IV PRN (08:29)
--- NOTE | 2020-10-24 16:00 | NUR ---
RECEIVED PAGE FOR PICC LINE PLACEMENT. NOTIFIED DR YENY Reina WAS NOT NOTIFIED OF PICC ORDER UNTIL 1547 HE STATES IT CAN BE DONE TOMORROW FOR TPN. REQUESTED MILI RN USE PAGING SYSTEM WHEN PICC ORDERED OTHERWISE PICC PLACEMENT WILL BE DELAYED PICC WAS ORDERED AT 0900. MILI RN STATES SHE PAGED PICC AT 0900. NO PAGE, NO PHONE MESSAGE RECEIVED. Rosaura LUTZ PICC RN
--- NOTE | 2020-10-24 16:02 | NUR ---
Per Dr. Ruby tried to place corpak, but pt started to bleed. Pulled back the corpak, Called Dr. Ruby. He said that he will work on starting her on TPN tomorrow. Pt will get a PICC line today per PICC nurse.
[2020-10-24] MEDS: methylPREDNISolone sod succ 125mg/2ml vial IV SCH (16:24)
--- NOTE | 2020-10-24 18:24 | NUR ---
Problems reprioritized. Patient report given, questions answered & plan of care reviewed with KEVIN Izaguirre.
--- NOTE | 2020-10-24 18:30 | NUR ---
Patient in room CICU 2007. I have received report from Fatemeh BROWN and had the opportunity to ask questions and assume patient care.
[2020-10-24] MEDS: morphine 2 MG/ML inj. syringe IV PRN (20:24)
[2020-10-24] MEDS: traZODone 50mg tablet PO SCH (21:07)
[2020-10-24] MEDS: LORazepam 2 mg/ml vial IV PRN (21:48)
[2020-10-25] VITALS (24 sets, daily range): BP systolic 99–146; BP diastolic 49–77
[2020-10-25] MEDS: methylPREDNISolone sod succ 125mg/2ml vial IV SCH ×3 (00:01→16:48)
[2020-10-25] MEDS: morphine 2 MG/ML inj. syringe IV PRN ×3 (00:02→14:29)
[2020-10-25] MEDS: ziprasidone IM 20mg inj **IM only IM PRN ×4 (01:38→23:00)
[2020-10-25] MEDS: guaiFENesin/codeine phos 10ml UD oral syrup PO SCH ×6 (03:37→20:00)
--- NOTE | 2020-10-25 06:15 | NUR ---
Problems reprioritized. Patient report given, questions answered & plan of care reviewed with Fatemeh BROWN.
[2020-10-25 06:31] LABS: D-DIMER 2.74 MG/L FEU (0-0.50)
[2020-10-25 07:58] LABS: BASOPHILS % (AUTO) 0.3 % (0-1); EOSINOPHILS % (AUTO) 0.1 % (0-6); HEMOGLOBIN 10.3 g/dl (12.0-16.0); LYMPHOCYTES # (AUTO) 0.8 X10'3 (1.1-4.8); LYMPHOCYTES % (AUTO) 6.3 % (21-51); MEAN CORPUSCULAR HEMOGLOBIN 29.9 PG (27.0-31.0); MEAN CORPUSCULAR HGB CONC 33.3 g/dL (33.0-36.5); MEAN PLATELET VOLUME 7.4 FL (7.4-10.4); MONOCYTES # (AUTO) 0.5 X10'3 (0-0.9); MONOCYTES % (AUTO) 3.8 % (2-12); NEUTROPHILS # (AUTO) 11.1 X10'3 (1.8-7.7); NEUTROPHILS % (AUTO) 89.5 % (42-75); PLATELET COUNT 549 X10'3 (140-440); RED BLOOD COUNT 3.45 X10'6 (4.20-5.60); WHITE BLOOD COUNT 12.4 X10'3 (4.5-11.0)
[2020-10-25] MEDS: levoTHYROXINE 100mcg tablet PO SCH (08:00)
[2020-10-25] MEDS: lactobacillus rhamnosus 10,000 MMU CELLS/CAPSULE PO SCH ×2 (08:00→20:00)
[2020-10-25] MEDS: topiramate 100mg tablet PO SCH ×2 (08:00→20:00)
[2020-10-25] MEDS: baclofen 10mg tablet PO SCH ×3 (08:00→15:53)
[2020-10-25] MEDS: nystatin 500,000 unit/5ML UD oral suspension PO SCH ×3 (08:00→21:00)
[2020-10-25] MEDS: ESCITALOPRAM OXALATE 5 MG TABLET PO SCH (08:00)
[2020-10-25] MEDS: guaiFENesin ER 600mg tablet PO SCH ×2 (08:00→20:00)
[2020-10-25 08:08] LABS: ALBUMIN 1.7 G/DL (3.4-5.0); ANION GAP 13 (8-16); BLOOD UREA NITROGEN 22 MG/DL (7-18); BUN/CREATININE RATIO 30.6 (6.6-38.0); CALCIUM 8.1 MG/DL (8.5-10.1); CHLORIDE 114 MMOL/L (99-107); CREATININE 0.72 MG/DL (0.40-0.90); GLUCOSE 168 MG/DL (70-104); POTASSIUM 3.3 MMOL/L (3.5-5.1); SODIUM 147 MMOL/L (135-145); TOTAL CARBON DIOXIDE 19.8 MMOL/L (24-32); eGFR 86 ML/MIN
[2020-10-25] MEDS: K and/or MAG REPLACEMENT MC SCH ×2 (08:38→20:00)
[2020-10-25] MEDS: enoxaparin 60mg/0.6ml syringe SUBCUT SCH ×2 (09:09→20:15)
[2020-10-25] MEDS: enoxaparin 30mg/0.3ml syringe SUBCUT SCH ×2 (09:09→20:14)
[2020-10-25] MEDS ORDERED: potassium Cl 20 mEq SR tablet PO PRN (09:45)
[2020-10-25] MEDS ORDERED: potassium Cl 40MEQ/1/2NS 520ml 520 ML IV PRN ×2 (09:50)
[2020-10-25] MEDS ORDERED: potassium Cl 40MEQ/250ML bag 270 ML IV PRN (09:50)
--- NOTE | 2020-10-25 09:52 | NUR ---
[facility] LINE INFORMATION: REF: [id number] LOT: [id number] EXP: 10/05/2021
[2020-10-25] MEDS: pantoprazole 40 MG vial IV SCH (11:33)
--- NOTE | 2020-10-25 12:06 | NUR ---
per Dr. Cotton placed pt on high flow, pt Oxygen went down to 50s. Placed BIPAP back, pt resting now. Dr. Ruby said he will put orders for TPN, pt has PICC line. Spoke with Eddi at pharmacy to see if any of her PO medications can be changed to IV.
[2020-10-25] MEDS: potassium Cl 40MEQ/250ML bag 270 ML IV PRN (12:20)
[2020-10-25] MEDS ORDERED: magnesium 2GM in 50ml NS 50 ML IV PRN ×2 (13:05→14:55)
[2020-10-25] MEDS ORDERED: magnesium Cl slow-release 64mg tablet PO PRN ×2 (13:05→14:55)
[2020-10-25] MEDS ORDERED: magnesium 4gm in 100ml NS 100 ML IV PRN ×2 (13:05→14:55)
[2020-10-25] MEDS ORDERED: Dextrose 10%-water IV solution 1,000 ML IV PRN ×2 (13:05→14:55)
[2020-10-25] MEDS: LORazepam 2 mg/ml vial IV PRN ×3 (13:26→23:00)
--- NOTE | 2020-10-25 13:55 | NUR ---
Dorothea Adams NP at behavioral health on the unit. She ordered to increase Geodon to 20mg Q6H and Ativan to 2mg Q2H. Orders noted.
--- NOTE | 2020-10-25 14:34 | NUR ---
TPN consult. Patient pending PICC line. Corpak was not able to be placed d/t nose bleed. Pt admit DX COVID-19, acute respiratory failure, and baseline psych hx w/ corticosteroid intolerance per EMR. Pt becoming more lethargic, ALOC. AOx2. Pt previously on easy to chew/nectar thick diet without CONSTRUCTION PERSON BSS this admit however 0% PO intake d/t SOB. Unable to meet needs with PO Intake. Using IBW +10% for energy and protein recs since pending scaled wt this admit. Using TPN to meet nutrition needs given unable to place corpak. Rec: 1. Continuous 3:1 TPN using Clinimix E 5/15% with 100 ml 20% intralipids at 110 ml/hr will provide ml 2640 volume, 2036 calories, 126 g protein, and 2.87 mg/kg/min dextrose loading. 2. Daily weights, TG and prealbumin q friday/ 3. as able resume easy to chew/nectar thick diet; consider thin liquids since tolerating previously 4. CONSTRUCTION PERSON BSS prior to further PO if no intubation 5. routine bowel care 6. IF TF; Vital AF at 70ml/hr goal; adjust pending scaled wt this admit as medically indicated 7. IF TF; additional water flush 200ml Q4 8. scaled wt this admit Addendum: 10/25/20 at [address] Amended: Links added.
[2020-10-25 15:43] LABS: ALANINE AMINOTRANSFERASE 19 U/L (12-78); ALBUMIN 1.7 G/DL (3.4-5.0); ALBUMIN/GLOBULIN RATIO 0.3 (1.1-1.5); ALKALINE PHOSPHATASE 97 IU/L (46-116); ANION GAP 13 (8-16); ASPARTATE AMINO TRANSFERASE 30 U/L (10-37); BILIRUBIN,TOTAL 0.3 MG/DL (0.1-1.0); BLOOD UREA NITROGEN 21 MG/DL (7-18); CALCIUM 8.2 MG/DL (8.5-10.1); CHLORIDE 115 MMOL/L (99-107); CREATININE 0.75 MG/DL (0.40-0.90); GLUCOSE 163 MG/DL (70-104); MAGNESIUM 2.9 MG/DL (1.5-2.4); PHOSPHORUS 2.2 MG/DL (2.3-4.5); POTASSIUM 3.7 MMOL/L (3.5-5.1); PREALBUMIN 11.6 MG/DL (19-36); SODIUM 147 MMOL/L (135-145); TOTAL CARBON DIOXIDE 19.1 MMOL/L (24-32); TOTAL PROTEIN 7.5 G/DL (6.4-8.2); TRIGLYCERIDES 401 MG/DL (20-135); eGFR 82 ML/MIN
--- NOTE | 2020-10-25 18:06 | NUR ---
CHEST X-RAY ORDERED DUE TO PICC LINE NOT DRAWING BLOOD. LAB NOTIFIED OF THIS ISSUE. UPON ARRIVAL NO ORANGE CAPS ON PICC, NEITHER CLAMP CLAMPED, NEW TUBING WITH NO ALCOHOL CAPS IN PLACE. PICC PULLED BACK 5 CM FOR A TOTAL OF 9 OUT SECOND X-RAY ORDERED. AFTER PICC PULLED BACK IT DRAWS BLOOD EASILY AND FLUSHES WITHOUT DIFFICULTY. SITE REDRESSED USING STERILE TECHNIQUE. MILI BROWN NOTIFIED SHE NEEDS TO HAVE ALL PORTS COVERED WITH ALCOHOL CAPS AND TO NOTIFY PICC IF PROBLEMS WITH PICC ARISE I WAS UNAWARE OF THE PROBLEM UNTIL LAB CALLED ME. LUCIANO PICC KEVIN
--- NOTE | 2020-10-25 18:18 | NUR ---
Problems reprioritized. Patient report given, questions answered & plan of care reviewed with KEVIN Marley.
[2020-10-25] MEDS: [UNRECOGNIZED DRUG - REMARK] IV SCH ×5 (20:16)
[2020-10-25] MEDS: traZODone 50mg tablet PO SCH (21:00)
[2020-10-26] VITALS (23 sets, daily range): BP systolic 117–164; BP diastolic 61–89
[2020-10-26] MEDS: LORazepam 2 mg/ml vial IV PRN ×4 (00:55→19:54)
[2020-10-26] MEDS: methylPREDNISolone sod succ 125mg/2ml vial IV SCH ×3 (00:56→17:03)
[2020-10-26 02:41] LABS: BASOPHILS % (AUTO) 0.3 % (0-1); EOSINOPHILS % (AUTO) 0.3 % (0-6); HEMATOCRIT 31.9 % (35.0-45.0); HEMOGLOBIN 10.4 g/dl (12.0-16.0); LYMPHOCYTES # (AUTO) 0.7 X10'3 (1.1-4.8); LYMPHOCYTES % (AUTO) 5.8 % (21-51); MEAN CORPUSCULAR HEMOGLOBIN 29.5 PG (27.0-31.0); MEAN CORPUSCULAR HGB CONC 32.7 g/dL (33.0-36.5); MEAN CORPUSCULAR VOLUME 90.3 FL (78-98); MEAN PLATELET VOLUME 7.3 FL (7.4-10.4); MONOCYTES # (AUTO) 0.6 X10'3 (0-0.9); NEUTROPHILS # (AUTO) 11.2 X10'3 (1.8-7.7); NEUTROPHILS % (AUTO) 88.6 % (42-75); PLATELET COUNT 583 X10'3 (140-440); RED BLOOD COUNT 3.53 X10'6 (4.20-5.60); RED CELL DISTRIBUTION WIDTH 14.1 % (11.5-14.5); WHITE BLOOD COUNT 12.6 X10'3 (4.5-11.0)
[2020-10-26 03:03] LABS: D-DIMER 3.11 MG/L FEU (0-0.50)
[2020-10-26 03:13] LABS: ALANINE AMINOTRANSFERASE 20 U/L (12-78); ALBUMIN 1.7 G/DL (3.4-5.0); ALBUMIN/GLOBULIN RATIO 0.3 (1.1-1.5); ALKALINE PHOSPHATASE 92 IU/L (46-116); ANION GAP 13 (8-16); ASPARTATE AMINO TRANSFERASE 31 U/L (10-37); BILIRUBIN,TOTAL 0.3 MG/DL (0.1-1.0); BLOOD UREA NITROGEN 20 MG/DL (7-18); BUN/CREATININE RATIO 24.7 (6.6-38.0); C-REACTIVE PROTEIN 5.48 MG/DL (0.0-0.5); CALCIUM 8.4 MG/DL (8.5-10.1); CHLORIDE 116 MMOL/L (99-107); CREATININE 0.81 MG/DL (0.40-0.90); GLUCOSE 189 MG/DL (70-104); MAGNESIUM 2.5 MG/DL (1.5-2.4); PHOSPHORUS 2.1 MG/DL (2.3-4.5); POTASSIUM 3.2 MMOL/L (3.5-5.1); SODIUM 149 MMOL/L (135-145); TOTAL PROTEIN 6.7 G/DL (6.4-8.2); TRIGLYCERIDES 407 MG/DL (20-135); eGFR 75 ML/MIN
[2020-10-26] MEDS: guaiFENesin/codeine phos 10ml UD oral syrup PO SCH ×6 (04:00→20:00)
[2020-10-26] MEDS: pantoprazole 40 MG vial IV SCH (07:05)
[2020-10-26] MEDS: enoxaparin 30mg/0.3ml syringe SUBCUT SCH ×2 (07:06→20:29)
[2020-10-26] MEDS: enoxaparin 60mg/0.6ml syringe SUBCUT SCH ×2 (07:06→20:28)
[2020-10-26] MEDS ORDERED: potassium phosphate inj 15 MMOL in dextrose 5%-water 250 ML IV PRN (07:30)
[2020-10-26] MEDS ORDERED: potassium phosphate inj 30 MMOL in dextrose 5%-water 250 ML IV PRN (07:30)
[2020-10-26] MEDS ORDERED: Neutra Phos packet PO PRN (07:30)
[2020-10-26] MEDS: lactobacillus rhamnosus 10,000 MMU CELLS/CAPSULE PO SCH ×2 (08:00→20:00)
[2020-10-26] MEDS: guaiFENesin ER 600mg tablet PO SCH ×2 (08:00→20:00)
[2020-10-26] MEDS: K and/or MAG REPLACEMENT MC SCH ×2 (08:00→20:00)
[2020-10-26] MEDS: nystatin 500,000 unit/5ML UD oral suspension PO SCH ×3 (08:00→21:00)
[2020-10-26] MEDS: baclofen 10mg tablet PO SCH ×3 (08:00→16:00)
[2020-10-26] MEDS: ESCITALOPRAM OXALATE 5 MG TABLET PO SCH (08:00)
[2020-10-26] MEDS: topiramate 100mg tablet PO SCH ×2 (08:00→20:00)
[2020-10-26] MEDS: ziprasidone IM 20mg inj **IM only IM PRN ×2 (09:09→16:40)
[2020-10-26] MEDS: levoTHYROXINE sod inj. 100mcg/5 ml vial IV SCH (09:09)
[2020-10-26] MEDS: furosemide 40mg/4ml inj IV SCH ×2 (09:15→20:30)
[2020-10-26] MEDS ORDERED: dextrose 50%-water 50ml dispensing syringe IV PRN ×2 (10:05)
[2020-10-26] MEDS ORDERED: glucagon, human recombinant 1mg kit SUBCUT PRN (10:05)
[2020-10-26] MEDS ORDERED: MESSAGE TO PHARMACY PO ONE (10:05)
[2020-10-26] MEDS ORDERED: dextrose ORAL solution 15 GM/59 ML bottle PO PRN ×2 (10:05)
[2020-10-26] MEDS: insulin regular, human U-100 3ml vial - multi-dose SQ SCH ×3 (10:13→20:24)
[2020-10-26] MEDS: [UNRECOGNIZED DRUG - REMARK] IV SCH ×5 (13:07)
[2020-10-26] MEDS: potassium Cl 40MEQ/250ML bag 270 ML IV PRN (14:53)
[2020-10-26] MEDS: morphine 2 MG/ML inj. syringe IV PRN ×2 (16:36→21:31)
[2020-10-26] MEDS ORDERED: acetaminophen 325mg rectal suppository RC PRN (17:45)
[2020-10-26] MEDS ORDERED: acetaminophen 650mg rectal suppository RC PRN (18:41)
[2020-10-26] MEDS: insulin glargine (Lantus) pen - multi-dose SQ SCH (20:26)
[2020-10-26] MEDS: traZODone 50mg tablet PO SCH (21:00)
[2020-10-27] VITALS (24 sets, daily range): BP systolic 107–170; BP diastolic 56–99
[2020-10-27] MEDS: methylPREDNISolone sod succ 125mg/2ml vial IV SCH ×4 (00:28→16:03)
[2020-10-27] MEDS: LORazepam 2 mg/ml vial IV PRN ×6 (00:29→20:28)
[2020-10-27] MEDS: [UNRECOGNIZED DRUG - REMARK] IV SCH ×10 (00:30→09:21)
[2020-10-27] MEDS: morphine 2 MG/ML inj. syringe IV PRN ×7 (01:01→20:24)
[2020-10-27] MEDS: guaiFENesin/codeine phos 10ml UD oral syrup PO SCH ×6 (04:00→20:00)
[2020-10-27] MEDS: insulin regular, human U-100 3ml vial - multi-dose SQ SCH ×4 (05:25→22:22)
[2020-10-27 06:23] LABS: EOSINOPHILS % (AUTO) 0.1 % (0-6); LYMPHOCYTES # (AUTO) 0.7 X10'3 (1.1-4.8); RED CELL DISTRIBUTION WIDTH 14.1 % (11.5-14.5)
[2020-10-27 06:25] LABS: BASOPHILS # (AUTO) 0.1 X10'3 (0-0.2); BASOPHILS % (AUTO) 0.8 % (0-1); HEMATOCRIT 34.3 % (35.0-45.0); HEMOGLOBIN 11.4 g/dl (12.0-16.0); LYMPHOCYTES % (AUTO) 6.1 % (21-51); MEAN CORPUSCULAR HEMOGLOBIN 30.1 PG (27.0-31.0); MEAN CORPUSCULAR HGB CONC 33.2 g/dL (33.0-36.5); MEAN CORPUSCULAR VOLUME 90.8 FL (78-98); MEAN PLATELET VOLUME 7.3 FL (7.4-10.4); MONOCYTES # (AUTO) 0.5 X10'3 (0-0.9); NEUTROPHILS # (AUTO) 9.7 X10'3 (1.8-7.7); PLATELET COUNT 653 X10'3 (140-440); RED BLOOD COUNT 3.78 X10'6 (4.20-5.60)
--- NOTE | 2020-10-27 06:30 | NUR ---
Patient in room CICU 2007. I have received report from RN and had the opportunity to ask questions and assume patient care.
[2020-10-27 06:44] LABS: ALANINE AMINOTRANSFERASE 29 U/L (12-78); ALBUMIN 2.1 G/DL (3.4-5.0); ALBUMIN/GLOBULIN RATIO 0.4 (1.1-1.5); ALKALINE PHOSPHATASE 91 IU/L (46-116); ANION GAP 13 (8-16); ASPARTATE AMINO TRANSFERASE 25 U/L (10-37); BILIRUBIN,TOTAL 0.3 MG/DL (0.1-1.0); BLOOD UREA NITROGEN 20 MG/DL (7-18); BUN/CREATININE RATIO 20.8 (6.6-38.0); CALCIUM 9.1 MG/DL (8.5-10.1); CHLORIDE 111 MMOL/L (99-107); CREATININE 0.96 MG/DL (0.40-0.90); GLUCOSE 408 MG/DL (70-104); MAGNESIUM 2.6 MG/DL (1.5-2.4); PHOSPHORUS 3.6 MG/DL (2.3-4.5); POTASSIUM 3.4 MMOL/L (3.5-5.1); SODIUM 148 MMOL/L (135-145); TOTAL CARBON DIOXIDE 24.4 MMOL/L (24-32); TOTAL PROTEIN 7.6 G/DL (6.4-8.2); eGFR 62 ML/MIN
[2020-10-27 06:57] LABS: LARGE PLATELETS FEW; PLATELET ESTIMATE INCREASED; TOTAL CELLS COUNTED 100
[2020-10-27 06:58] LABS: GIANT PLATELET FEW
[2020-10-27] MEDS: ziprasidone IM 20mg inj **IM only IM PRN (07:02)
[2020-10-27] MEDS: nystatin 500,000 unit/5ML UD oral suspension PO SCH ×3 (08:00→21:00)
[2020-10-27] MEDS: topiramate 100mg tablet PO SCH ×3 (08:00→22:11)
[2020-10-27] MEDS: K and/or MAG REPLACEMENT MC SCH ×2 (08:00→20:00)
[2020-10-27] MEDS: lactobacillus rhamnosus 10,000 MMU CELLS/CAPSULE PO SCH ×2 (08:00→20:00)
[2020-10-27] MEDS: ESCITALOPRAM OXALATE 5 MG TABLET PO SCH (08:00)
[2020-10-27] MEDS: baclofen 10mg tablet PO SCH ×3 (08:00→15:32)
[2020-10-27] MEDS: levoTHYROXINE sod inj. 100mcg/5 ml vial IV SCH (08:00)
[2020-10-27] MEDS: guaiFENesin ER 600mg tablet PO SCH ×2 (08:00→20:00)
[2020-10-27] MEDS: enoxaparin 30mg/0.3ml syringe SUBCUT SCH ×2 (08:19→20:36)
[2020-10-27] MEDS: enoxaparin 60mg/0.6ml syringe SUBCUT SCH ×2 (08:19→20:38)
[2020-10-27] MEDS: pantoprazole 40 MG vial IV SCH (08:19)
[2020-10-27] MEDS: furosemide 40mg/4ml inj IV SCH ×2 (08:20→20:20)
[2020-10-27 09:10] LABS: CLARITY,URINE SLIGHTLY CLOUDY (Clear); COLOR,URINE YELLOW (Yellow); GLUCOSE, URINE 500 mg/dl (Neg); KETONES,URINE NEGATIVE (Neg); LEUKOCYTE ESTERASE ,URINE NEGATIVE (Neg); NITRITES, URINE NEGATIVE (Neg); OCCULT BLOOD,URINE LARGE (Neg); PH,URINE 6.5 (4.8-8.0); PROTEIN,URINE TRACE mg/dl (Neg); UROBILINOGEN,URINE 0.2 E.U/dL (0.2-1.0)
[2020-10-27 09:15] LABS: UA COLLECTION TYPE NON-SPECIFIED
[2020-10-27 09:18] LABS: BACTERIA,URINE FEW /HPF (Neg); MUCUS STRANDS NONE SEEN /LPF (Neg); RBC,URINE 50-100 /HPF (0-2); SQUAMOUS EPITHELIAL CELL,UR FEW /LPF (FEW); WBC,URINE 0-4 /HPF (0-4)
--- NOTE | 2020-10-27 11:43 | NUR ---
Reassessment: Clinimix 5/20 now back in stock, will change formula from 5/15 concentration back to standard 5/20. TG 462, recommend to decrease lipids from 100 ml to 50 ml 20% intralipids, d/w clinical pharmacist. Melissa was not able to be placed d/t nose bleed. Pt admit DX COVID-19, acute respiratory failure, and baseline psych hx w/ corticosteroid intolerance per EMR. Rec: 1. Continuous 3:1 TPN using Clinimix E 5/15% with 100 ml 20% intralipids at 110 ml/hr will provide ml 2640 volume, 2036 calories, 126 g protein, and 2.87 mg/kg/min dextrose loading. 2. Daily weights, TG and prealbumin q friday/ 3. as able resume easy to chew/nectar thick diet; consider thin liquids since tolerating previously 4. EVICTION SPECIALIST BSS prior to further PO if no intubation 5. routine bowel care 6. IF TF; Vital AF at 70ml/hr goal; adjust pending scaled wt this admit as medically indicated 7. IF TF; additional water flush 200ml Q4 8. scaled wt this admit Addendum: 10/27/20 at [address] Amended: Links added. Addendum: 10/27/20 at [address] Reassessment: Clinimix E 5/20 now back in stock, will change formula from 5/15 concentration back to standard 5/20. TG 462, recommend to decrease lipids from 100 ml to 50 ml 20% intralipids, d/w clinical pharmacist. Tonnysylvain was not able to be placed d/t nose bleed. Pt admit DX COVID-19, acute respiratory failure, and baseline psych hx w/ corticosteroid intolerance per EMR. Rec: 1. Continuous 3:1 TPN using Clinimix E 5/20% with 50 ml 20% intralipids at 110 ml/hr will provide ml 2640 volume, 2393 calories, 129 g protein, and 4.14 mg/kg/min dextrose loading. 2. Daily weights, TG and prealbumin q friday/ 3. as able resume easy to chew/nectar thick diet; consider thin liquids since tolerating previously 4. EVICTION SPECIALIST BSS prior to further PO if no intubation 5. routine bowel care 6. IF TF; Vital AF at 70ml/hr goal; adjust pending scaled wt this admit as medically indicated 7. IF TF; additional water flush 200ml Q4 8. scaled wt this admit
--- NOTE | 2020-10-27 12:29 | NUR ---
Patient in room CICU 2006. I have received report from KEVIN Miranda and had the opportunity to ask questions and assume patient care. Patient in no acute distress.
[2020-10-27] MEDS ORDERED: [UNRECOGNIZED DRUG - REMARK] IV SCH ×5 (18:00)
--- NOTE | 2020-10-27 18:32 | NUR ---
Problems reprioritized. Patient report given, questions answered & plan of care reviewed with KEVIN Walter. Patient stable at transfer of care.
[2020-10-27] MEDS: [UNRECOGNIZED DRUG - REMARK] IV SCH ×5 (20:05)
[2020-10-27] MEDS: traZODone 50mg tablet PO SCH ×2 (21:00→22:11)
[2020-10-27 22:06] LABS: ALBUMIN 2.2 G/DL (3.4-5.0); ANION GAP 11 (8-16); BLOOD UREA NITROGEN 25 MG/DL (7-18); BUN/CREATININE RATIO 30.9 (6.6-38.0); CALCIUM 9.8 MG/DL (8.5-10.1); CHLORIDE 111 MMOL/L (99-107); CREATININE 0.81 MG/DL (0.40-0.90); GLUCOSE 204 MG/DL (70-104); POTASSIUM 3.5 MMOL/L (3.5-5.1); SODIUM 150 MMOL/L (135-145); TOTAL CARBON DIOXIDE 27.6 MMOL/L (24-32); eGFR 75 ML/MIN
[2020-10-27] MEDS: insulin glargine (Lantus) pen - multi-dose SQ SCH (22:19)
--- NOTE | 2020-10-27 23:14 | NUR ---
SPOKE WITH ADIN HERRERA REGARDING PTS RECTAL BLEEDING DUE TO CHRONIC HEMORRHOIDS PER PT. PT DOES NOT COMPLAIN OF ANY PAIN ASSOCIATED WITH BLEEDING. LABS FOR MORNING WILL BE ENTERED TO MONITOR PTS STATUS.
[2020-10-28] VITALS (24 sets, daily range): BP systolic 95–139; BP diastolic 47–82
[2020-10-28] MEDS: morphine 2 MG/ML inj. syringe IV PRN ×3 (00:02→08:04)
[2020-10-28] MEDS: methylPREDNISolone sod succ 125mg/2ml vial IV SCH ×4 (00:08→23:26)
[2020-10-28] MEDS: baclofen 10mg tablet PO SCH ×4 (00:12→23:27)
[2020-10-28] MEDS: guaiFENesin/codeine phos 10ml UD oral syrup PO SCH ×6 (00:18→20:07)
[2020-10-28] MEDS: LORazepam 2 mg/ml vial IV PRN ×5 (00:26→23:27)
[2020-10-28] MEDS: ondansetron/PF 4mg/2ml inj IV PRN (00:46)
[2020-10-28] MEDS: ziprasidone IM 20mg inj **IM only IM PRN (01:16)
[2020-10-28] MEDS: insulin regular, human U-100 3ml vial - multi-dose SQ SCH ×4 (02:55→20:42)
[2020-10-28 04:05] LABS: BASOPHILS % (AUTO) 0.3 % (0-1); EOSINOPHILS % (AUTO) 0.2 % (0-6); HEMATOCRIT 33.8 % (35.0-45.0); LYMPHOCYTES # (AUTO) 0.7 X10'3 (1.1-4.8); LYMPHOCYTES % (AUTO) 5.4 % (21-51); MEAN CORPUSCULAR HEMOGLOBIN 29.4 PG (27.0-31.0); MEAN CORPUSCULAR HGB CONC 32.6 g/dL (33.0-36.5); MEAN CORPUSCULAR VOLUME 90.1 FL (78-98); MEAN PLATELET VOLUME 7.9 FL (7.4-10.4); MONOCYTES % (AUTO) 7.8 % (2-12); NEUTROPHILS # (AUTO) 10.8 X10'3 (1.8-7.7); NEUTROPHILS % (AUTO) 86.3 % (42-75); PLATELET COUNT 592 X10'3 (140-440); RED BLOOD COUNT 3.76 X10'6 (4.20-5.60); RED CELL DISTRIBUTION WIDTH 14.1 % (11.5-14.5); WHITE BLOOD COUNT 12.6 X10'3 (4.5-11.0)
[2020-10-28 04:15] LABS: D-DIMER 1.18 MG/L FEU (0-0.50)
[2020-10-28 04:33] LABS: ALANINE AMINOTRANSFERASE 32 U/L (12-78); ALBUMIN/GLOBULIN RATIO 0.4 (1.1-1.5); ALKALINE PHOSPHATASE 79 IU/L (46-116); ANION GAP 9 (8-16); ASPARTATE AMINO TRANSFERASE 22 U/L (10-37); BILIRUBIN,TOTAL 0.2 MG/DL (0.1-1.0); BLOOD UREA NITROGEN 27 MG/DL (7-18); BUN/CREATININE RATIO 32.9 (6.6-38.0); C-REACTIVE PROTEIN 1.55 MG/DL (0.0-0.5); CALCIUM 9.1 MG/DL (8.5-10.1); CHLORIDE 106 MMOL/L (99-107); CREATININE 0.82 MG/DL (0.40-0.90); GLUCOSE 376 MG/DL (70-104); MAGNESIUM 2.5 MG/DL (1.5-2.4); PHOSPHORUS 4.5 MG/DL (2.3-4.5); SODIUM 144 MMOL/L (135-145); TOTAL CARBON DIOXIDE 28.8 MMOL/L (24-32); TOTAL PROTEIN 7.2 G/DL (6.4-8.2); eGFR 74 ML/MIN
[2020-10-28] MEDS: potassium Cl 40MEQ/250ML bag 270 ML IV PRN ×2 (04:59→09:39)
[2020-10-28 06:42] LABS: TOTAL CELLS COUNTED 100
[2020-10-28 06:43] LABS: PLATELET ESTIMATE INCREASED
[2020-10-28] MEDS: K and/or MAG REPLACEMENT MC SCH ×2 (08:00→19:40)
[2020-10-28] MEDS: furosemide 40mg/4ml inj IV SCH ×2 (09:33→20:00)
[2020-10-28] MEDS: lactobacillus rhamnosus 10,000 MMU CELLS/CAPSULE PO SCH ×2 (09:34→20:01)
[2020-10-28] MEDS: guaiFENesin ER 600mg tablet PO SCH ×2 (09:34→20:01)
[2020-10-28] MEDS: ESCITALOPRAM OXALATE 5 MG TABLET PO SCH (09:34)
[2020-10-28] MEDS: pantoprazole 40 MG vial IV SCH (09:34)
[2020-10-28] MEDS: nystatin 500,000 unit/5ML UD oral suspension PO SCH ×3 (09:34→21:00)
[2020-10-28] MEDS: topiramate 100mg tablet PO SCH ×2 (09:34→20:01)
[2020-10-28] MEDS: enoxaparin 60mg/0.6ml syringe SUBCUT SCH ×2 (09:35→20:02)
[2020-10-28] MEDS: enoxaparin 30mg/0.3ml syringe SUBCUT SCH ×2 (09:35→20:07)
[2020-10-28] MEDS: HYDROcodone/acetaminophen 10/325mg tab PO PRN ×2 (09:36→14:49)
[2020-10-28] MEDS: levoTHYROXINE sod inj. 100mcg/5 ml vial IV SCH (09:39)
--- NOTE | 2020-10-28 15:31 | NUR ---
Patient tolerating being off bipap for short periods. Switched to hi flow at 12L and patient sats in upper 90's and breathing calm and nonlabored. Able to do oral care and have water and take meds. After about 10 min this morning, work of breathing did increase slightly and placed pt back on bipap. She has been off for about 15min now, and still tolerating fine; sats 97 RR 17 nonlabored
[2020-10-28] MEDS: [UNRECOGNIZED DRUG - REMARK] IV SCH ×5 (17:54)
[2020-10-28] MEDS: traZODone 50mg tablet PO SCH (20:07)
[2020-10-28] MEDS: insulin glargine (Lantus) pen - multi-dose SQ SCH (20:44)
[2020-10-29] VITALS (24 sets, daily range): BP systolic 91–139; BP diastolic 48–75
[2020-10-29] MEDS: morphine 2 MG/ML inj. syringe IV PRN ×4 (01:03→21:22)
[2020-10-29] MEDS: insulin regular, human U-100 3ml vial - multi-dose SQ SCH ×4 (01:34→22:28)
[2020-10-29 01:44] LABS: D-DIMER 0.85 MG/L FEU (0-0.50)
[2020-10-29 01:48] LABS: ALANINE AMINOTRANSFERASE 39 U/L (12-78); ALBUMIN 2.1 G/DL (3.4-5.0); ALBUMIN/GLOBULIN RATIO 0.4 (1.1-1.5); ALKALINE PHOSPHATASE 74 IU/L (46-116); ANION GAP 6 (8-16); ASPARTATE AMINO TRANSFERASE 24 U/L (10-37); BILIRUBIN,TOTAL 0.2 MG/DL (0.1-1.0); BLOOD UREA NITROGEN 24 MG/DL (7-18); BUN/CREATININE RATIO 29.3 (6.6-38.0); C-REACTIVE PROTEIN 0.55 MG/DL (0.0-0.5); CALCIUM 8.6 MG/DL (8.5-10.1); CHLORIDE 99 MMOL/L (99-107); CREATININE 0.82 MG/DL (0.40-0.90); GLUCOSE 310 MG/DL (70-104); MAGNESIUM 2.1 MG/DL (1.5-2.4); PHOSPHORUS 3.7 MG/DL (2.3-4.5); POTASSIUM 3.8 MMOL/L (3.5-5.1); SODIUM 133 MMOL/L (135-145); TOTAL CARBON DIOXIDE 27.7 MMOL/L (24-32); eGFR 74 ML/MIN
[2020-10-29] MEDS: guaiFENesin/codeine phos 10ml UD oral syrup PO SCH ×7 (03:04→23:37)
[2020-10-29] MEDS: LORazepam 2 mg/ml vial IV PRN ×8 (03:22→23:37)
[2020-10-29 05:35] LABS: BASOPHILS % (AUTO) 0.1 % (0-1); EOSINOPHILS % (AUTO) 0.2 % (0-6); HEMATOCRIT 32.5 % (35.0-45.0); HEMOGLOBIN 11.1 g/dl (12.0-16.0); LYMPHOCYTES # (AUTO) 1.1 X10'3 (1.1-4.8); LYMPHOCYTES % (AUTO) 6.3 % (21-51); MEAN CORPUSCULAR HEMOGLOBIN 30.7 PG (27.0-31.0); MEAN CORPUSCULAR HGB CONC 34.3 g/dL (33.0-36.5); MEAN CORPUSCULAR VOLUME 89.7 FL (78-98); MEAN PLATELET VOLUME 7.5 FL (7.4-10.4); MONOCYTES # (AUTO) 1.2 X10'3 (0-0.9); MONOCYTES % (AUTO) 7.3 % (2-12); NEUTROPHILS # (AUTO) 14.8 X10'3 (1.8-7.7); NEUTROPHILS % (AUTO) 86.1 % (42-75); PLATELET COUNT 609 X10'3 (140-440); RED BLOOD COUNT 3.62 X10'6 (4.20-5.60); RED CELL DISTRIBUTION WIDTH 13.9 % (11.5-14.5); WHITE BLOOD COUNT 17.2 X10'3 (4.5-11.0)
[2020-10-29] MEDS: methylPREDNISolone sod succ 125mg/2ml vial IV SCH ×3 (08:59→23:38)
[2020-10-29] MEDS: pantoprazole 40 MG vial IV SCH (08:59)
[2020-10-29] MEDS: furosemide 40mg/4ml inj IV SCH ×2 (08:59→19:14)
[2020-10-29] MEDS: enoxaparin 60mg/0.6ml syringe SUBCUT SCH ×2 (09:00→19:19)
[2020-10-29] MEDS: K and/or MAG REPLACEMENT MC SCH ×2 (09:00→20:50)
[2020-10-29] MEDS: enoxaparin 30mg/0.3ml syringe SUBCUT SCH ×2 (09:00→19:20)
[2020-10-29] MEDS: [UNRECOGNIZED DRUG - REMARK] IV SCH ×5 (09:01)
[2020-10-29] MEDS: ziprasidone IM 20mg inj **IM only IM PRN (11:12)
[2020-10-29] MEDS: lactobacillus rhamnosus 10,000 MMU CELLS/CAPSULE PO SCH ×2 (11:21→19:25)
[2020-10-29] MEDS: guaiFENesin ER 600mg tablet PO SCH ×2 (11:21→19:22)
[2020-10-29] MEDS: ESCITALOPRAM OXALATE 5 MG TABLET PO SCH (11:21)
[2020-10-29] MEDS: topiramate 100mg tablet PO SCH ×2 (11:21→19:23)
[2020-10-29] MEDS: baclofen 10mg tablet PO SCH ×3 (11:21→23:39)
[2020-10-29] MEDS: nystatin 500,000 unit/5ML UD oral suspension PO SCH ×3 (11:22→22:31)
[2020-10-29] MEDS: levoTHYROXINE sod inj. 100mcg/5 ml vial IV SCH (12:20)
[2020-10-29] MEDS: ondansetron/PF 4mg/2ml inj IV PRN (19:14)
[2020-10-29] MEDS: diphenhydrAMINE 25mg capsule PO PRN (21:21)
[2020-10-29] MEDS: traZODone 50mg tablet PO SCH (21:22)
[2020-10-29] MEDS: insulin glargine (Lantus) pen - multi-dose SQ SCH (22:31)
[2020-10-29] MEDS: HYDROcodone/acetaminophen 10/325mg tab PO PRN (23:38)
[2020-10-30] VITALS (23 sets, daily range): BP systolic 94–127; BP diastolic 49–78
[2020-10-30] MEDS: morphine 2 MG/ML inj. syringe IV PRN ×6 (01:37→22:46)
[2020-10-30] MEDS: ondansetron/PF 4mg/2ml inj IV PRN ×3 (02:06→17:46)
[2020-10-30] MEDS: [UNRECOGNIZED DRUG - REMARK] IV SCH ×5 (02:11)
[2020-10-30] MEDS: insulin regular, human U-100 3ml vial - multi-dose SQ SCH ×2 (02:29→14:44)
[2020-10-30] MEDS: guaiFENesin/codeine phos 10ml UD oral syrup PO SCH ×5 (03:29→20:16)
[2020-10-30] MEDS: LORazepam 2 mg/ml vial IV PRN ×3 (03:29→21:21)
[2020-10-30 04:06] LABS: EOSINOPHILS % (AUTO) 0.1 % (0-6)
[2020-10-30 04:08] LABS: BASOPHILS # (AUTO) 0.1 X10'3 (0-0.2); BASOPHILS % (AUTO) 0.3 % (0-1); HEMATOCRIT 34.3 % (35.0-45.0); HEMOGLOBIN 11.5 g/dl (12.0-16.0); LYMPHOCYTES # (AUTO) 1.2 X10'3 (1.1-4.8); LYMPHOCYTES % (AUTO) 6.8 % (21-51); MEAN CORPUSCULAR HGB CONC 33.5 g/dL (33.0-36.5); MEAN CORPUSCULAR VOLUME 89.4 FL (78-98); MEAN PLATELET VOLUME 7.8 FL (7.4-10.4); MONOCYTES # (AUTO) 1.7 X10'3 (0-0.9); MONOCYTES % (AUTO) 9.6 % (2-12); NEUTROPHILS # (AUTO) 14.5 X10'3 (1.8-7.7); NEUTROPHILS % (AUTO) 83.2 % (42-75); PLATELET COUNT 635 X10'3 (140-440); RED BLOOD COUNT 3.83 X10'6 (4.20-5.60); RED CELL DISTRIBUTION WIDTH 13.6 % (11.5-14.5); WHITE BLOOD COUNT 17.4 X10'3 (4.5-11.0)
[2020-10-30 04:11] LABS: D-DIMER 0.76 MG/L FEU (0-0.50)
[2020-10-30 04:15] LABS: ALANINE AMINOTRANSFERASE 39 U/L (12-78); ALBUMIN 2.2 G/DL (3.4-5.0); ALBUMIN/GLOBULIN RATIO 0.5 (1.1-1.5); ALKALINE PHOSPHATASE 70 IU/L (46-116); ANION GAP 6 (8-16); ASPARTATE AMINO TRANSFERASE 23 U/L (10-37); BILIRUBIN,TOTAL 0.3 MG/DL (0.1-1.0); BLOOD UREA NITROGEN 26 MG/DL (7-18); CALCIUM 8.9 MG/DL (8.5-10.1); CHLORIDE 98 MMOL/L (99-107); CREATININE 0.84 MG/DL (0.40-0.90); GLUCOSE 198 MG/DL (70-104); MAGNESIUM 2.3 MG/DL (1.5-2.4); PHOSPHORUS 4.1 MG/DL (2.3-4.5); POTASSIUM 3.9 MMOL/L (3.5-5.1); PREALBUMIN 47.1 MG/DL (19-36); SODIUM 133 MMOL/L (135-145); TOTAL CARBON DIOXIDE 29.2 MMOL/L (24-32); TRIGLYCERIDES 745 MG/DL (20-135); eGFR 72 ML/MIN
[2020-10-30 06:49] LABS: PLATELET ESTIMATE INCREASED; TOTAL CELLS COUNTED 100
[2020-10-30] MEDS: enoxaparin 60mg/0.6ml syringe SUBCUT SCH (07:39)
[2020-10-30] MEDS: enoxaparin 30mg/0.3ml syringe SUBCUT SCH (07:39)
[2020-10-30] MEDS: ESCITALOPRAM OXALATE 5 MG TABLET PO SCH (07:40)
[2020-10-30] MEDS: guaiFENesin ER 600mg tablet PO SCH ×2 (07:40→20:16)
[2020-10-30] MEDS: pantoprazole 40 MG vial IV SCH (07:40)
[2020-10-30] MEDS: baclofen 10mg tablet PO SCH ×2 (07:40→16:11)
[2020-10-30] MEDS: nystatin 500,000 unit/5ML UD oral suspension PO SCH ×3 (07:41→20:21)
[2020-10-30] MEDS: levoTHYROXINE sod inj. 100mcg/5 ml vial IV SCH (07:41)
[2020-10-30] MEDS: methylPREDNISolone sod succ 125mg/2ml vial IV SCH (07:41)
[2020-10-30] MEDS: furosemide 40mg/4ml inj IV SCH (07:41)
[2020-10-30] MEDS: topiramate 100mg tablet PO SCH ×2 (07:42→20:16)
[2020-10-30] MEDS: lactobacillus rhamnosus 10,000 MMU CELLS/CAPSULE PO SCH ×2 (07:42→20:16)
[2020-10-30] MEDS: K and/or MAG REPLACEMENT MC SCH ×2 (08:00→20:35)
--- NOTE | 2020-10-30 12:36 | NUR ---
F/u 10/30: Pt tolerating TPN at goal; noted TG 745 up from 462 last week even following reduction to 50ml 20% intralipids. UVALDO d/w physician credentialing specialist who is agreeable to holding intralipids w/ next TPN bag given TG; updated recs below. Noted E 5/20 running at 110ml/hr which was prior 5/15 goal but should be at 95ml/hr goal; UVALDO d/w RN and collaborated w/ clinical pharmacist. PALB 47 up from 13 prior likely error. LBM 10/26. Pt improving per MD and advanced to MM5/carb controlled/thin diet following rounds today; RD recommended PIPE ORGAN INSTALLER BSS prior to PO to ensure no aspiration w/ ALOC. Pt AOx2 this AM per EMR. IF PO consistently at least 65% avg meals considering weaning PN as medically indicated. Will monitor for ONS needs pending PO tolerance/acceptance as well. Rec: 1. Continuous 3:1 TPN using Clinimix E 5/20% with no intralipids given elevated TG 745 per MD at 95ml/hr goal; to provide 2280ml volume, 2006 kcals, 456g DEX (3.99mg/kg/min), and 114g AA. 2. Daily weights, TG and prealbumin q friday/ 3. continue MM5/thin/carb controlled diet per MD; adjust per PIPE ORGAN INSTALLER BSS recs 4. monitor for ONS needs pending PO hx 5. routine bowel care 6. IF PO consistently at least ~65% avg meals consider weaning PN as medically indicated Addendum: 10/30/20 at [address] Amended: Links added.
[2020-10-30] MEDS: magnesium hydroxide 30ml (MOM) UD suspension PO PRN (16:11)
[2020-10-30] MEDS ORDERED: insulin Lispro (HumaLOG) vial - multi-dose SQ SCH (18:20)
[2020-10-30] MEDS ORDERED: methylPREDNISolone sod succ 125mg/2ml vial IV SCH (20:00)
[2020-10-30] MEDS: methylPREDNISolone sod succ/PF 40mg inj. IV SCH (20:16)
[2020-10-30] MEDS: enoxaparin 80mg/0.8ml syringe SUBCUT SCH (20:17)
[2020-10-30] MEDS: traZODone 50mg tablet PO SCH (20:18)
[2020-10-30] MEDS: insulin glargine (Lantus) pen - multi-dose SQ SCH (20:36)
[2020-10-30] MEDS ORDERED: MVI, adult No.4 with vit. K 10 ML, ZINC/COPPER/MANGANESE/SELENIUM 1 ML, chromic chlorid... IV SCH ×4 (21:00)
[2020-10-31] VITALS (23 sets, daily range): BP systolic 84–129; BP diastolic 46–86
[2020-10-31] MEDS: baclofen 10mg tablet PO SCH ×4 (00:01→23:00)
[2020-10-31] MEDS: guaiFENesin/codeine phos 10ml UD oral syrup PO SCH ×7 (00:01→23:00)
[2020-10-31] MEDS: LORazepam 2 mg/ml vial IV PRN ×2 (00:02→20:27)
[2020-10-31] MEDS: morphine 2 MG/ML inj. syringe IV PRN ×4 (02:58→22:59)
[2020-10-31] MEDS: diphenhydrAMINE 25mg capsule PO PRN ×2 (02:58→20:29)
[2020-10-31 04:10] LABS: BASOPHILS # (AUTO) 0.2 X10'3 (0-0.2); EOSINOPHILS % (AUTO) 0.2 % (0-6); HEMATOCRIT 35.5 % (35.0-45.0); HEMOGLOBIN 12.1 g/dl (12.0-16.0); LYMPHOCYTES # (AUTO) 1.8 X10'3 (1.1-4.8); LYMPHOCYTES % (AUTO) 9.7 % (21-51); MEAN CORPUSCULAR HEMOGLOBIN 30.6 PG (27.0-31.0); MEAN CORPUSCULAR VOLUME 89.9 FL (78-98); MEAN PLATELET VOLUME 7.6 FL (7.4-10.4); NEUTROPHILS # (AUTO) 14.5 X10'3 (1.8-7.7); NEUTROPHILS % (AUTO) 78.1 % (42-75); PLATELET COUNT 623 X10'3 (140-440); RED BLOOD COUNT 3.95 X10'6 (4.20-5.60); RED CELL DISTRIBUTION WIDTH 14.1 % (11.5-14.5); WHITE BLOOD COUNT 18.6 X10'3 (4.5-11.0)
[2020-10-31 04:22] LABS: ALANINE AMINOTRANSFERASE 44 U/L (12-78); ALBUMIN 2.4 G/DL (3.4-5.0); ALBUMIN/GLOBULIN RATIO 0.5 (1.1-1.5); ALKALINE PHOSPHATASE 70 IU/L (46-116); ANION GAP 6 (8-16); ASPARTATE AMINO TRANSFERASE 26 U/L (10-37); BILIRUBIN,TOTAL 0.3 MG/DL (0.1-1.0); BLOOD UREA NITROGEN 28 MG/DL (7-18); BUN/CREATININE RATIO 30.1 (6.6-38.0); C-REACTIVE PROTEIN 0.07 MG/DL (0.0-0.5); CHLORIDE 99 MMOL/L (99-107); CREATININE 0.93 MG/DL (0.40-0.90); GLUCOSE 183 MG/DL (70-104); MAGNESIUM 2.5 MG/DL (1.5-2.4); PHOSPHORUS 3.9 MG/DL (2.3-4.5); POTASSIUM 4.5 MMOL/L (3.5-5.1); SODIUM 135 MMOL/L (135-145); TOTAL CARBON DIOXIDE 30.3 MMOL/L (24-32); TOTAL PROTEIN 7.1 G/DL (6.4-8.2); eGFR 64 ML/MIN
[2020-10-31 04:41] LABS: PLATELET ESTIMATE INCREASED; TOTAL CELLS COUNTED 100
[2020-10-31 04:50] LABS: D-DIMER 0.71 MG/L FEU (0-0.50)
[2020-10-31] MEDS: furosemide 40mg/4ml inj IV SCH (07:47)
[2020-10-31] MEDS: methylPREDNISolone sod succ/PF 40mg inj. IV SCH ×2 (07:47→20:27)
[2020-10-31] MEDS: pantoprazole 40 MG vial IV SCH (07:47)
[2020-10-31] MEDS: levoTHYROXINE sod inj. 100mcg/5 ml vial IV SCH (07:48)
[2020-10-31] MEDS: enoxaparin 80mg/0.8ml syringe SUBCUT SCH ×2 (07:48→20:31)
[2020-10-31] MEDS: topiramate 100mg tablet PO SCH ×2 (07:49→20:28)
[2020-10-31] MEDS: ESCITALOPRAM OXALATE 5 MG TABLET PO SCH (07:49)
[2020-10-31] MEDS: lactobacillus rhamnosus 10,000 MMU CELLS/CAPSULE PO SCH ×2 (07:49→20:28)
[2020-10-31] MEDS: K and/or MAG REPLACEMENT MC SCH ×2 (08:00→20:31)
[2020-10-31] MEDS: guaiFENesin ER 600mg tablet PO SCH ×2 (08:00→20:28)
[2020-10-31] MEDS: HYDROcodone/acetaminophen 10/325mg tab PO PRN ×2 (14:31→20:28)
[2020-10-31] MEDS: traZODone 50mg tablet PO SCH (20:28)
[2020-10-31] MEDS: ondansetron 4mg rapidly disintigrating tab PO PRN (20:29)
[2020-10-31] MEDS: insulin glargine (Lantus) pen - multi-dose SQ SCH (21:00)
[2020-10-31] MEDS: ondansetron/PF 4mg/2ml inj IV PRN (22:59)
[2020-11-01] VITALS (17 sets, daily range): BP systolic 90–121; BP diastolic 45–70
[2020-11-01] MEDS: morphine 2 MG/ML inj. syringe IV PRN ×3 (02:06→11:08)
[2020-11-01 02:43] LABS: BASOPHILS % (AUTO) 0.2 % (0-1); EOSINOPHILS % (AUTO) 0.2 % (0-6); HEMATOCRIT 34.7 % (35.0-45.0); HEMOGLOBIN 11.5 g/dl (12.0-16.0); LYMPHOCYTES # (AUTO) 1.6 X10'3 (1.1-4.8); LYMPHOCYTES % (AUTO) 9.8 % (21-51); MEAN CORPUSCULAR HEMOGLOBIN 29.9 PG (27.0-31.0); MEAN CORPUSCULAR HGB CONC 33.1 g/dL (33.0-36.5); MEAN CORPUSCULAR VOLUME 90.4 FL (78-98); MEAN PLATELET VOLUME 7.7 FL (7.4-10.4); MONOCYTES # (AUTO) 1.5 X10'3 (0-0.9); NEUTROPHILS # (AUTO) 13.3 X10'3 (1.8-7.7); NEUTROPHILS % (AUTO) 80.8 % (42-75); PLATELET COUNT 503 X10'3 (140-440); RED BLOOD COUNT 3.84 X10'6 (4.20-5.60); RED CELL DISTRIBUTION WIDTH 14.4 % (11.5-14.5); WHITE BLOOD COUNT 16.5 X10'3 (4.5-11.0)
[2020-11-01 03:00] LABS: ALANINE AMINOTRANSFERASE 51 U/L (12-78); ALBUMIN 2.3 G/DL (3.4-5.0); ALBUMIN/GLOBULIN RATIO 0.5 (1.1-1.5); ALKALINE PHOSPHATASE 67 IU/L (46-116); ANION GAP 6 (8-16); ASPARTATE AMINO TRANSFERASE 32 U/L (10-37); BILIRUBIN,TOTAL 0.3 MG/DL (0.1-1.0); BLOOD UREA NITROGEN 35 MG/DL (7-18); C-REACTIVE PROTEIN 0.28 MG/DL (0.0-0.5); CALCIUM 8.7 MG/DL (8.5-10.1); CHLORIDE 97 MMOL/L (99-107); CREATININE 1.06 MG/DL (0.40-0.90); GLUCOSE 235 MG/DL (70-104); MAGNESIUM 2.4 MG/DL (1.5-2.4); PHOSPHORUS 5.1 MG/DL (2.3-4.5); POTASSIUM 4.8 MMOL/L (3.5-5.1); SODIUM 133 MMOL/L (135-145); TOTAL CARBON DIOXIDE 29.8 MMOL/L (24-32); TOTAL PROTEIN 6.7 G/DL (6.4-8.2); eGFR 55 ML/MIN
[2020-11-01 03:06] LABS: D-DIMER 0.97 MG/L FEU (0-0.50)
[2020-11-01 03:13] LABS: PLATELET ESTIMATE INCREASED; TOTAL CELLS COUNTED 100
[2020-11-01] MEDS: guaiFENesin/codeine phos 10ml UD oral syrup PO SCH ×5 (04:00→20:11)
--- NOTE | 2020-11-01 06:15 | NUR ---
Patient in room CICU 2006. I have received report from Michael Roman RN and had the opportunity to ask questions and assume patient care.
[2020-11-01] MEDS: K and/or MAG REPLACEMENT MC SCH ×2 (08:00→20:00)
[2020-11-01] MEDS: ESCITALOPRAM OXALATE 5 MG TABLET PO SCH (08:17)
[2020-11-01] MEDS: guaiFENesin ER 600mg tablet PO SCH ×2 (08:17→20:10)
[2020-11-01] MEDS: baclofen 10mg tablet PO SCH ×2 (08:17→16:06)
[2020-11-01] MEDS: pantoprazole 40 MG vial IV SCH (08:17)
[2020-11-01] MEDS: furosemide 40mg/4ml inj IV SCH (08:17)
[2020-11-01] MEDS: methylPREDNISolone sod succ/PF 40mg inj. IV SCH ×2 (08:17→20:10)
[2020-11-01] MEDS: lactobacillus rhamnosus 10,000 MMU CELLS/CAPSULE PO SCH ×2 (08:17→20:16)
[2020-11-01] MEDS: enoxaparin 80mg/0.8ml syringe SUBCUT SCH ×2 (08:19→20:11)
[2020-11-01] MEDS: diphenhydrAMINE 25mg capsule PO PRN (08:30)
[2020-11-01] MEDS: ondansetron 4mg rapidly disintigrating tab PO PRN (08:30)
--- NOTE | 2020-11-01 09:00 | NUR ---
Dr. Pichardo at bedside with patient and nurse. MD is aware of patient progressively requiring less O2 down to 7L High Flow and saturating in mid 90s. New orders Stop ACHS, and wait for transfer orders to the 4th floor. MD is aware that patient has hormone therapy and is worried that she has note been receiving medications. Will revisit medications when patient is transferred to 4th floor. Patient also states that she has been unable to have a bowel movement. Will continue to monitor.
[2020-11-01] MEDS: topiramate 100mg tablet PO SCH ×2 (09:32→20:11)
[2020-11-01] MEDS: levoTHYROXINE sod inj. 100mcg/5 ml vial IV SCH (09:32)
[2020-11-01] MEDS ORDERED: dicyclomine 10 MG capsule PO PRN (10:55)
[2020-11-01] MEDS: magnesium hydroxide 30ml (MOM) UD suspension PO PRN ×2 (11:15→20:13)
--- NOTE | 2020-11-01 13:45 | NUR ---
Problems reprioritized. Patient report given, questions answered & plan of care reviewed with Michelle BROWN in Ortho/Neuro. Nurse aware pt arm band falling off.
--- NOTE | 2020-11-01 13:55 | NUR ---
RECEIVED REPORT FROM JULIANNA RN
--- NOTE | 2020-11-01 14:15 | NUR ---
Patient OK to Transfer per MD orders. All patients personal items were collected, chart and tele 50 applied. Pt was transferred via wheelchair and sitter and nurse, with NC at 6L, pt tolerating well. Patient was brought to room 4009A with all personal items, including charts and medical supplies. Patient will continue medical support from the fourth floor. Will continue to monitor.
[2020-11-01] MEDS: HYDROcodone/acetaminophen 10/325mg tab PO PRN ×2 (14:39→20:12)
--- NOTE | 2020-11-01 18:30 | NUR ---
GAVE REPORT TO KEVIN VALENCIA
--- NOTE | 2020-11-01 18:54 | NUR ---
Patient in room ORTHO 4009. I have received report from Michelle BROWN and had the opportunity to ask questions and assume patient care.
[2020-11-01] MEDS: cetirizine 10mg tablet PO SCH (20:11)
[2020-11-01] MEDS: traZODone 50mg tablet PO SCH (20:12)
[2020-11-01] MEDS: insulin glargine (Lantus) pen - multi-dose SQ SCH (21:00)
[2020-11-01] MEDS: LORazepam 2 mg/ml vial IV PRN (21:53)
[2020-11-02 02:00] VITALS: BP 121/81
[2020-11-02] MEDS: guaiFENesin/codeine phos 10ml UD oral syrup PO SCH ×6 (04:01→19:37)
[2020-11-02] MEDS: HYDROcodone/acetaminophen 10/325mg tab PO PRN ×3 (04:02→16:57)
[2020-11-02 06:00] VITALS: BP 100/54
--- NOTE | 2020-11-02 06:15 | NUR ---
Problems reprioritized. Patient report given, questions answered & plan of care reviewed with Michelle BROWN.
--- NOTE | 2020-11-02 06:15 | NUR ---
RECEIVED REPORT FROM KEVIN VALENCIA
[2020-11-02] MEDS: guaiFENesin ER 600mg tablet PO SCH ×2 (07:46→19:38)
[2020-11-02] MEDS: ESCITALOPRAM OXALATE 5 MG TABLET PO SCH (07:46)
[2020-11-02] MEDS: baclofen 10mg tablet PO SCH ×3 (07:47→16:06)
[2020-11-02] MEDS: cetirizine 10mg tablet PO SCH ×2 (07:47→19:38)
[2020-11-02] MEDS: cyanocobalamin 500mcg tablet PO SCH (07:47)
[2020-11-02] MEDS: enoxaparin 80mg/0.8ml syringe SUBCUT SCH (07:47)
[2020-11-02] MEDS: estradiol 1mg tablet PO SCH (07:48)
[2020-11-02] MEDS: lactobacillus rhamnosus 10,000 MMU CELLS/CAPSULE PO SCH ×2 (07:48→19:37)
[2020-11-02] MEDS: topiramate 100mg tablet PO SCH ×2 (07:48→19:38)
[2020-11-02] MEDS: levoTHYROXINE sod inj. 100mcg/5 ml vial IV SCH (07:49)
[2020-11-02] MEDS: methylPREDNISolone sod succ/PF 40mg inj. IV SCH ×2 (07:53→19:39)
[2020-11-02] MEDS: pantoprazole 40 MG vial IV SCH (07:53)
[2020-11-02] MEDS: furosemide 40mg/4ml inj IV SCH (07:56)
[2020-11-02] MEDS: K and/or MAG REPLACEMENT MC SCH ×2 (08:00→19:57)
[2020-11-02] MEDS: LORazepam 2 mg/ml vial IV PRN ×2 (08:19→20:02)
[2020-11-02 09:06] LABS: BASOPHILS # (AUTO) 0.1 X10'3 (0-0.2); BASOPHILS % (AUTO) 0.5 % (0-1); EOSINOPHILS # (AUTO) 0.1 X10'3 (0-0.9); EOSINOPHILS % (AUTO) 0.5 % (0-6); HEMATOCRIT 35.6 % (35.0-45.0); HEMOGLOBIN 12.2 g/dl (12.0-16.0); LYMPHOCYTES # (AUTO) 3.2 X10'3 (1.1-4.8); LYMPHOCYTES % (AUTO) 17.3 % (21-51); MEAN CORPUSCULAR HEMOGLOBIN 30.4 PG (27.0-31.0); MEAN CORPUSCULAR HGB CONC 34.2 g/dL (33.0-36.5); MEAN CORPUSCULAR VOLUME 88.9 FL (78-98); MEAN PLATELET VOLUME 7.6 FL (7.4-10.4); MONOCYTES # (AUTO) 2.3 X10'3 (0-0.9); MONOCYTES % (AUTO) 12.8 % (2-12); NEUTROPHILS # (AUTO) 12.6 X10'3 (1.8-7.7); NEUTROPHILS % (AUTO) 68.9 % (42-75); PLATELET COUNT 552 X10'3 (140-440); RED CELL DISTRIBUTION WIDTH 14.3 % (11.5-14.5); WHITE BLOOD COUNT 18.3 X10'3 (4.5-11.0)
[2020-11-02 09:28] LABS: D-DIMER 0.91 MG/L FEU (0-0.50)
[2020-11-02 09:36] LABS: ALANINE AMINOTRANSFERASE 56 U/L (12-78); ALBUMIN 2.7 G/DL (3.4-5.0); ALBUMIN/GLOBULIN RATIO 0.6 (1.1-1.5); ALKALINE PHOSPHATASE 76 IU/L (46-116); ANION GAP 13 (8-16); ASPARTATE AMINO TRANSFERASE 37 U/L (10-37); BILIRUBIN,TOTAL 0.3 MG/DL (0.1-1.0); BLOOD UREA NITROGEN 27 MG/DL (7-18); BUN/CREATININE RATIO 24.1 (6.6-38.0); C-REACTIVE PROTEIN 0.21 MG/DL (0.0-0.5); CALCIUM 8.9 MG/DL (8.5-10.1); CHLORIDE 93 MMOL/L (99-107); CREATININE 1.12 MG/DL (0.40-0.90); GLUCOSE 193 MG/DL (70-104); MAGNESIUM 2.5 MG/DL (1.5-2.4); PHOSPHORUS 4.1 MG/DL (2.3-4.5); SODIUM 131 MMOL/L (135-145); TOTAL CARBON DIOXIDE 25.4 MMOL/L (24-32); TOTAL PROTEIN 7.2 G/DL (6.4-8.2); eGFR 52 ML/MIN
[2020-11-02 09:39] LABS: POTASSIUM 3.2 MMOL/L (3.5-5.1); TRIGLYCERIDES 1335 MG/DL (20-135)
[2020-11-02 09:47] LABS: PREALBUMIN 57.6 MG/DL (19-36)
[2020-11-02 10:00] VITALS: BP 116/68
[2020-11-02] MEDS: potassium Cl 20 mEq SR tablet PO PRN ×3 (10:19→21:06)
[2020-11-02 10:31] LABS: TOTAL CELLS COUNTED 100
[2020-11-02 10:32] LABS: LARGE PLATELETS FEW; PLATELET ESTIMATE INCREASED
--- NOTE | 2020-11-02 12:15 | NUR ---
F/u 11/02: Pt TPN weaned 10/30 and advanced to pureed now MM5/thin diet per [facility] recs. PO slowly improving ~50% avg meals past 2 days w/ 100% breakfast this AM. RD recommends ensure enlive TIDWM for additional protein/kcal needs; notified. LBM 11/01 receiving PRN MoM. Pt TG 1335 up today from 745 prior and pt has not received lipids since TPN in 3 days; PALB also 57.6 but likely error given not meeting protein needs at this time. Noted pt is receiving routine estrace, anti-psychotics, and solumedrol; RD d/w RN regarding routine anti-hyperlipidemic if MD agreeable. Will continue to monitor for additional protein/kcal needs. Rec: 1. Continue MM5/thin diet per [facility]/MD recs; encourage PO 2. ensure enlive TIDWM; encourage PO 3. routine bowel care 4. consider anti-hyperlipidemic if MD agreeable w/ TG 1335 5. weekly wts Addendum: 11/02/20 at [address] Amended: Links added.
--- NOTE | 2020-11-02 13:10 | NUR ---
NOTIFIED HOSPITALIST OF ELEVATED TRIGLYCERIDES, NO NEW ORDERS AT THIS TIME, CONTINUE TO MONITOR
[2020-11-02 14:00] VITALS: BP 95/44
[2020-11-02 18:00] VITALS: BP 131/69
--- NOTE | 2020-11-02 18:08 | NUR ---
GAVE REPORT TO KEVIN ONEILL
--- NOTE | 2020-11-02 18:15 | NUR ---
Patient in room ORTHO 4009. I have received report from KEVIN Martinez and had the opportunity to ask questions and assume patient care.
[2020-11-02 19:29] LABS: ABG BASE EXCESS 0.6 mmol/L (-2.0-2.0); ABG HCO3 25.4 mmol/L (22.0-26.0); ABG OXYGEN SATURATION 96.7 % (94-97); ABG PO2 (T) 93.7 mmHg (75.0-100.0); FCOHb 0.1 % (0.0-3.9); FLOW 4 L/min; FMetHb 0.3 % (0.0-1.5); FO2Hb 96.3 % (94-97); PATIENT TEMPERATURE 36.6; TOTAL HEMOGLOBIN 11.9 G/dl (12.0-16.0)
[2020-11-02] MEDS: enoxaparin 40mg/0.4ml syringe SUBCUT SCH (19:38)
[2020-11-02] MEDS: insulin glargine (Lantus) pen - multi-dose SQ SCH (21:00)
[2020-11-02] MEDS: traZODone 50mg tablet PO SCH (21:06)
[2020-11-02 22:00] VITALS: BP 105/57
[2020-11-03] VITALS (7 sets, daily range): BP systolic 81–137; BP diastolic 45–85
[2020-11-03] MEDS: baclofen 10mg tablet PO SCH ×4 (00:01→23:53)
[2020-11-03] MEDS: guaiFENesin/codeine phos 10ml UD oral syrup PO SCH ×7 (03:51→23:53)
[2020-11-03] MEDS: HYDROcodone/acetaminophen 10/325mg tab PO PRN ×3 (05:10→15:19)
[2020-11-03] MEDS: ondansetron 4mg rapidly disintigrating tab PO PRN (05:12)
[2020-11-03 05:26] LABS: MEAN PLATELET VOLUME 7.5 FL (7.4-10.4)
[2020-11-03 05:28] LABS: BASOPHILS % (AUTO) 0.2 % (0-1); EOSINOPHILS # (AUTO) 0.1 X10'3 (0-0.9); EOSINOPHILS % (AUTO) 0.6 % (0-6); HEMATOCRIT 26.6 % (35.0-45.0); HEMOGLOBIN 9.2 g/dl (12.0-16.0); LYMPHOCYTES % (AUTO) 14.6 % (21-51); MEAN CORPUSCULAR HEMOGLOBIN 31.3 PG (27.0-31.0); MEAN CORPUSCULAR HGB CONC 34.7 g/dL (33.0-36.5); MONOCYTES # (AUTO) 2.2 X10'3 (0-0.9); MONOCYTES % (AUTO) 10.6 % (2-12); NEUTROPHILS # (AUTO) 15.1 X10'3 (1.8-7.7); PLATELET COUNT 543 X10'3 (140-440); RED BLOOD COUNT 2.95 X10'6 (4.20-5.60); RED CELL DISTRIBUTION WIDTH 14.7 % (11.5-14.5); WHITE BLOOD COUNT 20.4 X10'3 (4.5-11.0)
[2020-11-03 05:33] LABS: D-DIMER 0.85 MG/L FEU (0-0.50)
[2020-11-03 05:35] LABS: ALANINE AMINOTRANSFERASE 48 U/L (12-78); ALBUMIN 2.5 G/DL (3.4-5.0); ALBUMIN/GLOBULIN RATIO 0.6 (1.1-1.5); ALKALINE PHOSPHATASE 68 IU/L (46-116); ANION GAP 8 (8-16); ASPARTATE AMINO TRANSFERASE 21 U/L (10-37); BILIRUBIN,TOTAL 0.3 MG/DL (0.1-1.0); BLOOD UREA NITROGEN 20 MG/DL (7-18); BUN/CREATININE RATIO 21.3 (6.6-38.0); C-REACTIVE PROTEIN 0.17 MG/DL (0.0-0.5); CALCIUM 8.9 MG/DL (8.5-10.1); CHLORIDE 97 MMOL/L (99-107); CREATININE 0.94 MG/DL (0.40-0.90); GLUCOSE 157 MG/DL (70-104); MAGNESIUM 2.3 MG/DL (1.5-2.4); PHOSPHORUS 3.9 MG/DL (2.3-4.5); POTASSIUM 3.8 MMOL/L (3.5-5.1); SODIUM 132 MMOL/L (135-145); TOTAL CARBON DIOXIDE 27.3 MMOL/L (24-32); TOTAL PROTEIN 6.6 G/DL (6.4-8.2); eGFR 63 ML/MIN
[2020-11-03 06:13] LABS: NUCLEATED RED BLOOD CELLS 1 /100WBC (0-0); PLATELET ESTIMATE INCREASED; TOTAL CELLS COUNTED 100
[2020-11-03 06:14] LABS: POLYCHROMASIA 1+; STOMATOCYTES FEW
--- NOTE | 2020-11-03 06:41 | NUR ---
Problems reprioritized. Patient report given, questions answered & plan of care reviewed with KEVIN Navarrete.
[2020-11-03] MEDS: lactose-reduced food (Ensure Enlive) - 237ml bottle PO SCH ×3 (08:00→18:49)
[2020-11-03] MEDS: K and/or MAG REPLACEMENT MC SCH ×2 (08:00→20:00)
[2020-11-03] MEDS: predniSONE 20 mg tablet PO SCH (10:23)
[2020-11-03] MEDS: guaiFENesin ER 600mg tablet PO SCH ×2 (10:23→20:09)
[2020-11-03] MEDS: topiramate 100mg tablet PO SCH ×2 (10:23→20:09)
[2020-11-03] MEDS: cyanocobalamin 500mcg tablet PO SCH (10:24)
[2020-11-03] MEDS: enoxaparin 40mg/0.4ml syringe SUBCUT SCH ×2 (10:24→20:10)
[2020-11-03] MEDS: pantoprazole 40mg Tablet.DR PO SCH (10:24)
[2020-11-03] MEDS: cetirizine 10mg tablet PO SCH ×2 (10:24→20:09)
[2020-11-03] MEDS: ESCITALOPRAM OXALATE 5 MG TABLET PO SCH (10:25)
[2020-11-03] MEDS: levoTHYROXINE 100mcg tablet PO SCH (10:25)
[2020-11-03] MEDS: estradiol 1mg tablet PO SCH (10:25)
[2020-11-03] MEDS: lactobacillus rhamnosus 10,000 MMU CELLS/CAPSULE PO SCH ×2 (10:26→20:09)
[2020-11-03] MEDS: furosemide 40mg/4ml inj IV SCH (10:26)
[2020-11-03] MEDS ORDERED: LORazepam 1 MG tablet PO PRN (11:55)
--- NOTE | 2020-11-03 18:57 | NUR ---
Patient in room ORTHO 4009. I have received report from Rosalba BROWN and had the opportunity to ask questions and assume patient care.
--- NOTE | 2020-11-03 19:10 | NUR ---
Dr. Lynn called back regarding pt's need for increased anti anxiety medicine, she had been on Ativan every 2 hours prn and now it had been changed to every 6 hours prn anxiety. The patient had been crying and pulling her oxygen off and requesting more medication for the anxiety related to her steroids that she was getting. He gave orders to change to every 4 hours prn anxiety and I informed Sandra BROWN of the new order.
[2020-11-03] MEDS: insulin glargine (Lantus) pen - multi-dose SQ SCH (20:08)
[2020-11-03] MEDS: traZODone 50mg tablet PO SCH (20:09)
[2020-11-03] MEDS: LORazepam 1 MG tablet PO PRN (20:09)
[2020-11-04 02:00] VITALS: BP 114/65
[2020-11-04] MEDS: LORazepam 1 MG tablet PO PRN ×4 (04:39→21:26)
[2020-11-04] MEDS: guaiFENesin/codeine phos 10ml UD oral syrup PO SCH ×6 (04:39→23:25)
[2020-11-04] MEDS: HYDROcodone/acetaminophen 10/325mg tab PO PRN ×4 (04:40→20:22)
[2020-11-04 06:00] VITALS: BP 100/64
--- NOTE | 2020-11-04 06:35 | NUR ---
Problems reprioritized. Patient report given, questions answered & plan of care reviewed with Rosalba BROWN.
--- NOTE | 2020-11-04 07:02 | NUR ---
PAGER ID: [phone] MESSAGE: Rosalba [phone] isabelle Rosa- do you want labs drawn today? None ordered. Also can we have a scheduled stool softener like Colace? Thank you!
[2020-11-04] MEDS: K and/or MAG REPLACEMENT MC SCH ×2 (08:00→19:02)
[2020-11-04] MEDS: lactose-reduced food (Ensure Enlive) - 237ml bottle PO SCH ×3 (08:00→18:29)
[2020-11-04] MEDS: furosemide 40mg/4ml inj IV SCH (08:00)
[2020-11-04] MEDS: lactobacillus rhamnosus 10,000 MMU CELLS/CAPSULE PO SCH ×2 (09:57→21:26)
[2020-11-04] MEDS: pantoprazole 40mg Tablet.DR PO SCH (09:57)
[2020-11-04] MEDS: topiramate 100mg tablet PO SCH ×2 (09:58→21:26)
[2020-11-04] MEDS: levoTHYROXINE 100mcg tablet PO SCH (09:58)
[2020-11-04] MEDS: guaiFENesin ER 600mg tablet PO SCH ×2 (09:58→21:26)
[2020-11-04] MEDS: predniSONE 20 mg tablet PO SCH (09:58)
[2020-11-04] MEDS: baclofen 10mg tablet PO SCH ×3 (09:58→23:25)
[2020-11-04] MEDS: ESCITALOPRAM OXALATE 5 MG TABLET PO SCH (09:58)
[2020-11-04] MEDS: cetirizine 10mg tablet PO SCH ×2 (09:58→21:26)
[2020-11-04] MEDS: enoxaparin 40mg/0.4ml syringe SUBCUT SCH ×2 (09:59→21:27)
[2020-11-04] MEDS: cyanocobalamin 500mcg tablet PO SCH (09:59)
[2020-11-04 10:00] VITALS: BP 94/53
[2020-11-04] MEDS: estradiol 1mg tablet PO SCH (10:00)
--- NOTE | 2020-11-04 11:32 | NUR ---
HR up to 130's per tele. Pt up to BSC at this time. Will continue to monitor
[2020-11-04] MEDS ORDERED: morphine 2 MG/ML inj. syringe IV PRN (15:00)
[2020-11-04 16:05] VITALS: BP 106/54
[2020-11-04 18:00] VITALS: BP 108/62
--- NOTE | 2020-11-04 18:45 | NUR ---
Patient in room ORTHO 4009. I have received report from Rosalba BROWN and had the opportunity to ask questions and assume patient care.
--- NOTE | 2020-11-04 20:32 | NUR ---
PAGER ID: [phone] MESSAGE: Sandra [phone] Pt. in 5815a January. Can I get bowel care for her, hasn't had a BM sense 11/02. Daily Colace? Also Nystatin for yeast in her panus? No labs done today? Can we order labs for the AM? Thank you. responded, gave order for Nystatin and Colace. Will reevaluate needs for AM labs tomorrow.
[2020-11-04] MEDS: insulin glargine (Lantus) pen - multi-dose SQ SCH (21:00)
[2020-11-04] MEDS: traZODone 50mg tablet PO SCH (21:25)
[2020-11-04] MEDS: docusate sod 100mg capsule PO SCH (21:26)
[2020-11-04] MEDS: nystatin 15 GM powder TP SCH (21:26)
[2020-11-04 22:00] VITALS: BP 105/66
[2020-11-05 02:00] VITALS: BP 100/52
[2020-11-05] MEDS: HYDROcodone/acetaminophen 10/325mg tab PO PRN (04:44)
[2020-11-05] MEDS: LORazepam 1 MG tablet PO PRN (04:44)
[2020-11-05] MEDS: guaiFENesin/codeine phos 10ml UD oral syrup PO SCH ×3 (04:44→13:59)
[2020-11-05 06:00] VITALS: BP 91/70
--- NOTE | 2020-11-05 06:36 | NUR ---
Problems reprioritized. Patient report given, questions answered & plan of care reviewed with Kendal BROWN.
--- NOTE | 2020-11-05 06:50 | NUR ---
Patient in room ORTHO 4009. I have received report from Sandra BROWN and had the opportunity to ask questions and assume patient care.
--- NOTE | 2020-11-05 06:52 | NUR ---
Patient in room ORTHO 4009A. I have received report from KEVIN Flores and had the opportunity to ask questions and assume patient care.
[2020-11-05] MEDS: K and/or MAG REPLACEMENT MC SCH (08:00)
[2020-11-05] MEDS: nystatin 15 GM powder TP SCH ×2 (08:00→13:59)
--- NOTE | 2020-11-05 09:41 | NUR ---
O2 Sat at rest on room air:_88__% If below 89%: Recovery O2 Sat at rest on __3_LPM:__99_%:___% via nasal cannula (mask/nasal cannula, etc..) No further documentation is necessary. If O2 Sat did not drop below 89% on room air,ambulate patient on room air. O2 Sat while ambulating on room air:___% Recovery O2 Sat while ambulating on ___LPM:___% No further documentation is necessary. If patient does not drop below 89% while ambulating, he/she does not qualify for home O2.
[2020-11-05 10:20] VITALS: BP 91/46
[2020-11-05] MEDS: enoxaparin 40mg/0.4ml syringe SUBCUT SCH (10:27)
[2020-11-05] MEDS: ESCITALOPRAM OXALATE 5 MG TABLET PO SCH (10:29)
[2020-11-05] MEDS: pantoprazole 40mg Tablet.DR PO SCH (10:29)
[2020-11-05] MEDS: docusate sod 100mg capsule PO SCH (10:30)
[2020-11-05] MEDS: predniSONE 20 mg tablet PO SCH (10:30)
[2020-11-05] MEDS: lactobacillus rhamnosus 10,000 MMU CELLS/CAPSULE PO SCH (10:30)
[2020-11-05] MEDS: cetirizine 10mg tablet PO SCH (10:30)
[2020-11-05] MEDS: baclofen 10mg tablet PO SCH (10:31)
[2020-11-05] MEDS: topiramate 100mg tablet PO SCH (10:31)
[2020-11-05] MEDS: levoTHYROXINE 100mcg tablet PO SCH (10:32)
[2020-11-05] MEDS: guaiFENesin ER 600mg tablet PO SCH (10:32)
[2020-11-05] MEDS: cyanocobalamin 500mcg tablet PO SCH (10:32)
[2020-11-05] MEDS: furosemide 40mg/4ml inj IV SCH (10:33)
[2020-11-05] MEDS: estradiol 1mg tablet PO SCH (10:33)
[2020-11-05] MEDS ORDERED: ALBU8.5H8 IH (12:16)
[2020-11-05] MEDS ORDERED: PRED10TA PO (12:16)
[2020-11-05] MEDS ORDERED: NUT.TX.GLUC.INTOLER,LAC-FR,SOY (GLUCERNA) 237 ML PO SCH (13:00)
[2020-11-05] MEDS ORDERED: LORA-268 PO (13:34)
[2020-11-05] MEDS ORDERED: PRED20TA PO (13:34)
--- NOTE | 2020-11-05 14:59 | NUR ---
Discharge instructions reviewed with patient. All questions pt had were answered. PICC line removed, no complications, pressure bandage applied. Assisted pt with dressing, gathered all belongings, wheeled pt down to private vehicle to caregiver. Pt was in stable condition.
--- NOTE | 2020-11-05 15:31 | NUR ---
PRECEPTOR FOR KEVIN DUARTE...I AGREE WITH ALL CHARTING
--- NOTE | 2020-11-05 15:41 | NUR ---
F/u 11/05: RN TC regarding change to Glucerna TIDWM instead of ensure enlive since pt now eating 75-100% meals/ONS in order to better cover Glu on steroids. Currently meeting needs w/ PO hx. LBM 11/02. Noted A1C 6.4 w/ no hx DM on steroids likely impacting results as well. Noted Glucerna TIDWM ordered in EMR; dietary notified. Rec: 1. Continue MM5/thin diet per [employer]/MD recs 2. Glucerna TIDWM 3. routine bowel care 4. consider anti-hyperlipidemic if MD agreeable w/ TG 1335 5. weekly wts Addendum: 11/05/20 at [address] Amended: Links added.
== END 2020-11-05 14:40 | disposition home or self-care (01) | DRG 137 ==
LOC: ER 12:24 → ED HOLD 17:10 → ORTHO 4S 10-19 18:02 → CICU 2S 10-23 12:06 → ORTHO 4S 11-01 13:45
PROVIDERS: ADMIT Family Medicine; ATTEND Family Medicine
PROC: XW033E5 Introduction of Remdesivir Anti-infective into Peripheral Vein, Percutaneous Approach, New Technology Group 5 (ICD-10-PCS; principal; 2020-10-19)
PROC: 5A09357 Assistance with Respiratory Ventilation, Less than 24 Consecutive Hours, Continuous Positive Airway Pressure (ICD-10-PCS; 2020-10-23)
PROC: 5A09357 Assistance with Respiratory Ventilation, Less than 24 Consecutive Hours, Continuous Positive Airway Pressure (ICD-10-PCS; 2020-10-24)
PROC: 5A09357 Assistance with Respiratory Ventilation, Less than 24 Consecutive Hours, Continuous Positive Airway Pressure (ICD-10-PCS; 2020-10-25)
PROC: 5A09357 Assistance with Respiratory Ventilation, Less than 24 Consecutive Hours, Continuous Positive Airway Pressure (ICD-10-PCS; 2020-10-26)
PROC: 5A09357 Assistance with Respiratory Ventilation, Less than 24 Consecutive Hours, Continuous Positive Airway Pressure (ICD-10-PCS; 2020-10-27)
PROC: 5A09357 Assistance with Respiratory Ventilation, Less than 24 Consecutive Hours, Continuous Positive Airway Pressure (ICD-10-PCS; 2020-10-28)
PROC: 5A09357 Assistance with Respiratory Ventilation, Less than 24 Consecutive Hours, Continuous Positive Airway Pressure (ICD-10-PCS; 2020-10-29)
DX: U07.1 COVID-19 (principal); E03.9 Hypothyroidism, unspecified; E66.9 Obesity, unspecified; E87.1 Hypo-osmolality and hyponatremia; E87.6 Hypokalemia; F31.9 Bipolar disorder, unspecified; F41.9 Anxiety disorder, unspecified; G62.9 Polyneuropathy, unspecified; G89.4 Chronic pain syndrome; J12.82 Pneumonia due to coronavirus disease 2019; J45.909 Unspecified asthma, uncomplicated; G43.909 Migraine, unspecified, not intractable, without status migrainosus; G47.00 Insomnia, unspecified; K21.9 Gastro-esophageal reflux disease without esophagitis; J96.01 Acute respiratory failure with hypoxia; M79.7 Fibromyalgia; N17.9 Acute kidney failure, unspecified; Z78.1 Physical restraint status; Z87.891 Personal history of nicotine dependence; Z90.49 Acquired absence of other specified parts of digestive tract; Z90.710 Acquired absence of both cervix and uterus; Z68.26 Body mass index [BMI] 26.0-26.9, adult; Z88.8 Allergy status to other drugs, medicaments and biological substances; Z91.041 Radiographic dye allergy status; Z79.899 Other long term (current) drug therapy
CPT/HCPCS: 36415; 36573; 36600; 71045; 71275; 76937; 80048; 80053; 80061; 81001; 82803; 82948; 83036; 83605; 83615; 83735; 83880; 84100; 84132; 84134; 84145; 84443; 84478; 84484; 85007; 85018; 85025; 85379; 85610; 85730; 86140; 87040; 87081; 87635; 92508; 92616; 93005; 94660; 94760; 96361; 96365; 96375; 97110; 97161; 97530; 99285; C9113; C9803; G0378; J0131; J1100; J1650; J1815; J1940; J2060; J2270; J2405; J2543; J2920; J2930; J3480; J3486; J7030; J7040; J7060; J7512; Q0163; Q9967

== ENCOUNTER 2021-01-09 03:18 | Emergency (ER) | payer MEDICAID ==
[~2021-01-09] VITALS: Ht 170.2 cm; Wt 90.9 kg
[~2021-01-09 03:18] MED LIST changes: +ALBU8.5H8 IH; -CLON0.1T2 PO; -HYDR-3965 PO; +HYDR-3972 PO; -IBUP-1984 PO; +LORA-268 PO; -NORT25CA PO
[2021-01-09] MEDS ORDERED: LORazepam 1 MG tablet PO ONE (04:00)
[2021-01-09 04:50] VITALS: BP 128/73
== END 2021-01-09 04:56 | disposition home or self-care (01) ==
LOC: ER 03:19
DX: G89.29 Other chronic pain (principal); M62.838 Other muscle spasm; M79.7 Fibromyalgia; E03.9 Hypothyroidism, unspecified; Z86.16 Personal history of COVID-19
CPT/HCPCS: 99283

== ENCOUNTER 2021-02-09 05:15 | Emergency (ER) | payer MEDICAID ==
[~2021-02-09] VITALS: Ht 170.2 cm; Wt 90.0 kg
[2021-02-09 05:21] VITALS: BP 122/70
[2021-02-09] MEDS ORDERED: LORazepam 1 MG tablet PO ONE (05:30)
[2021-02-09] MEDS ORDERED: normal saline 1000ml 1,000 ML IV ONE (05:30)
[2021-02-09 06:10] LABS: ALBUMIN 3.4 G/DL (3.4-5.0); ANION GAP 12 (8-16); BLOOD UREA NITROGEN 15 MG/DL (7-18); BUN/CREATININE RATIO 14.3 (6.6-38.0); CALCIUM 9.1 MG/DL (8.5-10.1); CHLORIDE 108 MMOL/L (99-107); CREATININE 1.05 MG/DL (0.40-0.90); GLUCOSE 111 MG/DL (70-104); POTASSIUM 3.8 MMOL/L (3.5-5.1); SODIUM 142 MMOL/L (135-145); TOTAL CARBON DIOXIDE 22.2 MMOL/L (24-32); eGFR 55 ML/MIN
== END 2021-02-09 06:57 | disposition home or self-care (01) ==
LOC: ER 05:16
DX: G89.29 Other chronic pain (principal); R19.7 Diarrhea, unspecified; M62.838 Other muscle spasm; R11.0 Nausea; G43.909 Migraine, unspecified, not intractable, without status migrainosus; J45.909 Unspecified asthma, uncomplicated; K21.9 Gastro-esophageal reflux disease without esophagitis; F41.9 Anxiety disorder, unspecified; F31.9 Bipolar disorder, unspecified; Z87.440 Personal history of urinary (tract) infections; Z90.89 Acquired absence of other organs; Z90.49 Acquired absence of other specified parts of digestive tract; Z90.710 Acquired absence of both cervix and uterus; Z98.890 Other specified postprocedural states; Z56.0 Unemployment, unspecified; Z88.1 Allergy status to other antibiotic agents; Z88.8 Allergy status to other drugs, medicaments and biological substances; Z79.899 Other long term (current) drug therapy
CPT/HCPCS: 36415; 80048; 96360; 99283; J7030

== ENCOUNTER 2021-03-03 05:41 | Emergency (ER) | payer MEDICAID ==
[~2021-03-03] VITALS: Ht 170.2 cm; Wt 89.1 kg
[2021-03-03 06:17] VITALS: BP 107/80
--- NOTE | 2021-03-03 07:30 | NUR ---
Dr. Muniz notified regarding pain.
--- NOTE | 2021-03-03 07:46 | NUR ---
PATIENT RESTING ON GURNEY, REMAINS MOANING ON AND OFF IN PAIN. AT THE BEDSIDE. AWAITING DR. PAINTING ASSESSMENT AND ORDERS.
[2021-03-03] MEDS ORDERED: LORazepam 2 mg/ml vial IV ONE (07:55)
[2021-03-03] MEDS ORDERED: normal saline 1000ML IV soln IVB ONE (07:55)
[2021-03-03] MEDS ORDERED: haloperidol lactate 5mg/ml inj IM ONE (08:00)
== END 2021-03-03 10:18 | disposition home or self-care (01) ==
LOC: ER 05:42
DX: G89.29 Other chronic pain (principal); M79.18 Myalgia, other site; G43.909 Migraine, unspecified, not intractable, without status migrainosus; J45.909 Unspecified asthma, uncomplicated; K21.9 Gastro-esophageal reflux disease without esophagitis; E03.9 Hypothyroidism, unspecified; F41.9 Anxiety disorder, unspecified; F31.9 Bipolar disorder, unspecified; Z90.49 Acquired absence of other specified parts of digestive tract; Z90.710 Acquired absence of both cervix and uterus; Z98.890 Other specified postprocedural states; Z56.0 Unemployment, unspecified; Z88.1 Allergy status to other antibiotic agents; Z88.8 Allergy status to other drugs, medicaments and biological substances; Z79.899 Other long term (current) drug therapy
CPT/HCPCS: 96372; 96374; 99284; J1630; J2060; J7030

== ENCOUNTER 2021-03-11 19:25 | Emergency (ER) | payer MEDICAID ==
[~2021-03-11] VITALS: Ht 170.2 cm; Wt 92.2 kg
[2021-03-11 19:53] LABS: BASOPHILS % (AUTO) 0.2 % (0-1); EOSINOPHILS % (AUTO) 0.3 % (0-6); HEMATOCRIT 40.5 % (35.0-45.0); HEMOGLOBIN 13.6 g/dl (12.0-16.0); LYMPHOCYTES # (AUTO) 0.6 X10'3 (1.1-4.8); LYMPHOCYTES % (AUTO) 6.5 % (21-51); MEAN CORPUSCULAR HEMOGLOBIN 29.1 PG (27.0-31.0); MEAN CORPUSCULAR HGB CONC 33.5 g/dL (33.0-36.5); MEAN CORPUSCULAR VOLUME 86.9 FL (78-98); MEAN PLATELET VOLUME 6.9 FL (7.4-10.4); MONOCYTES # (AUTO) 0.5 X10'3 (0-0.9); NEUTROPHILS # (AUTO) 7.7 X10'3 (1.8-7.7); PLATELET COUNT 256 X10'3 (140-440); RED BLOOD COUNT 4.66 X10'6 (4.20-5.60); WHITE BLOOD COUNT 8.8 X10'3 (4.5-11.0)
[2021-03-11 20:12] LABS: ALANINE AMINOTRANSFERASE 28 U/L (12-78); ALBUMIN 3.1 G/DL (3.4-5.0); ALBUMIN/GLOBULIN RATIO 0.8 (1.1-1.5); ALKALINE PHOSPHATASE 46 IU/L (46-116); ANION GAP 14 (8-16); ASPARTATE AMINO TRANSFERASE 15 U/L (10-37); BILIRUBIN,TOTAL 0.3 MG/DL (0.1-1.0); BLOOD UREA NITROGEN 14 MG/DL (7-18); BUN/CREATININE RATIO 13.3 (6.6-38.0); CALCIUM 8.5 MG/DL (8.5-10.1); CHLORIDE 108 MMOL/L (99-107); CREATININE 1.05 MG/DL (0.40-0.90); GLUCOSE 167 MG/DL (70-104); LIPASE 96 U/L (73-393); POTASSIUM 3.6 MMOL/L (3.5-5.1); SODIUM 141 MMOL/L (135-145); TOTAL CARBON DIOXIDE 18.9 MMOL/L (24-32); eGFR 55 ML/MIN
[2021-03-11] MEDS ORDERED: LORazepam 2 mg/ml vial IV ONE ×2 (20:20→21:30)
[2021-03-11] MEDS ORDERED: normal saline 1000ML IV soln IVB ONE (20:20)
[2021-03-11 20:45] LABS: MAGNESIUM 2.1 MG/DL (1.5-2.4)
[2021-03-11] MEDS ORDERED: normal saline 1000ml 1,000 ML IV ONE (21:30)
[2021-03-11 22:53] VITALS: BP 112/63
== END 2021-03-11 22:56 | disposition home or self-care (01) ==
LOC: ER 19:26
DX: K52.9 Noninfective gastroenteritis and colitis, unspecified (principal); M62.838 Other muscle spasm; R11.2 Nausea with vomiting, unspecified; G43.909 Migraine, unspecified, not intractable, without status migrainosus; J45.909 Unspecified asthma, uncomplicated; K21.9 Gastro-esophageal reflux disease without esophagitis; E03.9 Hypothyroidism, unspecified; G89.29 Other chronic pain; F41.9 Anxiety disorder, unspecified; F31.9 Bipolar disorder, unspecified; Z87.440 Personal history of urinary (tract) infections; Z90.89 Acquired absence of other organs; Z90.49 Acquired absence of other specified parts of digestive tract; Z90.710 Acquired absence of both cervix and uterus; Z98.890 Other specified postprocedural states; Z56.0 Unemployment, unspecified; Z88.1 Allergy status to other antibiotic agents; Z88.8 Allergy status to other drugs, medicaments and biological substances; Z79.899 Other long term (current) drug therapy
CPT/HCPCS: 36415; 80053; 83690; 83735; 85025; 96361; 96374; 96376; 99285; J2060; J7030; 96375

== ENCOUNTER 2021-04-04 05:10 | Emergency (ER) | payer MEDICAID ==
[~2021-04-04] VITALS: Ht 160 cm; Wt 90.0 kg
[2021-04-04 05:24] VITALS: BP 138/63
[2021-04-04] MEDS ORDERED: ondansetron 4mg rapidly disintigrating tab PO ONE (06:15)
[2021-04-04] MEDS ORDERED: LORazepam 1 MG tablet PO ONE (06:15)
== END 2021-04-04 06:37 | disposition home or self-care (01) ==
LOC: ER 05:10
DX: G89.29 Other chronic pain (principal); M79.18 Myalgia, other site; G43.909 Migraine, unspecified, not intractable, without status migrainosus; J45.909 Unspecified asthma, uncomplicated; K21.9 Gastro-esophageal reflux disease without esophagitis; E03.9 Hypothyroidism, unspecified; F41.9 Anxiety disorder, unspecified; F31.9 Bipolar disorder, unspecified; Z90.49 Acquired absence of other specified parts of digestive tract; Z90.710 Acquired absence of both cervix and uterus; Z98.890 Other specified postprocedural states; Z56.0 Unemployment, unspecified; Z88.1 Allergy status to other antibiotic agents; Z88.8 Allergy status to other drugs, medicaments and biological substances; Z79.899 Other long term (current) drug therapy
CPT/HCPCS: 99284

== ENCOUNTER 2021-04-08 16:29 | Emergency (ER) | payer MEDICAID ==
[~2021-04-08] VITALS: Ht 170.2 cm; Wt 88.2 kg
[2021-04-08] MEDS ORDERED: LORazepam 1 MG tablet PO ONE (17:00)
[2021-04-08 17:30] VITALS: BP 120/86
== END 2021-04-08 17:28 | disposition home or self-care (01) ==
LOC: ER 16:30
DX: G89.29 Other chronic pain (principal); M62.838 Other muscle spasm; N64.4 Mastodynia; G43.909 Migraine, unspecified, not intractable, without status migrainosus; F31.9 Bipolar disorder, unspecified; Z56.0 Unemployment, unspecified; Z88.1 Allergy status to other antibiotic agents; Z88.8 Allergy status to other drugs, medicaments and biological substances; Z88.5 Allergy status to narcotic agent
CPT/HCPCS: 99283

== ENCOUNTER 2021-04-16 01:03 | Emergency (ER) | payer MEDICAID ==
[~2021-04-16] VITALS: Ht 170.2 cm; Wt 88.1 kg
[2021-04-16 01:08] VITALS: BP 122/88
[2021-04-16] MEDS ORDERED: LORazepam 1 MG tablet PO ONE (01:15)
== END 2021-04-16 01:52 | disposition home or self-care (01) ==
LOC: ER 01:03
DX: G89.29 Other chronic pain (principal); M62.838 Other muscle spasm; G43.909 Migraine, unspecified, not intractable, without status migrainosus; K21.9 Gastro-esophageal reflux disease without esophagitis; J44.9 Chronic obstructive pulmonary disease, unspecified; E03.9 Hypothyroidism, unspecified; M79.7 Fibromyalgia; G62.9 Polyneuropathy, unspecified; Z90.49 Acquired absence of other specified parts of digestive tract; Z98.890 Other specified postprocedural states; Z98.891 History of uterine scar from previous surgery; Z90.710 Acquired absence of both cervix and uterus; Z98.82 Breast implant status; Z56.0 Unemployment, unspecified; Z87.440 Personal history of urinary (tract) infections; Z88.1 Allergy status to other antibiotic agents; Z88.8 Allergy status to other drugs, medicaments and biological substances; Z79.899 Other long term (current) drug therapy
CPT/HCPCS: 99283

== ENCOUNTER 2021-04-25 00:37 | Emergency (ER) | payer MEDICAID ==
[~2021-04-25] VITALS: Ht 170.2 cm; Wt 88.2 kg
[2021-04-25] MEDS ORDERED: LORazepam 1 MG tablet PO ONE (01:25)
[2021-04-25] MEDS ORDERED: ondansetron 4mg rapidly disintigrating tab PO ONE (01:25)
--- NOTE | 2021-04-25 02:45 | NUR ---
Patient appears to be asleep, resting with eyes closed. Patient family states he thinks they are better to go home now.
[2021-04-25 03:11] VITALS: BP 110/61
== END 2021-04-25 03:41 | disposition home or self-care (01) ==
LOC: ER 00:38
DX: G89.4 Chronic pain syndrome (principal); M62.838 Other muscle spasm; G43.909 Migraine, unspecified, not intractable, without status migrainosus; G62.9 Polyneuropathy, unspecified; J45.909 Unspecified asthma, uncomplicated; K21.9 Gastro-esophageal reflux disease without esophagitis; E03.9 Hypothyroidism, unspecified; M79.7 Fibromyalgia; F41.9 Anxiety disorder, unspecified; F31.9 Bipolar disorder, unspecified; Z56.0 Unemployment, unspecified; Z90.49 Acquired absence of other specified parts of digestive tract; Z98.890 Other specified postprocedural states; Z90.710 Acquired absence of both cervix and uterus; Z88.1 Allergy status to other antibiotic agents; Z88.5 Allergy status to narcotic agent; Z88.6 Allergy status to analgesic agent
CPT/HCPCS: 99283

== ENCOUNTER 2021-06-01 00:20 | Emergency (ER) | payer MEDICAID ==
[~2021-06-01] VITALS: Ht 170.2 cm; Wt 196.0 kg
[~2021-06-01 00:20] MED LIST changes: +ALBU8.5H17 IH; -ALBU8.5H8 IH
--- NOTE | 2021-06-01 01:29 | NUR ---
patient snoring, fast asleep at this time.
[2021-06-01] MEDS ORDERED: magnesium oxide 400mg tablet PO ONE (02:35)
[2021-06-01] MEDS ORDERED: normal saline 1000ML IV soln IVB ONE (02:35)
[2021-06-01] MEDS ORDERED: LORazepam 2 mg/ml vial IV ONE (02:35)
[2021-06-01] MEDS ORDERED: ketorolac tromethamine 15mg/ml inj. IV ONE (02:40)
--- NOTE | 2021-06-01 02:56 | NUR ---
meds given as ordered, once bolus finished, patient can be dc home with .
[2021-06-01 03:46] VITALS: BP 111/78
== END 2021-06-01 03:47 | disposition home or self-care (01) ==
LOC: ER 00:20
DX: G89.4 Chronic pain syndrome (principal); M62.838 Other muscle spasm; G43.909 Migraine, unspecified, not intractable, without status migrainosus; E11.43 Type 2 diabetes mellitus with diabetic autonomic (poly)neuropathy; J45.909 Unspecified asthma, uncomplicated; K21.9 Gastro-esophageal reflux disease without esophagitis; E03.9 Hypothyroidism, unspecified; M79.7 Fibromyalgia; Z90.49 Acquired absence of other specified parts of digestive tract; Z98.891 History of uterine scar from previous surgery; Z90.710 Acquired absence of both cervix and uterus; Z98.82 Breast implant status; Z56.0 Unemployment, unspecified; Z87.440 Personal history of urinary (tract) infections; Z88.1 Allergy status to other antibiotic agents; Z88.8 Allergy status to other drugs, medicaments and biological substances; Z79.899 Other long term (current) drug therapy
CPT/HCPCS: 96374; 96375; 99284; J1885; J2060; J7030

== ENCOUNTER 2021-06-15 00:24 | Emergency (ER) | payer MEDICAID ==
[~2021-06-15] VITALS: Ht 165.1 cm; Wt 65.0 kg
[2021-06-15] MEDS ORDERED: ondansetron/PF 4mg/2ml inj IV ONE (00:40)
[2021-06-15] MEDS ORDERED: LORazepam 2 mg/ml vial IV ONE (00:40)
[2021-06-15 01:28] VITALS: BP 93/58
== END 2021-06-15 01:32 | disposition home or self-care (01) ==
LOC: ER 00:25
DX: M62.838 Other muscle spasm (principal); G89.29 Other chronic pain; G43.909 Migraine, unspecified, not intractable, without status migrainosus; J45.909 Unspecified asthma, uncomplicated; K21.9 Gastro-esophageal reflux disease without esophagitis; E03.9 Hypothyroidism, unspecified; F41.9 Anxiety disorder, unspecified; F31.9 Bipolar disorder, unspecified; Z90.89 Acquired absence of other organs; Z87.440 Personal history of urinary (tract) infections; Z90.49 Acquired absence of other specified parts of digestive tract; Z90.710 Acquired absence of both cervix and uterus; Z98.890 Other specified postprocedural states; Z56.0 Unemployment, unspecified; Z88.1 Allergy status to other antibiotic agents; Z88.8 Allergy status to other drugs, medicaments and biological substances; Z79.899 Other long term (current) drug therapy
CPT/HCPCS: 96374; 96375; 99284; J2060; J2405

== ENCOUNTER 2021-08-25 01:32 | Emergency (ER) | payer MEDICAID ==
[~2021-08-25] VITALS: Ht 170.2 cm; Wt 90.9 kg
[2021-08-25 01:55] VITALS: BP 105/63
[2021-08-25] MEDS ORDERED: HYDROcodone/acetaminophen 10/325mg tab PO ONE (02:40)
[2021-08-25] MEDS ORDERED: amox tr/potassium clavulanate 875/125mg TAB PO ONE (02:40)
[2021-08-25] MEDS ORDERED: AMOX-422 PO (02:49)
== END 2021-08-25 02:59 | disposition home or self-care (01) ==
LOC: ER 01:33
DX: H66.91 Otitis media, unspecified, right ear (principal); G43.909 Migraine, unspecified, not intractable, without status migrainosus; E06.9 Thyroiditis, unspecified; G89.29 Other chronic pain; M54.9 Dorsalgia, unspecified; F31.9 Bipolar disorder, unspecified; Z56.0 Unemployment, unspecified; Z88.1 Allergy status to other antibiotic agents; Z88.8 Allergy status to other drugs, medicaments and biological substances; Z88.5 Allergy status to narcotic agent
CPT/HCPCS: 99283

== ENCOUNTER 2022-01-16 15:37 | Emergency (ER) | payer MEDICAID ==
[~2022-01-16] VITALS: Ht 170.2 cm; Wt 89.1 kg
[2022-01-16] MEDS ORDERED: HYDROcodone/acetaminophen 7.5MG/325MG per 15ml UD CUP PO ONE (16:20)
[2022-01-16 17:12] VITALS: BP 96/65
== END 2022-01-16 17:22 | disposition home or self-care (01) ==
LOC: ER 15:37
DX: G89.29 Other chronic pain (principal); M54.59 Other low back pain; G43.909 Migraine, unspecified, not intractable, without status migrainosus; E06.9 Thyroiditis, unspecified; F31.9 Bipolar disorder, unspecified; Z88.1 Allergy status to other antibiotic agents; Z88.8 Allergy status to other drugs, medicaments and biological substances; Z88.6 Allergy status to analgesic agent
CPT/HCPCS: 99283

== ENCOUNTER 2022-03-05 14:27 | Emergency (ER) | payer MEDICAID ==
[~2022-03-05] VITALS: Ht 170.2 cm; Wt 90.5 kg
[2022-03-05] MEDS ORDERED: morphine 4 MG/ML inj SYRINge IV ONE (15:35)
[2022-03-05] MEDS ORDERED: magnesium 2GM in 50ml NS 50 ML IV ONE (15:35)
[2022-03-05] MEDS ORDERED: LORazepam 2 mg/ml vial IV ONE (15:35)
[2022-03-05] MEDS ORDERED: normal saline 1000ML IV soln IVB ONE (15:35)
[2022-03-05] MEDS ORDERED: ondansetron/PF 4mg/2ml inj IV ONE (15:35)
[2022-03-05 16:02] LABS: BASOPHILS % (AUTO) 0.6 % (0-1); EOSINOPHILS # (AUTO) 0.2 X10'3 (0-0.9); EOSINOPHILS % (AUTO) 1.9 % (0-6); HEMATOCRIT 38.8 % (35.0-45.0); HEMOGLOBIN 13.2 g/dl (12.0-16.0); LYMPHOCYTES # (AUTO) 2.3 X10'3 (1.1-4.8); LYMPHOCYTES % (AUTO) 29.7 % (21-51); MEAN CORPUSCULAR HEMOGLOBIN 31.6 PG (27.0-31.0); MEAN CORPUSCULAR VOLUME 93.2 FL (78-98); MEAN PLATELET VOLUME 6.8 FL (7.4-10.4); MONOCYTES # (AUTO) 0.8 X10'3 (0-0.9); MONOCYTES % (AUTO) 10.4 % (2-12); NEUTROPHILS # (AUTO) 4.5 X10'3 (1.8-7.7); NEUTROPHILS % (AUTO) 57.4 % (42-75); PLATELET COUNT 264 X10'3 (140-440); RED BLOOD COUNT 4.17 X10'6 (4.20-5.60); RED CELL DISTRIBUTION WIDTH 13.7 % (11.5-14.5); WHITE BLOOD COUNT 7.9 X10'3 (4.5-11.0)
[2022-03-05 16:18] LABS: ALANINE AMINOTRANSFERASE 27 U/L (12-78); ALBUMIN/GLOBULIN RATIO 0.8 (1.1-1.5); ALKALINE PHOSPHATASE 55 IU/L (46-116); ANION GAP 11 (8-16); ASPARTATE AMINO TRANSFERASE 32 U/L (10-37); BILIRUBIN,TOTAL 0.2 MG/DL (0.1-1.0); BLOOD UREA NITROGEN 12 MG/DL (7-18); BUN/CREATININE RATIO 16.4 (6.6-38.0); CALCIUM 8.6 MG/DL (8.5-10.1); CHLORIDE 108 MMOL/L (99-107); CREATININE 0.73 MG/DL (0.40-0.90); GLUCOSE 132 MG/DL (70-104); MAGNESIUM 1.9 MG/DL (1.5-2.4); SODIUM 140 MMOL/L (135-145); TOTAL CARBON DIOXIDE 20.8 MMOL/L (24-32); TOTAL PROTEIN 6.8 G/DL (6.4-8.2); eGFR 84 ML/MIN
[2022-03-05 16:55] LABS: COLOR,URINE YELLOW (Yellow); GLUCOSE, URINE NEGATIVE (Neg); KETONES,URINE NEGATIVE (Neg); LEUKOCYTE ESTERASE ,URINE NEGATIVE (Neg); NITRITES, URINE NEGATIVE (Neg); OCCULT BLOOD,URINE NEGATIVE (Neg); PROTEIN,URINE NEGATIVE (Neg); UROBILINOGEN,URINE 0.2 E.U/dL (0.2-1.0)
[2022-03-05 17:08] LABS: CLARITY,URINE CLEAR (Clear); UA COLLECTION TYPE NON-SPECIFIED
[2022-03-05 19:28] VITALS: BP 91/58
== END 2022-03-05 19:29 | disposition home or self-care (01) ==
LOC: ER 14:28
DX: G89.29 Other chronic pain (principal); G62.89 Other specified polyneuropathies; G24.8 Other dystonia; E86.0 Dehydration; G43.909 Migraine, unspecified, not intractable, without status migrainosus; J45.909 Unspecified asthma, uncomplicated; K21.9 Gastro-esophageal reflux disease without esophagitis; E03.9 Hypothyroidism, unspecified; F41.9 Anxiety disorder, unspecified; Z87.440 Personal history of urinary (tract) infections; Z90.89 Acquired absence of other organs; Z90.49 Acquired absence of other specified parts of digestive tract; Z90.710 Acquired absence of both cervix and uterus; Z98.890 Other specified postprocedural states; Z56.0 Unemployment, unspecified; Z88.1 Allergy status to other antibiotic agents; Z88.8 Allergy status to other drugs, medicaments and biological substances; Z79.899 Other long term (current) drug therapy
CPT/HCPCS: 80053; 81003; 83735; 85025; 96365; 96366; 96375; 99284; J2060; J2270; J2405; J3475; J7030

== ENCOUNTER 2022-03-31 00:22 | Emergency (ER) | payer MEDICAID ==
[~2022-03-31] VITALS: Ht 170.2 cm; Wt 88.6 kg
[2022-03-31] MEDS ORDERED: ketorolac trometh. 30mg/ml inj. IV ONE (00:40)
[2022-03-31] MEDS ORDERED: normal saline 1000ML IV soln IVB ONE ×2 (00:40→02:25)
[2022-03-31] MEDS ORDERED: LORazepam 2 mg/ml vial IV ONE (00:40)
[2022-03-31] MEDS ORDERED: morphine 4 MG/ML inj SYRINge IV ONE (00:40)
[2022-03-31 02:28] VITALS: BP 95/69
== END 2022-03-31 02:50 | disposition home or self-care (01) ==
LOC: ER 00:23
DX: M79.10 Myalgia, unspecified site (principal); G43.909 Migraine, unspecified, not intractable, without status migrainosus; J45.909 Unspecified asthma, uncomplicated; K21.9 Gastro-esophageal reflux disease without esophagitis; E06.9 Thyroiditis, unspecified; F31.9 Bipolar disorder, unspecified; G89.29 Other chronic pain; M54.9 Dorsalgia, unspecified; Z88.1 Allergy status to other antibiotic agents; Z88.6 Allergy status to analgesic agent; Z88.8 Allergy status to other drugs, medicaments and biological substances
CPT/HCPCS: 96374; 96375; 99284; J1885; J2060; J2270; J7030

== ENCOUNTER 2022-05-30 21:02 | Emergency (ER) | payer MEDICAID ==
[~2022-05-30] VITALS: Ht 170.2 cm; Wt 90.1 kg
[2022-05-30 21:13] VITALS: BP 136/79
== END 2022-05-31 03:14 | disposition left against medical advice (07) ==
LOC: ER 21:03
DX: Z48.00 Encounter for change or removal of nonsurgical wound dressing (principal); Z53.21 Procedure and treatment not carried out due to patient leaving prior to being seen by health care provider

== ENCOUNTER 2023-01-07 17:55 | Emergency (ER) | payer MEDICAID ==
[~2023-01-07] VITALS: Ht 170.2 cm; Wt 93.2 kg
[2023-01-07] MEDS: ondansetron/PF 4mg/2ml inj IV ONE (21:26)
[2023-01-07] MEDS: morphine 4 MG/ML inj SYRINge IV ONE ×2 (22:06→23:25)
[2023-01-07] MEDS: ringers solution, lactated 1000ml IV soln IV ONE (22:06)
[2023-01-07] MEDS: LORazepam 2 mg/ml vial IV ONE (22:07)
[2023-01-07] MEDS: haloperidol lactate 5mg/ml inj IM ONE (22:39)
[2023-01-07 23:57] VITALS: BP 153/90
== END 2023-01-08 | disposition home or self-care (01) ==
LOC: ER 17:56
DX: G62.89 Other specified polyneuropathies (principal); G43.909 Migraine, unspecified, not intractable, without status migrainosus; K21.9 Gastro-esophageal reflux disease without esophagitis; G89.29 Other chronic pain; M54.9 Dorsalgia, unspecified; F31.9 Bipolar disorder, unspecified; Z88.1 Allergy status to other antibiotic agents; Z88.8 Allergy status to other drugs, medicaments and biological substances; Z79.899 Other long term (current) drug therapy
CPT/HCPCS: 96372; 96374; 96375; 99284; J1630; J2060; J2270; J2405; J7120

== ENCOUNTER 2023-02-26 18:49 | Emergency (ER) | payer MEDICAID ==
[~2023-02-26] VITALS: Ht 170.2 cm; Wt 98.6 kg
--- NOTE | 2023-02-26 19:48 | NUR ---
PT C/O NEEDING TO URINATE, PLACED PUREWICK ON PT. PT THEN STATED WAS UNABLE TO URINATE WITH IT EVEN THOUGH SHE USES IT AT HOME. PT ASSISTED TO RESTROOM WITH AND WHEELCHAIR.
--- NOTE | 2023-02-26 20:23 | NUR ---
PT NOTIFIED THIS RN THAT SHE IS HAVING ALL OVER CHEST PAIN THAT RADIATES TO LEFT SHOULDER AND LEFT BACK. PT STATES THIS IS INTERMITTENT AND EDPISODE CAN LAST 1 HR TO A COUPLE DAYS. PT STATES HAS BEEN HAVING THESE EPISODES FOR PAST FEW WEEKS.
--- NOTE | 2023-02-26 20:25 | NUR ---
DR FLORES NOTIFIED OF CHANGE IN COMPLAINT. ACS PROTOCOL ORDERED.
[2023-02-26 20:54] LABS: BASOPHILS % (AUTO) 0.4 % (0-1); EOSINOPHILS % (AUTO) 0.1 % (0-6); HEMATOCRIT 35.6 % (35.0-45.0); HEMOGLOBIN 11.8 g/dl (12.0-16.0); LYMPHOCYTES # (AUTO) 1.4 X10'3 (1.1-4.8); LYMPHOCYTES % (AUTO) 25.1 % (21-51); MEAN CORPUSCULAR HEMOGLOBIN 30.9 PG (27.0-31.0); MEAN CORPUSCULAR HGB CONC 33.1 g/dL (33.0-36.5); MEAN CORPUSCULAR VOLUME 93.3 FL (78-98); MEAN PLATELET VOLUME 6.5 FL (7.4-10.4); MONOCYTES # (AUTO) 0.7 X10'3 (0-0.9); MONOCYTES % (AUTO) 12.7 % (2-12); NEUTROPHILS # (AUTO) 3.5 X10'3 (1.8-7.7); NEUTROPHILS % (AUTO) 61.7 % (42-75); PLATELET COUNT 199 X10'3 (140-440); RED BLOOD COUNT 3.81 X10'6 (4.20-5.60); RED CELL DISTRIBUTION WIDTH 14.2 % (11.5-14.5); WHITE BLOOD COUNT 5.6 X10'3 (4.5-11.0)
[2023-02-26 21:05] LABS: ALANINE AMINOTRANSFERASE 42 U/L (12-78); ALBUMIN 2.9 G/DL (3.4-5.0); ALBUMIN/GLOBULIN RATIO 0.9 (1.1-1.5); ALKALINE PHOSPHATASE 72 IU/L (46-116); ANION GAP 6 (8-16); ASPARTATE AMINO TRANSFERASE 35 U/L (10-37); BILIRUBIN,TOTAL 0.3 MG/DL (0.1-1.0); BLOOD UREA NITROGEN 17 MG/DL (7-18); BUN/CREATININE RATIO 20.5 (10.0-20.0); CALCIUM 8.2 MG/DL (8.5-10.1); CHLORIDE 108 MMOL/L (99-107); CREATININE 0.83 MG/DL (0.40-0.90); GLUCOSE 75 MG/DL (70-104); POTASSIUM 4.3 MMOL/L (3.5-5.1); SODIUM 140 MMOL/L (135-145); TOTAL CARBON DIOXIDE 25.8 MMOL/L (24-32); TOTAL PROTEIN 6.2 G/DL (6.4-8.2); eGFR 72 ML/MIN
--- NOTE | 2023-02-26 21:17 | NUR ---
PT C/O NAUSEA, DR FLORES NOTIFIED.
[2023-02-26] MEDS ORDERED: LORazepam 2 mg/ml vial IV ONE ×2 (21:50→23:15)
[2023-02-26] MEDS ORDERED: normal saline 1000ml 1,000 ML IV ONE (21:50)
[2023-02-26] MEDS ORDERED: morphine 4 MG/ML inj SYRINge IV ONE (21:50)
[2023-02-26] MEDS ORDERED: ondansetron/PF 4mg/2ml inj IV ONE (22:30)
[2023-02-27 00:17] VITALS: BP 130/76
== END 2023-02-27 00:18 | disposition home or self-care (01) ==
LOC: ER 18:49
DX: G62.89 Other specified polyneuropathies (principal); G43.909 Migraine, unspecified, not intractable, without status migrainosus; J44.9 Chronic obstructive pulmonary disease, unspecified; K21.9 Gastro-esophageal reflux disease without esophagitis; G89.29 Other chronic pain; M54.9 Dorsalgia, unspecified; F31.9 Bipolar disorder, unspecified; Z90.49 Acquired absence of other specified parts of digestive tract; Z98.890 Other specified postprocedural states; Z56.0 Unemployment, unspecified; Z88.1 Allergy status to other antibiotic agents; Z88.8 Allergy status to other drugs, medicaments and biological substances; Z79.899 Other long term (current) drug therapy; Z88.5 Allergy status to narcotic agent
CPT/HCPCS: 36415; 71045; 80053; 83880; 84484; 85025; 93005; 96361; 96374; 96375; 96376; 99285; J2060; J2270; J2405; J7030

== ENCOUNTER 2023-05-03 21:30 | Emergency (ER) | payer MEDICAID ==
[~2023-05-03] VITALS: Ht 170.2 cm; Wt 98.6 kg
[2023-05-03 21:34] VITALS: BP 120/54; PULSE 88; RESP 22; O2SAT 98
[2023-05-03] MEDS ORDERED: ondansetron 4mg rapidly disintigrating tab PO ONE (22:25)
[2023-05-03] MEDS ORDERED: LORazepam 1 MG tablet PO ONE (22:25)
[2023-05-03] MEDS ORDERED: HYDROcodone/acetaminophen 10/325mg tab PO ONE (22:25)
[2023-05-03] MEDS ORDERED: HYDR-3973 PO (22:27)
[2023-05-03 23:33] VITALS: TEMP 99.1
== END 2023-05-03 23:35 | disposition home or self-care (01) ==
LOC: ER 21:31
DX: G89.29 Other chronic pain (principal); M79.7 Fibromyalgia; E86.0 Dehydration; G43.909 Migraine, unspecified, not intractable, without status migrainosus; J44.9 Chronic obstructive pulmonary disease, unspecified; K21.9 Gastro-esophageal reflux disease without esophagitis; M54.9 Dorsalgia, unspecified; F31.9 Bipolar disorder, unspecified; Z90.49 Acquired absence of other specified parts of digestive tract; Z88.1 Allergy status to other antibiotic agents; Z88.8 Allergy status to other drugs, medicaments and biological substances; Z88.5 Allergy status to narcotic agent; Z79.899 Other long term (current) drug therapy
CPT/HCPCS: 99284

== ENCOUNTER 2023-05-15 15:33 | Inpatient (IN) | payer MEDICAID ==
[~2023-05-15] VITALS: Ht 170.2 cm; Wt 99.5 kg
[~2023-05-15 15:33] MED LIST changes: +HYDR-3973 PO
[2023-05-15] MEDS ORDERED: normal saline 1000ML IV soln IVB ONE (16:30)
[2023-05-15] MEDS ORDERED: vancomycin/NS 1 GM ADD-VANTAGE 250 ML X 1 DOSE IV ONE (16:40)
[2023-05-15 16:50] LABS: BASOPHILS % (AUTO) 0.3 % (0-1); EOSINOPHILS % (AUTO) 0 % (0-6); HEMATOCRIT 32.4 % (35.0-45.0); HEMOGLOBIN 10.5 g/dl (12.0-16.0); LYMPHOCYTES # (AUTO) 1.9 X10'3 (1.1-4.8); LYMPHOCYTES % (AUTO) 19.9 % (21-51); MEAN CORPUSCULAR HEMOGLOBIN 29.5 PG (27.0-31.0); MEAN CORPUSCULAR HGB CONC 32.4 g/dL (33.0-36.5); MEAN CORPUSCULAR VOLUME 91.1 FL (78-98); MONOCYTES % (AUTO) 10.1 % (2-12); NEUTROPHILS # (AUTO) 6.7 X10'3 (1.8-7.7); NEUTROPHILS % (AUTO) 69.7 % (42-75); PLATELET COUNT 405 X10'3 (140-440); RED BLOOD COUNT 3.56 X10'6 (4.20-5.60); RED CELL DISTRIBUTION WIDTH 16.7 % (11.5-14.5); WHITE BLOOD COUNT 9.6 X10'3 (4.5-11.0)
[2023-05-15 17:01] LABS: ALANINE AMINOTRANSFERASE 16 U/L (12-78); ALBUMIN 2.4 G/DL (3.4-5.0); ALBUMIN/GLOBULIN RATIO 0.5 (1.1-1.5); ALKALINE PHOSPHATASE 66 IU/L (46-116); ANION GAP 9 (8-16); ASPARTATE AMINO TRANSFERASE 15 U/L (10-37); BILIRUBIN,TOTAL 0.2 MG/DL (0.1-1.0); BLOOD UREA NITROGEN 17 MG/DL (7-18); BUN/CREATININE RATIO 16.5 (10.0-20.0); CALCIUM 8.8 MG/DL (8.5-10.1); CHLORIDE 107 MMOL/L (99-107); CREATININE 1.03 MG/DL (0.40-0.90); GLUCOSE 122 MG/DL (70-104); MAGNESIUM 2.1 MG/DL (1.5-2.4); POTASSIUM 4.1 MMOL/L (3.5-5.1); SODIUM 140 MMOL/L (135-145); TOTAL CARBON DIOXIDE 24.3 MMOL/L (24-32); TOTAL PROTEIN 7.1 G/DL (6.4-8.2); eCRCL 62 ML/MIN; eGFR 56 ML/MIN
[2023-05-15 17:49] LABS: TOTAL CELLS COUNTED 100
[2023-05-15 17:50] LABS: ANISOCYTOSIS 1+; PLATELET ESTIMATE NORMAL
[2023-05-15] MEDS ORDERED: ondansetron/PF 4mg/2ml inj IV ONE (17:55)
[2023-05-15] MEDS ORDERED: oxyCODONE/APAP 5-325mg tablet PO ONE (17:55)
[2023-05-15] MEDS ORDERED: morphine 2 MG/ML inj. syringe IV PRN (18:25)
[2023-05-15] MEDS ORDERED: potassium Cl 40MEQ/1/2NS 520ml 520 ML IV PRN (18:30)
[2023-05-15] MEDS ORDERED: magnesium hydroxide 30ml (MOM) UD suspension PO PRN (18:30)
[2023-05-15] MEDS ORDERED: potassium Cl 20 mEq SR tablet PO PRN ×2 (18:30)
[2023-05-15] MEDS ORDERED: mag hydrox/Alum hydrox/simeth 30ml oral suspension PO PRN (18:30)
[2023-05-15] MEDS ORDERED: acetaminophen 325mg tablet PO PRN (18:30)
[2023-05-15] MEDS ORDERED: magnesium 4gm in 100ml NS 100 ML IV PRN (18:30)
[2023-05-15] MEDS: normal saline 1000ml 1,000 ML IV SCH (18:55)
[2023-05-15 19:31] LABS: BILIRUBIN,URINE NEGATIVE (Neg); CLARITY,URINE CLEAR (Clear); COLOR,URINE YELLOW (Yellow); GLUCOSE, URINE NEGATIVE (Neg); KETONES,URINE NEGATIVE (Neg); LEUKOCYTE ESTERASE ,URINE NEGATIVE (Neg); NITRITES, URINE NEGATIVE (Neg); OCCULT BLOOD,URINE NEGATIVE (Neg); PROTEIN,URINE NEGATIVE (Neg); UA COLLECTION TYPE CLN CATCH MIDSTREAM; UROBILINOGEN,URINE 0.2 E.U/dL (0.2-1.0)
[2023-05-15] MEDS: K and/or MAG REPLACEMENT MC SCH (20:39)
[2023-05-15] MEDS: docusate sod 100mg capsule PO SCH (20:53)
[2023-05-15] MEDS: enoxaparin 40mg/0.4ml syringe SQ SCH (20:53)
[2023-05-15 21:00] VITALS: RESP 14; O2SAT 96
[2023-05-15 21:23] VITALS: BP 136/75; PULSE 58; RESP 18; TEMP 98; O2SAT 96
[2023-05-15] MEDS: morphine 4 MG/ML inj SYRINge IV PRN (21:56)
[2023-05-15] MEDS ORDERED: ALBU18HF2 INH (22:22)
[2023-05-15] MEDS ORDERED: LORA-268 PO (22:28)
[2023-05-15] MEDS: cefepime 1GM/NS ADD-VANTAGE 100 ML IV SCH (23:41)
[2023-05-16] MEDS: morphine 4 MG/ML inj SYRINge IV PRN ×4 (01:38→17:57)
--- NOTE | 2023-05-16 03:27 | NUR ---
Patient in room ORTHO 4006. I have received report from Betsy BROWN and had the opportunity to ask questions and assume patient care.
[2023-05-16 06:00] VITALS: BP 113/64; PULSE 63; RESP 15; TEMP 97.9; O2SAT 94
[2023-05-16] MEDS ORDERED: VANCOMYCIN LEVEL IV ONE (06:30)
[2023-05-16 06:41] LABS: BASOPHILS % (AUTO) 0.2 % (0-1); EOSINOPHILS % (AUTO) 0 % (0-6); HEMATOCRIT 30.3 % (35.0-45.0); HEMOGLOBIN 9.8 g/dl (12.0-16.0); LYMPHOCYTES # (AUTO) 1.8 X10'3 (1.1-4.8); LYMPHOCYTES % (AUTO) 24.6 % (21-51); MEAN CORPUSCULAR HEMOGLOBIN 29.6 PG (27.0-31.0); MEAN CORPUSCULAR HGB CONC 32.2 g/dL (33.0-36.5); MEAN CORPUSCULAR VOLUME 91.8 FL (78-98); MEAN PLATELET VOLUME 6.4 FL (7.4-10.4); MONOCYTES # (AUTO) 0.7 X10'3 (0-0.9); MONOCYTES % (AUTO) 10.1 % (2-12); NEUTROPHILS # (AUTO) 4.8 X10'3 (1.8-7.7); NEUTROPHILS % (AUTO) 65.1 % (42-75); PLATELET COUNT 372 X10'3 (140-440); RED CELL DISTRIBUTION WIDTH 16.7 % (11.5-14.5); WHITE BLOOD COUNT 7.4 X10'3 (4.5-11.0)
--- NOTE | 2023-05-16 06:47 | NUR ---
Problems reprioritized. Patient report given, questions answered & plan of care reviewed with Dior BROWN.
--- NOTE | 2023-05-16 06:53 | NUR ---
Patient in room ORTHO 4006. I have received report from dixie BOND and had the opportunity to ask questions and assume patient care.
[2023-05-16 07:03] LABS: ALANINE AMINOTRANSFERASE 13 U/L (12-78); ALBUMIN 2.2 G/DL (3.4-5.0); ALBUMIN/GLOBULIN RATIO 0.5 (1.1-1.5); ALKALINE PHOSPHATASE 66 IU/L (46-116); ANION GAP 9 (8-16); ASPARTATE AMINO TRANSFERASE 15 U/L (10-37); BILIRUBIN,TOTAL 0.2 MG/DL (0.1-1.0); BLOOD UREA NITROGEN 14 MG/DL (7-18); BUN/CREATININE RATIO 16.1 (10.0-20.0); CALCIUM 8.2 MG/DL (8.5-10.1); CHLORIDE 108 MMOL/L (99-107); CREATININE 0.87 MG/DL (0.40-0.90); GLUCOSE 108 MG/DL (70-104); POTASSIUM 3.9 MMOL/L (3.5-5.1); SODIUM 140 MMOL/L (135-145); TOTAL PROTEIN 6.4 G/DL (6.4-8.2); eCRCL 74 ML/MIN; eGFR 68 ML/MIN
[2023-05-16] MEDS: cefepime 1GM/NS ADD-VANTAGE 100 ML IV SCH ×2 (07:40→16:11)
[2023-05-16] MEDS: vancomycin/NS 1 GM ADD-VANTAGE 250 ML IV SCH ×2 (07:42→19:52)
[2023-05-16] MEDS: docusate sod 100mg capsule PO SCH ×2 (07:44→19:52)
[2023-05-16] MEDS: ondansetron/PF 4mg/2ml inj IV PRN ×2 (07:47→17:59)
[2023-05-16] MEDS: K and/or MAG REPLACEMENT MC SCH ×2 (08:00→19:42)
[2023-05-16 10:00] VITALS: BP 131/77; PULSE 71; RESP 16; TEMP 97.4; O2SAT 93
[2023-05-16] MEDS ORDERED: dicyclomine 10 MG capsule PO PRN (11:20)
[2023-05-16] MEDS ORDERED: albuterol 2.5 MG/3 ML nebule NEB SCH (11:20)
[2023-05-16] MEDS ORDERED: docusate sod 100mg capsule PO PRN (11:20)
--- NOTE | 2023-05-16 11:36 | NUR ---
Per EMR pt with necrotic ulcer of the right foot with left foot infection likely osteomyelitis, MRI of LLE is pending per H&P. Wound care has been consulted, assessment pending at this time. Will continue to follow and make recommendations as appropriate pending [facility] assessment and trends in PO intake. Addendum: 05/16/23 at [address] Amended: Links added.
[2023-05-16] MEDS: gentamicin 0.1% topical ointment 15gm TP SCH (12:00)
[2023-05-16] MEDS: normal saline 1000ml 1,000 ML IV SCH ×2 (12:36→14:30)
[2023-05-16] MEDS ORDERED: albuterol 2.5 MG/3 ML nebule NEB PRN (13:08)
[2023-05-16] MEDS ORDERED: RABE20TA31 PO (14:55)
[2023-05-16] MEDS ORDERED: TIZA6CAP7 PO (14:55)
--- NOTE | 2023-05-16 15:50 | NUR ---
WOUND INFECTION EDUCATION PROVIDED BY WOUND CARE 1. Patient instructed to call their primary doctor, or go the ED immediately if any of the following symptoms occur: * Increased pain in wound * Increase in drainage from the wound * Redness in the skin surrounding the wound * Warmth in the skin surrounding the wound * Bleeding from the wound * Temperature of 101 or greater 2. If any of these occur while in the hospital tell a nurse immediately. Addendum: 05/16/23 at 1550 by Kristin Myrick RN Amended: Links added.
[2023-05-16] MEDS: diphenhydrAMINE 25mg capsule PO SCH (16:00)
[2023-05-16 18:00] VITALS: BP 113/62; PULSE 57; RESP 16; TEMP 97.8; O2SAT 98
--- NOTE | 2023-05-16 18:02 | NUR ---
MRI today see note. seen by Dr Lynn and Dr Palm. Requiring pain meds and nausea meds Q4hrly. Spouse present
--- NOTE | 2023-05-16 18:24 | NUR ---
Patient in room ORTHO 4006. I have received report from Dior BROWN and had the opportunity to ask questions and assume patient care.
--- NOTE | 2023-05-16 19:05 | NUR ---
Problems reprioritized. Patient report given, questions answered & plan of care reviewed with Cady BROWN.
[2023-05-16] MEDS: enoxaparin 40mg/0.4ml syringe SQ SCH (19:56)
[2023-05-16] MEDS ORDERED: cetirizine 10mg tablet PO SCH (20:00)
[2023-05-16] MEDS ORDERED: topiramate 100mg tablet PO SCH (20:00)
[2023-05-16 22:00] VITALS: BP 130/70; PULSE 58; RESP 16; TEMP 98.6; O2SAT 97
[2023-05-16] MEDS: ondansetron 4mg rapidly disintigrating tab PO PRN (22:33)
[2023-05-16] MEDS: LORazepam 0.5 MG tablet PO PRN (22:33)
[2023-05-16] MEDS: tizanidine 4mg tablet PO SCH (22:34)
[2023-05-16] MEDS: topiramate 100mg tablet PO SCH (23:57)
[2023-05-16] MEDS: traZODone 50mg tablet PO SCH (23:57)
[2023-05-16] MEDS: baclofen 10mg tablet PO PRN (23:57)
[2023-05-16] MEDS: cefepime 2g/NS 100ml ADVANTAGE 100 ML IV SCH (23:57)
[2023-05-17] MEDS: normal saline 1000ml 1,000 ML IV SCH ×3 (01:16→14:56)
[2023-05-17] MEDS: ondansetron/PF 4mg/2ml inj IV PRN ×3 (03:39→19:33)
[2023-05-17] MEDS: morphine 4 MG/ML inj SYRINge IV PRN ×5 (03:39→23:35)
[2023-05-17] MEDS: baclofen 10mg tablet PO PRN ×2 (05:30→20:12)
[2023-05-17] MEDS: LORazepam 0.5 MG tablet PO PRN ×3 (05:30→17:32)
[2023-05-17] MEDS ORDERED: LORazepam 0.5 MG tablet PO ONE (05:55)
[2023-05-17] MEDS ORDERED: VANCOMYCIN LEVEL IV ONE (06:30)
--- NOTE | 2023-05-17 06:34 | NUR ---
Problems reprioritized. Patient report given, questions answered & plan of care reviewed with Hermilo BROWN.
--- NOTE | 2023-05-17 06:48 | NUR ---
Patient in room ORTHO 4012. I have received report from CHINA BROWN and had the opportunity to ask questions and assume patient care.
[2023-05-17 07:07] LABS: BASOPHILS % (AUTO) 0.6 % (0-1); EOSINOPHILS % (AUTO) 0.1 % (0-6); HEMATOCRIT 33.2 % (35.0-45.0); HEMOGLOBIN 10.8 g/dl (12.0-16.0); LYMPHOCYTES # (AUTO) 1.8 X10'3 (1.1-4.8); LYMPHOCYTES % (AUTO) 23.1 % (21-51); MEAN CORPUSCULAR HEMOGLOBIN 29.5 PG (27.0-31.0); MEAN CORPUSCULAR HGB CONC 32.6 g/dL (33.0-36.5); MEAN CORPUSCULAR VOLUME 90.6 FL (78-98); MEAN PLATELET VOLUME 6.5 FL (7.4-10.4); MONOCYTES # (AUTO) 0.9 X10'3 (0-0.9); MONOCYTES % (AUTO) 11.4 % (2-12); NEUTROPHILS # (AUTO) 5.1 X10'3 (1.8-7.7); NEUTROPHILS % (AUTO) 64.8 % (42-75); PLATELET COUNT 416 X10'3 (140-440); RED BLOOD COUNT 3.66 X10'6 (4.20-5.60); RED CELL DISTRIBUTION WIDTH 16.6 % (11.5-14.5); WHITE BLOOD COUNT 7.9 X10'3 (4.5-11.0)
[2023-05-17 07:12] VITALS: BP 115/58; PULSE 69; RESP 16; TEMP 98.6; O2SAT 97
[2023-05-17 07:29] LABS: ALANINE AMINOTRANSFERASE 16 U/L (12-78); ALBUMIN 2.5 G/DL (3.4-5.0); ALBUMIN/GLOBULIN RATIO 0.6 (1.1-1.5); ALKALINE PHOSPHATASE 73 IU/L (46-116); ANION GAP 11 (8-16); ASPARTATE AMINO TRANSFERASE 16 U/L (10-37); BILIRUBIN,TOTAL 0.3 MG/DL (0.1-1.0); BLOOD UREA NITROGEN 11 MG/DL (7-18); BUN/CREATININE RATIO 13.6 (10.0-20.0); CALCIUM 8.7 MG/DL (8.5-10.1); CHLORIDE 108 MMOL/L (99-107); CREATININE 0.81 MG/DL (0.40-0.90); GLUCOSE 113 MG/DL (70-104); MAGNESIUM 2.1 MG/DL (1.5-2.4); POTASSIUM 3.8 MMOL/L (3.5-5.1); SODIUM 140 MMOL/L (135-145); TOTAL CARBON DIOXIDE 20.9 MMOL/L (24-32); eCRCL 79 ML/MIN; eGFR 74 ML/MIN
[2023-05-17] MEDS: levoTHYROXINE 100mcg tablet PO SCH ×2 (08:00→12:14)
[2023-05-17] MEDS: multivitamins, therapeutics tablet PO SCH (08:00)
[2023-05-17] MEDS: cyanocobalamin 500mcg tablet PO SCH (08:00)
[2023-05-17] MEDS: ESCITALOPRAM OXALATE 5 MG TABLET PO SCH ×2 (08:00→12:14)
[2023-05-17] MEDS: cholecalciferol (vitamin D3) 1,000 unit (25mcg) tablet PO SCH (08:00)
[2023-05-17] MEDS: K and/or MAG REPLACEMENT MC SCH ×2 (08:00→20:00)
[2023-05-17] MEDS: pantoprazole 40mg Tablet.DR PO SCH (08:00)
[2023-05-17] MEDS: gentamicin 0.1% topical ointment 15gm TP SCH (08:00)
[2023-05-17] MEDS: estradiol 1mg tablet PO SCH (08:00)
[2023-05-17] MEDS: cetirizine 10mg tablet PO SCH ×2 (08:00→12:15)
[2023-05-17] MEDS: diphenhydrAMINE 25mg capsule PO SCH ×5 (08:00→23:35)
[2023-05-17] MEDS: docusate sod 100mg capsule PO SCH ×3 (08:00→20:06)
[2023-05-17] MEDS: tizanidine 4mg tablet PO SCH ×3 (08:00→20:07)
[2023-05-17 08:10] LABS: TOTAL CELLS COUNTED 100
[2023-05-17 08:11] LABS: ANISOCYTOSIS 1+; PLATELET ESTIMATE NORMAL
[2023-05-17] MEDS: cefepime 2g/NS 100ml ADVANTAGE 100 ML IV SCH ×3 (08:30→23:35)
--- NOTE | 2023-05-17 10:32 | NUR ---
F/u: Pt seen by wound care, per note pt with three wounds to left foot with very thin skin and tunneling suggesting possible deeper than documented depth. Pt also with an ulcer to right foot per WOC note. Per MRI report pt possibly with osteomyelitis. Pt currently on a regular diet, documented with 50% PO intake of first meal with 25% PO intake of second meal, however up to 100% PO intake at dinner last night. Pending documentation of PO intake for today. LBM 05/14 per EMR. Pt with routine bowel care available however per EMR pt refused most PO medications 05/16. Pt did receive PRN MoM 05/16 per EMR. Will continue to follow closely and make recommendations as appropriate pending further trends in PO intake. Recommendations: 1) Continue regular diet 2) Monitor need for ONS/additional protein 3) Continue routine MVI, Vitamin B12, and Vitamin D3 to assist with wound healing 4) Routine and PRN bowel care 5) Weekly scaled weights Addendum: 05/17/23 at [address] Amended: Links added.
[2023-05-17 11:01] VITALS: RESP 12; O2SAT 95
[2023-05-17 13:31] VITALS: BP 126/64; PULSE 74; RESP 12; TEMP 97.8; O2SAT 95
[2023-05-17] MEDS: topiramate 100mg tablet PO SCH ×2 (13:34→23:36)
--- NOTE | 2023-05-17 17:12 | NUR ---
PT. CHART IS MISSING. REUBEN IS MAKING A NEW CHART.
[2023-05-17 18:00] VITALS: BP 102/62; PULSE 68; RESP 20; TEMP 98.4; O2SAT 97
--- NOTE | 2023-05-17 18:10 | NUR ---
Patient in room ORTHO 4012. I have received report from KEVIN Akhtar and had the opportunity to ask questions and assume patient care.
--- NOTE | 2023-05-17 18:13 | NUR ---
Problems reprioritized. Patient report given to MAI BROWN, questions answered & plan of care reviewed with .
[2023-05-17 20:00] VITALS: RESP 20; O2SAT 97
[2023-05-17] MEDS: enoxaparin 40mg/0.4ml syringe SQ SCH (20:00)
[2023-05-17 22:00] VITALS: BP 119/66; PULSE 72; RESP 16; TEMP 98.2; O2SAT 97
[2023-05-17] MEDS: traZODone 50mg tablet PO SCH (23:35)
[2023-05-18] MEDS: normal saline 1000ml 1,000 ML IV SCH ×2 (01:10→11:35)
[2023-05-18] MEDS: ondansetron/PF 4mg/2ml inj IV PRN ×2 (04:49→16:24)
[2023-05-18] MEDS: baclofen 10mg tablet PO PRN ×3 (04:50→19:07)
[2023-05-18] MEDS: morphine 4 MG/ML inj SYRINge IV PRN ×2 (04:50→09:07)
--- NOTE | 2023-05-18 06:07 | NUR ---
Problems reprioritized. Patient report given, questions answered & plan of care reviewed with KEVIN Akhtar.
--- NOTE | 2023-05-18 06:17 | NUR ---
Patient in room ORTHO 4012. I have received report from MAI BROWN and had the opportunity to ask questions and assume patient care.
[2023-05-18 06:41] LABS: BASOPHILS % (AUTO) 0.3 % (0-1); EOSINOPHILS % (AUTO) 0.1 % (0-6); HEMATOCRIT 33.6 % (35.0-45.0); LYMPHOCYTES # (AUTO) 1.8 X10'3 (1.1-4.8); LYMPHOCYTES % (AUTO) 25.5 % (21-51); MEAN CORPUSCULAR HEMOGLOBIN 29.8 PG (27.0-31.0); MEAN CORPUSCULAR HGB CONC 32.7 g/dL (33.0-36.5); MEAN CORPUSCULAR VOLUME 91.3 FL (78-98); MEAN PLATELET VOLUME 6.1 FL (7.4-10.4); MONOCYTES # (AUTO) 0.7 X10'3 (0-0.9); MONOCYTES % (AUTO) 10.6 % (2-12); NEUTROPHILS # (AUTO) 4.4 X10'3 (1.8-7.7); NEUTROPHILS % (AUTO) 63.5 % (42-75); PLATELET COUNT 402 X10'3 (140-440); RED BLOOD COUNT 3.68 X10'6 (4.20-5.60); RED CELL DISTRIBUTION WIDTH 16.9 % (11.5-14.5); WHITE BLOOD COUNT 6.9 X10'3 (4.5-11.0)
[2023-05-18] MEDS: LORazepam 0.5 MG tablet PO PRN ×3 (06:44→19:37)
[2023-05-18 06:57] LABS: ALANINE AMINOTRANSFERASE 16 U/L (12-78); ALBUMIN 2.5 G/DL (3.4-5.0); ALBUMIN/GLOBULIN RATIO 0.5 (1.1-1.5); ALKALINE PHOSPHATASE 75 IU/L (46-116); ANION GAP 10 (8-16); ASPARTATE AMINO TRANSFERASE 16 U/L (10-37); BILIRUBIN,TOTAL 0.2 MG/DL (0.1-1.0); BLOOD UREA NITROGEN 11 MG/DL (7-18); BUN/CREATININE RATIO 12.5 (10.0-20.0); CALCIUM 8.7 MG/DL (8.5-10.1); CHLORIDE 108 MMOL/L (99-107); CREATININE 0.88 MG/DL (0.40-0.90); GLUCOSE 108 MG/DL (70-104); MAGNESIUM 2.1 MG/DL (1.5-2.4); POTASSIUM 3.9 MMOL/L (3.5-5.1); SODIUM 141 MMOL/L (135-145); TOTAL CARBON DIOXIDE 23.3 MMOL/L (24-32); TOTAL PROTEIN 7.3 G/DL (6.4-8.2); eCRCL 73 ML/MIN; eGFR 67 ML/MIN
[2023-05-18 07:03] VITALS: BP 89/41; PULSE 57; RESP 16; TEMP 98.5; O2SAT 93
[2023-05-18 07:53] LABS: TOTAL CELLS COUNTED 100
[2023-05-18 07:54] LABS: ANISOCYTOSIS 1+; PLATELET ESTIMATE NORMAL; POLYCHROMASIA FEW
[2023-05-18] MEDS: multivitamins, therapeutics tablet PO SCH (08:00)
[2023-05-18] MEDS: cyanocobalamin 500mcg tablet PO SCH (08:00)
[2023-05-18] MEDS: K and/or MAG REPLACEMENT MC SCH ×2 (08:00→20:00)
[2023-05-18] MEDS: diphenhydrAMINE 25mg capsule PO SCH ×3 (08:00→23:35)
[2023-05-18] MEDS: cefepime 2g/NS 100ml ADVANTAGE 100 ML IV SCH ×3 (08:38→23:35)
[2023-05-18] MEDS: docusate sod 100mg capsule PO SCH ×3 (08:40→20:00)
[2023-05-18] MEDS: cholecalciferol (vitamin D3) 1,000 unit (25mcg) tablet PO SCH (08:41)
[2023-05-18] MEDS: pantoprazole 40mg Tablet.DR PO SCH (08:41)
[2023-05-18] MEDS: tizanidine 4mg tablet PO SCH ×2 (08:41→19:39)
[2023-05-18] MEDS: gentamicin 0.1% topical ointment 15gm TP SCH (08:45)
[2023-05-18] MEDS: levoTHYROXINE 100mcg tablet PO SCH (09:04)
[2023-05-18] MEDS: cetirizine 10mg tablet PO SCH (09:04)
[2023-05-18] MEDS: estradiol 1mg tablet PO SCH (09:05)
[2023-05-18] MEDS: ESCITALOPRAM OXALATE 5 MG TABLET PO SCH (09:05)
[2023-05-18 10:39] VITALS: RESP 16; O2SAT 93
[2023-05-18] MEDS: midodrine tablet 2.5 MG TABLET PO SCH ×2 (12:00→16:00)
[2023-05-18] MEDS: topiramate 100mg tablet PO SCH ×2 (12:43→23:35)
[2023-05-18 13:07] VITALS: BP 118/62; PULSE 58; RESP 16; TEMP 98.6; O2SAT 94
[2023-05-18] MEDS: morphine ER 15mg tablet PO SCH ×2 (14:50→19:38)
--- NOTE | 2023-05-18 15:30 | NUR ---
PAGER ID: [phone] MESSAGE: KEVIN GARRETT, ORTHO, 7243. RE: [id number]. PT. HAS REDNESS UNDER THE BREAST. NYSTATIN POWDER? ALSO PT. IS WANTING AN ENEMA FOR CONSTIPATION. THANKS
[2023-05-18 18:00] VITALS: BP 127/66; PULSE 53; RESP 18; TEMP 98.3; O2SAT 94
[2023-05-18] MEDS: nystatin 15 GM powder TP SCH ×2 (18:02→20:40)
--- NOTE | 2023-05-18 18:27 | NUR ---
Problems reprioritized. Patient report given TO JAMES BROWN, questions answered & plan of care reviewed with .
[2023-05-18 20:00] VITALS: RESP 16; O2SAT 94
[2023-05-18] MEDS ORDERED: nystatin 15 GM powder TP SCH (20:00)
[2023-05-18] MEDS ORDERED: morphine ER 15mg tablet PO SCH (20:00)
[2023-05-18] MEDS: enoxaparin 40mg/0.4ml syringe SQ SCH (20:00)
[2023-05-18] MEDS ORDERED: PHENYLEPH/MIN OIL/PETROLAT hemorrhoid oint 57GM tube RC PRN (21:40)
[2023-05-18 22:00] VITALS: BP 104/60; PULSE 55; RESP 16; TEMP 98.4; O2SAT 94
[2023-05-18] MEDS: traZODone 50mg tablet PO SCH (23:35)
[2023-05-19] MEDS: ondansetron/PF 4mg/2ml inj IV PRN ×4 (01:56→22:49)
[2023-05-19] MEDS: baclofen 10mg tablet PO PRN ×3 (01:56→22:49)
[2023-05-19] MEDS: LORazepam 0.5 MG tablet PO PRN (01:56)
[2023-05-19] MEDS: normal saline 1000ml 1,000 ML IV SCH ×3 (02:00→22:30)
--- NOTE | 2023-05-19 06:22 | NUR ---
Problems reprioritized. Patient report given, questions answered & plan of care reviewed with KEVIN GARRETT.
--- NOTE | 2023-05-19 06:43 | NUR ---
Patient in room ORTHO 4012. I have received report from GÓMEZ BROWN and had the opportunity to ask questions and assume patient care.
[2023-05-19 07:01] LABS: BASOPHILS % (AUTO) 0.3 % (0-1); EOSINOPHILS % (AUTO) 0.1 % (0-6); HEMATOCRIT 31.5 % (35.0-45.0); HEMOGLOBIN 10.4 g/dl (12.0-16.0); LYMPHOCYTES # (AUTO) 1.8 X10'3 (1.1-4.8); LYMPHOCYTES % (AUTO) 25.1 % (21-51); MEAN CORPUSCULAR HEMOGLOBIN 29.9 PG (27.0-31.0); MEAN CORPUSCULAR HGB CONC 33.1 g/dL (33.0-36.5); MEAN CORPUSCULAR VOLUME 90.3 FL (78-98); MONOCYTES # (AUTO) 0.8 X10'3 (0-0.9); NEUTROPHILS # (AUTO) 4.5 X10'3 (1.8-7.7); NEUTROPHILS % (AUTO) 63.5 % (42-75); PLATELET COUNT 332 X10'3 (140-440); RED BLOOD COUNT 3.48 X10'6 (4.20-5.60); RED CELL DISTRIBUTION WIDTH 16.5 % (11.5-14.5); WHITE BLOOD COUNT 7.1 X10'3 (4.5-11.0)
[2023-05-19 07:26] LABS: ALANINE AMINOTRANSFERASE 15 U/L (12-78); ALBUMIN 2.4 G/DL (3.4-5.0); ALBUMIN/GLOBULIN RATIO 0.6 (1.1-1.5); ALKALINE PHOSPHATASE 67 IU/L (46-116); ANION GAP 11 (8-16); ASPARTATE AMINO TRANSFERASE 17 U/L (10-37); BILIRUBIN,TOTAL 0.2 MG/DL (0.1-1.0); BLOOD UREA NITROGEN 13 MG/DL (7-18); CALCIUM 8.6 MG/DL (8.5-10.1); CHLORIDE 109 MMOL/L (99-107); CREATININE 0.81 MG/DL (0.40-0.90); GLUCOSE 102 MG/DL (70-104); MAGNESIUM 2.1 MG/DL (1.5-2.4); POTASSIUM 3.7 MMOL/L (3.5-5.1); SODIUM 142 MMOL/L (135-145); TOTAL CARBON DIOXIDE 22.4 MMOL/L (24-32); TOTAL PROTEIN 6.6 G/DL (6.4-8.2); eCRCL 79 ML/MIN; eGFR 74 ML/MIN
[2023-05-19 08:00] VITALS: BP 108/56; PULSE 53; RESP 16; TEMP 97.8; O2SAT 97
[2023-05-19] MEDS: pantoprazole 40mg Tablet.DR PO SCH (08:00)
[2023-05-19] MEDS: docusate sod 100mg capsule PO SCH ×3 (08:00→19:49)
[2023-05-19] MEDS: cholecalciferol (vitamin D3) 1,000 unit (25mcg) tablet PO SCH (08:00)
[2023-05-19] MEDS: K and/or MAG REPLACEMENT MC SCH ×2 (08:00→20:00)
[2023-05-19] MEDS: cyanocobalamin 500mcg tablet PO SCH (08:00)
[2023-05-19] MEDS: midodrine tablet 2.5 MG TABLET PO SCH ×3 (08:00→16:00)
[2023-05-19] MEDS: multivitamins, therapeutics tablet PO SCH (08:00)
[2023-05-19] MEDS: cetirizine 10mg tablet PO SCH (08:50)
[2023-05-19] MEDS: estradiol 1mg tablet PO SCH (08:50)
[2023-05-19] MEDS: nystatin 15 GM powder TP SCH ×2 (08:51→19:55)
[2023-05-19] MEDS: tizanidine 4mg tablet PO SCH ×3 (08:51→19:48)
[2023-05-19] MEDS: levoTHYROXINE 100mcg tablet PO SCH (08:52)
[2023-05-19] MEDS: morphine ER 15mg tablet PO SCH ×2 (08:52→19:48)
[2023-05-19] MEDS: diphenhydrAMINE 25mg capsule PO SCH ×3 (08:53→23:29)
[2023-05-19] MEDS: cefepime 2g/NS 100ml ADVANTAGE 100 ML IV SCH ×3 (08:54→23:29)
[2023-05-19] MEDS: gentamicin 0.1% topical ointment 15gm TP SCH (08:58)
[2023-05-19] MEDS: ESCITALOPRAM OXALATE 5 MG TABLET PO SCH (09:16)
[2023-05-19] MEDS: LORazepam 1 MG tablet PO PRN ×3 (09:16→22:49)
--- NOTE | 2023-05-19 10:08 | NUR ---
PAGER ID: [phone] MESSAGE: KEVIN GARRETT, ORTHO, 7693. RE: [id number]. PICC LINE CANNOT BE PLACED TILL TOMMOROW MORNING D/T SHORT STAFFING. FYI. THANKS.
[2023-05-19 11:03] LABS: ANISOCYTOSIS 1+; PLATELET ESTIMATE NORMAL; TOTAL CELLS COUNTED 100
[2023-05-19 11:04] LABS: POLYCHROMASIA FEW
[2023-05-19 11:10] VITALS: RESP 16; O2SAT 93
[2023-05-19 12:27] VITALS: BP 117/67; PULSE 59; RESP 16; TEMP 98.1; O2SAT 93
[2023-05-19] MEDS: topiramate 100mg tablet PO SCH ×2 (12:31→23:29)
--- NOTE | 2023-05-19 12:37 | NUR ---
PAGER ID: [phone] MESSAGE: KEVIN GARRETT, ORTHO, 1928. RE: [id number]. PT. WANTS TO KNOW IF SHE CAN HAVE ANOTHER PAIN MED FOR IN BETWEEN. PT. HAS MORPHINE TAB Q12. THANKS
[2023-05-19] MEDS ORDERED: docusate sod 100mg capsule PO PRN (12:44)
[2023-05-19] MEDS: HYDROcodone/acetaminophen 5mg/325mg tablet PO PRN ×2 (12:57→16:59)
[2023-05-19 14:51] LABS: THYROID STIMULATING HORMONE 3.91 ulU/ml (0.34-4.50)
[2023-05-19 18:00] VITALS: BP 118/62; PULSE 55; RESP 14; TEMP 98.1; O2SAT 95
--- NOTE | 2023-05-19 18:45 | NUR ---
Problems reprioritized. Patient report given TO GÓMEZ BROWN, questions answered & plan of care reviewed with .
[2023-05-19] MEDS: enoxaparin 40mg/0.4ml syringe SQ SCH (19:50)
[2023-05-19 20:00] VITALS: RESP 14; O2SAT 95
[2023-05-19 22:00] VITALS: BP 115/64; PULSE 51; RESP 16; TEMP 98.3; O2SAT 93
[2023-05-19] MEDS: traZODone 50mg tablet PO SCH (23:32)
[2023-05-20] MEDS: HYDROcodone/acetaminophen 5mg/325mg tablet PO PRN ×3 (02:52→19:58)
[2023-05-20] MEDS: baclofen 10mg tablet PO PRN ×3 (05:09→19:44)
[2023-05-20] MEDS: LORazepam 1 MG tablet PO PRN ×3 (05:09→19:43)
[2023-05-20] MEDS: ondansetron/PF 4mg/2ml inj IV PRN ×3 (05:09→19:44)
[2023-05-20 06:00] VITALS: BP 105/53; PULSE 54; RESP 18; TEMP 98.2; O2SAT 92
[2023-05-20 06:09] LABS: BASOPHILS % (AUTO) 0.4 % (0-1); EOSINOPHILS % (AUTO) 0 % (0-6); HEMATOCRIT 31.3 % (35.0-45.0); HEMOGLOBIN 10.4 g/dl (12.0-16.0); LYMPHOCYTES # (AUTO) 1.8 X10'3 (1.1-4.8); LYMPHOCYTES % (AUTO) 24.9 % (21-51); MEAN CORPUSCULAR HGB CONC 33.1 g/dL (33.0-36.5); MEAN CORPUSCULAR VOLUME 90.6 FL (78-98); MEAN PLATELET VOLUME 6.1 FL (7.4-10.4); MONOCYTES # (AUTO) 0.7 X10'3 (0-0.9); MONOCYTES % (AUTO) 9.7 % (2-12); NEUTROPHILS # (AUTO) 4.7 X10'3 (1.8-7.7); PLATELET COUNT 333 X10'3 (140-440); RED BLOOD COUNT 3.46 X10'6 (4.20-5.60); RED CELL DISTRIBUTION WIDTH 17.2 % (11.5-14.5); WHITE BLOOD COUNT 7.2 X10'3 (4.5-11.0)
[2023-05-20 06:24] LABS: ALANINE AMINOTRANSFERASE 18 U/L (12-78); ALBUMIN 2.4 G/DL (3.4-5.0); ALBUMIN/GLOBULIN RATIO 0.6 (1.1-1.5); ALKALINE PHOSPHATASE 62 IU/L (46-116); ANION GAP 9 (8-16); ASPARTATE AMINO TRANSFERASE 19 U/L (10-37); BILIRUBIN,TOTAL 0.2 MG/DL (0.1-1.0); BLOOD UREA NITROGEN 14 MG/DL (7-18); BUN/CREATININE RATIO 15.1 (10.0-20.0); CALCIUM 9.1 MG/DL (8.5-10.1); CHLORIDE 107 MMOL/L (99-107); CREATININE 0.93 MG/DL (0.40-0.90); GLUCOSE 121 MG/DL (70-104); MAGNESIUM 1.9 MG/DL (1.5-2.4); POTASSIUM 3.5 MMOL/L (3.5-5.1); SODIUM 140 MMOL/L (135-145); TOTAL CARBON DIOXIDE 24.4 MMOL/L (24-32); TOTAL PROTEIN 6.7 G/DL (6.4-8.2); eCRCL 69 ML/MIN; eGFR 63 ML/MIN
[2023-05-20] MEDS: K and/or MAG REPLACEMENT MC SCH (07:18)
[2023-05-20] MEDS: diphenhydrAMINE 25mg capsule PO SCH ×2 (07:30→16:18)
[2023-05-20] MEDS: levoTHYROXINE 100mcg tablet PO SCH (07:30)
[2023-05-20] MEDS: docusate sod 100mg capsule PO SCH (07:30)
[2023-05-20] MEDS: pantoprazole 40mg Tablet.DR PO SCH (07:31)
[2023-05-20] MEDS: ESCITALOPRAM OXALATE 5 MG TABLET PO SCH (07:31)
[2023-05-20] MEDS: cetirizine 10mg tablet PO SCH (07:31)
[2023-05-20] MEDS: tizanidine 4mg tablet PO SCH ×2 (07:31→11:57)
[2023-05-20] MEDS: estradiol 1mg tablet PO SCH (07:32)
[2023-05-20] MEDS: midodrine tablet 2.5 MG TABLET PO SCH ×3 (07:34→16:00)
[2023-05-20] MEDS: morphine ER 15mg tablet PO SCH (07:34)
[2023-05-20] MEDS: multivitamins, therapeutics tablet PO SCH (07:36)
[2023-05-20] MEDS: cyanocobalamin 500mcg tablet PO SCH (07:37)
[2023-05-20] MEDS: gentamicin 0.1% topical ointment 15gm TP SCH (07:38)
[2023-05-20] MEDS: cholecalciferol (vitamin D3) 1,000 unit (25mcg) tablet PO SCH (07:38)
[2023-05-20] MEDS: nystatin 15 GM powder TP SCH (07:38)
[2023-05-20 08:00] VITALS: RESP 18; O2SAT 92
[2023-05-20] MEDS: cefepime 2g/NS 100ml ADVANTAGE 100 ML IV SCH ×2 (08:54→16:20)
[2023-05-20] MEDS: normal saline 1000ml 1,000 ML IV SCH (08:56)
[2023-05-20 09:03] VITALS: RESP 16
[2023-05-20 10:00] VITALS: BP 105/53; PULSE 54; RESP 18; TEMP 98.7; O2SAT 92
[2023-05-20 10:38] LABS: TOTAL CELLS COUNTED 100
[2023-05-20 10:39] LABS: ANISOCYTOSIS 1+; PLATELET ESTIMATE NORMAL
--- NOTE | 2023-05-20 11:53 | NUR ---
F/u 05/20: Pt seen at bedside and reports overall low appetite. Pt is currently on a mechanical soft regular diet with average PO intake 25%x 9 meals which met 35% of estimated kcals and protein needs. Pt is agreeable to drinking strawberry or vanilla Ensure Enlive TIDWM to better meet estimated needs; notified. LBM on 05/18 receiving routine colace per EMR. Will continue to follow. Recommendations: 1) Continue mechanical soft regular diet 2) Ensure Enlive TIDWM strawberry/vanilla;pending physician approval in EMR 3) Continue routine MVI, Vitamin B12, and Vitamin D3 to assist with wound healing 4) Routine and PRN bowel care 5) Weekly scaled weights Addendum: 05/20/23 at [address] Amended: Links added.
[2023-05-20] MEDS: topiramate 100mg tablet PO SCH (11:58)
[2023-05-20] MEDS ORDERED: lactose-reduced food (Ensure Enlive) - 237ml bottle PO SCH (13:00)
[2023-05-20] MEDS: ondansetron 4mg rapidly disintigrating tab PO PRN (13:47)
[2023-05-20] MEDS ORDERED: tizanidine 4mg tablet PO SCH (14:04)
--- NOTE | 2023-05-20 16:57 | NUR ---
PRESSURE ULCER EDUCATION: DEFINITION: A pressure ulcer is an area of skin that breaks down when you stay in one position too long. The constant pressure against the skin reduces the blood flow to that area and the affected tissue dies. CAUSES: "Being bedridden or in a wheelchair "Fragile skin "Having a chronic condition, such as diabetes or vascular disease "Inability to move certain parts of your body without assistance "Older age "Incontinence of urine or stool SYMPTOMS: "A reddened area that DOES NOT turn white when pressed on - this can be the beginning of a pressure ulcer "A blister, deep sore or a crater - these can be advanced pressure ulcers FIRST AID: "Relieve the pressure on this area "Keep the area clean and dry "Call your primary doctor if you see any of the above symptoms "DO NOT massage the area "DO NOT use a donut shaped or ring shaped pillow- these actually interfere with the blood flow and cause complications PREVENTION: "Check for pressure ulcers everyday "Change position at least every two hours to relieve pressure "Use items that help relieve pressure- pillows, sheepskin, foam padding, and powders. "Keep skin clean and dry "Eat healthy well balanced meals "Exercise daily IF YOU SEE ANY OF THESE SYMPTOMS WHILE IN THE HOSPITAL - TELL YOUR NURSE IMMEDIATELY. IF YOU SEE ANY OF THESE SYMPTOMS WHILE AT HOME OR HAVE ANY QUESTIONS OR CONCERNS ABOUT PRESSURE ULCERS - CALL YOUR PRIMARY DOCTOR IMMEDIATELY. Addendum: 05/20/23 at 1659 by Keiry Zimmer LVN Amended: Links added.
[2023-05-20 19:58] VITALS: RESP 18
--- NOTE | 2023-05-20 22:25 | NUR ---
PT WHEELED OUT @2044 ACCOMPANIED BY HER AND OUR AID. PT UNDERSTOOD INSTRUCTIONS AND QUESTIONS ANSWERED. PT ENTERED INTO FAMILY VEHICLE.
== END 2023-05-20 20:40 | disposition home health service (06) | DRG 344 ==
LOC: ER 15:34 → ED HOLD 18:37 → ORTHO 4S 21:35
PROVIDERS: ADMIT Family Medicine; ATTEND Family Medicine
PROC: 02HV33Z Insertion of Infusion Device into Superior Vena Cava, Percutaneous Approach (ICD-10-PCS; principal; 2023-05-20)
PROC: B548ZZA Ultrasonography of Superior Vena Cava, Guidance (ICD-10-PCS; 2023-05-20)
DX: M86.172 Other acute osteomyelitis, left ankle and foot (principal); L03.115 Cellulitis of right lower limb; I95.9 Hypotension, unspecified; L97.519 Non-pressure chronic ulcer of other part of right foot with unspecified severity; Z66 Do not resuscitate; L97.529 Non-pressure chronic ulcer of other part of left foot with unspecified severity; E03.9 Hypothyroidism, unspecified; F41.9 Anxiety disorder, unspecified; G43.909 Migraine, unspecified, not intractable, without status migrainosus; D64.9 Anemia, unspecified; G89.29 Other chronic pain; K21.9 Gastro-esophageal reflux disease without esophagitis; B95.61 Methicillin susceptible Staphylococcus aureus infection as the cause of diseases classified elsewhere; R25.2 Cramp and spasm; L02.612 Cutaneous abscess of left foot; R11.2 Nausea with vomiting, unspecified; M54.9 Dorsalgia, unspecified; N28.9 Disorder of kidney and ureter, unspecified; G47.00 Insomnia, unspecified; J45.909 Unspecified asthma, uncomplicated; F31.9 Bipolar disorder, unspecified; G62.9 Polyneuropathy, unspecified; F17.210 Nicotine dependence, cigarettes, uncomplicated; L03.116 Cellulitis of left lower limb; M79.7 Fibromyalgia; Z82.49 Family history of ischemic heart disease and other diseases of the circulatory system; Z90.49 Acquired absence of other specified parts of digestive tract; Z90.710 Acquired absence of both cervix and uterus; Z91.041 Radiographic dye allergy status; Z88.8 Allergy status to other drugs, medicaments and biological substances; Z56.0 Unemployment, unspecified; Z79.899 Other long term (current) drug therapy
CPT/HCPCS: 36415; 36569; 71045; 73718; 76942; 80053; 80202; 81003; 82948; 83735; 84145; 84443; 85007; 85025; 87081; 97110; 97161; 97530; 99285; A6196; A6253; A6446; A6449; C1751; G0378; J0692; J1650; J2270; J2405; J3370; J7030; Q0163

== ENCOUNTER 2023-06-27 17:34 | Emergency (ER) | payer MEDICAID ==
[~2023-06-27] VITALS: Ht 170.2 cm; Wt 99.5 kg
[~2023-06-27 17:34] MED LIST changes: +ALBU18HF2 INH; -ALBU8.5H17 IH; -ESZO3TAB66 PO; -HYDR-3972 PO; -HYDR-3973 PO; +RABE20TA31 PO; +TIZA6CAP7 PO
[2023-06-27 22:59] VITALS: BP 101/63; PULSE 55; RESP 18; TEMP 96.8; O2SAT 93
== END 2023-06-27 23:33 | disposition left against medical advice (07) ==
LOC: ER 17:34
DX: M62.838 Other muscle spasm (principal); Z53.21 Procedure and treatment not carried out due to patient leaving prior to being seen by health care provider
CPT/HCPCS: 99281

== ENCOUNTER 2023-08-19 21:43 | Emergency (ER) | payer MEDICAID ==
[~2023-08-19] VITALS: Ht 170.2 cm; Wt 98.6 kg
[2023-08-19] MEDS ORDERED: morphine 4 MG/ML inj SYRINge IV ONE (22:30)
[2023-08-19] MEDS ORDERED: ondansetron/PF 4mg/2ml inj IV ONE (22:30)
[2023-08-19] MEDS ORDERED: normal saline 1000ml 1,000 ML IV ONE (22:30)
[2023-08-19] MEDS ORDERED: LORazepam 2 mg/ml vial IV ONE (22:30)
[2023-08-19] MEDS ORDERED: ketorolac trometh. 30mg/ml inj. IV ONE (23:10)
[2023-08-19 23:23] LABS: BASOPHILS % (AUTO) 0.5 % (0-1); EOSINOPHILS % (AUTO) 0.2 % (0-6); HEMATOCRIT 33.6 % (35.0-45.0); LYMPHOCYTES # (AUTO) 1.5 X10'3 (1.1-4.8); LYMPHOCYTES % (AUTO) 21.7 % (21-51); MEAN CORPUSCULAR HGB CONC 32.7 g/dL (33.0-36.5); MEAN CORPUSCULAR VOLUME 88.6 FL (78-98); MEAN PLATELET VOLUME 6.4 FL (7.4-10.4); MONOCYTES # (AUTO) 0.9 X10'3 (0-0.9); MONOCYTES % (AUTO) 13.7 % (2-12); NEUTROPHILS # (AUTO) 4.4 X10'3 (1.8-7.7); NEUTROPHILS % (AUTO) 63.9 % (42-75); PLATELET COUNT 298 X10'3 (140-440); RED BLOOD COUNT 3.79 X10'6 (4.20-5.60); RED CELL DISTRIBUTION WIDTH 16.8 % (11.5-14.5); WHITE BLOOD COUNT 6.9 X10'3 (4.5-11.0)
[2023-08-19 23:28] LABS: ALANINE AMINOTRANSFERASE 16 U/L (12-78); ALBUMIN 2.5 G/DL (3.4-5.0); ALBUMIN/GLOBULIN RATIO 0.6 (1.1-1.5); ALKALINE PHOSPHATASE 80 IU/L (46-116); ANION GAP 9 (8-16); ASPARTATE AMINO TRANSFERASE 18 U/L (10-37); BILIRUBIN,TOTAL 0.2 MG/DL (0.1-1.0); BLOOD UREA NITROGEN 11 MG/DL (7-18); BUN/CREATININE RATIO 13.9 (10.0-20.0); CALCIUM 8.5 MG/DL (8.5-10.1); CHLORIDE 107 MMOL/L (99-107); CREATININE 0.79 MG/DL (0.40-0.90); GLUCOSE 99 MG/DL (70-104); POTASSIUM 3.9 MMOL/L (3.5-5.1); SODIUM 141 MMOL/L (135-145); TOTAL CARBON DIOXIDE 25.5 MMOL/L (24-32); TOTAL PROTEIN 6.5 G/DL (6.4-8.2); eCRCL 81 ML/MIN; eGFR 76 ML/MIN
[2023-08-20 01:16] VITALS: BP 113/63; PULSE 75; RESP 16; TEMP 98.1; O2SAT 94
== END 2023-08-20 01:20 | disposition home or self-care (01) ==
LOC: ER 21:44
DX: G89.29 Other chronic pain (principal); G43.909 Migraine, unspecified, not intractable, without status migrainosus; J45.909 Unspecified asthma, uncomplicated; K21.9 Gastro-esophageal reflux disease without esophagitis; E03.9 Hypothyroidism, unspecified; F31.9 Bipolar disorder, unspecified; Z88.1 Allergy status to other antibiotic agents; Z88.8 Allergy status to other drugs, medicaments and biological substances; Z79.899 Other long term (current) drug therapy; Z90.710 Acquired absence of both cervix and uterus; Z90.49 Acquired absence of other specified parts of digestive tract
CPT/HCPCS: 36415; 80053; 84145; 85025; 96361; 96374; 96375; 99284; J1885; J2060; J2270; J2405; J7030

== ENCOUNTER 2023-08-31 23:50 | Inpatient (IN) | payer MEDICAID ==
[~2023-08-31] VITALS: Ht 170.2 cm; Wt 96.0 kg
[2023-09-01] MEDS ORDERED: normal saline 1000ml 1,000 ML IV ONE (00:20)
[2023-09-01] MEDS ORDERED: piperacillin/tazo 3.375gm/50ml 50 ML IV ONE (00:20)
[2023-09-01] MEDS ORDERED: LORazepam 2 mg/ml vial IV ONE (00:35)
[2023-09-01] MEDS ORDERED: morphine 4 MG/ML inj SYRINge IV ONE (00:35)
[2023-09-01 00:57] LABS: BASOPHILS % (AUTO) 0.1 % (0-1); EOSINOPHILS % (AUTO) 0 % (0-6); HEMATOCRIT 32.7 % (35.0-45.0); HEMOGLOBIN 10.4 g/dl (12.0-16.0); LYMPHOCYTES # (AUTO) 0.8 X10'3 (1.1-4.8); LYMPHOCYTES % (AUTO) 5.3 % (21-51); MEAN CORPUSCULAR HEMOGLOBIN 28.3 PG (27.0-31.0); MEAN CORPUSCULAR HGB CONC 31.9 g/dL (33.0-36.5); MEAN CORPUSCULAR VOLUME 88.6 FL (78-98); MEAN PLATELET VOLUME 6.3 FL (7.4-10.4); MONOCYTES # (AUTO) 1.9 X10'3 (0-0.9); NEUTROPHILS # (AUTO) 11.7 X10'3 (1.8-7.7); NEUTROPHILS % (AUTO) 81.6 % (42-75); PLATELET COUNT 364 X10'3 (140-440); RED BLOOD COUNT 3.69 X10'6 (4.20-5.60); RED CELL DISTRIBUTION WIDTH 17.3 % (11.5-14.5); WHITE BLOOD COUNT 14.3 X10'3 (4.5-11.0)
[2023-09-01 01:10] LABS: ALANINE AMINOTRANSFERASE 13 U/L (12-78); ALBUMIN 2.1 G/DL (3.4-5.0); ALBUMIN/GLOBULIN RATIO 0.4 (1.1-1.5); ALKALINE PHOSPHATASE 96 IU/L (46-116); ANION GAP 8 (8-16); ASPARTATE AMINO TRANSFERASE 10 U/L (10-37); BILIRUBIN,TOTAL 0.2 MG/DL (0.1-1.0); BLOOD UREA NITROGEN 11 MG/DL (7-18); BUN/CREATININE RATIO 10.6 (10.0-20.0); CALCIUM 8.6 MG/DL (8.5-10.1); CHLORIDE 105 MMOL/L (99-107); CREATININE 1.04 MG/DL (0.40-0.90); GLUCOSE 254 MG/DL (70-104); MAGNESIUM 1.8 MG/DL (1.5-2.4); POTASSIUM 3.8 MMOL/L (3.5-5.1); SODIUM 136 MMOL/L (135-145); TOTAL CARBON DIOXIDE 23.1 MMOL/L (24-32); TOTAL PROTEIN 7.3 G/DL (6.4-8.2); eCRCL 62 ML/MIN; eGFR 56 ML/MIN
[2023-09-01 03:12] LABS: BILIRUBIN,URINE NEGATIVE (Neg); CLARITY,URINE SLIGHTLY CLOUDY (Clear); COLOR,URINE STRAW (Yellow); GLUCOSE, URINE NEGATIVE (Neg); KETONES,URINE NEGATIVE (Neg); LEUKOCYTE ESTERASE ,URINE NEGATIVE (Neg); NITRITES, URINE NEGATIVE (Neg); OCCULT BLOOD,URINE NEGATIVE (Neg); PH,URINE 7.5 (4.8-8.0); PROTEIN,URINE TRACE mg/dl (Neg); UROBILINOGEN,URINE 0.2 E.U/dL (0.2-1.0)
[2023-09-01 03:13] LABS: URINE HCG NEGATIVE (NEG)
[2023-09-01] MEDS ORDERED: potassium Cl 40MEQ/1/2NS 520ml 520 ML IV PRN (03:15)
[2023-09-01] MEDS ORDERED: magnesium 4gm in 100ml NS 100 ML IV PRN (03:15)
[2023-09-01] MEDS ORDERED: HYDROcodone/acetaminophen 5mg/325mg tablet PO PRN (03:15)
[2023-09-01] MEDS ORDERED: mag hydrox/Alum hydrox/simeth 30ml oral suspension PO PRN (03:15)
[2023-09-01] MEDS ORDERED: potassium Cl 20 mEq SR tablet PO PRN ×2 (03:15)
[2023-09-01] MEDS ORDERED: acetaminophen 325mg tablet PO PRN ×2 (03:15)
[2023-09-01] MEDS ORDERED: magnesium 2GM in 50ml NS 50 ML IV PRN (03:15)
[2023-09-01] MEDS ORDERED: magnesium hydroxide 30ml (MOM) UD suspension PO PRN (03:15)
[2023-09-01] MEDS ORDERED: HYDROmorphone/PF 0.2 MG/ML SYRINGE IV PRN (03:15)
[2023-09-01 03:17] LABS: UA COLLECTION TYPE OTHER
[2023-09-01 03:18] LABS: SQUAMOUS EPITHELIAL CELL,UR MODERATE /LPF (FEW)
[2023-09-01 03:19] LABS: BACTERIA,URINE 2+ /HPF (Neg); RBC,URINE 0-2 /HPF (0-2)
[2023-09-01] MEDS: HYDROcodone/acetaminophen 10/325mg tab PO PRN ×3 (04:11→19:08)
[2023-09-01] MEDS: HYDROmorphone 1 mg/ml syringe IV PRN (05:13)
[2023-09-01] MEDS: K and/or MAG REPLACEMENT MC SCH ×2 (06:44→20:00)
[2023-09-01 08:00] VITALS: BP 114/57; PULSE 76; RESP 18; TEMP 97.9; O2SAT 94
[2023-09-01] MEDS: docusate sod 100mg capsule PO SCH ×2 (08:00→20:32)
[2023-09-01 09:29] VITALS: RESP 18
[2023-09-01 10:00] VITALS: BP 114/58; PULSE 82; RESP 14; TEMP 99.7; O2SAT 96
[2023-09-01] MEDS: morphine 4 MG/ML inj SYRINge IV PRN ×3 (11:57→21:49)
[2023-09-01] MEDS: cefepime 2g/NS 100ml ADVANTAGE 100 ML IV SCH ×3 (12:15→23:22)
[2023-09-01] MEDS ORDERED: GADOTERATE MEGLUMINE 7.5 MMOL/15 ML VIAL IV ONE (14:25)
[2023-09-01] MEDS: vancomycin/NS 1 GM ADD-VANTAGE 250 ML IV SCH (14:37)
[2023-09-01 15:12] LABS: HEMOGLOBIN A1C 6.1 % (4.5-6.2)
[2023-09-01 18:30] VITALS: BP 108/52; PULSE 82; RESP 16; TEMP 98.8; O2SAT 96
[2023-09-01 19:00] VITALS: BP 108/52; PULSE 82; RESP 16; TEMP 98.8; O2SAT 96
[2023-09-01] MEDS: enoxaparin 40mg/0.4ml syringe SQ SCH (20:32)
[2023-09-01] MEDS ORDERED: dicyclomine 10 MG capsule PO PRN (21:00)
[2023-09-01] MEDS ORDERED: dextrose 50%-water 50ml dispensing syringe IV PRN ×2 (21:00)
[2023-09-01] MEDS ORDERED: glucagon, human recombinant 1mg kit SUBCUT PRN (21:00)
[2023-09-01] MEDS ORDERED: insulin Lispro (HumaLOG) vial - multi-dose SQ SCH (21:00)
[2023-09-01] MEDS ORDERED: DEXTROSE 15 GM of carb/4 tabs (each vial/BOTTLE has 4 tablets) PO PRN ×2 (21:00)
[2023-09-01] MEDS ORDERED: MESSAGE TO PHARMACY PO ONE (21:00)
[2023-09-01] MEDS ORDERED: docusate sod 100mg capsule PO PRN (21:20)
[2023-09-01] MEDS: traZODone 50mg tablet PO SCH (21:49)
[2023-09-01] MEDS: ondansetron/PF 4mg/2ml inj IV PRN (21:56)
[2023-09-01 22:00] VITALS: BP 125/76; PULSE 84; RESP 16; TEMP 99.4; O2SAT 95
[2023-09-01] MEDS: insulin glargine (Lantus) pen - multi-dose SQ SCH (23:17)
[2023-09-02] MEDS: vancomycin/NS 1 GM ADD-VANTAGE 250 ML IV SCH (00:16)
[2023-09-02] MEDS: morphine 4 MG/ML inj SYRINge IV PRN (02:16)
[2023-09-02] MEDS: HYDROcodone/acetaminophen 10/325mg tab PO PRN ×2 (04:52→13:16)
[2023-09-02] MEDS ORDERED: bisacodyl 10mg suppository rectal RC PRN (05:25)
[2023-09-02] MEDS ORDERED: mineral oil 133ml enema RC PRN (05:25)
[2023-09-02 06:00] VITALS: BP 95/57; PULSE 80; RESP 18; TEMP 98.8; O2SAT 95
[2023-09-02 06:40] LABS: BASOPHILS % (AUTO) 0.3 % (0-1); EOSINOPHILS % (AUTO) 0.2 % (0-6); HEMATOCRIT 30.5 % (35.0-45.0); HEMOGLOBIN 9.9 g/dl (12.0-16.0); MEAN CORPUSCULAR HEMOGLOBIN 28.5 PG (27.0-31.0); MEAN CORPUSCULAR HGB CONC 32.4 g/dL (33.0-36.5); MEAN CORPUSCULAR VOLUME 88.2 FL (78-98); MEAN PLATELET VOLUME 6.3 FL (7.4-10.4); MONOCYTES # (AUTO) 1.5 X10'3 (0-0.9); MONOCYTES % (AUTO) 10.5 % (2-12); NEUTROPHILS # (AUTO) 11.5 X10'3 (1.8-7.7); PLATELET COUNT 409 X10'3 (140-440); RED BLOOD COUNT 3.45 X10'6 (4.20-5.60); RED CELL DISTRIBUTION WIDTH 17.1 % (11.5-14.5); WHITE BLOOD COUNT 14.1 X10'3 (4.5-11.0)
[2023-09-02 07:02] LABS: ALANINE AMINOTRANSFERASE 12 U/L (12-78); ALBUMIN 2.1 G/DL (3.4-5.0); ALBUMIN/GLOBULIN RATIO 0.4 (1.1-1.5); ALKALINE PHOSPHATASE 106 IU/L (46-116); ANION GAP 11 (8-16); ASPARTATE AMINO TRANSFERASE 13 U/L (10-37); BILIRUBIN,TOTAL 0.3 MG/DL (0.1-1.0); BLOOD UREA NITROGEN 9 MG/DL (7-18); BUN/CREATININE RATIO 9.4 (10.0-20.0); CALCIUM 8.9 MG/DL (8.5-10.1); CHLORIDE 103 MMOL/L (99-107); CREATININE 0.96 MG/DL (0.40-0.90); GLUCOSE 163 MG/DL (70-104); POTASSIUM 3.6 MMOL/L (3.5-5.1); SODIUM 136 MMOL/L (135-145); TOTAL CARBON DIOXIDE 22.4 MMOL/L (24-32); TOTAL PROTEIN 7.3 G/DL (6.4-8.2); eCRCL 67 ML/MIN; eGFR 61 ML/MIN
[2023-09-02 08:00] VITALS: RESP 16; O2SAT 96
[2023-09-02] MEDS: K and/or MAG REPLACEMENT MC SCH ×2 (08:00→20:00)
[2023-09-02] MEDS: diphenhydrAMINE 25mg capsule PO SCH ×3 (08:00→16:00)
[2023-09-02] MEDS ORDERED: tizanidine 4mg tablet PO SCH (08:00)
[2023-09-02] MEDS: cefepime 2g/NS 100ml ADVANTAGE 100 ML IV SCH ×3 (09:59→23:40)
[2023-09-02 10:00] VITALS: BP 111/55; PULSE 74; RESP 17; TEMP 98.3; O2SAT 96
[2023-09-02] MEDS: estradiol 1mg tablet PO SCH (10:00)
[2023-09-02] MEDS: cholecalciferol (vitamin D3) 1,000 unit (25mcg) tablet PO SCH (10:01)
[2023-09-02] MEDS: multivitamins, therapeutics tablet PO SCH (10:01)
[2023-09-02] MEDS: levoTHYROXINE 100mcg tablet PO SCH (10:01)
[2023-09-02] MEDS: docusate sod 100mg capsule PO SCH ×2 (10:01→20:27)
[2023-09-02] MEDS: pantoprazole 40mg Tablet.DR PO SCH (10:01)
[2023-09-02] MEDS: cetirizine 10mg tablet PO SCH (10:02)
[2023-09-02] MEDS: cyanocobalamin 500mcg tablet PO SCH (10:02)
[2023-09-02] MEDS: ESCITALOPRAM 10 mg tablet 10 MG TABLET PO SCH (10:02)
[2023-09-02] MEDS: topiramate 100mg tablet PO SCH ×2 (10:06→20:24)
[2023-09-02] MEDS: ondansetron/PF 4mg/2ml inj IV PRN ×2 (10:15→19:27)
[2023-09-02] MEDS ORDERED: VANCOMYCIN LEVEL IV ONE (11:30)
[2023-09-02] MEDS: HYDROmorphone 1 mg/ml syringe IV PRN ×2 (13:34→18:21)
[2023-09-02] MEDS: VANCOMYCIN 1,500MG in NS 300ml IVPB IV SCH (14:35)
[2023-09-02 18:00] VITALS: BP 115/62; PULSE 83; RESP 15; TEMP 98.5; O2SAT 99
[2023-09-02] MEDS: LORazepam 1 MG tablet PO PRN (19:33)
[2023-09-02] MEDS: enoxaparin 40mg/0.4ml syringe SQ SCH (20:00)
[2023-09-02] MEDS: baclofen 10mg tablet PO PRN (20:23)
[2023-09-02] MEDS: tizanidine 4mg tablet PO SCH (20:24)
[2023-09-02] MEDS: traZODone 50mg tablet PO SCH (20:26)
[2023-09-02] MEDS: insulin glargine (Lantus) pen - multi-dose SQ SCH (20:56)
[2023-09-02] MEDS ORDERED: LORazepam 2 mg/ml vial IV ONE (21:05)
[2023-09-02 22:00] VITALS: BP 139/76; PULSE 87; RESP 20; TEMP 98.4; O2SAT 98
[2023-09-02] MEDS: morphine 2 MG/ML inj. syringe IV PRN (23:00)
[2023-09-03] MEDS: VANCOMYCIN 1,500MG in NS 300ml IVPB IV SCH (01:29)
[2023-09-03] MEDS: ondansetron/PF 4mg/2ml inj IV PRN ×3 (04:32→17:14)
[2023-09-03] MEDS: morphine 2 MG/ML inj. syringe IV PRN ×3 (04:34→12:43)
[2023-09-03] MEDS: LORazepam 1 MG tablet PO PRN ×2 (04:35→17:49)
[2023-09-03] MEDS: pantoprazole 40mg Tablet.DR PO SCH (07:30)
[2023-09-03] MEDS: docusate sod 100mg capsule PO SCH ×2 (08:00→20:03)
[2023-09-03] MEDS: cholecalciferol (vitamin D3) 1,000 unit (25mcg) tablet PO SCH (08:00)
[2023-09-03] MEDS: multivitamins, therapeutics tablet PO SCH (08:00)
[2023-09-03] MEDS: diphenhydrAMINE 25mg capsule PO SCH ×4 (08:00→23:43)
[2023-09-03] MEDS: K and/or MAG REPLACEMENT MC SCH ×2 (08:00→20:00)
[2023-09-03] MEDS: cetirizine 10mg tablet PO SCH (08:00)
[2023-09-03] MEDS: cefepime 2g/NS 100ml ADVANTAGE 100 ML IV SCH (08:43)
[2023-09-03 09:23] LABS: BASOPHILS % (AUTO) 0.3 % (0-1); EOSINOPHILS % (AUTO) 0.2 % (0-6); HEMATOCRIT 31.4 % (35.0-45.0); HEMOGLOBIN 10.2 g/dl (12.0-16.0); LYMPHOCYTES % (AUTO) 8.7 % (21-51); MEAN CORPUSCULAR HEMOGLOBIN 28.3 PG (27.0-31.0); MEAN CORPUSCULAR HGB CONC 32.4 g/dL (33.0-36.5); MEAN CORPUSCULAR VOLUME 87.3 FL (78-98); MEAN PLATELET VOLUME 6.3 FL (7.4-10.4); MONOCYTES # (AUTO) 1.4 X10'3 (0-0.9); MONOCYTES % (AUTO) 11.7 % (2-12); NEUTROPHILS # (AUTO) 9.2 X10'3 (1.8-7.7); NEUTROPHILS % (AUTO) 79.1 % (42-75); PLATELET COUNT 412 X10'3 (140-440); RED CELL DISTRIBUTION WIDTH 17.2 % (11.5-14.5); WHITE BLOOD COUNT 11.6 X10'3 (4.5-11.0)
[2023-09-03 10:13] LABS: ALANINE AMINOTRANSFERASE 14 U/L (12-78); ALBUMIN 2.1 G/DL (3.4-5.0); ALBUMIN/GLOBULIN RATIO 0.4 (1.1-1.5); ALKALINE PHOSPHATASE 105 IU/L (46-116); ANION GAP 12 (8-16); ASPARTATE AMINO TRANSFERASE 16 U/L (10-37); BILIRUBIN,TOTAL 0.3 MG/DL (0.1-1.0); BLOOD UREA NITROGEN 10 MG/DL (7-18); BUN/CREATININE RATIO 10.9 (10.0-20.0); CALCIUM 9.1 MG/DL (8.5-10.1); CHLORIDE 104 MMOL/L (99-107); CREATININE 0.92 MG/DL (0.40-0.90); GLUCOSE 116 MG/DL (70-104); MAGNESIUM 2.1 MG/DL (1.5-2.4); POTASSIUM 3.3 MMOL/L (3.5-5.1); SODIUM 139 MMOL/L (135-145); TOTAL CARBON DIOXIDE 22.8 MMOL/L (24-32); TOTAL PROTEIN 7.4 G/DL (6.4-8.2); eCRCL 70 ML/MIN; eGFR 64 ML/MIN
[2023-09-03 10:28] LABS: ANISOCYTOSIS 1+; PLATELET ESTIMATE NORMAL; TOTAL CELLS COUNTED 100
[2023-09-03] MEDS ORDERED: LORazepam 2 mg/ml vial IV ONE (10:45)
[2023-09-03] MEDS: ESCITALOPRAM 10 mg tablet 10 MG TABLET PO SCH (12:16)
[2023-09-03] MEDS: tizanidine 4mg tablet PO SCH ×2 (12:17→20:03)
[2023-09-03] MEDS ORDERED: morphine 2 MG/ML inj. syringe IV ONE (12:45)
[2023-09-03] MEDS: levoTHYROXINE 100mcg tablet PO SCH (14:09)
[2023-09-03] MEDS: cyanocobalamin 500mcg tablet PO SCH (14:11)
[2023-09-03] MEDS: topiramate 100mg tablet PO SCH ×2 (14:27→20:04)
[2023-09-03] MEDS: estradiol 1mg tablet PO SCH (14:29)
[2023-09-03] MEDS: HYDROcodone/acetaminophen 10/325mg tab PO PRN (17:14)
[2023-09-03] MEDS: cefazolin 2gm/D5W 100mL 100 ML IV SCH ×2 (17:23→23:54)
[2023-09-03] MEDS: morphine 4 MG/ML inj SYRINge IV PRN ×2 (17:49→21:46)
[2023-09-03 18:00] VITALS: BP 115/65; PULSE 74; RESP 18; TEMP 98.2; O2SAT 96
[2023-09-03] MEDS: lactose-reduced food (Ensure Enlive) - 237ml bottle PO SCH (18:00)
[2023-09-03] MEDS: enoxaparin 40mg/0.4ml syringe SQ SCH (20:00)
[2023-09-03] MEDS: traZODone 50mg tablet PO SCH (20:03)
[2023-09-03] MEDS: baclofen 10mg tablet PO PRN (20:04)
[2023-09-03] MEDS: insulin glargine (Lantus) pen - multi-dose SQ SCH (21:00)
[2023-09-03 22:00] VITALS: BP 115/59; PULSE 70; RESP 16; TEMP 98.2; O2SAT 96
[2023-09-03] MEDS: LORazepam 2 mg/ml vial IV PRN (23:55)
[2023-09-04] MEDS: HYDROcodone/acetaminophen 10/325mg tab PO PRN ×6 (00:01→22:11)
[2023-09-04] MEDS ORDERED: VANCOMYCIN LEVEL IV ONE (01:30)
[2023-09-04] MEDS: morphine 4 MG/ML inj SYRINge IV PRN ×3 (01:50→10:05)
[2023-09-04] MEDS: ondansetron/PF 4mg/2ml inj IV PRN ×3 (04:31→20:36)
[2023-09-04 06:00] VITALS: BP 136/76; PULSE 62; RESP 18; TEMP 98.1; O2SAT 96
[2023-09-04 06:28] LABS: BASOPHILS % (AUTO) 0.2 % (0-1); EOSINOPHILS % (AUTO) 0.1 % (0-6); HEMOGLOBIN 9.8 g/dl (12.0-16.0); LYMPHOCYTES # (AUTO) 1.3 X10'3 (1.1-4.8); LYMPHOCYTES % (AUTO) 13.7 % (21-51); MEAN CORPUSCULAR HEMOGLOBIN 28.5 PG (27.0-31.0); MEAN CORPUSCULAR HGB CONC 32.8 g/dL (33.0-36.5); MEAN CORPUSCULAR VOLUME 86.9 FL (78-98); MEAN PLATELET VOLUME 6.2 FL (7.4-10.4); MONOCYTES # (AUTO) 1.2 X10'3 (0-0.9); MONOCYTES % (AUTO) 13.2 % (2-12); NEUTROPHILS # (AUTO) 6.7 X10'3 (1.8-7.7); NEUTROPHILS % (AUTO) 72.8 % (42-75); PLATELET COUNT 418 X10'3 (140-440); RED BLOOD COUNT 3.45 X10'6 (4.20-5.60); RED CELL DISTRIBUTION WIDTH 17.3 % (11.5-14.5); WHITE BLOOD COUNT 9.1 X10'3 (4.5-11.0)
[2023-09-04 06:43] LABS: ALANINE AMINOTRANSFERASE 15 U/L (12-78); ALBUMIN/GLOBULIN RATIO 0.4 (1.1-1.5); ALKALINE PHOSPHATASE 100 IU/L (46-116); ANION GAP 10 (8-16); ASPARTATE AMINO TRANSFERASE 15 U/L (10-37); BILIRUBIN,TOTAL 0.2 MG/DL (0.1-1.0); BLOOD UREA NITROGEN 10 MG/DL (7-18); BUN/CREATININE RATIO 10.9 (10.0-20.0); CALCIUM 8.7 MG/DL (8.5-10.1); CHLORIDE 104 MMOL/L (99-107); CREATININE 0.92 MG/DL (0.40-0.90); GLUCOSE 158 MG/DL (70-104); POTASSIUM 3.3 MMOL/L (3.5-5.1); SODIUM 140 MMOL/L (135-145); TOTAL CARBON DIOXIDE 25.7 MMOL/L (24-32); eCRCL 70 ML/MIN; eGFR 64 ML/MIN
[2023-09-04] MEDS: K and/or MAG REPLACEMENT MC SCH ×2 (08:00→20:00)
[2023-09-04] MEDS: lactose-reduced food (Ensure Enlive) - 237ml bottle PO SCH (08:00)
[2023-09-04] MEDS: estradiol 1mg tablet PO SCH (08:22)
[2023-09-04] MEDS: pantoprazole 40mg Tablet.DR PO SCH (08:22)
[2023-09-04] MEDS: cefazolin 2gm/D5W 100mL 100 ML IV SCH ×2 (08:22→13:53)
[2023-09-04] MEDS: multivitamins, therapeutics tablet PO SCH (08:24)
[2023-09-04] MEDS: cholecalciferol (vitamin D3) 1,000 unit (25mcg) tablet PO SCH (08:24)
[2023-09-04] MEDS: tizanidine 4mg tablet PO SCH ×2 (08:25→20:39)
[2023-09-04] MEDS: levoTHYROXINE 100mcg tablet PO SCH (08:25)
[2023-09-04] MEDS: diphenhydrAMINE 25mg capsule PO SCH ×2 (08:25→17:13)
[2023-09-04] MEDS: docusate sod 100mg capsule PO SCH ×2 (08:25→20:38)
[2023-09-04] MEDS: cyanocobalamin 500mcg tablet PO SCH (08:26)
[2023-09-04] MEDS: cetirizine 10mg tablet PO SCH (08:26)
[2023-09-04] MEDS: ESCITALOPRAM 10 mg tablet 10 MG TABLET PO SCH (08:26)
[2023-09-04] MEDS: topiramate 100mg tablet PO SCH ×2 (08:27→20:38)
[2023-09-04] MEDS: LORazepam 2 mg/ml vial IV PRN (08:28)
[2023-09-04 10:00] VITALS: BP 128/69; PULSE 57; RESP 15; TEMP 97.3; O2SAT 100
[2023-09-04 13:27] VITALS: RESP 14; O2SAT 100
[2023-09-04] MEDS: baclofen 10mg tablet PO PRN ×2 (13:50→22:12)
[2023-09-04] MEDS: LORazepam 1 MG tablet PO PRN ×2 (14:08→20:39)
[2023-09-04 18:00] VITALS: BP 107/59; PULSE 81; RESP 24; TEMP 98.7; O2SAT 96
[2023-09-04 20:00] VITALS: RESP 24; O2SAT 92
[2023-09-04] MEDS: enoxaparin 40mg/0.4ml syringe SQ SCH (20:00)
[2023-09-04] MEDS ORDERED: POTASSIUM BICARB 20meq eff tab 20 MEQ TABLET.EFF PO PRN ×2 (20:10→22:50)
[2023-09-04] MEDS: morphine 2 MG/ML inj. syringe IV PRN (20:12)
[2023-09-04] MEDS: insulin glargine (Lantus) pen - multi-dose SQ SCH (21:00)
[2023-09-04] MEDS: traZODone 50mg tablet PO SCH (22:11)
[2023-09-05] VITALS (7 sets, daily range): BP systolic 126–141; BP diastolic 63–71; PULSE 67–71; RESP 14–18; TEMP 97.5–98.8; O2SAT 94–96
[2023-09-05] MEDS: cefazolin 2gm/D5W 100mL 100 ML IV SCH ×3 (00:40→15:49)
[2023-09-05] MEDS: diphenhydrAMINE 25mg capsule PO SCH ×3 (00:40→15:41)
[2023-09-05] MEDS: morphine 2 MG/ML inj. syringe IV PRN ×4 (00:41→22:46)
[2023-09-05] MEDS: ondansetron/PF 4mg/2ml inj IV PRN ×3 (02:56→18:39)
[2023-09-05] MEDS: HYDROcodone/acetaminophen 10/325mg tab PO PRN ×2 (02:56→08:50)
[2023-09-05 06:59] LABS: BASOPHILS % (AUTO) 0.4 % (0-1); EOSINOPHILS % (AUTO) 0.1 % (0-6); HEMATOCRIT 28.7 % (35.0-45.0); HEMOGLOBIN 9.6 g/dl (12.0-16.0); LYMPHOCYTES # (AUTO) 1.6 X10'3 (1.1-4.8); LYMPHOCYTES % (AUTO) 18.1 % (21-51); MEAN CORPUSCULAR HEMOGLOBIN 29.1 PG (27.0-31.0); MEAN CORPUSCULAR HGB CONC 33.5 g/dL (33.0-36.5); MEAN CORPUSCULAR VOLUME 86.8 FL (78-98); MEAN PLATELET VOLUME 6.1 FL (7.4-10.4); MONOCYTES # (AUTO) 1.1 X10'3 (0-0.9); MONOCYTES % (AUTO) 13.2 % (2-12); NEUTROPHILS # (AUTO) 5.9 X10'3 (1.8-7.7); NEUTROPHILS % (AUTO) 68.2 % (42-75); PLATELET COUNT 433 X10'3 (140-440); RED BLOOD COUNT 3.31 X10'6 (4.20-5.60); RED CELL DISTRIBUTION WIDTH 16.8 % (11.5-14.5); WHITE BLOOD COUNT 8.7 X10'3 (4.5-11.0)
[2023-09-05 07:21] LABS: ALANINE AMINOTRANSFERASE 15 U/L (12-78); ALBUMIN 1.9 G/DL (3.4-5.0); ALBUMIN/GLOBULIN RATIO 0.4 (1.1-1.5); ALKALINE PHOSPHATASE 93 IU/L (46-116); ANION GAP 9 (8-16); ASPARTATE AMINO TRANSFERASE 17 U/L (10-37); BILIRUBIN,TOTAL 0.2 MG/DL (0.1-1.0); BLOOD UREA NITROGEN 8 MG/DL (7-18); BUN/CREATININE RATIO 9.5 (10.0-20.0); CALCIUM 8.8 MG/DL (8.5-10.1); CHLORIDE 106 MMOL/L (99-107); CREATININE 0.84 MG/DL (0.40-0.90); GLUCOSE 105 MG/DL (70-104); MAGNESIUM 2.1 MG/DL (1.5-2.4); POTASSIUM 3.6 MMOL/L (3.5-5.1); SODIUM 140 MMOL/L (135-145); TOTAL CARBON DIOXIDE 25.2 MMOL/L (24-32); TOTAL PROTEIN 6.8 G/DL (6.4-8.2); eCRCL 76 ML/MIN; eGFR 71 ML/MIN
[2023-09-05] MEDS: pantoprazole 40mg Tablet.DR PO SCH (07:30)
[2023-09-05 07:54] LABS: TOTAL CELLS COUNTED 100
[2023-09-05 07:57] LABS: ANISOCYTOSIS 1+; PLATELET ESTIMATE NORMAL; POLYCHROMASIA 1+
[2023-09-05] MEDS: lactose-reduced food (Ensure Enlive) - 237ml bottle PO SCH ×3 (08:00→18:02)
[2023-09-05] MEDS: K and/or MAG REPLACEMENT MC SCH ×2 (08:00→20:00)
[2023-09-05] MEDS: cyanocobalamin 500mcg tablet PO SCH (08:49)
[2023-09-05] MEDS: ESCITALOPRAM 10 mg tablet 10 MG TABLET PO SCH (08:49)
[2023-09-05] MEDS: cetirizine 10mg tablet PO SCH (08:50)
[2023-09-05] MEDS: cholecalciferol (vitamin D3) 1,000 unit (25mcg) tablet PO SCH (08:51)
[2023-09-05] MEDS: multivitamins, therapeutics tablet PO SCH (08:51)
[2023-09-05] MEDS: tizanidine 4mg tablet PO SCH ×2 (08:51→20:10)
[2023-09-05] MEDS: levoTHYROXINE 100mcg tablet PO SCH (08:51)
[2023-09-05] MEDS: estradiol 1mg tablet PO SCH (08:52)
[2023-09-05] MEDS: topiramate 100mg tablet PO SCH ×2 (08:52→20:11)
[2023-09-05] MEDS: docusate sod 100mg capsule PO SCH ×2 (08:52→20:10)
[2023-09-05] MEDS: baclofen 10mg tablet PO PRN ×2 (09:23→22:03)
[2023-09-05] MEDS: oxyCODONE/APAP 5-325mg tablet PO PRN ×3 (11:33→20:09)
[2023-09-05] MEDS: LORazepam 2 mg/ml vial IV PRN (18:38)
[2023-09-05] MEDS: enoxaparin 40mg/0.4ml syringe SQ SCH (20:00)
[2023-09-05] MEDS: insulin glargine (Lantus) pen - multi-dose SQ SCH (20:12)
[2023-09-05] MEDS: traZODone 50mg tablet PO SCH (22:03)
[2023-09-06] VITALS (8 sets, daily range): BP systolic 104–123; BP diastolic 56–67; PULSE 66–79; RESP 12–18; TEMP 97.1–99.1; O2SAT 93–96
[2023-09-06] MEDS: cefazolin 2gm/D5W 100mL 100 ML IV SCH ×3 (00:04→16:24)
[2023-09-06] MEDS: diphenhydrAMINE 25mg capsule PO SCH ×3 (00:07→16:24)
[2023-09-06] MEDS: oxyCODONE/APAP 5-325mg tablet PO PRN ×2 (00:10→16:29)
[2023-09-06] MEDS: LORazepam 2 mg/ml vial IV PRN (04:26)
[2023-09-06] MEDS: morphine 2 MG/ML inj. syringe IV PRN ×4 (04:27→21:23)
[2023-09-06 05:49] LABS: ALANINE AMINOTRANSFERASE 9 U/L (12-78); ALBUMIN 2.2 G/DL (3.4-5.0); ALBUMIN/GLOBULIN RATIO 0.4 (1.1-1.5); ALKALINE PHOSPHATASE 91 IU/L (46-116); ANION GAP 10 (8-16); ASPARTATE AMINO TRANSFERASE 14 U/L (10-37); BILIRUBIN,TOTAL 0.2 MG/DL (0.1-1.0); BLOOD UREA NITROGEN 10 MG/DL (7-18); BUN/CREATININE RATIO 11.5 (10.0-20.0); CALCIUM 9.4 MG/DL (8.5-10.1); CHLORIDE 104 MMOL/L (99-107); CREATININE 0.87 MG/DL (0.40-0.90); GLUCOSE 114 MG/DL (70-104); MAGNESIUM 2.3 MG/DL (1.5-2.4); POTASSIUM 3.7 MMOL/L (3.5-5.1); SODIUM 137 MMOL/L (135-145); TOTAL CARBON DIOXIDE 22.8 MMOL/L (24-32); TOTAL PROTEIN 7.5 G/DL (6.4-8.2); eCRCL 74 ML/MIN; eGFR 68 ML/MIN
[2023-09-06 06:14] LABS: BASOPHILS # (AUTO) 0.1 X10'3 (0-0.2); BASOPHILS % (AUTO) 0.4 % (0-1); EOSINOPHILS % (AUTO) 0.1 % (0-6); HEMATOCRIT 31.6 % (35.0-45.0); HEMOGLOBIN 10.4 g/dl (12.0-16.0); LYMPHOCYTES # (AUTO) 2.2 X10'3 (1.1-4.8); LYMPHOCYTES % (AUTO) 17.5 % (21-51); MEAN CORPUSCULAR HEMOGLOBIN 28.6 PG (27.0-31.0); MEAN CORPUSCULAR HGB CONC 32.8 g/dL (33.0-36.5); MEAN CORPUSCULAR VOLUME 87.1 FL (78-98); MEAN PLATELET VOLUME 6.4 FL (7.4-10.4); MONOCYTES # (AUTO) 1.4 X10'3 (0-0.9); NEUTROPHILS # (AUTO) 8.9 X10'3 (1.8-7.7); PLATELET COUNT 465 X10'3 (140-440); RED BLOOD COUNT 3.63 X10'6 (4.20-5.60); WHITE BLOOD COUNT 12.6 X10'3 (4.5-11.0)
[2023-09-06 07:06] LABS: ANISOCYTOSIS 1+; PLATELET ESTIMATE INCREASED; TOTAL CELLS COUNTED 100
[2023-09-06 07:07] LABS: POLYCHROMASIA FEW
[2023-09-06] MEDS: K and/or MAG REPLACEMENT MC SCH ×2 (08:00→18:55)
[2023-09-06] MEDS: lactose-reduced food (Ensure Enlive) - 237ml bottle PO SCH ×3 (08:55→18:02)
[2023-09-06] MEDS: ondansetron/PF 4mg/2ml inj IV PRN ×2 (09:00→20:04)
[2023-09-06] MEDS: multivitamins, therapeutics tablet PO SCH (09:11)
[2023-09-06] MEDS: cyanocobalamin 500mcg tablet PO SCH (09:11)
[2023-09-06] MEDS: cholecalciferol (vitamin D3) 1,000 unit (25mcg) tablet PO SCH (09:12)
[2023-09-06] MEDS ORDERED: LORazepam 1 MG tablet PO PRN (09:55)
[2023-09-06] MEDS: cetirizine 10mg tablet PO SCH (11:01)
[2023-09-06] MEDS: estradiol 1mg tablet PO SCH (11:01)
[2023-09-06] MEDS: levoTHYROXINE 100mcg tablet PO SCH (11:01)
[2023-09-06] MEDS: pantoprazole 40mg Tablet.DR PO SCH (11:01)
[2023-09-06] MEDS: baclofen 10mg tablet PO PRN (11:01)
[2023-09-06] MEDS: tizanidine 4mg tablet PO SCH ×3 (11:02→19:55)
[2023-09-06] MEDS: ESCITALOPRAM 10 mg tablet 10 MG TABLET PO SCH (11:02)
[2023-09-06] MEDS: topiramate 100mg tablet PO SCH ×2 (11:02→19:57)
[2023-09-06] MEDS: docusate sod 100mg capsule PO SCH ×2 (11:03→19:57)
[2023-09-06] MEDS: LORazepam 1 MG tablet PO SCH ×2 (13:14→19:56)
[2023-09-06] MEDS: baclofen 10mg tablet PO SCH ×2 (14:09→19:57)
[2023-09-06] MEDS: lactobacillus rhamnosus 10,000 MMU CELLS/CAPSULE PO SCH (19:56)
[2023-09-06] MEDS: traZODone 50mg tablet PO SCH (19:56)
[2023-09-06] MEDS: enoxaparin 40mg/0.4ml syringe SQ SCH ×2 (19:57→20:00)
[2023-09-07] VITALS (7 sets, daily range): BP systolic 90–194; BP diastolic 48–120; PULSE 63–71; RESP 15–18; TEMP 96.9–98.2; O2SAT 95–97
[2023-09-07] MEDS: cefazolin 2gm/D5W 100mL 100 ML IV SCH ×3 (00:46→17:04)
[2023-09-07] MEDS: diphenhydrAMINE 25mg capsule PO SCH ×4 (00:46→16:00)
[2023-09-07] MEDS: oxyCODONE/APAP 5-325mg tablet PO PRN ×3 (00:53→17:53)
[2023-09-07] MEDS: baclofen 10mg tablet PO SCH ×4 (02:14→20:08)
[2023-09-07] MEDS: ondansetron/PF 4mg/2ml inj IV PRN ×3 (03:08→17:55)
[2023-09-07] MEDS: morphine 2 MG/ML inj. syringe IV PRN ×4 (03:09→20:18)
[2023-09-07] MEDS: LORazepam 1 MG tablet PO SCH ×3 (05:46→21:26)
[2023-09-07] MEDS: tizanidine 4mg tablet PO SCH ×3 (05:46→21:26)
[2023-09-07] MEDS: pantoprazole 40mg Tablet.DR PO SCH (07:30)
[2023-09-07] MEDS: topiramate 100mg tablet PO SCH ×2 (08:00→20:11)
[2023-09-07] MEDS: levoTHYROXINE 100mcg tablet PO SCH (08:00)
[2023-09-07] MEDS: K and/or MAG REPLACEMENT MC SCH ×2 (08:00→20:00)
[2023-09-07] MEDS: cetirizine 10mg tablet PO SCH (08:00)
[2023-09-07] MEDS: lactose-reduced food (Ensure Enlive) - 237ml bottle PO SCH ×3 (08:00→18:40)
[2023-09-07] MEDS: ESCITALOPRAM 10 mg tablet 10 MG TABLET PO SCH (09:31)
[2023-09-07] MEDS: docusate sod 100mg capsule PO SCH ×2 (09:32→20:09)
[2023-09-07] MEDS: lactobacillus rhamnosus 10,000 MMU CELLS/CAPSULE PO SCH ×2 (09:32→20:08)
[2023-09-07] MEDS: multivitamins, therapeutics tablet PO SCH (09:34)
[2023-09-07] MEDS: cyanocobalamin 500mcg tablet PO SCH (09:34)
[2023-09-07] MEDS: estradiol 1mg tablet PO SCH (09:35)
[2023-09-07] MEDS: cholecalciferol (vitamin D3) 1,000 unit (25mcg) tablet PO SCH (09:35)
[2023-09-07] MEDS ORDERED: LORazepam 2 mg/ml vial IV ONE (10:55)
[2023-09-07] MEDS: enoxaparin 40mg/0.4ml syringe SQ SCH (20:00)
[2023-09-07] MEDS: traZODone 50mg tablet PO SCH (21:25)
[2023-09-08] MEDS: cefazolin 2gm/D5W 100mL 100 ML IV SCH ×2 (00:31→09:29)
[2023-09-08] MEDS: diphenhydrAMINE 25mg capsule PO SCH ×2 (00:41→09:27)
[2023-09-08] MEDS: oxyCODONE/APAP 5-325mg tablet PO PRN ×3 (00:41→16:04)
[2023-09-08] MEDS: ondansetron/PF 4mg/2ml inj IV PRN ×2 (04:36→11:52)
[2023-09-08] MEDS: LORazepam 1 MG tablet PO SCH ×2 (04:37→13:03)
[2023-09-08] MEDS: morphine 2 MG/ML inj. syringe IV PRN ×4 (04:37→16:03)
[2023-09-08] MEDS: tizanidine 4mg tablet PO SCH ×2 (04:38→13:02)
[2023-09-08] MEDS: baclofen 10mg tablet PO SCH ×3 (04:39→16:04)
[2023-09-08 06:14] VITALS: BP 99/57; PULSE 60; RESP 16; TEMP 98.3; O2SAT 96
[2023-09-08 08:00] VITALS: RESP 16
[2023-09-08] MEDS: lactose-reduced food (Ensure Enlive) - 237ml bottle PO SCH ×2 (08:00→13:06)
[2023-09-08] MEDS: K and/or MAG REPLACEMENT MC SCH (08:00)
[2023-09-08 08:02] LABS: BASOPHILS % (AUTO) 0.2 % (0-1); EOSINOPHILS % (AUTO) 0.1 % (0-6); HEMOGLOBIN 10.6 g/dl (12.0-16.0); LYMPHOCYTES # (AUTO) 2.2 X10'3 (1.1-4.8); LYMPHOCYTES % (AUTO) 16.5 % (21-51); MEAN CORPUSCULAR HEMOGLOBIN 27.8 PG (27.0-31.0); MEAN CORPUSCULAR VOLUME 86.9 FL (78-98); MEAN PLATELET VOLUME 6.5 FL (7.4-10.4); MONOCYTES # (AUTO) 1.3 X10'3 (0-0.9); MONOCYTES % (AUTO) 9.9 % (2-12); NEUTROPHILS % (AUTO) 73.3 % (42-75); PLATELET COUNT 542 X10'3 (140-440); RED CELL DISTRIBUTION WIDTH 17.4 % (11.5-14.5); WHITE BLOOD COUNT 13.6 X10'3 (4.5-11.0)
[2023-09-08 09:16] LABS: TOTAL CELLS COUNTED 100
[2023-09-08 09:17] LABS: ANISOCYTOSIS 1+; PLATELET ESTIMATE INCREASED
[2023-09-08 09:18] LABS: POIKILOCYTOSIS FEW
[2023-09-08] MEDS: multivitamins, therapeutics tablet PO SCH (09:19)
[2023-09-08] MEDS: ESCITALOPRAM 10 mg tablet 10 MG TABLET PO SCH (09:19)
[2023-09-08] MEDS: levoTHYROXINE 100mcg tablet PO SCH (09:19)
[2023-09-08] MEDS: cholecalciferol (vitamin D3) 1,000 unit (25mcg) tablet PO SCH (09:19)
[2023-09-08] MEDS: cyanocobalamin 500mcg tablet PO SCH (09:20)
[2023-09-08] MEDS: cetirizine 10mg tablet PO SCH (09:20)
[2023-09-08] MEDS: docusate sod 100mg capsule PO SCH (09:20)
[2023-09-08] MEDS: lactobacillus rhamnosus 10,000 MMU CELLS/CAPSULE PO SCH (09:20)
[2023-09-08] MEDS: topiramate 100mg tablet PO SCH (09:21)
[2023-09-08] MEDS: estradiol 1mg tablet PO SCH (09:21)
[2023-09-08] MEDS: pantoprazole 40mg Tablet.DR PO SCH (09:27)
[2023-09-08 10:00] VITALS: BP 99/57; PULSE 64; RESP 16; TEMP 98.3; O2SAT 94
[2023-09-08] MEDS ORDERED: LORazepam 2 mg/ml vial IV ONE (11:35)
[2023-09-08] MEDS ORDERED: morphine 4 MG/ML inj SYRINge IV ONE (15:55)
[2023-09-08 16:04] VITALS: RESP 16
[2023-09-08] MEDS ORDERED: PER5325T PO (16:32)
== END 2023-09-08 16:20 | disposition home health service (06) | DRG 720 ==
LOC: ER 23:51 → ED HOLD 09-01 03:19 → ORTHO 4S 09-01 07:56
PROVIDERS: ADMIT Family Medicine; ATTEND Internal Medicine
PROC: BQ2S1ZZ Computerized Tomography (CT Scan) of Left Lower Extremity using Low Osmolar Contrast (ICD-10-PCS; 2023-09-01)
PROC: 0JBR0ZZ Excision of Left Foot Subcutaneous Tissue and Fascia, Open Approach (ICD-10-PCS; principal; 2023-09-04)
PROC: 05HC33Z Insertion of Infusion Device into Left Basilic Vein, Percutaneous Approach (ICD-10-PCS; 2023-09-08)
PROC: B54NZZA Ultrasonography of Left Upper Extremity Veins, Guidance (ICD-10-PCS; 2023-09-08)
DX: A41.01 Sepsis due to Methicillin susceptible Staphylococcus aureus (principal); E11.42 Type 2 diabetes mellitus with diabetic polyneuropathy; E11.621 Type 2 diabetes mellitus with foot ulcer; L97.529 Non-pressure chronic ulcer of other part of left foot with unspecified severity; L03.115 Cellulitis of right lower limb; E03.9 Hypothyroidism, unspecified; D64.9 Anemia, unspecified; L02.612 Cutaneous abscess of left foot; G89.29 Other chronic pain; L03.116 Cellulitis of left lower limb; G47.00 Insomnia, unspecified; J45.990 Exercise induced bronchospasm; E87.6 Hypokalemia; G43.909 Migraine, unspecified, not intractable, without status migrainosus; K21.9 Gastro-esophageal reflux disease without esophagitis; F41.9 Anxiety disorder, unspecified; F31.9 Bipolar disorder, unspecified; Z82.49 Family history of ischemic heart disease and other diseases of the circulatory system; Z82.3 Family history of stroke; Z90.710 Acquired absence of both cervix and uterus; Z90.49 Acquired absence of other specified parts of digestive tract; Z87.440 Personal history of urinary (tract) infections; Z88.1 Allergy status to other antibiotic agents; Z88.8 Allergy status to other drugs, medicaments and biological substances; Z91.041 Radiographic dye allergy status; Z87.891 Personal history of nicotine dependence; Z90.722 Acquired absence of ovaries, bilateral; Z90.79 Acquired absence of other genital organ(s)
CPT/HCPCS: 36410; 36415; 71045; 73701; 73720; 76942; 80053; 80202; 81001; 81025; 82948; 83036; 83605; 83735; 84145; 85007; 85025; 87040; 87070; 87075; 87077; 87088; 87186; 93005; 93306; 97161; 97530; 99285; A4649; A6196; A6223; A6250; A6258; A6266; A6402; A6446; A6449; A9575; C1751; G0378; J0690; J0692; J1170; J1650; J1815; J2060; J2270; J2405; J2543; J3370; J7030; J7040; Q0163

== ENCOUNTER 2023-10-03 20:33 | Emergency (ER) | payer MEDICAID ==
[~2023-10-03] VITALS: Ht 170.2 cm; Wt 104.5 kg
[~2023-10-03 20:33] MED LIST changes: +PER5325T PO
[2023-10-03 20:50] VITALS: TEMP 97.6
[2023-10-03] MEDS ORDERED: diazepam 5mg tablet PO ONE (21:00)
[2023-10-03] MEDS ORDERED: HYDROcodone/acetaminophen 10/325mg tab PO ONE (21:00)
[2023-10-04 00:26] VITALS: BP 118/70; PULSE 66; RESP 19; O2SAT 91
== END 2023-10-04 00:24 | disposition home or self-care (01) ==
LOC: ER 20:34
DX: T82.898A Other specified complication of vascular prosthetic devices, implants and grafts, initial encounter (principal); M62.838 Other muscle spasm; G43.909 Migraine, unspecified, not intractable, without status migrainosus; J45.909 Unspecified asthma, uncomplicated; K21.9 Gastro-esophageal reflux disease without esophagitis; E03.9 Hypothyroidism, unspecified; G89.29 Other chronic pain; M79.7 Fibromyalgia; F41.9 Anxiety disorder, unspecified; F31.9 Bipolar disorder, unspecified; Z90.49 Acquired absence of other specified parts of digestive tract; Z90.710 Acquired absence of both cervix and uterus; Z98.890 Other specified postprocedural states; Z56.0 Unemployment, unspecified; Z88.1 Allergy status to other antibiotic agents; Z88.8 Allergy status to other drugs, medicaments and biological substances; Z91.018 Allergy to other foods; Z79.899 Other long term (current) drug therapy; Y83.9 Surgical procedure, unspecified as the cause of abnormal reaction of the patient, or of later complication, without mention of misadventure at the time of the procedure; Y92.89 Other specified places as the place of occurrence of the external cause
CPT/HCPCS: 99284; 99285

== ENCOUNTER 2023-10-15 16:15 | Inpatient (IN) | payer MEDICAID ==
[~2023-10-15] VITALS: Ht 170.2 cm; Wt 100.0 kg
[2023-10-15 18:49] LABS: HEMOGLOBIN 10.3 g/dl (12.0-16.0); MEAN CORPUSCULAR HGB CONC 31.7 g/dL (33.0-36.5); MONOCYTES % (AUTO) 11.6 % (2-12); RED BLOOD COUNT 3.73 X10'6 (4.20-5.60)
[2023-10-15 18:50] LABS: BASOPHILS % (AUTO) 0.7 % (0-1); EOSINOPHILS % (AUTO) 0.1 % (0-6); HEMATOCRIT 32.4 % (35.0-45.0); LYMPHOCYTES # (AUTO) 1.7 X10'3 (1.1-4.8); LYMPHOCYTES % (AUTO) 26.5 % (21-51); MEAN CORPUSCULAR HEMOGLOBIN 27.5 PG (27.0-31.0); MEAN CORPUSCULAR VOLUME 86.8 FL (78-98); MONOCYTES # (AUTO) 0.8 X10'3 (0-0.9); NEUTROPHILS % (AUTO) 61.1 % (42-75); RED CELL DISTRIBUTION WIDTH 18.7 % (11.5-14.5); WHITE BLOOD COUNT 6.6 X10'3 (4.5-11.0)
[2023-10-15 19:16] LABS: ALANINE AMINOTRANSFERASE 13 U/L (12-78); ALBUMIN 2.6 G/DL (3.4-5.0); ALBUMIN/GLOBULIN RATIO 0.5 (1.1-1.5); ALKALINE PHOSPHATASE 90 IU/L (46-116); ANION GAP 8 (8-16); ASPARTATE AMINO TRANSFERASE 22 U/L (10-37); BILIRUBIN,TOTAL 0.3 MG/DL (0.1-1.0); BLOOD UREA NITROGEN 23 MG/DL (7-18); BUN/CREATININE RATIO 27.4 (10.0-20.0); CALCIUM 8.6 MG/DL (8.5-10.1); CHLORIDE 107 MMOL/L (99-107); CREATININE 0.84 MG/DL (0.40-0.90); GLUCOSE 139 MG/DL (70-104); MAGNESIUM 1.8 MG/DL (1.5-2.4); POTASSIUM 3.9 MMOL/L (3.5-5.1); SODIUM 140 MMOL/L (135-145); TOTAL PROTEIN 7.6 G/DL (6.4-8.2); eCRCL 76 ML/MIN; eGFR 71 ML/MIN
[2023-10-16] MEDS ORDERED: TAPE50TA9 PO (05:21)
[2023-10-16] MEDS ORDERED: normal saline 1000ml 1,000 ML IV ONE (05:25)
[2023-10-16] MEDS ORDERED: ondansetron/PF 4mg/2ml inj IV ONE (06:45)
[2023-10-16] MEDS ORDERED: morphine 4 MG/ML inj SYRINge IV ONE (06:45)
[2023-10-16] MEDS ORDERED: magnesium 4gm in 100ml NS 100 ML IV PRN (08:10)
[2023-10-16] MEDS ORDERED: mag hydrox/Alum hydrox/simeth 30ml oral suspension PO PRN (08:10)
[2023-10-16] MEDS ORDERED: docusate sod 100mg capsule PO PRN (08:10)
[2023-10-16] MEDS ORDERED: acetaminophen 325mg tablet PO PRN (08:10)
[2023-10-16] MEDS ORDERED: magnesium Cl slow-release 64mg tablet PO PRN (08:10)
[2023-10-16] MEDS ORDERED: potassium Cl 40MEQ/1/2NS 520ml 520 ML IV PRN (08:10)
[2023-10-16] MEDS ORDERED: potassium Cl 20 mEq SR tablet PO PRN ×2 (08:10)
[2023-10-16] MEDS ORDERED: magnesium hydroxide 30ml (MOM) UD suspension PO PRN (08:10)
[2023-10-16] MEDS ORDERED: morphine 2 MG/ML inj. syringe IV PRN (08:10)
[2023-10-16 08:22] LABS: MAGNESIUM 1.7 MG/DL (1.5-2.4); PRO BRAIN NATRIURETIC PEPTIDE 54 PG/ML (0-125)
[2023-10-16] MEDS: piperacillin/tazo 3.375gm/50ml 50 ML IV SCH ×2 (08:34→17:21)
[2023-10-16] MEDS: normal saline 1000ml 1,000 ML IV SCH (08:34)
[2023-10-16] MEDS ORDERED: vancomycin 1,750 MG in NS 350ml IV soln IV ONE (08:35)
[2023-10-16] MEDS: morphine 2 MG/ML inj. syringe IV PRN ×3 (13:13→21:45)
[2023-10-16 13:52] LABS: BILIRUBIN,URINE NEGATIVE (Neg); CLARITY,URINE CLEAR (Clear); COLOR,URINE YELLOW (Yellow); GLUCOSE, URINE NEGATIVE (Neg); KETONES,URINE NEGATIVE (Neg); LEUKOCYTE ESTERASE ,URINE NEGATIVE (Neg); NITRITES, URINE NEGATIVE (Neg); OCCULT BLOOD,URINE NEGATIVE (Neg); PROTEIN,URINE NEGATIVE (Neg); UROBILINOGEN,URINE 0.2 E.U/dL (0.2-1.0)
[2023-10-16 13:58] LABS: UA COLLECTION TYPE CLN CATCH MIDSTREAM
[2023-10-16] MEDS ORDERED: albuterol 2.5 MG/3 ML nebule NEB SCH (14:10)
[2023-10-16] MEDS ORDERED: dicyclomine 10 MG capsule PO PRN (14:10)
[2023-10-16] MEDS: diphenhydrAMINE 25mg capsule PO SCH (17:25)
[2023-10-16] MEDS: vancomycin/NS 1 GM ADD-VANTAGE 250 ML IV SCH (17:42)
[2023-10-16] MEDS ORDERED: polyethylene glycol 3350 17gm powd pack PO PRN (18:25)
[2023-10-16] MEDS: heparin, porcine 5000 units/ml vial SQ SCH (20:00)
[2023-10-16] MEDS: topiramate 100mg tablet PO SCH (20:00)
[2023-10-16] MEDS: traZODone 50mg tablet PO SCH (21:44)
[2023-10-16] MEDS: polyethylene glycol 3350 17gm powd pack PO SCH (21:44)
[2023-10-16] MEDS: tizanidine 4mg tablet PO SCH (21:44)
[2023-10-17] MEDS: diphenhydrAMINE 25mg capsule PO SCH ×3 (00:51→17:52)
[2023-10-17] MEDS: piperacillin/tazo 3.375gm/50ml 50 ML IV SCH ×3 (00:51→17:52)
[2023-10-17] MEDS: vancomycin/NS 1 GM ADD-VANTAGE 250 ML IV SCH (01:04)
[2023-10-17] MEDS: normal saline 1000ml 1,000 ML IV SCH (04:10)
[2023-10-17] MEDS: cetirizine 10mg tablet PO SCH (08:00)
[2023-10-17] MEDS: heparin, porcine 5000 units/ml vial SQ SCH ×2 (08:00→20:00)
[2023-10-17] MEDS: estradiol 1mg tablet PO SCH (08:00)
[2023-10-17] MEDS: topiramate 100mg tablet PO SCH ×2 (08:00→20:39)
[2023-10-17 08:21] LABS: BASOPHILS % (AUTO) 0.5 % (0-1); EOSINOPHILS % (AUTO) 0.1 % (0-6); HEMOGLOBIN 9.5 g/dl (12.0-16.0); LYMPHOCYTES # (AUTO) 1.7 X10'3 (1.1-4.8); LYMPHOCYTES % (AUTO) 24.2 % (21-51); MEAN CORPUSCULAR HEMOGLOBIN 27.1 PG (27.0-31.0); MEAN CORPUSCULAR HGB CONC 31.5 g/dL (33.0-36.5); MEAN CORPUSCULAR VOLUME 85.9 FL (78-98); MONOCYTES % (AUTO) 13.8 % (2-12); NEUTROPHILS # (AUTO) 4.2 X10'3 (1.8-7.7); NEUTROPHILS % (AUTO) 61.4 % (42-75); PLATELET COUNT 204 X10'3 (140-440); RED BLOOD COUNT 3.49 X10'6 (4.20-5.60); RED CELL DISTRIBUTION WIDTH 18.1 % (11.5-14.5); WHITE BLOOD COUNT 6.9 X10'3 (4.5-11.0)
[2023-10-17 08:22] LABS: % IRON SATURATION 13 % (11-46); IRON 44 UG/DL (49-151); TOTAL IRON BINDING CAPACITY 328 UG/DL (259-388)
[2023-10-17] MEDS: tizanidine 4mg tablet PO SCH ×2 (08:26→20:40)
[2023-10-17] MEDS: levoTHYROXINE 100mcg tablet PO SCH (08:27)
[2023-10-17] MEDS: ESCITALOPRAM 10 mg tablet 10 MG TABLET PO SCH (08:27)
[2023-10-17] MEDS: pantoprazole 40mg Tablet.DR PO SCH (08:27)
[2023-10-17] MEDS: multivitamins, therapeutics tablet PO SCH (08:27)
[2023-10-17] MEDS ORDERED: VANCOMYCIN LEVEL IV ONE (08:30)
[2023-10-17] MEDS: morphine 2 MG/ML inj. syringe IV PRN ×3 (08:31→20:55)
[2023-10-17 08:34] LABS: ALANINE AMINOTRANSFERASE 12 U/L (12-78); ALBUMIN 2.3 G/DL (3.4-5.0); ALBUMIN/GLOBULIN RATIO 0.5 (1.1-1.5); ALKALINE PHOSPHATASE 76 IU/L (46-116); ANION GAP 10 (8-16); ASPARTATE AMINO TRANSFERASE 18 U/L (10-37); BILIRUBIN,TOTAL 0.3 MG/DL (0.1-1.0); BLOOD UREA NITROGEN 14 MG/DL (7-18); BUN/CREATININE RATIO 16.1 (10.0-20.0); C-REACTIVE PROTEIN 3.09 MG/DL (0.0-0.5); CALCIUM 8.4 MG/DL (8.5-10.1); CHLORIDE 108 MMOL/L (99-107); CHOL/HDL RATIO 4.7 (0.00-4.99); CHOLESTEROL 159 MG/DL (0-200); CREATININE 0.87 MG/DL (0.40-0.90); GLUCOSE 127 MG/DL (70-104); HDL CHOLESTEROL 34 MG/DL (35-60); LDL CHOLESTEROL 85 MG/DL (50-100); MAGNESIUM 1.8 MG/DL (1.5-2.4); PHOSPHORUS 3.9 MG/DL (2.3-4.5); POTASSIUM 3.6 MMOL/L (3.5-5.1); SODIUM 140 MMOL/L (135-145); TOTAL CARBON DIOXIDE 22.3 MMOL/L (24-32); TOTAL PROTEIN 6.9 G/DL (6.4-8.2); TRIGLYCERIDES 198 MG/DL (20-135); eCRCL 74 ML/MIN; eGFR 68 ML/MIN
[2023-10-17 08:48] LABS: FERRITIN 21 NG/ML (8-252)
[2023-10-17 10:00] VITALS: BP 109/58; PULSE 64; RESP 20; TEMP 97.6; O2SAT 94
[2023-10-17] MEDS ORDERED: VANCOMYCIN 750MG IV in NS 250 ML IV SCH (10:00)
[2023-10-17] MEDS: ondansetron/PF 4mg/2ml inj IV PRN (14:51)
[2023-10-17] MEDS: baclofen 10mg tablet PO PRN (17:59)
[2023-10-17 18:00] VITALS: BP 106/61; PULSE 69; RESP 16; TEMP 97.7; O2SAT 97
[2023-10-17 20:00] VITALS: RESP 18; O2SAT 95
[2023-10-17] MEDS: traZODone 50mg tablet PO SCH (20:40)
[2023-10-17] MEDS: LORazepam 0.5 MG tablet PO PRN (20:53)
[2023-10-17] MEDS: polyethylene glycol 3350 17gm powd pack PO SCH (20:59)
[2023-10-17 22:00] VITALS: BP 99/54; PULSE 69; RESP 20; TEMP 98.4; O2SAT 93
[2023-10-18] MEDS: normal saline 1000ml 1,000 ML IV SCH ×2 (00:38→15:00)
[2023-10-18] MEDS: diphenhydrAMINE 25mg capsule PO SCH ×3 (00:38→16:09)
[2023-10-18] MEDS: piperacillin/tazo 3.375gm/50ml 50 ML IV SCH ×3 (00:39→16:06)
[2023-10-18] MEDS: ondansetron/PF 4mg/2ml inj IV PRN ×3 (00:47→14:41)
[2023-10-18] MEDS: morphine 2 MG/ML inj. syringe IV PRN ×4 (02:55→19:10)
[2023-10-18 05:34] LABS: BASOPHILS % (AUTO) 0.7 % (0-1); EOSINOPHILS % (AUTO) 0.1 % (0-6); HEMATOCRIT 30.8 % (35.0-45.0); HEMOGLOBIN 9.7 g/dl (12.0-16.0); LYMPHOCYTES # (AUTO) 1.9 X10'3 (1.1-4.8); LYMPHOCYTES % (AUTO) 30.9 % (21-51); MEAN CORPUSCULAR HEMOGLOBIN 27.3 PG (27.0-31.0); MEAN CORPUSCULAR HGB CONC 31.7 g/dL (33.0-36.5); MEAN CORPUSCULAR VOLUME 86.3 FL (78-98); MONOCYTES # (AUTO) 0.8 X10'3 (0-0.9); MONOCYTES % (AUTO) 13.3 % (2-12); NEUTROPHILS # (AUTO) 3.3 X10'3 (1.8-7.7); PLATELET COUNT 178 X10'3 (140-440); RED BLOOD COUNT 3.56 X10'6 (4.20-5.60); RED CELL DISTRIBUTION WIDTH 18.7 % (11.5-14.5)
[2023-10-18 05:45] LABS: ALANINE AMINOTRANSFERASE 12 U/L (12-78); ALBUMIN 2.5 G/DL (3.4-5.0); ALBUMIN/GLOBULIN RATIO 0.5 (1.1-1.5); ALKALINE PHOSPHATASE 87 IU/L (46-116); ANION GAP 11 (8-16); ASPARTATE AMINO TRANSFERASE 17 U/L (10-37); BILIRUBIN,TOTAL 0.2 MG/DL (0.1-1.0); BLOOD UREA NITROGEN 14 MG/DL (7-18); BUN/CREATININE RATIO 16.5 (10.0-20.0); CALCIUM 8.6 MG/DL (8.5-10.1); CHLORIDE 108 MMOL/L (99-107); CREATININE 0.85 MG/DL (0.40-0.90); GLUCOSE 125 MG/DL (70-104); PHOSPHORUS 4.4 MG/DL (2.3-4.5); POTASSIUM 3.6 MMOL/L (3.5-5.1); SODIUM 141 MMOL/L (135-145); TOTAL PROTEIN 7.3 G/DL (6.4-8.2); eCRCL 75 ML/MIN; eGFR 70 ML/MIN
[2023-10-18 06:00] VITALS: BP 105/57; PULSE 65; RESP 17; TEMP 97.9; O2SAT 95
[2023-10-18] MEDS: tizanidine 4mg tablet PO SCH ×2 (07:41→21:33)
[2023-10-18 08:00] VITALS: RESP 16
[2023-10-18] MEDS: heparin, porcine 5000 units/ml vial SQ SCH ×2 (08:00→21:24)
[2023-10-18] MEDS ORDERED: VANCOMYCIN LEVEL IV ONE (09:30)
[2023-10-18] MEDS: estradiol 1mg tablet PO SCH (09:34)
[2023-10-18] MEDS: pantoprazole 40mg Tablet.DR PO SCH (09:34)
[2023-10-18] MEDS: multivitamins, therapeutics tablet PO SCH (09:34)
[2023-10-18] MEDS: topiramate 100mg tablet PO SCH ×2 (09:35→21:22)
[2023-10-18] MEDS: ESCITALOPRAM 10 mg tablet 10 MG TABLET PO SCH (09:35)
[2023-10-18] MEDS: levoTHYROXINE 100mcg tablet PO SCH (09:36)
[2023-10-18] MEDS: LORazepam 0.5 MG tablet PO PRN ×2 (09:36→21:22)
[2023-10-18] MEDS: cetirizine 10mg tablet PO SCH (09:36)
[2023-10-18 10:00] VITALS: BP 124/71; PULSE 57; RESP 12; TEMP 98.4; O2SAT 92
[2023-10-18] MEDS: baclofen 10mg tablet PO PRN (16:03)
[2023-10-18 18:00] VITALS: BP 113/63; PULSE 58; RESP 20; TEMP 98; O2SAT 92
[2023-10-18] MEDS: polyethylene glycol 3350 17gm powd pack PO SCH (21:00)
[2023-10-18] MEDS: traZODone 50mg tablet PO SCH (21:32)
[2023-10-18 22:00] VITALS: BP 150/80; PULSE 70; RESP 16; TEMP 97.7; O2SAT 99
[2023-10-19] MEDS: morphine 2 MG/ML inj. syringe IV PRN ×4 (01:27→22:33)
[2023-10-19] MEDS: piperacillin/tazo 3.375gm/50ml 50 ML IV SCH ×3 (01:28→17:48)
[2023-10-19] MEDS: LORazepam 0.5 MG tablet PO PRN (04:12)
[2023-10-19] MEDS: ondansetron/PF 4mg/2ml inj IV PRN ×2 (04:12→18:02)
[2023-10-19 06:00] VITALS: BP 115/70; PULSE 59; RESP 19; TEMP 98; O2SAT 91
[2023-10-19 06:20] LABS: ALANINE AMINOTRANSFERASE 10 U/L (12-78); ALBUMIN 2.3 G/DL (3.4-5.0); ALBUMIN/GLOBULIN RATIO 0.5 (1.1-1.5); ALKALINE PHOSPHATASE 78 IU/L (46-116); ANION GAP 11 (8-16); ASPARTATE AMINO TRANSFERASE 33 U/L (10-37); BILIRUBIN,TOTAL 0.3 MG/DL (0.1-1.0); BLOOD UREA NITROGEN 13 MG/DL (7-18); BUN/CREATININE RATIO 14.4 (10.0-20.0); CALCIUM 8.4 MG/DL (8.5-10.1); CHLORIDE 107 MMOL/L (99-107); GLUCOSE 112 MG/DL (70-104); MAGNESIUM 1.8 MG/DL (1.5-2.4); PHOSPHORUS 4.1 MG/DL (2.3-4.5); POTASSIUM 3.7 MMOL/L (3.5-5.1); SODIUM 140 MMOL/L (135-145); TOTAL CARBON DIOXIDE 22.3 MMOL/L (24-32); eCRCL 71 ML/MIN; eGFR 66 ML/MIN
[2023-10-19 06:24] LABS: BASOPHILS % (AUTO) 0.5 % (0-1); EOSINOPHILS % (AUTO) 0.2 % (0-6); HEMATOCRIT 29.9 % (35.0-45.0); HEMOGLOBIN 9.5 g/dl (12.0-16.0); LYMPHOCYTES # (AUTO) 1.7 X10'3 (1.1-4.8); LYMPHOCYTES % (AUTO) 31.6 % (21-51); MEAN CORPUSCULAR HEMOGLOBIN 27.3 PG (27.0-31.0); MEAN CORPUSCULAR HGB CONC 31.8 g/dL (33.0-36.5); MEAN CORPUSCULAR VOLUME 85.9 FL (78-98); MONOCYTES # (AUTO) 0.6 X10'3 (0-0.9); MONOCYTES % (AUTO) 11.7 % (2-12); PLATELET COUNT 189 X10'3 (140-440); RED BLOOD COUNT 3.48 X10'6 (4.20-5.60); RED CELL DISTRIBUTION WIDTH 18.1 % (11.5-14.5); WHITE BLOOD COUNT 5.3 X10'3 (4.5-11.0)
[2023-10-19] MEDS: diphenhydrAMINE 25mg capsule PO SCH ×3 (07:54→17:48)
[2023-10-19] MEDS: estradiol 1mg tablet PO SCH (07:54)
[2023-10-19] MEDS: pantoprazole 40mg Tablet.DR PO SCH (07:56)
[2023-10-19] MEDS: multivitamins, therapeutics tablet PO SCH (07:56)
[2023-10-19] MEDS: levoTHYROXINE 100mcg tablet PO SCH (07:56)
[2023-10-19] MEDS: ESCITALOPRAM 10 mg tablet 10 MG TABLET PO SCH (07:56)
[2023-10-19] MEDS: cetirizine 10mg tablet PO SCH (07:57)
[2023-10-19] MEDS: tizanidine 4mg tablet PO SCH (07:57)
[2023-10-19] MEDS: topiramate 100mg tablet PO SCH ×2 (07:58→20:56)
[2023-10-19] MEDS: heparin, porcine 5000 units/ml vial SQ SCH ×2 (07:58→20:57)
[2023-10-19 08:06] VITALS: RESP 18
[2023-10-19 10:00] VITALS: BP 104/65; PULSE 59; RESP 22; TEMP 98.3; O2SAT 94
[2023-10-19] MEDS: baclofen 10mg tablet PO PRN (13:33)
[2023-10-19] MEDS ORDERED: morphine 2 MG/ML inj. syringe IV ONE (15:45)
[2023-10-19] MEDS: baclofen 10mg tablet PO SCH ×2 (17:00→20:56)
[2023-10-19] MEDS: normal saline 1000ml 1,000 ML IV SCH (17:00)
[2023-10-19 18:00] VITALS: BP 115/70; PULSE 59; RESP 19; TEMP 98; O2SAT 92
[2023-10-19 20:00] VITALS: RESP 17; O2SAT 92
[2023-10-19] MEDS: traZODone 50mg tablet PO SCH (20:57)
[2023-10-19 22:00] VITALS: BP 100/52; PULSE 61; RESP 16; TEMP 98.5; O2SAT 94
[2023-10-20] MEDS: LORazepam 1 MG tablet PO SCH ×2 (00:10→08:58)
[2023-10-20] MEDS: tizanidine 4mg tablet PO SCH ×2 (00:11→09:05)
[2023-10-20] MEDS: diphenhydrAMINE 25mg capsule PO SCH ×2 (00:11→08:00)
[2023-10-20] MEDS: piperacillin/tazo 3.375gm/50ml 50 ML IV SCH ×2 (00:12→09:18)
[2023-10-20] MEDS: morphine 2 MG/ML inj. syringe IV PRN ×2 (04:27→09:27)
[2023-10-20] MEDS: ondansetron/PF 4mg/2ml inj IV PRN (05:42)
[2023-10-20 06:00] VITALS: BP 109/55; PULSE 58; RESP 16; TEMP 98.6; O2SAT 94
[2023-10-20 07:51] LABS: BASOPHILS % (AUTO) 0.5 % (0-1); EOSINOPHILS % (AUTO) 0.1 % (0-6); HEMATOCRIT 31.9 % (35.0-45.0); HEMOGLOBIN 10.1 g/dl (12.0-16.0); LYMPHOCYTES # (AUTO) 1.7 X10'3 (1.1-4.8); LYMPHOCYTES % (AUTO) 32.8 % (21-51); MEAN CORPUSCULAR HEMOGLOBIN 27.3 PG (27.0-31.0); MEAN CORPUSCULAR HGB CONC 31.8 g/dL (33.0-36.5); MEAN CORPUSCULAR VOLUME 85.9 FL (78-98); MEAN PLATELET VOLUME 7.1 FL (7.4-10.4); MONOCYTES # (AUTO) 0.6 X10'3 (0-0.9); MONOCYTES % (AUTO) 11.9 % (2-12); NEUTROPHILS # (AUTO) 2.8 X10'3 (1.8-7.7); NEUTROPHILS % (AUTO) 54.7 % (42-75); PLATELET COUNT 209 X10'3 (140-440); RED BLOOD COUNT 3.71 X10'6 (4.20-5.60); RED CELL DISTRIBUTION WIDTH 18.3 % (11.5-14.5)
[2023-10-20] MEDS: heparin, porcine 5000 units/ml vial SQ SCH (08:00)
[2023-10-20 08:13] LABS: ALANINE AMINOTRANSFERASE 8 U/L (12-78); ALBUMIN 2.4 G/DL (3.4-5.0); ALBUMIN/GLOBULIN RATIO 0.5 (1.1-1.5); ALKALINE PHOSPHATASE 76 IU/L (46-116); ANION GAP 11 (8-16); ASPARTATE AMINO TRANSFERASE 19 U/L (10-37); BILIRUBIN,TOTAL 0.2 MG/DL (0.1-1.0); BLOOD UREA NITROGEN 13 MG/DL (7-18); BUN/CREATININE RATIO 13.4 (10.0-20.0); CALCIUM 8.6 MG/DL (8.5-10.1); CHLORIDE 107 MMOL/L (99-107); CREATININE 0.97 MG/DL (0.40-0.90); GLUCOSE 170 MG/DL (70-104); MAGNESIUM 1.8 MG/DL (1.5-2.4); PHOSPHORUS 4.1 MG/DL (2.3-4.5); POTASSIUM 3.8 MMOL/L (3.5-5.1); SODIUM 138 MMOL/L (135-145); TOTAL CARBON DIOXIDE 19.6 MMOL/L (24-32); TOTAL PROTEIN 7.3 G/DL (6.4-8.2); eCRCL 66 ML/MIN; eGFR 60 ML/MIN
[2023-10-20] MEDS: ESCITALOPRAM 10 mg tablet 10 MG TABLET PO SCH (09:01)
[2023-10-20] MEDS: pantoprazole 40mg Tablet.DR PO SCH (09:02)
[2023-10-20] MEDS: baclofen 10mg tablet PO SCH (09:02)
[2023-10-20] MEDS: levoTHYROXINE 100mcg tablet PO SCH (09:03)
[2023-10-20] MEDS: cetirizine 10mg tablet PO SCH (09:03)
[2023-10-20] MEDS: multivitamins, therapeutics tablet PO SCH (09:04)
[2023-10-20] MEDS: topiramate 100mg tablet PO SCH (09:18)
[2023-10-20] MEDS: estradiol 1mg tablet PO SCH (09:19)
[2023-10-20 10:30] VITALS: BP 108/53; PULSE 57; RESP 18; TEMP 97.3; O2SAT 95
[2023-10-20] MEDS ORDERED: AMOX-117 PO (13:15)
[2023-10-20 13:49] VITALS: RESP 16
== END 2023-10-20 14:55 | disposition home health service (06) | DRG 383 ==
LOC: ER 16:17 → ED HOLD 10-16 08:17 → ORTHO 4S 10-17 09:18
PROVIDERS: ADMIT Family Medicine; ATTEND Family Medicine
PROC: B4201ZZ Computerized Tomography (CT Scan) of Abdominal Aorta using Low Osmolar Contrast (ICD-10-PCS; principal; 2023-10-16)
PROC: B4241ZZ Computerized Tomography (CT Scan) of Superior Mesenteric Artery using Low Osmolar Contrast (ICD-10-PCS; 2023-10-16)
PROC: B4281ZZ Computerized Tomography (CT Scan) of Bilateral Renal Arteries using Low Osmolar Contrast (ICD-10-PCS; 2023-10-16)
PROC: B42H1ZZ Computerized Tomography (CT Scan) of Bilateral Lower Extremity Arteries using Low Osmolar Contrast (ICD-10-PCS; 2023-10-16)
PROC: B4211ZZ Computerized Tomography (CT Scan) of Celiac Artery using Low Osmolar Contrast (ICD-10-PCS; 2023-10-16)
PROC: B42H1ZZ Computerized Tomography (CT Scan) of Bilateral Lower Extremity Arteries using Low Osmolar Contrast (ICD-10-PCS; 2023-10-16)
DX: L03.116 Cellulitis of left lower limb (principal); N17.9 Acute kidney failure, unspecified; L97.519 Non-pressure chronic ulcer of other part of right foot with unspecified severity; E03.9 Hypothyroidism, unspecified; F17.210 Nicotine dependence, cigarettes, uncomplicated; L97.529 Non-pressure chronic ulcer of other part of left foot with unspecified severity; L89.899 Pressure ulcer of other site, unspecified stage; L03.115 Cellulitis of right lower limb; K21.9 Gastro-esophageal reflux disease without esophagitis; F41.9 Anxiety disorder, unspecified; G62.9 Polyneuropathy, unspecified; G43.909 Migraine, unspecified, not intractable, without status migrainosus; N18.2 Chronic kidney disease, stage 2 (mild); J45.909 Unspecified asthma, uncomplicated; R73.03 Prediabetes; E66.01 Morbid (severe) obesity due to excess calories; M77.30 Calcaneal spur, unspecified foot; F31.9 Bipolar disorder, unspecified; G89.4 Chronic pain syndrome; D64.9 Anemia, unspecified; Z90.710 Acquired absence of both cervix and uterus; Z98.1 Arthrodesis status; Z90.49 Acquired absence of other specified parts of digestive tract; Z87.440 Personal history of urinary (tract) infections; Z87.442 Personal history of urinary calculi; Z82.49 Family history of ischemic heart disease and other diseases of the circulatory system; Z82.3 Family history of stroke; Z84.89 Family history of other specified conditions; Z88.8 Allergy status to other drugs, medicaments and biological substances; Z88.1 Allergy status to other antibiotic agents; Z79.899 Other long term (current) drug therapy; Z56.0 Unemployment, unspecified; Z68.34 Body mass index [BMI] 34.0-34.9, adult; Z99.3 Dependence on wheelchair
CPT/HCPCS: 36415; 71045; 73630; 75635; 80053; 80061; 80202; 81003; 82728; 83540; 83550; 83605; 83735; 83880; 84100; 84145; 84443; 84484; 85025; 85651; 86140; 87040; 87081; 92508; 92616; 93005; 96374; 96375; 99285; A4649; A6196; A6261; A6446; A6449; G0378; J1644; J2270; J2405; J2543; J3370; J7030; J7040; J7050; Q0163

== ENCOUNTER 2023-11-17 14:33 | Inpatient (IN) | payer MEDICAID ==
[~2023-11-17] VITALS: Ht 170.2 cm; Wt 108.0 kg
[~2023-11-17 14:33] MED LIST changes: -CHOL200052 PO; -CYAN500T71 PO; -PER5325T PO; +TAPE50TA9 PO
[2023-11-17] MEDS: CefTRIAXone 2gm/D5W 50ml BAG 50 ML IV ONE (17:09)
[2023-11-17] MEDS: normal saline 1000ML IV soln IVB ONE (17:09)
[2023-11-17] MEDS: ondansetron/PF 4mg/2ml inj IV ONE (17:09)
[2023-11-17] MEDS: acetaminophen 1,000mg/100ml IV 100 ML IV STA (17:10)
[2023-11-17 18:14] LABS: BASOPHILS % (AUTO) 0.6 % (0-1); EOSINOPHILS % (AUTO) 0.1 % (0-6); HEMATOCRIT 31.4 % (35.0-45.0); HEMOGLOBIN 10.2 g/dl (12.0-16.0); LYMPHOCYTES # (AUTO) 1.6 X10'3 (1.1-4.8); LYMPHOCYTES % (AUTO) 28.6 % (21-51); MEAN CORPUSCULAR HEMOGLOBIN 27.5 PG (27.0-31.0); MEAN CORPUSCULAR HGB CONC 32.5 g/dL (33.0-36.5); MEAN CORPUSCULAR VOLUME 84.7 FL (78-98); MEAN PLATELET VOLUME 6.8 FL (7.4-10.4); MONOCYTES # (AUTO) 0.8 X10'3 (0-0.9); MONOCYTES % (AUTO) 14.5 % (2-12); NEUTROPHILS # (AUTO) 3.2 X10'3 (1.8-7.7); NEUTROPHILS % (AUTO) 56.2 % (42-75); PLATELET COUNT 221 X10'3 (140-440); RED BLOOD COUNT 3.71 X10'6 (4.20-5.60); RED CELL DISTRIBUTION WIDTH 18.2 % (11.5-14.5); WHITE BLOOD COUNT 5.6 X10'3 (4.5-11.0)
[2023-11-17 18:25] LABS: ALBUMIN 2.7 G/DL (3.4-5.0); ANION GAP 6 (8-16); BLOOD UREA NITROGEN 17 MG/DL (7-18); BUN/CREATININE RATIO 19.8 (10.0-20.0); CHLORIDE 111 MMOL/L (99-107); CREATININE 0.86 MG/DL (0.40-0.90); GLUCOSE 127 MG/DL (70-104); MAGNESIUM 1.7 MG/DL (1.5-2.4); POTASSIUM 3.9 MMOL/L (3.5-5.1); SODIUM 144 MMOL/L (135-145); eCRCL 74 ML/MIN; eGFR 69 ML/MIN
[2023-11-17] MEDS ORDERED: mag hydrox/Alum hydrox/simeth 30ml oral suspension PO PRN (20:55)
[2023-11-17] MEDS ORDERED: ondansetron/PF 4mg/2ml inj IV PRN (20:55)
[2023-11-17] MEDS ORDERED: acetaminophen 650mg rectal suppository RC PRN (20:55)
[2023-11-17] MEDS ORDERED: HYDROcodone/acetaminophen 5mg/325mg tablet PO PRN (20:55)
[2023-11-17] MEDS ORDERED: diphenhydrAMINE 50 mg/ml inj IV PRN (20:55)
[2023-11-17] MEDS ORDERED: ondansetron 4mg rapidly disintigrating tab PO PRN (20:55)
[2023-11-17] MEDS ORDERED: magnesium hydroxide 30ml (MOM) UD suspension PO PRN (20:55)
[2023-11-17] MEDS ORDERED: acetaminophen 325mg tablet PO PRN ×2 (20:55)
[2023-11-17] MEDS ORDERED: diphenhydrAMINE 25mg capsule PO PRN (20:55)
[2023-11-17] MEDS ORDERED: temazepam 15mg capsule PO PRN (21:00)
[2023-11-17] MEDS: normal saline 1000ml 1,000 ML IV SCH (21:32)
[2023-11-17] MEDS: HYDROcodone/acetaminophen 10/325mg tab PO PRN (21:41)
[2023-11-17 22:30] VITALS: BP 130/70; PULSE 69; RESP 16; TEMP 97.4; O2SAT 95
[2023-11-18 04:20] VITALS: BP 112/58; PULSE 63; RESP 20; O2SAT 95
[2023-11-18] MEDS: morphine 2 MG/ML inj. syringe IV PRN (04:23)
[2023-11-18 06:00] VITALS: BP 104/65; PULSE 65; RESP 13; TEMP 96.6; O2SAT 93
[2023-11-18 06:53] LABS: BASOPHILS % (AUTO) 0.4 % (0-1); EOSINOPHILS % (AUTO) 0.1 % (0-6); HEMATOCRIT 32.9 % (35.0-45.0); HEMOGLOBIN 10.6 g/dl (12.0-16.0); LYMPHOCYTES # (AUTO) 1.3 X10'3 (1.1-4.8); LYMPHOCYTES % (AUTO) 29.2 % (21-51); MEAN CORPUSCULAR HEMOGLOBIN 27.5 PG (27.0-31.0); MEAN CORPUSCULAR VOLUME 85.7 FL (78-98); MONOCYTES # (AUTO) 0.7 X10'3 (0-0.9); MONOCYTES % (AUTO) 15.4 % (2-12); NEUTROPHILS # (AUTO) 2.5 X10'3 (1.8-7.7); NEUTROPHILS % (AUTO) 54.9 % (42-75); PLATELET COUNT 208 X10'3 (140-440); RED BLOOD COUNT 3.84 X10'6 (4.20-5.60); RED CELL DISTRIBUTION WIDTH 18.4 % (11.5-14.5); WHITE BLOOD COUNT 4.5 X10'3 (4.5-11.0)
[2023-11-18 07:10] LABS: APTT 33 SECONDS (22-32); PROTHROMBIN TIME 10.7 SECONDS (9.0-12.0)
[2023-11-18 07:23] LABS: BILIRUBIN,URINE NEGATIVE (Neg); CLARITY,URINE CLEAR (Clear); COLOR,URINE YELLOW (Yellow); GLUCOSE, URINE NEGATIVE (Neg); KETONES,URINE NEGATIVE (Neg); LEUKOCYTE ESTERASE ,URINE NEGATIVE (Neg); NITRITES, URINE NEGATIVE (Neg); OCCULT BLOOD,URINE NEGATIVE (Neg); PH,URINE 6.5 (4.8-8.0); PROTEIN,URINE NEGATIVE (Neg); UROBILINOGEN,URINE 0.2 E.U/dL (0.2-1.0)
[2023-11-18 07:28] LABS: ALANINE AMINOTRANSFERASE 19 U/L (12-78); ALBUMIN 2.6 G/DL (3.4-5.0); ALBUMIN/GLOBULIN RATIO 0.7 (1.1-1.5); ALKALINE PHOSPHATASE 79 IU/L (46-116); ANION GAP 7 (8-16); ASPARTATE AMINO TRANSFERASE 19 U/L (10-37); BILIRUBIN,TOTAL 0.2 MG/DL (0.1-1.0); BLOOD UREA NITROGEN 13 MG/DL (7-18); CALCIUM 8.3 MG/DL (8.5-10.1); CHLORIDE 115 MMOL/L (99-107); CREATININE 0.81 MG/DL (0.40-0.90); GLUCOSE 98 MG/DL (70-104); MAGNESIUM 1.9 MG/DL (1.5-2.4); PHOSPHORUS 3.5 MG/DL (2.3-4.5); POTASSIUM 3.9 MMOL/L (3.5-5.1); PRO BRAIN NATRIURETIC PEPTIDE 107 PG/ML (0-125); SODIUM 146 MMOL/L (135-145); TOTAL CARBON DIOXIDE 24.2 MMOL/L (24-32); TOTAL PROTEIN 6.6 G/DL (6.4-8.2); eCRCL 79 ML/MIN; eGFR 74 ML/MIN
[2023-11-18 07:28] LABS: UA COLLECTION TYPE NON-SPECIFIED
[2023-11-18 07:54] LABS: ANISOCYTOSIS 2+; LARGE PLATELETS FEW; PLATELET ESTIMATE NORMAL; TOTAL CELLS COUNTED 100
[2023-11-18 08:00] LABS: ELLIPTOCYTES FEW; TEAR DROP CELLS FEW
[2023-11-18] MEDS ORDERED: vancomycin inj 1,000 MG in normal saline 250ml IV soln 250 ML IV ONE (08:45)
[2023-11-18] MEDS: CefTRIAXone/D5W-Rocephin 1gm 50 ML IV SCH (10:14)
[2023-11-18] MEDS: docusate sod 100mg capsule PO SCH (10:18)
[2023-11-18] MEDS: heparin, porcine 5000 units/ml vial SQ SCH (10:20)
[2023-11-18 10:30] VITALS: BP 122/74; PULSE 70; RESP 16; TEMP 97.6
[2023-11-18] MEDS: vancomycin/NS 1 GM ADD-VANTAGE 250 ML IV SCH (11:20)
[2023-11-18] MEDS ORDERED: morphine 2 MG/ML inj. syringe IV ONE (15:15)
[2023-11-18 16:01] VITALS: RESP 16
[2023-11-19] MEDS ORDERED: VANCOMYCIN LEVEL IJ ONE (09:30)
[2023-11-20 06:14] LABS: HBSAG SCREEN Negative (Negative); HEP B CORE AB, IGM Negative (Negative); HEP B CORE AB, TOT Negative (Negative)
== END 2023-11-18 15:45 | disposition home health service (06) | DRG 383 ==
LOC: ER 14:34 → ED HOLD 20:59 → ORTHO 4S 23:00
PROVIDERS: ADMIT Family Medicine; ATTEND Family Medicine
DX: L03.115 Cellulitis of right lower limb (principal); E11.42 Type 2 diabetes mellitus with diabetic polyneuropathy; E11.621 Type 2 diabetes mellitus with foot ulcer; L97.509 Non-pressure chronic ulcer of other part of unspecified foot with unspecified severity; S81.801A Unspecified open wound, right lower leg, initial encounter; S81.802A Unspecified open wound, left lower leg, initial encounter; E03.9 Hypothyroidism, unspecified; L03.116 Cellulitis of left lower limb; F31.9 Bipolar disorder, unspecified; F41.9 Anxiety disorder, unspecified; G47.00 Insomnia, unspecified; G89.4 Chronic pain syndrome; J44.9 Chronic obstructive pulmonary disease, unspecified; G43.909 Migraine, unspecified, not intractable, without status migrainosus; M79.7 Fibromyalgia; K21.9 Gastro-esophageal reflux disease without esophagitis; E66.9 Obesity, unspecified; L30.9 Dermatitis, unspecified; X58.XXXA Exposure to other specified factors, initial encounter; Y93.89 Activity, other specified; Y92.89 Other specified places as the place of occurrence of the external cause; Y99.8 Other external cause status; Z68.37 Body mass index [BMI] 37.0-37.9, adult; Z87.442 Personal history of urinary calculi; Z99.3 Dependence on wheelchair; Z82.49 Family history of ischemic heart disease and other diseases of the circulatory system; Z90.49 Acquired absence of other specified parts of digestive tract; Z90.710 Acquired absence of both cervix and uterus; Z88.1 Allergy status to other antibiotic agents; Z88.8 Allergy status to other drugs, medicaments and biological substances; Z91.018 Allergy to other foods; Z91.041 Radiographic dye allergy status; Z98.1 Arthrodesis status; Z79.899 Other long term (current) drug therapy
CPT/HCPCS: 36415; 73502; 73630; 80048; 80053; 81003; 82948; 83605; 83735; 83880; 84100; 84145; 85007; 85025; 85610; 85730; 86704; 86705; 87040; 87081; 87340; 99285; G0378; J0131; J0696; J2270; J2405; J3370; J7030

== ENCOUNTER 2023-12-21 19:37 | Emergency (ER) | payer MEDICAID ==
[~2023-12-21] VITALS: Ht 162.6 cm; Wt 70.0 kg
[2023-12-22 00:07] VITALS: TEMP 97.8
[2023-12-22] MEDS ORDERED: ketorolac trometh. 30mg/ml inj. ONE (01:05)
[2023-12-22] MEDS ORDERED: morphine 10mg/ml inj. ONE (01:13)
[2023-12-22] MEDS: morphine 10mg/ml inj. IM ONE (01:20)
[2023-12-22] MEDS: ketorolac trometh. 30mg/ml inj. IM ONE (01:20)
[2023-12-22] MEDS ORDERED: ketorolac tromethamine 15mg/ml inj. IM ONE (01:25)
[2023-12-22 01:26] VITALS: BP 100/51; PULSE 63; RESP 16; O2SAT 98
== END 2023-12-22 01:29 | disposition home or self-care (01) ==
LOC: ER 19:37
DX: G89.29 Other chronic pain (principal); G43.909 Migraine, unspecified, not intractable, without status migrainosus; K21.9 Gastro-esophageal reflux disease without esophagitis; E03.9 Hypothyroidism, unspecified; Z88.1 Allergy status to other antibiotic agents; Z88.8 Allergy status to other drugs, medicaments and biological substances; Z79.899 Other long term (current) drug therapy; Z90.710 Acquired absence of both cervix and uterus
CPT/HCPCS: 96372; 99284; J1885; J2274

== ENCOUNTER 2024-01-18 21:04 | Emergency (ER) | payer MEDICAID ==
[~2024-01-18] VITALS: Ht 170.2 cm; Wt 90.9 kg
[2024-01-18 21:11] VITALS: TEMP 97.5
[2024-01-18] MEDS: ondansetron 4mg rapidly disintigrating tab PO ONE (23:15)
[2024-01-18] MEDS: HYDROmorphone 1 mg/ml syringe IM ONE (23:34)
[2024-01-19 00:12] VITALS: BP 101/52; PULSE 64; RESP 14; O2SAT 98
== END 2024-01-19 00:14 | disposition home or self-care (01) ==
LOC: ER 21:04
DX: G89.29 Other chronic pain (principal); M79.2 Neuralgia and neuritis, unspecified; G43.909 Migraine, unspecified, not intractable, without status migrainosus; J45.909 Unspecified asthma, uncomplicated; K21.9 Gastro-esophageal reflux disease without esophagitis; E03.9 Hypothyroidism, unspecified; Z88.1 Allergy status to other antibiotic agents; Z88.8 Allergy status to other drugs, medicaments and biological substances; Z79.899 Other long term (current) drug therapy; Z79.2 Long term (current) use of antibiotics; Z98.890 Other specified postprocedural states; Z90.49 Acquired absence of other specified parts of digestive tract; Z90.710 Acquired absence of both cervix and uterus
CPT/HCPCS: 96372; 99284; J1170

== ENCOUNTER 2024-01-23 09:31 | Inpatient (IN) | payer MEDICAID ==
[~2024-01-23] VITALS: Ht 170.2 cm; Wt 102.3 kg
[2024-01-23 15:48] LABS: BASOPHILS % (AUTO) 0.6 % (0-1); EOSINOPHILS % (AUTO) 0.1 % (0-6); HEMATOCRIT 29.2 % (35.0-45.0); HEMOGLOBIN 9.3 g/dl (12.0-16.0); LYMPHOCYTES # (AUTO) 1.6 X10'3 (1.1-4.8); LYMPHOCYTES % (AUTO) 26.3 % (21-51); MEAN CORPUSCULAR HEMOGLOBIN 25.6 PG (27.0-31.0); MEAN CORPUSCULAR VOLUME 79.9 FL (78-98); MEAN PLATELET VOLUME 6.4 FL (7.4-10.4); MONOCYTES # (AUTO) 1.1 X10'3 (0-0.9); NEUTROPHILS # (AUTO) 3.5 X10'3 (1.8-7.7); PLATELET COUNT 322 X10'3 (140-440); RED BLOOD COUNT 3.65 X10'6 (4.20-5.60); RED CELL DISTRIBUTION WIDTH 17.7 % (11.5-14.5); WHITE BLOOD COUNT 6.3 X10'3 (4.5-11.0)
[2024-01-23 16:03] LABS: ALANINE AMINOTRANSFERASE 14 U/L (12-78); ALBUMIN 2.3 G/DL (3.4-5.0); ALBUMIN/GLOBULIN RATIO 0.5 (1.1-1.5); ALKALINE PHOSPHATASE 76 IU/L (46-116); ANION GAP 8 (8-16); ASPARTATE AMINO TRANSFERASE 10 U/L (10-37); BILIRUBIN,TOTAL 0.1 MG/DL (0.1-1.0); BLOOD UREA NITROGEN 13 MG/DL (7-18); BUN/CREATININE RATIO 14.3 (10.0-20.0); C-REACTIVE PROTEIN 2.78 MG/DL (0.0-0.5); CALCIUM 7.9 MG/DL (8.5-10.1); CHLORIDE 105 MMOL/L (99-107); CREATININE 0.91 MG/DL (0.40-0.90); GLUCOSE 265 MG/DL (70-104); POTASSIUM 3.5 MMOL/L (3.5-5.1); SODIUM 136 MMOL/L (135-145); TOTAL CARBON DIOXIDE 23.3 MMOL/L (24-32); eCRCL 70 ML/MIN; eGFR 65 ML/MIN
[2024-01-23 16:33] LABS: TOTAL CELLS COUNTED 100
[2024-01-23 16:34] LABS: ANISOCYTOSIS 1+; MICROCYTOSIS 1+; PLATELET ESTIMATE NORMAL
[2024-01-23 16:35] LABS: ELLIPTOCYTES FEW; TEAR DROP CELLS FEW
[2024-01-23] MEDS ORDERED: morphine 2 MG/ML inj. syringe IV PRN (17:50)
[2024-01-23] MEDS ORDERED: bisacodyl 10mg suppository rectal RC PRN (17:50)
[2024-01-23] MEDS ORDERED: diphenhydrAMINE 50 mg/ml inj IV PRN (17:50)
[2024-01-23] MEDS ORDERED: mag hydrox/Alum hydrox/simeth 30ml oral suspension PO PRN (17:50)
[2024-01-23] MEDS ORDERED: magnesium hydroxide 30ml (MOM) UD suspension PO PRN (17:50)
[2024-01-23] MEDS ORDERED: ondansetron 4mg rapidly disintigrating tab PO PRN (17:50)
[2024-01-23] MEDS ORDERED: diphenhydrAMINE 25mg capsule PO PRN (17:50)
[2024-01-23] MEDS ORDERED: HYDROcodone/acetaminophen 5mg/325mg tablet PO PRN (17:50)
[2024-01-23] MEDS ORDERED: acetaminophen 650mg rectal suppository RC PRN (17:50)
[2024-01-23] MEDS: normal saline 1000ml 1,000 ML IV SCH (18:16)
[2024-01-23] MEDS: HYDROcodone/acetaminophen 10/325mg tab PO PRN (18:16)
[2024-01-23 19:00] LABS: MAGNESIUM 1.7 MG/DL (1.5-2.4); PHOSPHORUS 2.9 MG/DL (2.3-4.5); PRO BRAIN NATRIURETIC PEPTIDE 111 PG/ML (0-125)
[2024-01-23 19:13] LABS: APTT 28 SECONDS (22-32); PROTHROMBIN TIME 10.9 SECONDS (9.0-12.0)
[2024-01-23 20:00] VITALS: BP 112/65; PULSE 56; RESP 15; TEMP 97.5; O2SAT 97
[2024-01-23] MEDS ORDERED: vancomycin/NS 1 GM ADD-VANTAGE 250 ML IV SCH (20:00)
[2024-01-23] MEDS ORDERED: temazepam 15mg capsule PO PRN (21:00)
[2024-01-23] MEDS: docusate sod 100mg capsule PO SCH (21:06)
[2024-01-23] MEDS: morphine 2 MG/ML inj. syringe IV PRN (21:08)
[2024-01-23 22:00] VITALS: BP 105/56; PULSE 56; RESP 15; TEMP 97.8; O2SAT 97
[2024-01-23] MEDS: vancomycin/NS 1 GM ADD-VANTAGE 250 ML IV SCH (22:37)
[2024-01-24 06:00] VITALS: BP 112/55; PULSE 62; RESP 16; TEMP 98.3; O2SAT 96
[2024-01-24 06:40] LABS: BASOPHILS # (AUTO) 0.1 X10'3 (0-0.2); BASOPHILS % (AUTO) 0.7 % (0-1); EOSINOPHILS % (AUTO) 0.1 % (0-6); HEMATOCRIT 31.3 % (35.0-45.0); LYMPHOCYTES # (AUTO) 1.1 X10'3 (1.1-4.8); MEAN CORPUSCULAR HEMOGLOBIN 25.2 PG (27.0-31.0); MEAN CORPUSCULAR VOLUME 78.9 FL (78-98); MEAN PLATELET VOLUME 6.6 FL (7.4-10.4); MONOCYTES # (AUTO) 0.8 X10'3 (0-0.9); MONOCYTES % (AUTO) 10.5 % (2-12); NEUTROPHILS # (AUTO) 5.8 X10'3 (1.8-7.7); NEUTROPHILS % (AUTO) 74.7 % (42-75); PLATELET COUNT 318 X10'3 (140-440); RED BLOOD COUNT 3.97 X10'6 (4.20-5.60); RED CELL DISTRIBUTION WIDTH 17.9 % (11.5-14.5); WHITE BLOOD COUNT 7.7 X10'3 (4.5-11.0)
[2024-01-24 06:58] LABS: ALANINE AMINOTRANSFERASE 15 U/L (12-78); ALBUMIN 2.5 G/DL (3.4-5.0); ALBUMIN/GLOBULIN RATIO 0.5 (1.1-1.5); ANION GAP 8 (8-16); ASPARTATE AMINO TRANSFERASE 14 U/L (10-37); BILIRUBIN,TOTAL 0.2 MG/DL (0.1-1.0); BLOOD UREA NITROGEN 11 MG/DL (7-18); BUN/CREATININE RATIO 13.1 (10.0-20.0); CALCIUM 8.5 MG/DL (8.5-10.1); CHLORIDE 109 MMOL/L (99-107); CREATININE 0.84 MG/DL (0.40-0.90); GLUCOSE 130 MG/DL (70-104); SODIUM 144 MMOL/L (135-145); TOTAL CARBON DIOXIDE 26.8 MMOL/L (24-32); TOTAL PROTEIN 7.5 G/DL (6.4-8.2); eCRCL 75 ML/MIN; eGFR 71 ML/MIN
[2024-01-24 06:59] LABS: ALKALINE PHOSPHATASE 93 IU/L (46-116)
[2024-01-24 08:10] VITALS: RESP 16; O2SAT 96
[2024-01-24] MEDS: CefTRIAXone 2gm/D5W 50ml BAG 50 ML IV SCH (08:10)
[2024-01-24 10:00] VITALS: BP 102/54; PULSE 87; RESP 16; TEMP 97.3; O2SAT 94
[2024-01-24 18:00] VITALS: BP 110/59; PULSE 84; RESP 22; TEMP 98.4; O2SAT 95
[2024-01-24] MEDS: vancomycin/NS 1 GM ADD-VANTAGE 250 ML IV SCH (19:27)
[2024-01-24 20:00] VITALS: RESP 22; O2SAT 95
[2024-01-24] MEDS: ondansetron/PF 4mg/2ml inj IV PRN (21:31)
[2024-01-24 22:00] VITALS: BP 139/75; PULSE 63; RESP 16; TEMP 98; O2SAT 93
[2024-01-25 06:00] VITALS: BP 108/66; PULSE 83; RESP 16; TEMP 97.8; O2SAT 93
[2024-01-25 06:48] LABS: BASOPHILS # (AUTO) 0.1 X10'3 (0-0.2); EOSINOPHILS % (AUTO) 0.1 % (0-6); HEMATOCRIT 29.8 % (35.0-45.0); HEMOGLOBIN 9.7 g/dl (12.0-16.0); LYMPHOCYTES # (AUTO) 1.3 X10'3 (1.1-4.8); LYMPHOCYTES % (AUTO) 22.4 % (21-51); MEAN CORPUSCULAR HEMOGLOBIN 25.6 PG (27.0-31.0); MEAN CORPUSCULAR HGB CONC 32.7 g/dL (33.0-36.5); MEAN CORPUSCULAR VOLUME 78.3 FL (78-98); MEAN PLATELET VOLUME 6.6 FL (7.4-10.4); MONOCYTES # (AUTO) 0.8 X10'3 (0-0.9); MONOCYTES % (AUTO) 13.8 % (2-12); NEUTROPHILS # (AUTO) 3.6 X10'3 (1.8-7.7); NEUTROPHILS % (AUTO) 62.7 % (42-75); PLATELET COUNT 313 X10'3 (140-440); RED CELL DISTRIBUTION WIDTH 17.9 % (11.5-14.5); WHITE BLOOD COUNT 5.8 X10'3 (4.5-11.0)
[2024-01-25 07:10] LABS: ALANINE AMINOTRANSFERASE 12 U/L (12-78); ALBUMIN 2.2 G/DL (3.4-5.0); ALBUMIN/GLOBULIN RATIO 0.5 (1.1-1.5); ALKALINE PHOSPHATASE 101 IU/L (46-116); ANION GAP 9 (8-16); ASPARTATE AMINO TRANSFERASE 14 U/L (10-37); BILIRUBIN,TOTAL 0.2 MG/DL (0.1-1.0); BLOOD UREA NITROGEN 11 MG/DL (7-18); BUN/CREATININE RATIO 12.9 (10.0-20.0); CALCIUM 8.2 MG/DL (8.5-10.1); CHLORIDE 109 MMOL/L (99-107); CREATININE 0.85 MG/DL (0.40-0.90); GLUCOSE 157 MG/DL (70-104); POTASSIUM 3.6 MMOL/L (3.5-5.1); SODIUM 142 MMOL/L (135-145); TOTAL CARBON DIOXIDE 24.3 MMOL/L (24-32); TOTAL PROTEIN 6.9 G/DL (6.4-8.2); eCRCL 74 ML/MIN; eGFR 70 ML/MIN
[2024-01-25 08:56] LABS: ANISOCYTOSIS 1+; HYPOCHROMASIA 1+; MICROCYTOSIS 1+; PLATELET ESTIMATE NORMAL; TOTAL CELLS COUNTED 100
[2024-01-25 08:57] LABS: ELLIPTOCYTES FEW; POLYCHROMASIA 1+
[2024-01-25] MEDS ORDERED: albuterol 2.5 MG/3 ML nebule NEB PRN (09:10)
[2024-01-25] MEDS ORDERED: dicyclomine 10 MG capsule PO PRN (09:10)
[2024-01-25] MEDS ORDERED: docusate sod 100mg capsule PO PRN (09:10)
[2024-01-25] MEDS ORDERED: ondansetron 4mg rapidly disintigrating tab PO PRN (09:10)
[2024-01-25 10:06] VITALS: BP 131/67; PULSE 71; RESP 20; TEMP 98.3; O2SAT 93
[2024-01-25] MEDS: VANCOMYCIN LEVEL IV ONE (11:55)
[2024-01-25] MEDS: baclofen 10mg tablet PO PRN (12:40)
[2024-01-25] MEDS: LORazepam 0.5 MG tablet PO PRN (14:03)
[2024-01-25 18:18] VITALS: BP 130/71; PULSE 60; RESP 16; TEMP 98.9; O2SAT 93
[2024-01-25 20:00] VITALS: RESP 17; O2SAT 94
[2024-01-25] MEDS: TAPENTADOL HCL 50 MG PO SCH (20:00)
[2024-01-25] MEDS: topiramate 100mg tablet PO SCH (20:23)
[2024-01-25] MEDS: tizanidine 4mg tablet PO SCH (20:24)
[2024-01-25] MEDS: traZODone 50mg tablet PO SCH (20:25)
[2024-01-25 22:00] VITALS: BP 121/68; PULSE 72; RESP 17; TEMP 97.5; O2SAT 94
[2024-01-26] VITALS (22 sets, daily range): BP systolic 120–154; BP diastolic 73–94; PULSE 51–82; RESP 11–28; TEMP 97.5–98.2; O2SAT 91–100
[2024-01-26 06:42] LABS: ALANINE AMINOTRANSFERASE 16 U/L (12-78); ALBUMIN 2.2 G/DL (3.4-5.0); ALBUMIN/GLOBULIN RATIO 0.5 (1.1-1.5); ALKALINE PHOSPHATASE 97 IU/L (46-116); ANION GAP 10 (8-16); ASPARTATE AMINO TRANSFERASE 23 U/L (10-37); BILIRUBIN,TOTAL 0.2 MG/DL (0.1-1.0); BLOOD UREA NITROGEN 8 MG/DL (7-18); BUN/CREATININE RATIO 10.1 (10.0-20.0); CALCIUM 8.5 MG/DL (8.5-10.1); CHLORIDE 111 MMOL/L (99-107); CREATININE 0.79 MG/DL (0.40-0.90); GLUCOSE 211 MG/DL (70-104); POTASSIUM 3.5 MMOL/L (3.5-5.1); SODIUM 142 MMOL/L (135-145); TOTAL CARBON DIOXIDE 21.4 MMOL/L (24-32); TOTAL PROTEIN 6.9 G/DL (6.4-8.2); eCRCL 80 ML/MIN; eGFR 76 ML/MIN
[2024-01-26 06:57] LABS: BASOPHILS # (AUTO) 0.1 X10'3 (0-0.2); BASOPHILS % (AUTO) 0.9 % (0-1); EOSINOPHILS % (AUTO) 0.1 % (0-6); HEMATOCRIT 30.3 % (35.0-45.0); HEMOGLOBIN 9.6 g/dl (12.0-16.0); LYMPHOCYTES # (AUTO) 1.4 X10'3 (1.1-4.8); MEAN CORPUSCULAR HEMOGLOBIN 25.2 PG (27.0-31.0); MEAN CORPUSCULAR HGB CONC 31.9 g/dL (33.0-36.5); MEAN PLATELET VOLUME 6.6 FL (7.4-10.4); MONOCYTES # (AUTO) 0.7 X10'3 (0-0.9); MONOCYTES % (AUTO) 12.8 % (2-12); NEUTROPHILS # (AUTO) 3.5 X10'3 (1.8-7.7); NEUTROPHILS % (AUTO) 61.2 % (42-75); PLATELET COUNT 309 X10'3 (140-440); RED BLOOD COUNT 3.84 X10'6 (4.20-5.60); RED CELL DISTRIBUTION WIDTH 17.8 % (11.5-14.5); WHITE BLOOD COUNT 5.7 X10'3 (4.5-11.0)
[2024-01-26] MEDS: levoTHYROXINE 100mcg tablet PO SCH (06:59)
[2024-01-26] MEDS: ESCITALOPRAM 10 mg tablet 10 MG TABLET PO SCH (07:54)
[2024-01-26] MEDS: pantoprazole 40mg Tablet.DR PO SCH (07:55)
[2024-01-26] MEDS ORDERED: morphine 4 MG/ML inj SYRINge IV PRN ×2 (11:30)
[2024-01-26] MEDS ORDERED: meperidine/PF 25mg/ml syringe IV PRN (11:30)
[2024-01-26] MEDS ORDERED: hydrALAZINE 20mg/ml inj. IV PRN (11:30)
[2024-01-26] MEDS ORDERED: labetalol 20mg/4ml (5mg/ml) syringe IV PRN (11:30)
[2024-01-26] MEDS ORDERED: fentaNYL/PF 50MCG/1 ML 2ML syringe IV PRN (11:30)
[2024-01-26] MEDS ORDERED: ondansetron/PF 4mg/2ml inj IV PRN (11:30)
[2024-01-26] MEDS ORDERED: morphine 2 MG/ML inj. syringe IV PRN (11:30)
[2024-01-26] MEDS ORDERED: cloNIDine hcl/PF 100mcg/ml inj ONE (11:44)
[2024-01-26] MEDS ORDERED: fentaNYL/PF 50MCG/1 ML 2ML syringe ONE (11:45)
[2024-01-26] MEDS ORDERED: sevoflurane 250ml liquid IH ONE (11:54)
[2024-01-26] MEDS: BUPIVAcaine/PF 2.5mg/ml (0.25%) 10ml vial ONE (12:24)
[2024-01-26] MEDS ORDERED: ondansetron/PF 4mg/2ml inj ONE (12:31)
[2024-01-26] MEDS ORDERED: propofol inj 20 ML IV ONE (12:31)
[2024-01-26] MEDS ORDERED: LIDOcaine 2% (20mg/ml) 5ml vial ONE (12:31)
[2024-01-26] MEDS ORDERED: ROPIVAcaine 0.5% (5mg/ml) 30ml vial ONE (12:31)
[2024-01-26] MEDS ORDERED: midazolam 1 mg/ML 2ml injection ONE (12:31)
[2024-01-26] MEDS: fentaNYL/PF 50MCG/1 ML 2ML syringe IV PRN (13:09)
[2024-01-26] MEDS: ringers solution, lacted 1,000 ML IV SCH (14:58)
[2024-01-26] MEDS: diphenhydrAMINE 25mg capsule PO SCH (16:00)
[2024-01-26] MEDS: morphine 4 MG/ML inj SYRINge IV PRN (23:47)
[2024-01-27 06:43] LABS: BASOPHILS % (AUTO) 0.5 % (0-1); EOSINOPHILS % (AUTO) 0.1 % (0-6); HEMATOCRIT 31.3 % (35.0-45.0); HEMOGLOBIN 9.9 g/dl (12.0-16.0); LYMPHOCYTES # (AUTO) 1.5 X10'3 (1.1-4.8); LYMPHOCYTES % (AUTO) 19.3 % (21-51); MEAN CORPUSCULAR HEMOGLOBIN 25.2 PG (27.0-31.0); MEAN CORPUSCULAR HGB CONC 31.6 g/dL (33.0-36.5); MEAN CORPUSCULAR VOLUME 79.8 FL (78-98); MEAN PLATELET VOLUME 6.5 FL (7.4-10.4); MONOCYTES # (AUTO) 0.8 X10'3 (0-0.9); MONOCYTES % (AUTO) 10.3 % (2-12); NEUTROPHILS # (AUTO) 5.5 X10'3 (1.8-7.7); NEUTROPHILS % (AUTO) 69.8 % (42-75); PLATELET COUNT 320 X10'3 (140-440); RED BLOOD COUNT 3.92 X10'6 (4.20-5.60); WHITE BLOOD COUNT 7.9 X10'3 (4.5-11.0)
[2024-01-27 06:53] LABS: ALANINE AMINOTRANSFERASE 19 U/L (12-78); ALBUMIN 2.4 G/DL (3.4-5.0); ALBUMIN/GLOBULIN RATIO 0.5 (1.1-1.5); ALKALINE PHOSPHATASE 90 IU/L (46-116); ANION GAP 10 (8-16); ASPARTATE AMINO TRANSFERASE 20 U/L (10-37); BILIRUBIN,TOTAL 0.2 MG/DL (0.1-1.0); BLOOD UREA NITROGEN 9 MG/DL (7-18); BUN/CREATININE RATIO 10.2 (10.0-20.0); CHLORIDE 109 MMOL/L (99-107); CREATININE 0.88 MG/DL (0.40-0.90); GLUCOSE 198 MG/DL (70-104); POTASSIUM 3.8 MMOL/L (3.5-5.1); SODIUM 140 MMOL/L (135-145); TOTAL CARBON DIOXIDE 21.5 MMOL/L (24-32); TOTAL PROTEIN 7.1 G/DL (6.4-8.2); eCRCL 72 ML/MIN; eGFR 67 ML/MIN
[2024-01-27 07:10] LABS: CALCIUM 8.5 MG/DL (8.5-10.1)
[2024-01-27 07:11] LABS: TOTAL CELLS COUNTED 100
[2024-01-27 07:12] LABS: PLATELET ESTIMATE NORMAL
[2024-01-27 07:13] LABS: ANISOCYTOSIS 1+
[2024-01-27 07:27] LABS: MICROCYTOSIS 1+; POLYCHROMASIA FEW
[2024-01-27 07:28] LABS: ELLIPTOCYTES FEW; STOMATOCYTES FEW; TEAR DROP CELLS FEW
[2024-01-27 07:31] LABS: HYPOCHROMASIA 1+; SCHISTOCYTES FEW
[2024-01-27] MEDS: multivitamins, therapeutics tablet PO SCH (07:56)
[2024-01-27 10:00] VITALS: BP 132/72; PULSE 65; RESP 18; TEMP 98.4; O2SAT 95
[2024-01-27] MEDS ORDERED: CEPH250T PO (14:36)
[2024-01-27] MEDS: acetaminophen 325mg tablet PO PRN (15:37)
[2024-01-27 15:56] LABS: THYROID STIMULATING HORMONE 4.48 ulU/ml (0.34-4.50)
[2024-01-27 17:51] VITALS: PULSE 70; RESP 16; O2SAT 97
== END 2024-01-27 15:45 | disposition home health service (06) | DRG 314 ==
LOC: ER 09:32 → ORTHO 4S 18:02
PROVIDERS: ADMIT Family Medicine; ATTEND Family Medicine
PROC: 0Y6U0Z1 Detachment at Left 3rd Toe, High, Open Approach (ICD-10-PCS; principal; 2024-01-26 11:54)
DX: E11.69 Type 2 diabetes mellitus with other specified complication (principal); L03.116 Cellulitis of left lower limb; C50.919 Malignant neoplasm of unspecified site of unspecified female breast; M86.8X7 Other osteomyelitis, ankle and foot; L97.529 Non-pressure chronic ulcer of other part of left foot with unspecified severity; L02.612 Cutaneous abscess of left foot; E11.42 Type 2 diabetes mellitus with diabetic polyneuropathy; L89.892 Pressure ulcer of other site, stage 2; E11.621 Type 2 diabetes mellitus with foot ulcer; E03.9 Hypothyroidism, unspecified; K21.9 Gastro-esophageal reflux disease without esophagitis; M54.9 Dorsalgia, unspecified; G89.4 Chronic pain syndrome; E66.9 Obesity, unspecified; F31.9 Bipolar disorder, unspecified; G43.909 Migraine, unspecified, not intractable, without status migrainosus; M79.7 Fibromyalgia; J44.9 Chronic obstructive pulmonary disease, unspecified; F41.9 Anxiety disorder, unspecified; S91.302A Unspecified open wound, left foot, initial encounter; X58.XXXA Exposure to other specified factors, initial encounter; Y93.89 Activity, other specified; Y92.89 Other specified places as the place of occurrence of the external cause; Y99.8 Other external cause status; Z88.8 Allergy status to other drugs, medicaments and biological substances; Z88.1 Allergy status to other antibiotic agents; Z91.048 Other nonmedicinal substance allergy status; Z91.041 Radiographic dye allergy status; Z90.49 Acquired absence of other specified parts of digestive tract; Z90.710 Acquired absence of both cervix and uterus; Z98.891 History of uterine scar from previous surgery; Z87.442 Personal history of urinary calculi; Z98.1 Arthrodesis status; Z99.3 Dependence on wheelchair; Z68.35 Body mass index [BMI] 35.0-35.9, adult; Z82.49 Family history of ischemic heart disease and other diseases of the circulatory system
CPT/HCPCS: 36415; 73660; 73718; 80053; 80202; 82948; 83036; 83605; 83735; 83880; 84100; 84145; 84443; 85007; 85025; 85610; 85651; 85730; 86140; 87040; 87070; 87077; 87081; 87186; 94760; 97161; 97530; 97535; 97760; 99285; A4615; A4618; A6212; A6222; A6223; A6446; A6449; A7000; G0378; J0696; J0735; J2250; J2270; J2405; J2704; J2795; J3010; J3370; J3490; J7030; Q0163

== ENCOUNTER 2024-03-26 07:15 | Day surgery (SDC) | payer MEDICAID ==
[~2024-03-26] VITALS: Ht 170.2 cm; Wt 108.3 kg
[~2024-03-26 07:15] MED LIST changes: +CEPH250T PO
[2024-03-26] MEDS ORDERED: normal saline 1000ml 1,000 ML IV PRN (07:50)
[2024-03-26 08:00] VITALS: RESP 15; O2SAT 97
[2024-03-26] MEDS ORDERED: TAPE100T9 PO (08:02)
[2024-03-26] MEDS ORDERED: BACL20TA PO (08:02)
[2024-03-26 09:28] VITALS: BP 116/75; PULSE 65; RESP 15; TEMP 98.7; O2SAT 94
[2024-03-26 09:43] VITALS: BP 114/72; PULSE 64; RESP 15; O2SAT 95
[2024-03-26 09:58] VITALS: BP 108/69; PULSE 61; RESP 14; O2SAT 96
[2024-03-26 10:13] VITALS: BP 112/61; PULSE 63; RESP 15; O2SAT 97
[2024-03-26 10:15] VITALS: BP 110/76; PULSE 65; RESP 17; O2SAT 96
== END 2024-03-26 10:42 | disposition home or self-care (01) ==
LOC: SSTAY O 07:15
PROVIDERS: ATTEND Radiology Diagnostic Radiology
DX: R59.0 Localized enlarged lymph nodes (principal); E03.9 Hypothyroidism, unspecified; K21.9 Gastro-esophageal reflux disease without esophagitis; Z85.3 Personal history of malignant neoplasm of breast; F32.A Depression, unspecified; G62.9 Polyneuropathy, unspecified; Z90.49 Acquired absence of other specified parts of digestive tract; Z90.710 Acquired absence of both cervix and uterus; Z98.890 Other specified postprocedural states; Z79.899 Other long term (current) drug therapy
CPT/HCPCS: 10005; A6449

== ENCOUNTER 2024-04-20 00:38 | Emergency (ER) | payer MEDICAID ==
[~2024-04-20] VITALS: Ht 170.2 cm; Wt 103.2 kg
[~2024-04-20 00:38] MED LIST changes: -BACL10TA PO; +BACL20TA PO; -CEPH250T PO; -CETI-194 PO; -DOCU100C33 PO; -EST1T PO; -MULT-933 PO; +ONDA-243 PO; -ONDA4TAB12 PO; +TAPE100T9 PO; -TAPE50TA9 PO
[2024-04-20 02:59] VITALS: TEMP 97.8
[2024-04-20] MEDS: ondansetron/PF 4mg/2ml inj IV ONE (03:13)
[2024-04-20] MEDS: normal saline 1000ml 1,000 ML IV ONE (03:13)
[2024-04-20] MEDS: LORazepam 2 mg/ml vial IV ONE (03:13)
[2024-04-20] MEDS: HYDROmorphone 1 mg/ml syringe IV ONE (03:15)
[2024-04-20 05:00] VITALS: BP 106/58; PULSE 54; RESP 16; O2SAT 97
== END 2024-04-20 05:01 | disposition home or self-care (01) ==
LOC: ER 00:39
DX: G89.29 Other chronic pain (principal); M54.9 Dorsalgia, unspecified; R11.2 Nausea with vomiting, unspecified; F31.9 Bipolar disorder, unspecified; G43.909 Migraine, unspecified, not intractable, without status migrainosus; G62.9 Polyneuropathy, unspecified; J45.909 Unspecified asthma, uncomplicated; K21.9 Gastro-esophageal reflux disease without esophagitis; E03.9 Hypothyroidism, unspecified; F41.9 Anxiety disorder, unspecified; M79.7 Fibromyalgia; Z90.49 Acquired absence of other specified parts of digestive tract; Z98.890 Other specified postprocedural states; Z90.710 Acquired absence of both cervix and uterus; Z56.0 Unemployment, unspecified; Z88.1 Allergy status to other antibiotic agents; Z88.8 Allergy status to other drugs, medicaments and biological substances; Z91.018 Allergy to other foods; Z79.899 Other long term (current) drug therapy
CPT/HCPCS: 96361; 96374; 96375; 99284; J1170; J2060; J2405; J7030

== ENCOUNTER 2024-04-29 21:51 | Emergency (ER) | payer MEDICAID ==
[~2024-04-29] VITALS: Ht 170.2 cm; Wt 108.2 kg
[2024-04-29] MEDS: morphine 4 MG/ML inj SYRINge IV ONE (22:42)
[2024-04-29] MEDS: diazepam inj 5 MG/ML inj. IV ONE (22:43)
[2024-04-29 22:55] LABS: HEMOGLOBIN 12.4 g/dl (12.0-16.0); LYMPHOCYTES # (AUTO) 0.7 X10'3 (1.1-4.8); MEAN CORPUSCULAR VOLUME 90.6 FL (78-98); MEAN PLATELET VOLUME 6.6 FL (7.4-10.4); MONOCYTES # (AUTO) 0.2 X10'3 (0-0.9); NEUTROPHILS # (AUTO) 6.6 X10'3 (1.8-7.7); NEUTROPHILS % (AUTO) 87.3 % (42-75); PLATELET COUNT 277 X10'3 (140-440); RED CELL DISTRIBUTION WIDTH 18.6 % (11.5-14.5)
[2024-04-29 22:57] LABS: BASOPHILS % (AUTO) 0.2 % (0-1); EOSINOPHILS % (AUTO) 0.1 % (0-6); HEMATOCRIT 37.5 % (35.0-45.0); LYMPHOCYTES % (AUTO) 9.8 % (21-51); MEAN CORPUSCULAR HEMOGLOBIN 29.9 PG (27.0-31.0); MONOCYTES % (AUTO) 2.6 % (2-12); RED BLOOD COUNT 4.14 X10'6 (4.20-5.60); WHITE BLOOD COUNT 7.6 X10'3 (4.5-11.0)
[2024-04-29] MEDS ORDERED: morphine 4 MG/ML inj SYRINge IV ONE (23:15)
[2024-04-30] MEDS: diphenhydrAMINE 50 mg/ml inj IV ONE (00:01)
[2024-04-30] MEDS: ketorolac trometh. 30mg/ml inj. IV ONE (00:01)
[2024-04-30] MEDS: HYDROmorphone 1 mg/ml syringe IV ONE (00:02)
[2024-04-30 00:45] VITALS: BP 127/74; PULSE 88; RESP 16; TEMP 98.1; O2SAT 98
[2024-04-30 02:13] LABS: PLATELET ESTIMATE NORMAL; TOTAL CELLS COUNTED 100
[2024-04-30 02:14] LABS: ANISOCYTOSIS 2+
[2024-04-30 02:16] LABS: ELLIPTOCYTES FEW
== END 2024-04-30 00:48 | disposition home or self-care (01) ==
LOC: ER 21:52
DX: R52 Pain, unspecified (principal); G43.909 Migraine, unspecified, not intractable, without status migrainosus; J45.909 Unspecified asthma, uncomplicated; K21.9 Gastro-esophageal reflux disease without esophagitis; F31.9 Bipolar disorder, unspecified; F41.9 Anxiety disorder, unspecified; Z88.1 Allergy status to other antibiotic agents; Z88.8 Allergy status to other drugs, medicaments and biological substances; Z91.018 Allergy to other foods; Z79.899 Other long term (current) drug therapy; Z98.890 Other specified postprocedural states; Z90.49 Acquired absence of other specified parts of digestive tract; Z90.710 Acquired absence of both cervix and uterus
CPT/HCPCS: 36415; 71045; 83605; 84145; 85007; 85025; 87040; 96374; 96375; 99284; J1170; J1200; J1885; J2270; J3360